=== PATIENT | female | born 1940 | race Caucasian/White ===

== ENCOUNTER → 2021-09-13 16:28 | Outpatient (CLI) | payer MEDICARE, OTHER, SELFPAY ==
[2021-09-13 18:12] LABS: COVID19 -Nasal RAPID Negative (Negative)
== END ==
PROVIDERS: Visit Provider Nurse Practitioner Family
DX: Z20.822 Contact with and (suspected) exposure to COVID-19 (principal)
CPT/HCPCS: 87635

== ENCOUNTER → 2021-09-13 16:35 | Outpatient (CLI) | payer MEDICARE, OTHER, SELFPAY ==
--- NOTE | 2021-09-13 16:38 | DI.RAD.S_ITS ---
PROCEDURE: XR CHEST 2V INDICATIONS: cough, fatigue TECHNIQUE: 2 views of the chest were acquired. COMPARISON: None. FINDINGS: Surgical changes and devices: Pacemaker. Lungs and pleura: Lungs are clear. No pleural effusions or pneumothorax. Mediastinum: Mediastinal contours are normal. Heart size is enlarged. Bones and chest wall: No suspicious bony abnormalities. Soft tissues appear unremarkable. IMPRESSION: No acute pulmonary process. Dictated by: Aaliyah Maloney M.D. on 09/13/2021 at 16:53 Approved by: Aaliyah Maloney M.D. on 09/13/2021 at 16:53
== END ==
PROVIDERS: Referring Provider Nurse Practitioner Family; Visit Provider Nurse Practitioner Family
DX: R05.9 Cough, unspecified (principal); R53.83 Other fatigue; I51.7 Cardiomegaly; Z20.822 Contact with and (suspected) exposure to COVID-19
CPT/HCPCS: 71046; 87635

== ENCOUNTER → 2022-01-06 12:34 | Outpatient (CLI) | payer MEDICARE, OTHER, SELFPAY ==
--- NOTE | 2022-01-06 | DI.RAD.S_ITS ---
PROCEDURE: XR CHEST 2V INDICATIONS: Unspecified atrial fibrillation TECHNIQUE: 2 views of the chest were acquired. COMPARISON: [facility], CR, XR CHEST 2V, 09/13/2021, 16:35. FINDINGS: Surgical changes and devices: None. Lungs and pleura: Lungs are clear. No pleural effusions or pneumothorax. Mediastinum: Mediastinal contours are normal. Heart size is normal. Bones and chest wall: No suspicious bony abnormalities. Soft tissues appear unremarkable. IMPRESSION: No acute cardiopulmonary process demonstrated radiographically. Dictated by: Archie Mireles M.D. on 01/06/2022 at 14:11 Approved by: Archie Mireles M.D. on 01/06/2022 at 14:11
== END ==
PROVIDERS: PCP Physician Assistant Medical; Referring Provider Internal Medicine Cardiovascular Disease; Visit Provider Internal Medicine Cardiovascular Disease
DX: I13.0 Hypertensive heart and chronic kidney disease with heart failure and stage 1 through stage 4 chronic kidney disease, or unspecified chronic kidney disease (principal); N18.32 Chronic kidney disease, stage 3b; I50.22 Chronic systolic (congestive) heart failure; I48.0 Paroxysmal atrial fibrillation; E78.00 Pure hypercholesterolemia, unspecified; Z51.81 Encounter for therapeutic drug level monitoring; Z79.899 Other long term (current) drug therapy
CPT/HCPCS: 71046

== ENCOUNTER → 2022-02-11 13:19 | Outpatient (CLI) | payer MEDICARE, OTHER, SELFPAY ==
[2022-02-11 14:30] LABS: COVID19 -Nasal RAPID Negative (Negative)
== END ==
PROVIDERS: PCP Physician Assistant Medical; Referring Provider Internal Medicine; Visit Provider Internal Medicine
DX: Z20.822 Contact with and (suspected) exposure to COVID-19 (principal)
CPT/HCPCS: 87635; C9803

== ENCOUNTER → 2022-02-11 13:22 | Outpatient (CLI) | payer MEDICARE, OTHER, SELFPAY ==
--- NOTE | 2022-02-16 11:07 | PM.PFT.1 ---
Pulmonary Function Test Referral & Results Date Patient Seen: 02/11/22 Requesting provider: Des Main Results: The spirometry demonstrates an FVC of 1.75 L which is 59% of predicted. The FEV1 was measured at 1.26 L which is 57% of predicted. The FEV1/FVC ratio was 72 which is 98% of predicted. The diffusing capacity was measured at 12.4 rate which is 42% of predicted. No hemoglobin value was provided, so no correction for potential anemia could be made, if appropriate. Interpretation: This study demonstrates possible obstructive lung disease based on reduction FEV1 although FEV1/FVC ratio is preserved There is also moderately severe reduction diffusing capacity suggesting disease at the capillary alveolar level Clinical correlation suggested
== END ==
PROVIDERS: PCP Physician Assistant Medical; Referring Provider Internal Medicine Cardiovascular Disease; Visit Provider Internal Medicine Cardiovascular Disease
DX: Z20.822 Contact with and (suspected) exposure to COVID-19 (principal); Z79.899 Other long term (current) drug therapy; J98.8 Other specified respiratory disorders
CPT/HCPCS: 87635; 94010; 94729; C9803

== ENCOUNTER 2022-05-04 20:32 | Emergency (ER) | payer MEDICARE, OTHER, SELFPAY ==
[2022-05-04] VITALS (9 sets, daily range): BP systolic 134–153; BP diastolic 71–88; PULSE 79–102; RESP 20–34; TEMP 36.7; O2SAT 86–99; BMI 23.1
--- NOTE | 2022-05-04 20:35 | DI.RAD.S_ITS ---
PROCEDURE: XR CHEST 1V INDICATIONS: SOB TECHNIQUE: One view of the chest was acquired. COMPARISON: [facility], CR, XR CHEST 2V, 01/06/2022, 12:51. FINDINGS: Surgical changes and devices: Left chest wall 3 lead cardiac pacing device. Lungs and pleura: Diffusely increased interstitial markings with cephalization of pulmonary vessels. Possible small left pleural effusion. Mediastinum: Mediastinal contours appear normal. Heart size is enlarged. Bones and chest wall: No suspicious bony lesions. Overlying soft tissues appear unremarkable. IMPRESSION: Cardiomegaly with moderate interstitial and alveolar edema and possible small left pleural effusion. Dictated by: Archie Mireles M.D. on 05/04/2022 at 20:59 Approved by: Archie Mireles M.D. on 05/04/2022 at 20:59
--- NOTE | 2022-05-04 20:40 | ED_ITS ---
HPI - SOB/Dyspnea General Chief Complaint: Shortness of Breath/Dyspnea Stated Complaint: SOB x3days Time Seen by Provider: 05/04/22 20:34 History of Present Illness HPI Narrative: 81-year-old female nonsmoker with history of hypertension, hyperlipidemia and congestive heart failure presents with family in the chief complaint of gradually worsening shortness of breath over the past few days. She is had no fever or chills and denies runny nose, sore throat or cough. She denies any na usea, vomiting or diarrhea. She denies any change in her diet or medications though she does mention that it does not seem like her normal dose of Lasix has been making her urinate as much as previously. She states that her shortness of breath is worse with exertion and with lying flat. She has had some cough but denies the production of any sputum. She does not frequently weigh herself but states that her lower extremities seem a bit swollen. Related Data Home Medications Medication Instructions Recorded Confirmed amiodarone 200 mg tablet 200 mg PO DAILY 09/13/21 09/13/21 atorvastatin 20 mg tablet 20 mg PO QPM 09/13/21 09/13/21 bethanechol chloride 25 mg tablet 25 mg PO TID 09/13/21 09/13/21 carvedilol 25 mg tablet 25 mg PO BID 09/13/21 09/13/21 dabigatran etexilate 75 mg capsule 75 mg PO BID 09/13/21 09/13/21 (Pradaxa) dicyclomine 20 mg tablet 20 mg PO BID 09/13/21 09/13/21 furosemide 40 mg tablet 40 mg PO BID 09/13/21 09/13/21 gabapentin 600 mg tablet 600 mg PO TID 09/13/21 09/13/21 levothyroxine 112 mcg capsule 112 mcg PO DAILY 09/13/21 09/13/21 omeprazole 40 mg capsule,delayed 40 mg PO DAILY 09/13/21 09/13/21 release pantoprazole 20 mg tablet,delayed 20 mg PO DAILY 09/13/21 09/13/21 release ropinirole 0.5 mg tablet 0.5 mg PO BEDTIME 09/13/21 09/13/21 Previous Rx's Medication Instructions Recorded benzonatate 100 mg capsule 100 mg PO BID PRN cough #20 caps 09/13/21 Allergies Allergy/AdvReac Type Severity Reaction Status Date / Time No Known Drug Allergies Allergy Unverified 09/13/21 16:21 Review of Systems Review of Systems Narrative: GENERAL: Denies chills, fatigue, malaise, fever, sweats. HEENT: Denies sinus pain, ear pain, sore throat, difficulty swallowing, dizziness. RESPIRATORY: See HPI CARDIOVASCULAR: See HPI GASTROINTESTINAL: Denies nausea, vomiting, abdominal pain, diarrhea, const ipation, melena. : Denies dysuria, frequency, incontinence, hematuria, urinary retention. MUSCULOSKELETAL: denies weakness, joint pain, or bony pain SKIN: Denies rash, skin lesions, or other NEUROLOGIC: Denies weakness, headache, numbness, change in speech, confusion, seizures, incoordination. PSYCHIATRIC: No concerning psychosocial issues. 12 point review of systems is negative except for those stated above Patient History Social History Smoking Status: Never smoker Smoking Status: Never smoker Exam Narrative Exam Narrative: GENERAL: [81] year old patient appears stated age. Well-developed patient, in mild distress. HEAD: Atraumatic. Normocephalic. EYES: Pupils equal round and reactive. Extraocular motions intact. No scleral icterus. No injection or drainage. ENT: Nose without bleeding, purulent drainage. Throat without erythema, tonsillar hypertrophy or exudate. Airway patent. NECK: Trachea midline. Non tender CARDIOVASCULAR: Regular rate and rhythm without murmurs, gallops, or rubs. RESPIRATORY: Faint crackles noted in bilateral bases, no significant increased work of breathing, use of accessory muscles or hypoxemia GASTROINTESTINAL: Abdomen soft, non-tender, nondistended. EXTREMITIES: 1+ pitting edema bilateral lower extremities. BACK: Nontender without deformity or crepitance. No flank tenderness. NEURO: AOx3. SKIN: No rash or erythema of visible areas Initial Vital Signs Initial Vital Signs: Vital Signs Pulse Rate 85 05/04/22 20:36 Pulse Oximetry 97 05/04/22 20:36 Course Orders Ordered: Discontinued Medications Furosemide (Furosemide 40 Mg/4 Ml Vial) 40 mg IV NOW ONE Stop: 05/04/22 22:40 Last Admin: 05/04/22 23:03 Dose: 40 mg Documented By: EB Sodium Chloride (Normal Saline 0.9%) 1,000 mls @ 150 mls/hr IV CONT MATEUS Last Infusion: 05/05/22 00:49 Dose: 150 mls/hr Documented By: Admin: 05/04/22 20:50 Dose: 150 mls/hr Documented By: EDUARDO Vital Signs Vital signs: Vital Signs - 8 hr 05/04/22 21:00 05/04/22 21:00 05/04/22 21:30 Pulse Rate 81 Respiratory Rate 24 Blood Pressure 146/80 H 153/75 H Pulse Oximetry 97 05/04/22 21:30 05/04/22 22:00 05/04/22 22:00 Pulse Rate 84 81 Respiratory Rate 22 Blood Pressure 140/72 Pulse Oximetry 96 97 05/04/22 22:30 05/04/22 22:30 05/04/22 23:00 Pulse Rate 79 80 Respiratory Rate 20 34 H Blood Pressure 147/82 H Pulse Oximetry 97 86 L 05/04/22 23:01 05/04/22 23:01 05/04/22 23:30 Pulse Rate 84 80 Respiratory Rate 32 H 27 H Blood Pressure 135/71 Pulse Oximetry 97 99 05/05/22 00:00 Pulse Rate 82 Respiratory Rate 35 H Blood Pressure Pulse Oximetry 94 MDM - SOB/Dyspnea Lab Data Result diagrams: 05/04/22 20:40 05/04/22 20:40 Labs: Lab Results 05/04/22 05/04/22 05/04/22 Range/Units 20:40 20:40 20:40 WBC 5.9 (4.5-11.0) X10^3/uL RBC 3.42 L (4.0-5.2) X10^6/uL Hgb 10.7 L (12.0-16.0) g/dL Hct 32.2 L (36-46) % MCV 94.1 (80-100) fL MCH 31.3 (26-34) PG MCHC 33.2 (30-36) % RDW 15.3 H (11.6-14.8) % Plt Count 229 (150-400) X10^3/uL Neut % (Auto) 69.8 (50-75) % Lymph % (Auto) 17.4 L (25-40) % [place] % (Auto) 8.5 (3-14) % Eos % (Auto) 2.9 (2-4) % Baso % (Auto) 1.4 (0-2) % Neut # (Auto) 4100 (9683-9043) /uL Lymph # (Auto) 1000 L (9389-6470) /uL [place] # (Auto) 500 (0-900) /uL Eos # (Auto) 200 (0-450) /uL Baso # (Auto) 100 (0-100) /uL D-Dimer < 200 (<230) ng/mL Sodium (137-145) mmol/L Potassium (3.4-5.1) mmol/L Chloride (98-107) mmol/L Carbon Dioxide (22-32) mmol/L BUN (7-17) mg/dL Creatinine (0.52-1.04) mg/dL Estimated GFR (>60) mL/min BUN/Creatinine Ratio (6-22) Glucose (80-110) mg/dL Calcium (8.4-10.2) mg/dL Total Bilirubin (0.2-1.3) mg/dL AST (14-36) IU/L ALT (<35) IU/L Alkaline Phosphatase (38-126) U/L Total Creatine Kinase (30-135) U/L CK-MB (CK-2) (<2.37) ng/mL CK-MB (CK-2) Rel Index (1.5-5.0) % Troponin I (0.01-0.034) ng/mL NT-Pro-B Natriuret Pep (<450) pg/mL Total Protein (6.3-8.2) g/dL Albumin (3.5-5.0) g/dL Globulin (1.7-4.1) g/dL Albumin/Globulin Ratio (1.0-2.8) Lipase (23-300) U/L Procalcitonin 0.07 (<0.5) ng/mL SARS-CoV-2 (PCR) (Negative) 05/04/22 05/04/22 Range/Units 20:40 20:45 WBC (4.5-11.0) X10^3/uL RBC (4.0-5.2) X10^6/uL Hgb (12.0-16.0) g/dL Hct (36-46) % MCV (80-100) fL MCH (26-34) PG MCHC (30-36) % RDW (11.6-14.8) % Plt Count (150-400) X10^3/uL Neut % (Auto) (50-75) % Lymph % (Auto) (25-40) % [place] % (Auto) (3-14) % Eos % (Auto) (2-4) % Baso % (Auto) (0-2) % Neut # (Auto) (8325-2994) /uL Lymph # (Auto) (7047-9164) /uL [place] # (Auto) (0-900) /uL Eos # (Auto) (0-450) /uL Baso # (Auto) (0-100) /uL D-Dimer (<230) ng/mL Sodium 138 (137-145) mmol/L Potassium 3.5 (3.4-5.1) mmol/L Chloride 102 (98-107) mmol/L Carbon Dioxide 27 (22-32) mmol/L BUN 24 H (7-17) mg/dL Creatinine 1.36 H (0.52-1.04) mg/dL Estimated GFR 39 L (>60) mL/min BUN/Creatinine Ratio 17.6 (6-22) Glucose 113 H (80-110) mg/dL Calcium 9.7 (8.4-10.2) mg/dL Total Bilirubin 0.5 (0.2-1.3) mg/dL AST 38 H (14-36) IU/L ALT 22 (<35) IU/L Alkaline Phosphatase 73 (38-126) U/L Total Creatine Kinase 130 (30-135) U/L CK-MB (CK-2) 6.77 H (<2.37) ng/mL CK-MB (CK-2) Rel Index 5.2 H (1.5-5.0) % Troponin I 0.019 (0.01-0.034) ng/mL NT-Pro-B Natriuret Pep 36789 H (<450) pg/mL Total Protein 7.3 (6.3-8.2) g/dL Albumin 4.2 (3.5-5.0) g/dL Globulin 3.1 (1.7-4.1) g/dL Albumin/Globulin Ratio 1.4 (1.0-2.8) Lipase 92 (23-300) U/L Procalcitonin (<0.5) ng/mL SARS-CoV-2 (PCR) Negative (Negative) Imaging Data Chest x-ray: Radiologist's Impression: [address] [address] XRay Report Signed Patient: Shannon Feliz MR#: [id number] : 1940 Acct:[id number] Age/Sex: 81 / F Date of Service: 05/04/22 Loc: ED Accession Number: [id number] ?? Procedure: XR chest 1V Ordering Provider: Dheeraj Manriquez D.O. PROCEDURE:? XR CHEST 1V ? INDICATIONS:? SOB ? TECHNIQUE:? One view of the chest was acquired.? ? COMPARISON:? [facility], CR, XR CHEST 2V, 01/06/2022, 12:51. ? FINDINGS:? ? Surgical changes and devices:? Left chest wall 3 lead cardiac pacing device. ? Lungs and pleura:? Diffusely increased interstitial markings with cephalization of pulmonary vessels.? Possible small left pleural effusion. ? Mediastinum:? Mediastinal contours appear normal.? Heart size is enlarged. ? Bones and chest wall:? No suspicious bony lesions.? Overlying soft tissues appear unremarkable.? ? IMPRESSION:? Cardiomegaly with moderate interstitial and alveolar edema and possible small left pleural effusion. ? ? Dictated by: Archie Mireles M.D. on 05/04/2022 at 20:59 ? ? Approved by: Archie Mireles M.D. on 05/04/2022 at 20:59 ? MDM Narrative Medical decision making narrative: 81-year-old female with history of CHF presents with complaint of increasing sh ortness of breath over the past few days. Her history and physical are most convincing for CHF as she complains of exertional dyspnea, orthopnea, lower extremity edema, noticing that her Lasix does not seem to be producing urine, elevated BNP and chest x-ray convincing for CHF. She is given 40 mg of Lasix and produces dilute urine. After which she feels much better and is able to ambulate through the department. She does become minimally short of breath and has desaturation to 89% while walking which resolves in less than 1 minute when at rest. Other diagnoses such as cardiac ischemia considered but thought unlikely given troponin abnormalities or EKG changes. Pneumonia considered but patient has no fever, procalcitonin or classic findings on chest x-ray. Pulmonary embolism considered but thought unlikely given negative D-dimer. There is no indication for hospitalization at this time, extensive discussions regarding return precautions with patient and family. We sure the opinion that is appropriate and reasonable to discharge patient, encouraged increased dosing of Lasix for the next few days, follow closely and return for any worsening, or persistent symptoms, or other concerns. Discharge Plan Departure Patient Disposition: Home Clinical Impression: Congestive heart failure Qualifiers: Heart failure type: unspecified Heart failure chronicity: acute on chronic Qualified Code(s): I50.9 - Heart failure, unspecified Instructions: DI for Heart Failure Activity Restrictions/Additional Instructions: *You have been diagnosed with [acute on chronic CHF] *What to do: *Please increase your Lasix to 80 mg both in the morning at night for each of the next 3 days. *Please follow up with your primary care provider in 2-3 days, call for an appointment. Let them know you were seen in the Emergency Department and that we ask that you be seen in follow up. We will electronically transmit a record of today's note if your PCP is in our system *If you do not have a primary care provider please contact the [facility] Resource line at [phone]. They will ask some questions about your medical history and help get you set up with a doctor in the community. *Return to Emergency Department if you should have any new, worsening or concerning symptoms, such as [fever greater than 101 F, shaking chills, worsening pain, persistent vomiting or other bothersome symptoms] Prescriptions: No Action pantoprazole 20 mg tablet,delayed release (DR/EC) 20 mg PO DAILY amiodarone 200 mg tablet 200 mg PO DAILY bethanechol chloride 25 mg tablet 25 mg PO TID carvedilol 25 mg tablet 25 mg PO BID Rx Instructions: must administer with a meal/food omeprazole 40 mg capsule,delayed release(DR/EC) 40 mg PO DAILY furosemide 40 mg tablet 40 mg PO BID gabapentin 600 mg tablet 600 mg PO TID levothyroxine 112 mcg capsule 112 mcg PO DAILY dicyclomine 20 mg tablet 20 mg PO BID Pradaxa 75 mg capsule 75 mg PO BID atorvastatin 20 mg tablet 20 mg PO QPM ropinirole 0.5 mg tablet 0.5 mg PO BEDTIME Rx Instructions: administer 1-3 hours before bedtime benzonatate 100 mg capsule 100 mg PO BID PRN (Reason: cough) Qty: 20 0RF Referrals: Lesli Lomeli PA-C [Primary Care Provider] - Visit Report Forms: Patient Portal/API
[2022-05-04] MEDS: SODIUM CHLORIDE 0.9% 1,000 ML 150 ML IV (20:50)
[2022-05-04 21:07] LABS: Add Manual Diff / Slide Review NO; Alanine Aminotransferase 22 IU/L (<35); Albumin 4.2 g/dL (3.5-5.0); Albumin Globulin Ratio 1.4 (1.0-2.8); Alkaline Phosphatase 73 U/L (38-126); Aspartate Aminotransferase 38 IU/L (14-36); BUN Creatinine Ratio 17.6 (6-22); Basophils Absolute Auto 100 /uL (0-100); Basophils Percent Auto 1.4 % (0-2); Bilirubin Total 0.5 mg/dL (0.2-1.3); Blood Urea Nitrogen 24 mg/dL (7-17); Calcium 9.7 mg/dL (8.4-10.2); Carbon Dioxide 27 mmol/L (22-32); Chloride 102 mmol/L (98-107); Creatine Kinase 130 U/L (30-135); D Dimer < 200 ng/mL (<230); Eosinophils Absolute Auto 200 /uL (0-450); Eosinophils Percent Auto 2.9 % (2-4); Estimated Glomerular Filt Rate 39 mL/min (>60); Globulin 3.1 g/dL (1.7-4.1); Glucose 113 mg/dL (80-110); HEMOLYSIS < 15 (0-50); Hematocrit 32.2 % (36-46); Hemoglobin 10.7 g/dL (12.0-16.0); Lipase 92 U/L (23-300); Lymphocytes Absolute Auto 1000 /uL (1100-4500); Lymphocytes Percent Auto 17.4 % (25-40); Mean Corpuscular HGB Conc 33.2 % (30-36); Mean Corpuscular Hemoglobin 31.3 PG (26-34); Mean Corpuscular Volume 94.1 fL (80-100); Monocytes Absolute Auto 500 /uL (0-900); Monocytes Percent Auto 8.5 % (3-14); Neutrophils Absolute Auto 4100 /uL (1500-7000); Neutrophils Percent Auto 69.8 % (50-75); Platelet Count 229 X10^3/uL (150-400); Potassium 3.5 mmol/L (3.4-5.1); Red Blood Cell Count 3.42 X10^6/uL (4.0-5.2); Red Cell Distribution Width 15.3 % (11.6-14.8); Sodium 138 mmol/L (137-145); Total Protein 7.3 g/dL (6.3-8.2); White Blood Cell Count 5.9 X10^3/uL (4.5-11.0)
[2022-05-04 21:12] LABS: COVID19 -Nasal RAPID Negative (Negative)
[2022-05-04 21:19] LABS: NT-proBNP (BNP-Adult 18+) 10200 pg/mL (<450); Troponin I 0.019 ng/mL (0.01-0.034)
[2022-05-04 21:22] LABS: CKMB % Relative Index 5.2 % (1.5-5.0); Creatine Kinase MB 6.77 ng/mL (<2.37)
[2022-05-04 21:23] LABS: Procalcitonin 0.07 ng/mL (<0.5)
[2022-05-04] MEDS: FUROSEMIDE 40 MG/4 ML VIAL IV (23:03)
[2022-05-05] VITALS: PULSE 82; RESP 35; O2SAT 94
== END 2022-05-05 00:49 | disposition home or self-care (01) ==
PROVIDERS: Emergency Provider Emergency Medicine; PCP Physician Assistant Medical
DX: I50.9 Heart failure, unspecified (principal); R06.02 Shortness of breath; Z20.822 Contact with and (suspected) exposure to COVID-19; I11.0 Hypertensive heart disease with heart failure; Z95.0 Presence of cardiac pacemaker
CPT/HCPCS: 71045; 80053; 82550; 82553; 83690; 83880; 84145; 84484; 85025; 85379; 87635; 93005; 96361; 96374; 99284; C9803; J1940

== ENCOUNTER → 2022-07-06 13:25 | Outpatient (CLI) | payer MEDICARE, OTHER, SELFPAY ==
--- NOTE | 2022-07-06 | DI.RAD.S_ITS ---
PROCEDURE: FL BARIUM SWALLOW INDICATIONS: Dysphagia, unspecified COMPARISON: None. FINDINGS: Function: There is normal esophageal peristalsis. No spontaneous gastroesophageal reflux. There is normal transit of a calibrated barium tablet through the esophagus into the stomach. Morphology: Air-contrast images demonstrate normal mucosal morphology. Single contrast views show no esophageal strictures, extrinsic mass effects, or diverticula. Limited images of the stomach demonstrate normal appearance. IMPRESSION: Normal barium swallow. Dictated by: Jonathan Reyes M.D. on 07/06/2022 at 16:21 Approved by: Jonathan Reyes M.D. on 07/06/2022 at 16:22
== END ==
PROVIDERS: PCP Physician Assistant Medical; Referring Provider Internal Medicine Gastroenterology; Visit Provider Internal Medicine Gastroenterology
DX: R13.10 Dysphagia, unspecified (principal)
CPT/HCPCS: 74220

== ENCOUNTER 2022-07-27 14:16 | Emergency (ER) | payer MEDICARE, OTHER, SELFPAY ==
[2022-07-27] VITALS (7 sets, daily range): BP systolic 114–167; BP diastolic 61–81; PULSE 59–65; RESP 17–20; TEMP 36.3; O2SAT 91–96; BMI 22.0
--- NOTE | 2022-07-27 14:27 | DI.RAD.S_ITS ---
PROCEDURE: XR WRIST LT MIN 3V INDICATIONS: fall TECHNIQUE: 4 views of the wrist were acquired. COMPARISON: None. FINDINGS: Bones: On the lateral exam, there is fragmentation of a dorsal carpal bone with associated soft tissue swelling. Generalized decrease in osseous mineralization noted. Scaphoid view: Unremarkable Soft tissues: No suspicious soft tissue calcifications. Soft tissue swelling without radiopaque foreign body IMPRESSION: 1. Probable carpal bone fracture only noted on the lateral. Consider follow-up CT 2. Osteopenia Approved by: Bertin Mercado M.D. on 07/27/2022 at 14:31
--- NOTE | 2022-07-27 14:29 | DI.RAD.S_ITS ---
PROCEDURE: XR HAND LT MIN 3V INDICATIONS: fall TECHNIQUE: 3 views of the hand(s) acquired. COMPARISON: None. FINDINGS: Bones: No fractures or dislocations. Carpal bones are normally aligned. No suspicious bony lesions. Generalized decrease in osseous mineralization noted. Second MCP and 1st cm P arthritic changes Soft tissues: No suspicious soft tissue calcifications. IMPRESSION: Osteopenia without fracture intrinsic to the hand. Osteoarthritis Approved by: Bertin Mercado M.D. on 07/27/2022 at 14:42
--- NOTE | 2022-07-27 14:29 | DI.RAD.S_ITS ---
PROCEDURE: XR HIP W PEL IF DONE LT 2V INDICATIONS: fall TECHNIQUE: AP pelvis with lateral view(s) of the left hip(s). COMPARISON: None. FINDINGS: Bones: No fractures or dislocations. Pelvic ring appears intact. No suspicious bony lesions. Left femoral fixation is present. Hardware is intact. Arthritic changes are present within the hips bilaterally. Soft tissues: The visualized bowel gas pattern is normal. No suspicious soft tissue calcifications. IMPRESSION: No visualized acute fracture or dislocation. However, if clinical concern and/or pain persist, short interval imaging followup in 7-10 days is recommended, as occult injury cannot be definitively excluded. Dictated by: Aaliyah Maloney M.D. on 07/27/2022 at 15:42 Approved by: Aaliyah Maloney M.D. on 07/27/2022 at 15:43
--- NOTE | 2022-07-27 15:17 | ED_ITS ---
HPI - Fall <Judy Elena, DO - Last Filed: 07/29/22 17:04> General Chief Complaint: Trauma Stated Complaint: Fall, L wrist pain Time Seen by Provider: 07/27/22 14:56 Source: patient and family Mode of arrival: Family Vehicle History of Present Illness HPI Narrative: Patient is an 82-year-old female history of atrial fibrillation on Pradaxa, congestive heart failure presenting today after mechanical ground level fall. She says she when outside to let her dog out when she tripped and fell landing on her left side. Complains of left wrist pain and left hip pain. She did not hit her head she did not lose consciousness she has no neck pain no shoulder pain. Related Data Home Medications Medication Instructions Recorded Confirmed amiodarone 200 mg tablet 200 mg PO DAILY 09/13/21 07/28/22 atorvastatin 20 mg tablet 20 mg PO QPM 09/13/21 07/28/22 bethanechol chloride 25 mg tablet 25 mg PO TID 09/13/21 07/28/22 carvedilol 25 mg tablet 25 mg PO BID 09/13/21 07/28/22 dabigatran etexilate 75 mg capsule 75 mg PO BID 09/13/21 07/28/22 (Pradaxa) dicyclomine 20 mg tablet 20 mg PO BID 09/13/21 07/28/22 furosemide 40 mg tablet 40 mg PO BID 09/13/21 07/28/22 gabapentin 600 mg tablet 600 mg PO TID 09/13/21 07/28/22 levothyroxine 112 mcg capsule 112 mcg PO DAILY 09/13/21 07/28/22 omeprazole 40 mg capsule,delayed 40 mg PO DAILY 09/13/21 09/13/21 release pantoprazole 20 mg tablet,delayed 40 mg PO BID 09/13/21 07/28/22 release ropinirole 0.5 mg tablet 0.5 mg PO BEDTIME 09/13/21 07/28/22 losartan 25 mg tablet 12.5 mg 07/28/22 potassium chloride 10 mEq 10 meq PO 3XD 07/28/22 07/28/22 capsule,extended release Previous Rx's Medication Instructions Recorded benzonatate 100 mg capsule 100 mg PO BID PRN cough #20 caps 09/13/21 hydrocodone 5 mg-acetaminophen 325 1 tab PO Q6H PRN pain #20 tabs 07/27/22 mg tablet docusate sodium 100 mg capsule 100 mg PO BID PRN constipation #60 07/29/22 caps hydrocodone 5 mg-acetaminophen 325 1 tab PO Q6H PRN pain #20 tabs 07/29/22 mg tablet Allergies Allergy/AdvReac Type Severity Reaction Status Date / Time No Known Drug Allergies Allergy Verified 07/27/22 14:21 Review of Systems <Judy Elena DO - Last Filed: 07/29/22 17:04> Review of Systems Narrative: GENERAL: Denies chills,fever HEENT: Denies throat pain RESPIRATORY: Denies dyspnea, cough, wheezing CARDIOVASCULAR: Denies chest pain, palpitations GASTROINTESTINAL: Denies nausea, vomiting MUSCULOSKELETAL: See HPI SKIN: No rash, no laceration, no pruritus NEUROLOGIC: Denies weakness, dizziness, headache, numbness 8 point review of systems is negative except for those stated above and HPI Patient History <Judy Elena DO - Last Filed: 07/29/22 17:04> Social History household members: children Smoking Status: Never smoker Smoking Status: Never smoker alcohol intake frequency: 0-2 drinks per day Substance Use Type: does not use Exam <Judy Elena DO - Last Filed: 07/29/22 17:04> Initial Vital Signs Initial Vital Signs: Vital Signs Temperature 97.3 F L 07/27/22 14:21 Pulse Rate 59 L 07/27/22 14:21 Respiratory Rate 20 07/27/22 14:21 Blood Pressure 157/81 H 07/27/22 14:21 Pulse Oximetry 96 07/27/22 14:21 Oxygen Delivery Method 07/27/22 14:21 GENERAL: Alert very pleasant 82-year-old female HEENT: Head atraumatic,EOMI, pupils reactive, face symmetric, [moist] mucous membranes NECK: Nontender CARDIOVASCULAR: Regular rate and rhythm without murmurs, rubs or gallops. RESPIRATORY: Breath sounds equal bilaterally, no wheezes rales or rhonchi. ABDOMEN: Soft, nontender. Normoactive bowel sounds all 4 quadrants. No guarding or rebound. EXTREMITIES: Normal range of motion, no clubbing or edema. Neurovascularly intact Left hip is tender to touch. Attempted weight-bearing but 2 tender Left upper extremity no gross bony deformity distal radial pulse intact able to move fingers no pain at elbow NEUROLOGICAL: Alert and oriented x4. SKIN: Warm, dry, no laceration, no petechiae, no rashes or lesions. <Jesus Cazares MD - Last Filed: 08/02/22 20:41> Initial Vital Signs Initial Vital Signs: Vital Signs Temperature 97.3 F L 07/27/22 14:21 Pulse Rate 59 L 07/27/22 14:21 Respiratory Rate 20 07/27/22 14:21 Blood Pressure 157/81 H 07/27/22 14:21 Pulse Oximetry 96 07/27/22 14:21 Oxygen Delivery Method 07/27/22 14:21 <Michele Wagoner DO - Last Filed: 07/29/22 19:30> Initial Vital Signs Initial Vital Signs: Vital Signs Temperature 97.3 F L 07/27/22 14:21 Pulse Rate 59 L 07/27/22 14:21 Respiratory Rate 20 07/27/22 14:21 Blood Pressure 157/81 H 07/27/22 14:21 Pulse Oximetry 96 07/27/22 14:21 Oxygen Delivery Method 07/27/22 14:21 <Aimee Florence, DO - Last Filed: 07/31/22 16:16> Initial Vital Signs Initial Vital Signs: Vital Signs Temperature 97.3 F L 07/27/22 14:21 Pulse Rate 59 L 07/27/22 14:21 Respiratory Rate 20 07/27/22 14:21 Blood Pressure 157/81 H 07/27/22 14:21 Pulse Oximetry 96 07/27/22 14:21 Oxygen Delivery Method 07/27/22 14:21 Procedures <Judy Elena DO - Last Filed: 07/29/22 17:04> Orthopedic Splinting/Casting Injury #1: Upper Extremity Injury Location: wrist Upper Extremity Immobilizer: sling/shoulder immobilizer and posterior splint Post splinting neuro exam: intact Post splinting vascular exam: intact Placed by: Nursing Additional Comments: The patient had posterior splint placed by nursing. Upon my evaluation fingers look slightly cyanotic is Gurinder wrap was rewrapped looser. This seemed to improve she has good distal radial pulse. Course <Judy Elena DO - Last Filed: 07/29/22 17:04> Orders Ordered: Discontinued Medications Hydrocodone Bitart/Acetaminophen (Hydrocodone/Acet 5/325 Tablet) 1 tab PO NOW ONE Stop: 07/27/22 17:08 Last Admin: 07/27/22 17:20 Dose: 1 tab Documented By: MAYA Hydrocodone Bitart/Acetaminophen (Hydrocodone/Acet 5/325 Tablet) 1 tab PO Q4HR [facility] Last Admin: 07/29/22 13:53 Dose: 1 tab Documented By: Admin: 07/29/22 10:57 Dose: 1 tab Documented By: Admin: 07/29/22 06:55 Dose: 1 tab Documented By: Admin: 07/29/22 03:39 Dose: 1 tab Documented By: Admin: 07/28/22 21:31 Dose: 1 tab Documented By: Admin: 07/28/22 18:17 Dose: 1 tab Documented By: Admin: 07/28/22 13:45 Dose: 1 tab Documented By: Admin: 07/28/22 10:49 Dose: 1 tab Documented By: Admin: 07/28/22 07:26 Dose: 1 tab Documented By: Admin: 07/28/22 01:48 Dose: 1 tab Documented By: Admin: 07/27/22 21:26 Dose: 1 tab Documented By: MIKA Amiodarone HCl (Amiodarone 200 Mg Tablet) 200 mg PO DAILY [facility] Last Admin: 07/29/22 08:48 Dose: 200 mg Documented By: Admin: 07/28/22 10:47 Dose: 200 mg Documented By: VLADIMIR Amlodipine Besylate (Amlodipine 5 Mg Tablet) 5 mg PO DAILY [facility] Last Admin: 07/29/22 08:47 Dose: 5 mg Documented By: Admin: 07/28/22 10:52 Dose: 5 mg Documented By: VLADIMIR Carvedilol (Carvedilol 12.5 Mg Tablet) 25 mg PO BID [facility] Last Admin: 07/29/22 08:47 Dose: 25 mg Documented By: Admin: 07/28/22 21:31 Dose: 25 mg Documented By: Admin: 07/28/22 10:47 Dose: 25 mg Documented By: Admin: 07/27/22 21:26 Dose: 25 mg Documented By: MIKA Dabigatran (Dabigatran 75 Mg Capsule) 75 mg PO BID [facility] Last Admin: 07/29/22 08:47 Dose: 75 mg Documented By: Admin: 07/28/22 21:30 Dose: 75 mg Documented By: Admin: 07/28/22 10:47 Dose: 75 mg Documented By: Admin: 07/27/22 21:25 Dose: 75 mg Documented By: MIKA Gabapentin (Gabapentin 600 Mg Tablet) 600 mg PO TID [facility] Last Admin: 07/29/22 08:47 Dose: 600 mg Documented By: Admin: 07/28/22 21:31 Dose: 600 mg Documented By: Admin: 07/28/22 14:51 Dose: 600 mg Documented By: Admin: 07/28/22 10:47 Dose: 600 mg Documented By: Admin: 07/27/22 21:25 Dose: 600 mg Documented By: MIKA Ceftriaxone Sodium 1,000 mg/ (Sodium Chloride) 100 mls @ 200 mls/hr IV NOW ONE Stop: 07/29/22 11:04 Last Infusion: 07/29/22 12:10 Dose: 0 mls/hr Documented By: Admin: 07/29/22 11:25 Dose: 200 mls/hr Documented By: PAULA Ropinirole HCl (Ropinirole 0.25 Mg Tablet) 0.5 mg PO NOW ONE Stop: 07/27/22 19:42 Last Admin: 07/27/22 21:26 Dose: 0.5 mg Documented By: MIKA Vital Signs Vital signs: Vital Signs - 8 hr 07/29/22 11:34 07/29/22 11:34 07/29/22 12:00 Pulse Rate 63 Blood Pressure 154/67 H 146/67 H Pulse Oximetry 90 L Oxygen Delivery Method Room Air Oxygen Flow Rate 07/29/22 12:00 Pulse Rate 60 Blood Pressure Pulse Oximetry 98 Oxygen Delivery Method Nasal Cannula Oxygen Flow Rate 2 <Jesus Cazares MD - Last Filed: 08/02/22 20:41> Course Course Narrative: July 27, 2022 at 6:[address] Elena, patient here with family. Is going to be evaluated for snf/rehab, social work involved. Physical therapy will need evaluation treatment. No new issues. Family and patient aware for plans for tomorrow. 6:50 p.m.. Introduced myself to patient and family. They do understand observation overnight/pain control and will resume looking for rehab/snf tomorrow. July 28, 2022 at 7:00 a.m., sign out back to Dr. Elena no new issues over the course of evening. Still will be awaiting for social work intervention evaluation and disposition Orders Ordered: Discontinued Medications Hydrocodone Bitart/Acetaminophen (Hydrocodone/Acet 5/325 Tablet) 1 tab PO NOW ONE Stop: 07/27/22 17:08 Last Admin: 07/27/22 17:20 Dose: 1 tab Documented By: MAYA Hydrocodone Bitart/Acetaminophen (Hydrocodone/Acet 5/325 Tablet) 1 tab PO Q4HR [facility] Last Admin: 07/29/22 13:53 Dose: 1 tab Documented By: Admin: 07/29/22 10:57 Dose: 1 tab Documented By: Admin: 07/29/22 06:55 Dose: 1 tab Documented By: Admin: 07/29/22 03:39 Dose: 1 tab Documented By: Admin: 07/28/22 21:31 Dose: 1 tab Documented By: Admin: 07/28/22 18:17 Dose: 1 tab Documented By: Admin: 07/28/22 13:45 Dose: 1 tab Documented By: Admin: 07/28/22 10:49 Dose: 1 tab Documented By: Admin: 07/28/22 07:26 Dose: 1 tab Documented By: Admin: 07/28/22 01:48 Dose: 1 tab Documented By: Admin: 07/27/22 21:26 Dose: 1 tab Documented By: MIKA Amiodarone HCl (Amiodarone 200 Mg Tablet) 200 mg PO DAILY [facility] Last Admin: 07/29/22 08:48 Dose: 200 mg Documented By: Admin: 07/28/22 10:47 Dose: 200 mg Documented By: VLADIMIR Amlodipine Besylate (Amlodipine 5 Mg Tablet) 5 mg PO DAILY [facility] Last Admin: 07/29/22 08:47 Dose: 5 mg Documented By: Admin: 07/28/22 10:52 Dose: 5 mg Documented By: VLADIMIR Carvedilol (Carvedilol 12.5 Mg Tablet) 25 mg PO BID [facility] Last Admin: 07/29/22 08:47 Dose: 25 mg Documented By: Admin: 07/28/22 21:31 Dose: 25 mg Documented By: Admin: 07/28/22 10:47 Dose: 25 mg Documented By: Admin: 07/27/22 21:26 Dose: 25 mg Documented By: MIKA Dabigatran (Dabigatran 75 Mg Capsule) 75 mg PO BID [facility] Last Admin: 07/29/22 08:47 Dose: 75 mg Documented By: Admin: 07/28/22 21:30 Dose: 75 mg Documented By: Admin: 07/28/22 10:47 Dose: 75 mg Documented By: Admin: 07/27/22 21:25 Dose: 75 mg Documented By: MIKA Gabapentin (Gabapentin 600 Mg Tablet) 600 mg PO TID [facility] Last Admin: 07/29/22 08:47 Dose: 600 mg Documented By: Admin: 07/28/22 21:31 Dose: 600 mg Documented By: Admin: 07/28/22 14:51 Dose: 600 mg Documented By: Admin: 07/28/22 10:47 Dose: 600 mg Documented By: Admin: 07/27/22 21:25 Dose: 600 mg Documented By: MIKA Ceftriaxone Sodium 1,000 mg/ (Sodium Chloride) 100 mls @ 200 mls/hr IV NOW ONE Stop: 07/29/22 11:04 Last Infusion: 07/29/22 12:10 Dose: 0 mls/hr Documented By: Admin: 07/29/22 11:25 Dose: 200 mls/hr Documented By: PAULA Ropinirole HCl (Ropinirole 0.25 Mg Tablet) 0.5 mg PO NOW ONE Stop: 07/27/22 19:42 Last Admin: 07/27/22 21:26 Dose: 0.5 mg Documented By: MIKA Vital Signs Vital signs: Vital Signs - 8 hr 07/29/22 11:34 07/29/22 11:34 07/29/22 12:00 Pulse Rate 63 Blood Pressure 154/67 H 146/67 H Pulse Oximetry 90 L Oxygen Delivery Method Room Air Oxygen Flow Rate 07/29/22 12:00 Pulse Rate 60 Blood Pressure Pulse Oximetry 98 Oxygen Delivery Method Nasal Cannula Oxygen Flow Rate 2 <Michele Wagoner DO - Last Filed: 07/29/22 19:30> Orders Ordered: Discontinued Medications Hydrocodone Bitart/Acetaminophen (Hydrocodone/Acet 5/325 Tablet) 1 tab PO NOW ONE Stop: 07/27/22 17:08 Last Admin: 07/27/22 17:20 Dose: 1 tab Documented By: MAYA Hydrocodone Bitart/Acetaminophen (Hydrocodone/Acet 5/325 Tablet) 1 tab PO Q4HR [facility] Last Admin: 07/29/22 13:53 Dose: 1 tab Documented By: Admin: 07/29/22 10:57 Dose: 1 tab Documented By: Admin: 07/29/22 06:55 Dose: 1 tab Documented By: Admin: 07/29/22 03:39 Dose: 1 tab Documented By: Admin: 07/28/22 21:31 Dose: 1 tab Documented By: Admin: 07/28/22 18:17 Dose: 1 tab Documented By: Admin: 07/28/22 13:45 Dose: 1 tab Documented By: Admin: 07/28/22 10:49 Dose: 1 tab Documented By: Admin: 07/28/22 07:26 Dose: 1 tab Documented By: Admin: 07/28/22 01:48 Dose: 1 tab Documented By: Admin: 07/27/22 21:26 Dose: 1 tab Documented By: MIKA Amiodarone HCl (Amiodarone 200 Mg Tablet) 200 mg PO DAILY [facility] Last Admin: 07/29/22 08:48 Dose: 200 mg Documented By: Admin: 07/28/22 10:47 Dose: 200 mg Documented By: VLADIMIR Amlodipine Besylate (Amlodipine 5 Mg Tablet) 5 mg PO DAILY [facility] Last Admin: 07/29/22 08:47 Dose: 5 mg Documented By: Admin: 07/28/22 10:52 Dose: 5 mg Documented By: VLADIMIR Carvedilol (Carvedilol 12.5 Mg Tablet) 25 mg PO BID [facility] Last Admin: 07/29/22 08:47 Dose: 25 mg Documented By: Admin: 07/28/22 21:31 Dose: 25 mg Documented By: Admin: 07/28/22 10:47 Dose: 25 mg Documented By: Admin: 07/27/22 21:26 Dose: 25 mg Documented By: MIKA Dabigatran (Dabigatran 75 Mg Capsule) 75 mg PO BID [facility] Last Admin: 07/29/22 08:47 Dose: 75 mg Documented By: Admin: 07/28/22 21:30 Dose: 75 mg Documented By: Admin: 07/28/22 10:47 Dose: 75 mg Documented By: Admin: 07/27/22 21:25 Dose: 75 mg Documented By: MIKA Gabapentin (Gabapentin 600 Mg Tablet) 600 mg PO TID [facility] Last Admin: 07/29/22 08:47 Dose: 600 mg Documented By: Admin: 07/28/22 21:31 Dose: 600 mg Documented By: Admin: 07/28/22 14:51 Dose: 600 mg Documented By: Admin: 07/28/22 10:47 Dose: 600 mg Documented By: Admin: 07/27/22 21:25 Dose: 600 mg Documented By: MIKA Ceftriaxone Sodium 1,000 mg/ (Sodium Chloride) 100 mls @ 200 mls/hr IV NOW ONE Stop: 07/29/22 11:04 Last Infusion: 07/29/22 12:10 Dose: 0 mls/hr Documented By: Admin: 07/29/22 11:25 Dose: 200 mls/hr Documented By: PAULA Ropinirole HCl (Ropinirole 0.25 Mg Tablet) 0.5 mg PO NOW ONE Stop: 07/27/22 19:42 Last Admin: 07/27/22 21:26 Dose: 0.5 mg Documented By: MIKA Vital Signs Vital signs: Vital Signs - 8 hr 07/29/22 11:34 07/29/22 11:34 07/29/22 12:00 Pulse Rate 63 Blood Pressure 154/67 H 146/67 H Pulse Oximetry 90 L Oxygen Delivery Method Room Air Oxygen Flow Rate 07/29/22 12:00 Pulse Rate 60 Blood Pressure Pulse Oximetry 98 Oxygen Delivery Method Nasal Cannula Oxygen Flow Rate 2 <Aimee Florence DO - Last Filed: 07/31/22 16:16> Orders Ordered: Discontinued Medications Hydrocodone Bitart/Acetaminophen (Hydrocodone/Acet 5/325 Tablet) 1 tab PO NOW ONE Stop: 07/27/22 17:08 Last Admin: 07/27/22 17:20 Dose: 1 tab Documented By: MAYA Hydrocodone Bitart/Acetaminophen (Hydrocodone/Acet 5/325 Tablet) 1 tab PO Q4HR [facility] Last Admin: 07/29/22 13:53 Dose: 1 tab Documented By: Admin: 07/29/22 10:57 Dose: 1 tab Documented By: Admin: 07/29/22 06:55 Dose: 1 tab Documented By: Admin: 07/29/22 03:39 Dose: 1 tab Documented By: Admin: 07/28/22 21:31 Dose: 1 tab Documented By: Admin: 07/28/22 18:17 Dose: 1 tab Documented By: Admin: 07/28/22 13:45 Dose: 1 tab Documented By: Admin: 07/28/22 10:49 Dose: 1 tab Documented By: Admin: 07/28/22 07:26 Dose: 1 tab Documented By: Admin: 07/28/22 01:48 Dose: 1 tab Documented By: Admin: 07/27/22 21:26 Dose: 1 tab Documented By: MIKA Amiodarone HCl (Amiodarone 200 Mg Tablet) 200 mg PO DAILY [facility] Last Admin: 07/29/22 08:48 Dose: 200 mg Documented By: Admin: 07/28/22 10:47 Dose: 200 mg Documented By: VLADIMIR Amlodipine Besylate (Amlodipine 5 Mg Tablet) 5 mg PO DAILY [facility] Last Admin: 07/29/22 08:47 Dose: 5 mg Documented By: Admin: 07/28/22 10:52 Dose: 5 mg Documented By: VLADIMIR Carvedilol (Carvedilol 12.5 Mg Tablet) 25 mg PO BID [facility] Last Admin: 07/29/22 08:47 Dose: 25 mg Documented By: Admin: 07/28/22 21:31 Dose: 25 mg Documented By: Admin: 07/28/22 10:47 Dose: 25 mg Documented By: Admin: 07/27/22 21:26 Dose: 25 mg Documented By: MIKA Dabigatran (Dabigatran 75 Mg Capsule) 75 mg PO BID [facility] Last Admin: 07/29/22 08:47 Dose: 75 mg Documented By: Admin: 07/28/22 21:30 Dose: 75 mg Documented By: Admin: 07/28/22 10:47 Dose: 75 mg Documented By: Admin: 07/27/22 21:25 Dose: 75 mg Documented By: MIKA Gabapentin (Gabapentin 600 Mg Tablet) 600 mg PO TID [facility] Last Admin: 07/29/22 08:47 Dose: 600 mg Documented By: Admin: 07/28/22 21:31 Dose: 600 mg Documented By: Admin: 07/28/22 14:51 Dose: 600 mg Documented By: Admin: 07/28/22 10:47 Dose: 600 mg Documented By: Admin: 07/27/22 21:25 Dose: 600 mg Documented By: MIKA Ceftriaxone Sodium 1,000 mg/ (Sodium Chloride) 100 mls @ 200 mls/hr IV NOW ONE Stop: 07/29/22 11:04 Last Infusion: 07/29/22 12:10 Dose: 0 mls/hr Documented By: Admin: 07/29/22 11:25 Dose: 200 mls/hr Documented By: PAULA Ropinirole HCl (Ropinirole 0.25 Mg Tablet) 0.5 mg PO NOW ONE Stop: 07/27/22 19:42 Last Admin: 07/27/22 21:26 Dose: 0.5 mg Documented By: MIKA Vital Signs Vital signs: Vital Signs - 8 hr 07/29/22 11:34 07/29/22 11:34 07/29/22 12:00 Pulse Rate 63 Blood Pressure 154/67 H 146/67 H Pulse Oximetry 90 L Oxygen Delivery Method Room Air Oxygen Flow Rate 07/29/22 12:00 Pulse Rate 60 Blood Pressure Pulse Oximetry 98 Oxygen Delivery Method Nasal Cannula Oxygen Flow Rate 2 MDM - Fall <Judy Elena, DO - Last Filed: 07/29/22 17:04> Lab Data Result diagrams: 07/29/22 08:55 07/29/22 08:55 Labs: Lab Results 07/28/22 07/29/22 07/29/22 Range/Units 16:56 08:55 08:55 WBC 5.9 (4.5-11.0) X10^3/uL RBC 3.67 L (4.0-5.2) X10^6/uL Hgb 11.3 L (12.0-16.0) g/dL Hct 33.8 L (36-46) % MCV 92.2 (80-100) fL MCH 30.9 (26-34) PG MCHC 33.5 (30-36) % RDW 15.4 H (11.6-14.8) % Plt Count 184 (150-400) X10^3/uL Neut % (Auto) 71.9 (50-75) % Lymph % (Auto) 15.1 L (25-40) % Rich % (Auto) 10.1 (3-14) % Eos % (Auto) 2.0 (2-4) % Baso % (Auto) 0.9 (0-2) % Neut # (Auto) 4200 (3268-1701) /uL Lymph # (Auto) 900 L (7374-9568) /uL Rich # (Auto) 600 (0-900) /uL Eos # (Auto) 100 (0-450) /uL Baso # (Auto) 100 (0-100) /uL Sodium 131 L (137-145) mmol/L Potassium 4.4 (3.4-5.1) mmol/L Chloride 95 L (98-107) mmol/L Carbon Dioxide 29 (22-32) mmol/L BUN 31 H (7-17) mg/dL Creatinine 1.48 H (0.52-1.04) mg/dL Estimated GFR 35 L (>60) mL/min BUN/Creatinine Ratio 20.9 (6-22) Glucose 105 (80-110) mg/dL Calcium 10.1 (8.4-10.2) mg/dL Total Bilirubin 0.7 (0.2-1.3) mg/dL AST 28 (14-36) IU/L ALT 18 (<35) IU/L Alkaline Phosphatase 72 (38-126) U/L Total Creatine Kinase 90 (30-135) U/L CK-MB (CK-2) TNP CK-MB (CK-2) Rel Index TNP Troponin I 0.017 (0.01-0.034) ng/mL NT-Pro-B Natriuret Pep 4020 H (<450) pg/mL Total Protein 7.6 (6.3-8.2) g/dL Albumin 3.9 (3.5-5.0) g/dL Globulin 3.7 (1.7-4.1) g/dL Albumin/Globulin Ratio 1.1 (1.0-2.8) Urine RBC (0-5/HPF) Urine WBC (0-5/HPF) Urine Bacteria (None) Ur Culture Indicated? SARS-CoV-2 (PCR) Negative (Negative) 07/29/22 Range/Units 10:40 WBC (4.5-11.0) X10^3/uL RBC (4.0-5.2) X10^6/uL Hgb (12.0-16.0) g/dL Hct (36-46) % MCV (80-100) fL MCH (26-34) PG MCHC (30-36) % RDW (11.6-14.8) % Plt Count (150-400) X10^3/uL Neut % (Auto) (50-75) % Lymph % (Auto) (25-40) % Rich % (Auto) (3-14) % Eos % (Auto) (2-4) % Baso % (Auto) (0-2) % Neut # (Auto) (9591-5729) /uL Lymph # (Auto) (2056-3750) /uL Rich # (Auto) (0-900) /uL Eos # (Auto) (0-450) /uL Baso # (Auto) (0-100) /uL Sodium (137-145) mmol/L Potassium (3.4-5.1) mmol/L Chloride (98-107) mmol/L Carbon Dioxide (22-32) mmol/L BUN (7-17) mg/dL Creatinine (0.52-1.04) mg/dL Estimated GFR (>60) mL/min BUN/Creatinine Ratio (6-22) Glucose (80-110) mg/dL Calcium (8.4-10.2) mg/dL Total Bilirubin (0.2-1.3) mg/dL AST (14-36) IU/L ALT (<35) IU/L Alkaline Phosphatase (38-126) U/L Total Creatine Kinase (30-135) U/L CK-MB (CK-2) CK-MB (CK-2) Rel Index Troponin I (0.01-0.034) ng/mL NT-Pro-B Natriuret Pep (<450) pg/mL Total Protein (6.3-8.2) g/dL Albumin (3.5-5.0) g/dL Globulin (1.7-4.1) g/dL Albumin/Globulin Ratio (1.0-2.8) Urine RBC None seen (0-5/HPF) Urine WBC 5-10/hpf H (0-5/HPF) Urine Bacteria Many (>30) H (None) Ur Culture Indicated? Specimen cultured SARS-CoV-2 (PCR) (Negative) Urine Dip Bedside Urine Glucose Negative Bedside Urine Bilirubin - Negative Bedside Urine Ketone - Negative Urine Specific [place] 1.015 Bedside Urine Occult Blood - Negative Bedside Urine pH 6.0 Bedside Urine Protein +/- 15 Bedside Urine Urobilinogen - Negative Bedside Urine Nitrite - Negative Bedside Urine Leukocytes ++ 125 Esterase Imaging Data Extremity x-ray #1: Radiologist's Impression: PROCEDURE:? XR WRIST LT MIN 3V ? INDICATIONS: fall ? TECHNIQUE:? 4 views of the wrist were acquired.? ? COMPARISON:? None. ? FINDINGS:? ? Bones:? On the lateral exam, there is fragmentation of a dorsal carpal bone with associated soft tissue swelling. Generalized decrease in osseous mineralization noted. ? Scaphoid view:? Unremarkable ? Soft tissues:? No suspicious soft tissue calcifications.? Soft tissue swelling without radiopaque foreign body ? IMPRESSION:? ? 1. Probable carpal bone fracture only noted on the lateral.? Consider follow-up CT ? ? 2. Osteopenia ? ? Approved by: Bertin Mercado M.D. on 07/27/2022 at 14:31? Extremity x-ray #2: Radiologist's Impression: Signed Patient: Shannon Feliz MR#: [id number] : 1940 Acct:[id number] Age/Sex: 82 / F Date of Service: 07/27/22 Loc: Accession Number: [id number] ?? Procedure: XR hand LT min 3V Ordering Provider: Judy Elena D.O. PROCEDURE:? XR HAND LT MIN 3V ? INDICATIONS:? fall ? TECHNIQUE:? 3 views of the hand(s) acquired.? ? COMPARISON:? None. ? FINDINGS:? ? Bones:? No fractures or dislocations.? Carpal bones are normally aligned.? No suspicious bony lesions.? Generalized decrease in osseous mineralization noted.? Second MCP and 1st cm P arthritic changes ? Soft tissues:? No suspicious soft tissue calcifications.? ? ? IMPRESSION:? ? Osteopenia without fracture intrinsic to the hand. ? Osteoarthritis ? ? ? Approved by: Bertin Mercado M.D. on 07/27/2022 at 14:42? Extremity x-ray #3: Radiologist's Impression: Signed Patient: Shannon Feliz MR#: [id number] : 1940 Acct:[id number] Age/Sex: 82 / F Date of Service: 07/27/22 Loc: ED Accession Number: [id number] ?? Procedure: XR hip w pel if done LT 2V Ordering Provider: Judy Elena D.O. PROCEDURE:? XR HIP W PEL IF DONE LT 2V ? INDICATIONS:? fall ? TECHNIQUE:? AP pelvis with lateral view(s) of the left hip(s).? ? COMPARISON:? None. ? FINDINGS:? ? Bones:? No fractures or dislocations.? Pelvic ring appears intact.? No suspicious bony lesions.? Left femoral fixation is present.? Hardware is intact.? Arthritic changes are present within the hips bilaterally. ? Soft tissues:? The visualized bowel gas pattern is normal.? No suspicious soft tissue calcifications.? ? ? IMPRESSION:? No visualized acute fracture or dislocation. However, if clinical concern and/or pain persist, short interval imaging followup in 7-10 days is recommended, as occult injury cannot be definitively excluded. ? Dictated by: Aaliyah Maloney M.D. on 07/27/2022 at 15:42 ? ? CT scan - head: Radiologist's Impression: Signed Patient: Shannon Feliz MR#: [id number] : 1940 Acct:[id number] Age/Sex: 82 / F Date of Service: 07/27/22 Loc: ED Accession Number: [id number] ?? Procedure: CT head/brain wo con Ordering Provider: Judy Elena D.O. PROCEDURE:? CT HEAD/BRAIN WO CON ? INDICATIONS:? fall on pradaxa ? TECHNIQUE:? Noncontrast 4.5 mm thick angled axial sections acquired from the foramen magnum to the vertex, with coronal and sagittal reformats.? For radiation dose reduction, the following was used:? automated exposure control, adjustment of mA and/or kV according to patient size.? ? COMPARISON:? None. ? FINDINGS:? Image quality:? Excellent.? ? CSF spaces:? Basal cisterns are patent.? No extra-axial fluid collections.? The ventricles are symmetric in size and shape.? ? Brain:? No intracranial bleeds or masses.? There is cerebral volume loss for age, with resultant ventricular and sulcal prominence.? There are periventricular and deep white matter chronic small vessel ischemic changes.? There is intracranial internal carotid artery atherosclerosis.? ? Skull and face:? Calvarium and visualized facial bones appear intact, without suspicious lesions.? ? Sinuses:? Visualized sinuses and mastoids are clear.? IMPRESSION:? No acute intracranial hemorrhage is seen.? ? No acute intracranial process is seen.? ? ? Dictated by: Stewart Ledezma M.D. on 07/27/2022 at 15:40 ? ? Approved by: Stewart Ledezma M.D. on 07/27/2022 at 15:40 ? CT Pelvis: Radiologist's Impression: Patient: Shannon Feliz MR#: [id number] : 1940 Acct:[id number] Age/Sex: 82 / F Date of Service: 07/27/22 Loc: ED Accession Number: [id number] ?? Procedure: CT pelvis wo con Ordering Provider: Judy Elena D.O. PROCEDURE:? CT PEL WO CON ? INDICATIONS:? left hip pain fall ? TECHNIQUE:? Noncontrast 3 mm axial sections acquired through the bony pelvis, with coronal and sagittal reformatting.? ? COMPARISON:? [facility], CR, XR HIP W PEL IF DONE LT 2V, 07/27/2022, 14:44. ? FINDINGS:? Image quality:? Excellent.? ? Bones:? Postsurgical changes are seen from prior proximal left femoral fracture fixation with 3 cannulated lag screws.? Metallic hardware is intact.? There is associated streak artifact.? Left proximal femoral fracture appears to be healed with mild residual deformity. ? Subtle nondisplaced fractures are seen at the left inferior pubic ramus at the midportion as well as at the medial portion of the left superior pubic ramus.? These fractures are not seen on the radiographs from earlier the same day even in retrospect.? Additional subtle small nondisplaced fracture at the lateral aspect of the left elisa sacrum extending into the sacroiliac joint, which is best visualized on coronal images. ? There is generalized osteopenia.? Degenerative changes are seen in the lumbar spine.? Mild degenerative changes in the pubic symphysis and bilateral hips. ? Soft tissues:? Mild soft tissue edema is seen adjacent to the osseous fractures.? The musculature surrounding the hips is normal in bulk.? No large soft tissue hematoma identified.? Aortic atherosclerotic calcifications are present. ? ? IMPRESSION:? 1. Nondisplaced fractures of the left superior and inferior pubic rami. 2. Small nondisplaced fracture of the lateral left sacrum extending into the sacroiliac joint. 3. Postsurgical changes from remote prior left proximal femoral fracture fixation.? ? Approved by: Polo Garcia M.D. on 07/27/2022 at 16:52? Chest x-ray: Radiologist's Impression: Signed Patient: Katina Ernandez R#: [id number]: 8Acct:[id number]/Sex: 82 / FDate of Service: 07/29/22Loc: EDAccession Number: [id number] Procedure: XR chest 1V Ordering Provider: Judy Elena D.O. PROCEDURE: XR CHEST 1V INDICATIONS: hypoxic TECHNIQUE: One view of the chest was acquired. COMPARISON: [facility], CR, XR CHEST 1 VIEW, 01/25/2021, 17:56. [facility], CR, XR CHEST 1V, 10/29/2021, 14:21. FINDINGS: Exam is markedly rotated which limits evaluation. Suspected lobar or multi segmental atelectasis in the right lung. There is otherwise no obvious abnormal airspace consolidation, pleural effusion, or pneumothorax. Grossly the heart appears to be normal in size although the degree of rotation does exaggerate the cardiomediastinal silhouette. IMPRESSION: Suggestion of lobar or multi segmental atelectasis in the right lung with right to left tracheal and mediastinal shift as well as airspace opacity in the right perihilar region with abrupt cut off of the right mainstem bronchus. Consider repeat examination in with upright two-view technique or obtaining a CT of the chest. Dictated by: Archie Mireles M.D. on 07/29/2022 at 13:21 MDM Narrative Medical decision making narrative: Patient does probably have a carpal bone fracture and left wrist without gross bony deformity. Initial x-ray of pelvis was negative however extreme pain upon standing and weight-bearing. CT does confirm a nondisplaced superior and inferior pubic rami and sacral fracture. Patient previously had a pelvic fracture they have multiple walkers at home including 1 for her arm. They would like to attempt to go home pain medication. Orthopedics has been called fluids did receive weight-bearing as tolerated and outpatient follow-up. Upon discharge family and patient decided this was too overwhelming and requested rehab placement. Social work in to evaluate however too late in the day for placement. Will need physical therapy evaluation. She will board here in the emergency department tonight until further placement in the be made. 07/28/22 Kassy Patient seen and evaluated this morning. Overall appears well. Waiting for physical therapy evaluation and rehab placement today. She is getting hydrocodone for pain which seems to help and she is tolerating it. 07/28-07/[address] wagoner: Received turned over. Patient has been stable overnight. Ambulated to the banner hroom. No lab tests pending. Care turned to day provider change of shift to continue with disposition. 07/29/22 Kassy Patient signed out to me by Dr. Wagoner.? I have seen evaluated patient myself this morning.? She actually has been using a walker very well getting up to the restroom she has gone twice already she still is requiring assistance.? She is noted to be hypoxic when she gets back from the restroom is 87% on room air it does come up to 91 or 92% is.? Yesterday she did have an episode of aspiration.? She says sometimes she is feeling short of breath.? She is on Pradaxa and has been getting it.? She denies any chest pain but says while at rest sometime she also feels short of breath.? At this time will check x-ray and blood work. GENERAL:? Alert pleasant 82-year-old female and in no acute distress. HEENT: Head atraumatic,EOMI, pupils reactive, face symmetric, moist mucous m embranes? CARDIOVASCULAR: Regular rate and rhythm without murmurs, rubs or gallops. RESPIRATORY:? Coarse breath sounds bilaterally without tachypnea speaks in full sentences no respiratory distress ABDOMEN: Soft, nontender.? Normoactive bowel sounds all 4 quadrants.? No guarding or rebound. EXTREMITIES: Normal range of motion, no clubbing or edema.? Neurovascularly intact Left arm in splint good cap refill NEUROLOGICAL: Alert and oriented x4. SKIN: Warm, dry, no laceration, no petechiae, no rashes or lesions. A/P 1. Mechanical fall with multiple fractures -left carpal fracture -left inferior superior pubic rami fracture -sacral fracture Have been awaiting placement at a rehab facility. Unable to get around independently at home 2. Atrial fib -on pradaxa and amlodipine, amiodarone 3. New hypoxia -check chest x-ray, blood work -possible aspiration from yesterday. Unlikely PE as she has been getting Pradaxa. He has also been using incentive spirometer is at bedside. Patient is new hypoxia is worked up. X-ray is negative. Blood work is overall reassuring. EKG does not show any abnormalities. She has been using incentive spirometer as well. She does appear to have UTI she has been up to the restroom frequently. She is given a dose of Rocephin and a prescription for Keflex. <Jesus Cazares MD - Last Filed: 08/02/22 20:41> Lab Data Labs: Lab Results 07/28/22 07/29/22 07/29/22 Range/Units 16:56 08:55 08:55 WBC 5.9 (4.5-11.0) X10^3/uL RBC 3.67 L (4.0-5.2) X10^6/uL Hgb 11.3 L (12.0-16.0) g/dL Hct 33.8 L (36-46) % MCV 92.2 (80-100) fL MCH 30.9 (26-34) PG MCHC 33.5 (30-36) % RDW 15.4 H (11.6-14.8) % Plt Count 184 (150-400) X10^3/uL Neut % (Auto) 71.9 (50-75) % Lymph % (Auto) 15.1 L (25-40) % Rich % (Auto) 10.1 (3-14) % Eos % (Auto) 2.0 (2-4) % Baso % (Auto) 0.9 (0-2) % Neut # (Auto) 4200 (4138-5154) /uL Lymph # (Auto) 900 L (9672-3106) /uL Rich # (Auto) 600 (0-900) /uL Eos # (Auto) 100 (0-450) /uL Baso # (Auto) 100 (0-100) /uL Sodium 131 L (137-145) mmol/L Potassium 4.4 (3.4-5.1) mmol/L Chloride 95 L (98-107) mmol/L Carbon Dioxide 29 (22-32) mmol/L BUN 31 H (7-17) mg/dL Creatinine 1.48 H (0.52-1.04) mg/dL Estimated GFR 35 L (>60) mL/min BUN/Creatinine Ratio 20.9 (6-22) Glucose 105 (80-110) mg/dL Calcium 10.1 (8.4-10.2) mg/dL Total Bilirubin 0.7 (0.2-1.3) mg/dL AST 28 (14-36) IU/L ALT 18 (<35) IU/L Alkaline Phosphatase 72 (38-126) U/L Total Creatine Kinase 90 (30-135) U/L CK-MB (CK-2) TNP CK-MB (CK-2) Rel Index TNP Troponin I 0.017 (0.01-0.034) ng/mL NT-Pro-B Natriuret Pep 4020 H (<450) pg/mL Total Protein 7.6 (6.3-8.2) g/dL Albumin 3.9 (3.5-5.0) g/dL Globulin 3.7 (1.7-4.1) g/dL Albumin/Globulin Ratio 1.1 (1.0-2.8) Urine RBC (0-5/HPF) Urine WBC (0-5/HPF) Urine Bacteria (None) Ur Culture Indicated? SARS-CoV-2 (PCR) Negative (Negative) 07/29/22 Range/Units 10:40 WBC (4.5-11.0) X10^3/uL RBC (4.0-5.2) X10^6/uL Hgb (12.0-16.0) g/dL Hct (36-46) % MCV (80-100) fL MCH (26-34) PG MCHC (30-36) % RDW (11.6-14.8) % Plt Count (150-400) X10^3/uL Neut % (Auto) (50-75) % Lymph % (Auto) (25-40) % Rich % (Auto) (3-14) % Eos % (Auto) (2-4) % Baso % (Auto) (0-2) % Neut # (Auto) (8588-8947) /uL Lymph # (Auto) (4779-0129) /uL Rich # (Auto) (0-900) /uL Eos # (Auto) (0-450) /uL Baso # (Auto) (0-100) /uL Sodium (137-145) mmol/L Potassium (3.4-5.1) mmol/L Chloride (98-107) mmol/L Carbon Dioxide (22-32) mmol/L BUN (7-17) mg/dL Creatinine (0.52-1.04) mg/dL Estimated GFR (>60) mL/min BUN/Creatinine Ratio (6-22) Glucose (80-110) mg/dL Calcium (8.4-10.2) mg/dL Total Bilirubin (0.2-1.3) mg/dL AST (14-36) IU/L ALT (<35) IU/L Alkaline Phosphatase (38-126) U/L Total Creatine Kinase (30-135) U/L CK-MB (CK-2) CK-MB (CK-2) Rel Index Troponin I (0.01-0.034) ng/mL NT-Pro-B Natriuret Pep (<450) pg/mL Total Protein (6.3-8.2) g/dL Albumin (3.5-5.0) g/dL Globulin (1.7-4.1) g/dL Albumin/Globulin Ratio (1.0-2.8) Urine RBC None seen (0-5/HPF) Urine WBC 5-10/hpf H (0-5/HPF) Urine Bacteria Many (>30) H (None) Ur Culture Indicated? Specimen cultured SARS-CoV-2 (PCR) (Negative) Urine Dip Bedside Urine Glucose Negative Bedside Urine Bilirubin - Negative Bedside Urine Ketone - Negative Urine Specific [place] 1.015 Bedside Urine Occult Blood - Negative Bedside Urine pH 6.0 Bedside Urine Protein +/- 15 Bedside Urine Urobilinogen - Negative Bedside Urine Nitrite - Negative Bedside Urine Leukocytes ++ 125 Esterase <Michele Wagoner DO - Last Filed: 07/29/22 19:30> Lab Data Labs: Lab Results 07/28/22 07/29/22 07/29/22 Range/Units 16:56 08:55 08:55 WBC 5.9 (4.5-11.0) X10^3/uL RBC 3.67 L (4.0-5.2) X10^6/uL Hgb 11.3 L (12.0-16.0) g/dL Hct 33.8 L (36-46) % MCV 92.2 (80-100) fL MCH 30.9 (26-34) PG MCHC 33.5 (30-36) % RDW 15.4 H (11.6-14.8) % Plt Count 184 (150-400) X10^3/uL Neut % (Auto) 71.9 (50-75) % Lymph % (Auto) 15.1 L (25-40) % Rich % (Auto) 10.1 (3-14) % Eos % (Auto) 2.0 (2-4) % Baso % (Auto) 0.9 (0-2) % Neut # (Auto) 4200 (1860-1438) /uL Lymph # (Auto) 900 L (6328-5900) /uL Rich # (Auto) 600 (0-900) /uL Eos # (Auto) 100 (0-450) /uL Baso # (Auto) 100 (0-100) /uL Sodium 131 L (137-145) mmol/L Potassium 4.4 (3.4-5.1) mmol/L Chloride 95 L (98-107) mmol/L Carbon Dioxide 29 (22-32) mmol/L BUN 31 H (7-17) mg/dL Creatinine 1.48 H (0.52-1.04) mg/dL Estimated GFR 35 L (>60) mL/min BUN/Creatinine Ratio 20.9 (6-22) Glucose 105 (80-110) mg/dL Calcium 10.1 (8.4-10.2) mg/dL Total Bilirubin 0.7 (0.2-1.3) mg/dL AST 28 (14-36) IU/L ALT 18 (<35) IU/L Alkaline Phosphatase 72 (38-126) U/L Total Creatine Kinase 90 (30-135) U/L CK-MB (CK-2) TNP CK-MB (CK-2) Rel Index TNP Troponin I 0.017 (0.01-0.034) ng/mL NT-Pro-B Natriuret Pep 4020 H (<450) pg/mL Total Protein 7.6 (6.3-8.2) g/dL Albumin 3.9 (3.5-5.0) g/dL Globulin 3.7 (1.7-4.1) g/dL Albumin/Globulin Ratio 1.1 (1.0-2.8) Urine RBC (0-5/HPF) Urine WBC (0-5/HPF) Urine Bacteria (None) Ur Culture Indicated? SARS-CoV-2 (PCR) Negative (Negative) 07/29/22 Range/Units 10:40 WBC (4.5-11.0) X10^3/uL RBC (4.0-5.2) X10^6/uL Hgb (12.0-16.0) g/dL Hct (36-46) % MCV (80-100) fL MCH (26-34) PG MCHC (30-36) % RDW (11.6-14.8) % Plt Count (150-400) X10^3/uL Neut % (Auto) (50-75) % Lymph % (Auto) (25-40) % Rich % (Auto) (3-14) % Eos % (Auto) (2-4) % Baso % (Auto) (0-2) % Neut # (Auto) (7364-2453) /uL Lymph # (Auto) (7024-2088) /uL Rich # (Auto) (0-900) /uL Eos # (Auto) (0-450) /uL Baso # (Auto) (0-100) /uL Sodium (137-145) mmol/L Potassium (3.4-5.1) mmol/L Chloride (98-107) mmol/L Carbon Dioxide (22-32) mmol/L BUN (7-17) mg/dL Creatinine (0.52-1.04) mg/dL Estimated GFR (>60) mL/min BUN/Creatinine Ratio (6-22) Glucose (80-110) mg/dL Calcium (8.4-10.2) mg/dL Total Bilirubin (0.2-1.3) mg/dL AST (14-36) IU/L ALT (<35) IU/L Alkaline Phosphatase (38-126) U/L Total Creatine Kinase (30-135) U/L CK-MB (CK-2) CK-MB (CK-2) Rel Index Troponin I (0.01-0.034) ng/mL NT-Pro-B Natriuret Pep (<450) pg/mL Total Protein (6.3-8.2) g/dL Albumin (3.5-5.0) g/dL Globulin (1.7-4.1) g/dL Albumin/Globulin Ratio (1.0-2.8) Urine RBC None seen (0-5/HPF) Urine WBC 5-10/hpf H (0-5/HPF) Urine Bacteria Many (>30) H (None) Ur Culture Indicated? Specimen cultured SARS-CoV-2 (PCR) (Negative) Urine Dip Bedside Urine Glucose Negative Bedside Urine Bilirubin - Negative Bedside Urine Ketone - Negative Urine Specific [place] 1.015 Bedside Urine Occult Blood - Negative Bedside Urine pH 6.0 Bedside Urine Protein +/- 15 Bedside Urine Urobilinogen - Negative Bedside Urine Nitrite - Negative Bedside Urine Leukocytes ++ 125 Esterase MDM Narrative Medical decision making narrative: Patient does probably have a carpal bone fracture and left wrist without gross bony deformity. Initial x-ray of pelvis was negative however extreme pain upon standing and weight-bearing. CT does confirm a nondisplaced superior and inferior pubic rami and sacral fracture. Patient previously had a pelvic fracture they have multiple walkers at home including 1 for her arm. They would like to attempt to go home pain medication. Orthopedics has been called fluids did receive weight-bearing as tolerated and outpatient follow-up. Upon discharge family and patient decided this was too overwhelming and requested rehab placement. Social work in to evaluate however too late in the day for placement. Will need physical therapy evaluation. She will board here in the emergency department tonight until further placement in the be made. 07/28/22 Kassy Patient seen and evaluated this morning. Overall appears well. Waiting for physical therapy evaluation and rehab placement today. She is getting hydrocodone for pain which seems to help and she is tolerating it. 07/28-07/[address] wagoner: Received turned over. Patient has been stable overnight. Ambulated to the bathroom. No lab tests pending. Care turned to day provider change of shift to continue with disposition. <Aimee Florence, DO - Last Filed: 07/31/22 16:16> Lab Data Labs: Lab Results 07/28/22 07/29/22 07/29/22 Range/Units 16:56 08:55 08:55 WBC 5.9 (4.5-11.0) X10^3/uL RBC 3.67 L (4.0-5.2) X10^6/uL Hgb 11.3 L (12.0-16.0) g/dL Hct 33.8 L (36-46) % MCV 92.2 (80-100) fL MCH 30.9 (26-34) PG MCHC 33.5 (30-36) % RDW 15.4 H (11.6-14.8) % Plt Count 184 (150-400) X10^3/uL Neut % (Auto) 71.9 (50-75) % Lymph % (Auto) 15.1 L (25-40) % Rich % (Auto) 10.1 (3-14) % Eos % (Auto) 2.0 (2-4) % Baso % (Auto) 0.9 (0-2) % Neut # (Auto) 4200 (6126-1674) /uL Lymph # (Auto) 900 L (2819-2667) /uL Rich # (Auto) 600 (0-900) /uL Eos # (Auto) 100 (0-450) /uL Baso # (Auto) 100 (0-100) /uL Sodium 131 L (137-145) mmol/L Potassium 4.4 (3.4-5.1) mmol/L Chloride 95 L (98-107) mmol/L Carbon Dioxide 29 (22-32) mmol/L BUN 31 H (7-17) mg/dL Creatinine 1.48 H (0.52-1.04) mg/dL Estimated GFR 35 L (>60) mL/min BUN/Creatinine Ratio 20.9 (6-22) Glucose 105 (80-110) mg/dL Calcium 10.1 (8.4-10.2) mg/dL Total Bilirubin 0.7 (0.2-1.3) mg/dL AST 28 (14-36) IU/L ALT 18 (<35) IU/L Alkaline Phosphatase 72 (38-126) U/L Total Creatine Kinase 90 (30-135) U/L CK-MB (CK-2) TNP CK-MB (CK-2) Rel Index TNP Troponin I 0.017 (0.01-0.034) ng/mL NT-Pro-B Natriuret Pep 4020 H (<450) pg/mL Total Protein 7.6 (6.3-8.2) g/dL Albumin 3.9 (3.5-5.0) g/dL Globulin 3.7 (1.7-4.1) g/dL Albumin/Globulin Ratio 1.1 (1.0-2.8) Urine RBC (0-5/HPF) Urine WBC (0-5/HPF) Urine Bacteria (None) Ur Culture Indicated? SARS-CoV-2 (PCR) Negative (Negative) 07/29/22 Range/Units 10:40 WBC (4.5-11.0) X10^3/uL RBC (4.0-5.2) X10^6/uL Hgb (12.0-16.0) g/dL Hct (36-46) % MCV (80-100) fL MCH (26-34) PG MCHC (30-36) % RDW (11.6-14.8) % Plt Count (150-400) X10^3/uL Neut % (Auto) (50-75) % Lymph % (Auto) (25-40) % Rich % (Auto) (3-14) % Eos % (Auto) (2-4) % Baso % (Auto) (0-2) % Neut # (Auto) (5792-2288) /uL Lymph # (Auto) (9176-6721) /uL Rich # (Auto) (0-900) /uL Eos # (Auto) (0-450) /uL Baso # (Auto) (0-100) /uL Sodium (137-145) mmol/L Potassium (3.4-5.1) mmol/L Chloride (98-107) mmol/L Carbon Dioxide (22-32) mmol/L BUN (7-17) mg/dL Creatinine (0.52-1.04) mg/dL Estimated GFR (>60) mL/min BUN/Creatinine Ratio (6-22) Glucose (80-110) mg/dL Calcium (8.4-10.2) mg/dL Total Bilirubin (0.2-1.3) mg/dL AST (14-36) IU/L ALT (<35) IU/L Alkaline Phosphatase (38-126) U/L Total Creatine Kinase (30-135) U/L CK-MB (CK-2) CK-MB (CK-2) Rel Index Troponin I (0.01-0.034) ng/mL NT-Pro-B Natriuret Pep (<450) pg/mL Total Protein (6.3-8.2) g/dL Albumin (3.5-5.0) g/dL Globulin (1.7-4.1) g/dL Albumin/Globulin Ratio (1.0-2.8) Urine RBC None seen (0-5/HPF) Urine WBC 5-10/hpf H (0-5/HPF) Urine Bacteria Many (>30) H (None) Ur Culture Indicated? Specimen cultured SARS-CoV-2 (PCR) (Negative) Urine Dip Bedside Urine Glucose Negative Bedside Urine Bilirubin - Negative Bedside Urine Ketone - Negative Urine Specific [place] 1.015 Bedside Urine Occult Blood - Negative Bedside Urine pH 6.0 Bedside Urine Protein +/- 15 Bedside Urine Urobilinogen - Negative Bedside Urine Nitrite - Negative Bedside Urine Leukocytes ++ 125 Esterase MDM Narrative Medical decision making narrative: Patient does probably have a carpal bone fracture and left wrist without gross bony deformity. Initial x-ray of pelvis was negative however extreme pain upon standing and weight-bearing. CT does confirm a nondisplaced superior and inferior pubic rami and sacral fracture. Patient previously had a pelvic fracture they have multiple walkers at home including 1 for her arm. They would like to attempt to go home pain medication. Orthopedics has been called fluids did receive weight-bearing as tolerated and outpatient follow-up. Upon discharge family and patient decided this was too overwhelming and requested rehab placement. Social work in to evaluate however too late in the day for placement. Will need physical therapy evaluation. She will board here in the emergency department tonight until further placement in the be made. 07/28/22 Kassy Patient seen and evaluated this morning. Overall appears well. Waiting for physical therapy evaluation and rehab placement today. She is getting hydrocodone for pain which seems to help and she is tolerating it. 07/28-07/[address] wagoner: Received turned over. Patient has been stable overnight. Ambulated to the bathroom. No lab tests pending. Care turned to day provider change of shift to continue with disposition. 07/29/22 Kassy Patient signed out to me by Dr. Wagoner.? I have seen evaluated patient myself th is morning.? She actually has been using a walker very well getting up to the restroom she has gone twice already she still is requiring assistance.? She is noted to be hypoxic when she gets back from the restroom is 87% on room air it does come up to 91 or 92% is.? Yesterday she did have an episode of aspiration.? She says sometimes she is feeling short of breath.? She is on Pradaxa and has been getting it.? She denies any chest pain but says while at rest sometime she also feels short of breath.? At this time will check x-ray and blood work. GENERAL:? Alert pleasant 82-year-old female and in no acute distress. HEENT: Head atraumatic,EOMI, pupils reactive, face symmetric, moist mucous memb ranes? CARDIOVASCULAR: Regular rate and rhythm without murmurs, rubs or gallops. RESPIRATORY:? Coarse breath sounds bilaterally without tachypnea speaks in full sentences no respiratory distress ABDOMEN: Soft, nontender.? Normoactive bowel sounds all 4 quadrants.? No guarding or rebound. EXTREMITIES: Normal range of motion, no clubbing or edema.? Neurovascularly intact Left arm in splint good cap refill NEUROLOGICAL: Alert and oriented x4. SKIN: Warm, dry, no laceration, no petechiae, no rashes or lesions. A/P 1. Mechanical fall with multiple fractures -left carpal fracture -left inferior superior pubic rami fracture -sacral fracture Have been awaiting placement at a rehab facility. Unable to get around independently at home 2. Atrial fib -on pradaxa and amlodipine, amiodarone 3. New hypoxia -check chest x-ray, blood work -possible aspiration from yesterday. Unlikely PE as she has been getting Pradaxa. He has also been using incentive spirometer is at bedside. Patient is new hypoxia is worked up. X-ray is negative. Blood work is overall reassuring. EKG does not show any abnormalities. She has been using incentive spirometer as well. She does appear to have UTI she has been up to the restroom frequently. She is given a dose of Rocephin and a prescription for Keflex. patient has keflex prescription for enterobacteria >100,000 Discharge Plan Departure Patient Disposition: SNF Clinical Impression: Fracture of left wrist, Closed fracture of pubic ramus, Closed sacral fracture, Acute UTI Activity Restrictions/Additional Instructions: Ready to discharge to SNF Transfer to [facility] Under care of provider: Physician at the facility Due to Medicare COVID waiver this patient is being transferred to rehab facility due to concern for limited ED beds and to provide more space in the ED for COVID patients Discharge Medications: New medications [place] 1 tablet every 4 hours if needed for pain Keflex 500 mg twice a day for 4 days Docusate sodium 100 mg twice a day as needed for constipation Oxygen 1-2 L as needed goal O2 >91% Continue all other medications Tylenol 650 mg every 6 hours if needed for [id number] pain Diet: diet as tolerated Activity: May weightbear on all extremities. Use walker head all times Need to Follow up with [facility] in 1 week, you will need to make an appointment
--- NOTE | 2022-07-27 16:08 | DI.CT.S_ITS ---
PROCEDURE: CT HEAD/BRAIN WO CON INDICATIONS: fall on pradaxa TECHNIQUE: Noncontrast 4.5 mm thick angled axial sections acquired from the foramen magnum to the vertex, with coronal and sagittal reformats. For radiation dose reduction, the following was used: automated exposure control, adjustment of mA and/or kV according to patient size. COMPARISON: None. FINDINGS: Image quality: Excellent. CSF spaces: Basal cisterns are patent. No extra-axial fluid collections. The ventricles are symmetric in size and shape. Brain: No intracranial bleeds or masses. There is cerebral volume loss for age, with resultant ventricular and sulcal prominence. There are periventricular and deep white matter chronic small vessel ischemic changes. There is intracranial internal carotid artery atherosclerosis. Skull and face: Calvarium and visualized facial bones appear intact, without suspicious lesions. Sinuses: Visualized sinuses and mastoids are clear. IMPRESSION: No acute intracranial hemorrhage is seen. No acute intracranial process is seen. Dictated by: Stewart Ledezma M.D. on 07/27/2022 at 15:40 Approved by: Stewart Ledezma M.D. on 07/27/2022 at 15:40
--- NOTE | 2022-07-27 16:08 | DI.CT.S_ITS ---
PROCEDURE: CT PEL WO CON INDICATIONS: left hip pain fall TECHNIQUE: Noncontrast 3 mm axial sections acquired through the bony pelvis, with coronal and sagittal reformatting. COMPARISON: [facility], CR, XR HIP W PEL IF DONE LT 2V, 07/27/2022, 14:44. FINDINGS: Image quality: Excellent. Bones: Postsurgical changes are seen from prior proximal left femoral fracture fixation with 3 cannulated lag screws. Metallic hardware is intact. There is associated streak artifact. Left proximal femoral fracture appears to be healed with mild residual deformity. Subtle nondisplaced fractures are seen at the left inferior pubic ramus at the midportion as well as at the medial portion of the left superior pubic ramus. These fractures are not seen on the radiographs from earlier the same day even in retrospect. Additional subtle small nondisplaced fracture at the lateral aspect of the left elisa sacrum extending into the sacroiliac joint, which is best visualized on coronal images. There is generalized osteopenia. Degenerative changes are seen in the lumbar spine. Mild degenerative changes in the pubic symphysis and bilateral hips. Soft tissues: Mild soft tissue edema is seen adjacent to the osseous fractures. The musculature surrounding the hips is normal in bulk. No large soft tissue hematoma identified. Aortic atherosclerotic calcifications are present. IMPRESSION: 1. Nondisplaced fractures of the left superior and inferior pubic rami. 2. Small nondisplaced fracture of the lateral left sacrum extending into the sacroiliac joint. 3. Postsurgical changes from remote prior left proximal femoral fracture fixation. Approved by: Polo Garcia M.D. on 07/27/2022 at 16:52
[2022-07-27] MEDS: HYDROCODONE/ACET 5/325 TABLET 1 TAB PO ×2 (17:20→21:26)
--- NOTE | 2022-07-27 18:03 | PC.NURSE ---
[employer] consult. Family discussing the possibility of SNF rehab vs home health.
--- NOTE | 2022-07-27 18:46 | PC.NURSE ---
Family has decided to SNF rehab. YARN TEXTURING MACHINE OPERATOR aware, physician aware.
--- NOTE | 2022-07-27 19:15 | PC.NURSE ---
Report received - assumed care of pt at this time
--- NOTE | 2022-07-27 19:58 | CM.IDA ---
DCP Assessment Patient is 82 y/o female who presents to ED due to concern for recent mechanical fall and hip & wrist pain. Patient has hx of Hypertension, Hyperlipidemia and CHF. Patient's PCP is Lesli Lomeli and patient has Medicare and for Life insurance. Patient resides at home with daughter and son in law in [place], patient recently moved from [place] to live with family. Patient presents as A/Ox3, patient was independent with ADLs at baseline but due to patient's new left wrist fracture, closed fracture of pubic ramus and close sacral fracture patient will need assistance with all ADLs. DORR OPERATOR discusses options of HH and SNF rehab. Patient and family endorse preference for SNF rehab. DORR OPERATOR provides Medicare choice list. Family is reviewing options. Patient has FWW and bedside commode at home. Patient has family members near by. PT orders were put in for PT eval tomorrow. DORR OPERATOR conducts SNF rehab covid waiver search from the ED. DORR OPERATOR calls [facility], [facility], [facility], and [facility] and leaves [facility] requesting return call and faxes clinicals for review. DORR OPERATOR calls [facility], but mail box is full, DORR OPERATOR faxes clinicals for review. It was reported that [facility] no longer accepts covid waiver. Plan: DORR OPERATOR to continue to seek SNF rehab for patient, patient to engage in PT eval tomorrow. EDUARDA Foster Discharge Planning/Care Management CM Discharge Assessment Start: 07/27/22 19:44 Freq: Status: Active Protocol: Document 07/27/22 19:45 LN (Rec: 07/27/22 19:58 LN [id number]) Discharge Planning Assessment Assigned Datacap Developer EDUARDA Davies Advance Directives? No History Provided By Patient,Family Member Has Patient been admitted in last 30 No days? Prior Living Arrangements House Household Members children Type of transportation used prior to Drives own vehicle admit Independent with ADL's No: Patient was independent at baseline prior to fractures Is patient alert and oriented? Yes Needs Assistance With Bathing,Eating,Grooming,Meal Prep,Toileting,Managing Medications,Home Chores / Shopping DME Already Rented / Owned FWW / Walker,Bedside Commode Patient/Family Preference Fdc Facility Discharge Plan Fdc Facility Referrals Initiated Fdc Medicare Choice List Provided Yes SNF/HH Preference Patient's family reviewing SNF rehab options. DORR OPERATOR contacting all SNFs for availability Has Agency SNF been contacted Yes Please Provide Date Initial DC 07/27/22 Assessment Was Performed
--- NOTE | 2022-07-27 20:00 | PC.NURSE ---
Assisted up to the bathroom via w/c - requires 2 person assist
--- NOTE | 2022-07-27 21:00 | PC.NURSE ---
Adjusted in bed for position of comfort - asking about her home medications for the evening - explained that the RN is awaiting them to come from upstairs - understanding verbalized - given po fluid at this time
[2022-07-27] MEDS: GABAPENTIN 600 MG TABLET PO (21:25)
[2022-07-27] MEDS: DABIGATRAN 75 MG CAPSULE PO (21:25)
[2022-07-27] MEDS: carvediloL 12.5 MG TABLET 25 MG PO (21:26)
[2022-07-27] MEDS: ROPINIROLE 0.25 MG TABLET 0.5 MG PO (21:26)
--- NOTE | 2022-07-27 21:30 | PC.NURSE ---
Medicated as charted - denies further needs at this time - lights dimmed - siderails up x2, bed in lowest position, and wheels locked for safety - call [employer] in reach
--- NOTE | 2022-07-27 22:15 | PC.NURSE ---
Resting quietly in NAD - no needs voiced - PWD with respirations equal and unlabored bilaterally
--- NOTE | 2022-07-27 23:00 | PC.NURSE ---
No changes in pt status at this time
[2022-07-28] VITALS (17 sets, daily range): BP systolic 129–150; BP diastolic 61–96; PULSE 60–67; RESP 16; O2SAT 77–98
--- NOTE | 2022-07-28 | PC.NURSE ---
No changes in pt status - continues to rest quietly in darkened room
--- NOTE | 2022-07-28 00:45 | PC.NURSE ---
No changes in pt status
--- NOTE | 2022-07-28 01:30 | PC.NURSE ---
Assisted to the bathroom via w/c - 2 person assist required for stability and balance and safety
--- NOTE | 2022-07-28 01:45 | PC.NURSE ---
Pt medicated and readjusted in bed for position of comfort - given po fluid - no further needs voiced - PWD with respirations equal and unlabored bilaterally - NAD - splint intact to left arm/hand - CMS intact
[2022-07-28] MEDS: HYDROCODONE/ACET 5/325 TABLET 1 TAB PO ×6 (01:48→21:31)
--- NOTE | 2022-07-28 02:30 | PC.NURSE ---
Resting quietly in darkened room - no needs voiced - PWD - respirations equal and unlabored bilaterally
--- NOTE | 2022-07-28 03:15 | PC.NURSE ---
No changes in pt status at this time
--- NOTE | 2022-07-28 04:00 | PC.NURSE ---
Pt up out of bed again - requesting to go home - c/o pain to the abdomen - thinks that she is constipated - assisted back to bed and given a warm pack for her abdomen
--- NOTE | 2022-07-28 04:00 | PC.NURSE ---
Resting quietly in NAD - no needs voiced = PWD with respirations equal and unlabored bilaterally
--- NOTE | 2022-07-28 04:45 | PC.NURSE ---
No changes in pt status at this time
--- NOTE | 2022-07-28 04:45 | PC.NURSE ---
Resting quietly in NAD - no needs voiced - lying on the bed with the warm back to her abdomen
--- NOTE | 2022-07-28 05:30 | PC.NURSE ---
No changes in pt status - continues to lay on the bed with heat pack - respirations equal and unlabored bilaterally - PWD
--- NOTE | 2022-07-28 05:33 | PC.NURSE ---
Resting quietly in NAD - no needs voiced - PWD with respirations equal and unlabored bilaterally - splint intact with CMS intact
--- NOTE | 2022-07-28 06:15 | PC.NURSE ---
Continues to rest without concern - no needs voiced
--- NOTE | 2022-07-28 07:14 | PC.NURSE ---
Assisted to bathroom via w/c with 2 person assist
--- NOTE | 2022-07-28 07:21 | PC.NURSE ---
Report to day shift RN team
--- NOTE | 2022-07-28 09:51 | PT.IIE ---
Physical Therapy Inpatient Evaluation/Re-Eval M1 PT/OT-IP Prior Functional Status Start: 07/28/22 08:59 Freq: Status: Active Protocol: Document 07/28/22 09:15 [facility] (Rec: 07/28/22 09:51 [facility] [id number]) Medical Review Prior Functional Status Medical History Reviewed Yes Diet/Fluid Consistency Regular Communication WNL Mobility and Gait typically doesn't use walker Activities of Daily Living and IADL's makes small sandwiches etc by her self but dgt brings things down to her Social History Household Members children Living Arrangements House Number of Floors (Floors) Two Floors Number of Stairs To Enter/Railing? only uses 1 level and flat entry Home Environment High Toilet,Walk in Shower Home Equipment 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,Four Wheel Walker,Straight Cane,Grab Bars In Shower Employment Status Retired Additional Social History Comment dgt works so is not home most of the day M2 PT-IP Current Condition Start: 07/28/22 08:59 Freq: Status: Active Protocol: Document 07/28/22 09:15 [facility] (Rec: 07/28/22 09:51 [facility] [id number]) Physical Therapy Current Condition Current Condition Evaluation Date 07/28/22 Treatment Diagnosis L wrist fx, pubic ramus, sacral fx M3 PT-IP Subjective Start: 07/28/22 08:59 Freq: Status: Active Protocol: Document 07/28/22 09:15 [facility] (Rec: 07/28/22 09:51 [facility] [id number]) Subjective Physical Therapy Visit Type Type Initial Evaluation Visit Start Time 09:10 Visit Stop Time 09:38 Total Visit Minutes 27 Number of ASSEMBLY LINE DRIVER Visits 0 Physical Therapy Visit Comments Patient Comments Pt reports she doesn't feel like she could take care of herself Therapy Pain Assessment Pain When Pain Assessed During Mobility Pain Present Pain Present Pain Reported M4 PT-IP Mobility and Gait Start: 07/28/22 08:59 Freq: Status: Active Protocol: Document 07/28/22 09:15 [facility] (Rec: 07/28/22 09:51 [facility] [id number]) PT-Bed Mobility Assessment Sit to Supine Sit to Supine Maximum Assistance PT-Transfer Assessment Sit to and From Stand Sit to and from Stand Maximum Assistance,Use of Upper Extremities Equipment Transfer Assistive Device Gait Belt,Platform Walker Orthotic/Prosthetic Devices or Brace: No Transfers Transfer Destination Bed Transfer Technique Stand Step Pivot Transfer Ability Level of Assist Moderate Assistance Comments Mobility Comments pt seated in WC upon PT arrival. sit to stand max A to platform walker and pt amb 4 steps w/platform walker w/min A w/significant pain and could not do more. pt sat in w/c and transfered to bed w/max A for sit to stand and mod A for transfer. She required max A for sit to supine. Pt adjusted in bed and left w/call light inr each Gait Assessment Gait Gait Assistance Required: Minimum Assistance Distance (Feet) 2 Able to Maintain Weight Bearing Status Yes During Gait Assistive Devices Assistive Device Gait Belt,Platform Walker Gait Deviations General Gait Pattern Antalgic,Decreased Stride Length,Decreased Feet Clearance,Step-to Gait Factors Limiting Gait Function Factors Limiting Gait Function Decreased Strength,Pain,Poor Balance PT-Balance Assessment Sitting Balance and Reactions Static Sitting Balance Ability Good Dynamic Sitting Balance Ability Fair Standing Balance and Reactions Static Standing Balance Ability Poor Dynamic Standing Balance Ability Poor Device Used platfrom walker M5 PT-IP Objective Assessments Start: 07/28/22 08:59 Freq: Status: Active Protocol: Document 07/28/22 09:15 [facility] (Rec: 07/28/22 09:51 [facility] [id number]) Orientation Orientation/Cognition Level of Alertness Alert Safety Awareness Understands Safety Issues Memory Description No Deficits Noted Gross Range of Motion Upper Extremity ROM Assessment Left Impaired Lower Extremity ROM Assessment Bilaterally Impaired Strength Upper Extremity Strength Assessment Left Impaired Lower Extremity Strength Assessment Bilaterally Impaired M6 PT-IP Treatment Start: 07/28/22 08:59 Freq: Status: Active Protocol: Document 07/28/22 09:15 [facility] (Rec: 07/28/22 09:51 [facility] [id number]) Physical Therapy Treatment Education Education Provided Safety M7 PT-IP Assessment and Plan Start: 07/28/22 08:59 Freq: Status: Active Protocol: Document 07/28/22 09:15 [facility] (Rec: 07/28/22 09:51 [facility] [id number]) PT Summary Assessment and Plan Potential Rehabilitation Potential Good Status of Condition at Evaluation Evolving Summary Impairments Pain,ROM,Strength,Balance,Bed Mobility,Transfers,Gait, Activity Tolerance Assessment Summary pt prestns after sacral fx, pubic ramus fx and L wrist fracture w/significant pain and concern re: return home. Pt mostly is on her own and is not safe at this time to be on her own.S he requires assist for all bed mobility, transfers and is unable to amb any functional distance. She will require rehab prior to going home in order to be safe for going home. Goals Bed Mobility Goal Contact Guard Assistance Transfer Goal Contact Guard Assistance Gait Goal Contact Guard Assistance Gait Distance 20ft Days to Meet Goals 6 Frequency of Treatment Frequency Of Treatment Twice a Day Treatment Plan Physical Therapy Treatment Plan Bed Mobility Training,Transfer Training,Gait Training, Therapeutic Exercise,Balance Retraining,Discharge Planning, Neuromuscular Re-ed Weight Bearing Status Allowed Weight Bearing Amount (enter % WBAT LEs or #) (%) Recommendations To Nursing Amount of Assist Needed 1 Person Assist Discharge Recommendations PT Discharge Recommendations SNF Rehab Transportation Needs at Discharge Wheelchair/Cabulance
[2022-07-28] MEDS: DABIGATRAN 75 MG CAPSULE PO ×2 (10:47→21:30)
[2022-07-28] MEDS: carvediloL 12.5 MG TABLET 25 MG PO ×2 (10:47→21:31)
[2022-07-28] MEDS: GABAPENTIN 600 MG TABLET PO ×3 (10:47→21:31)
[2022-07-28] MEDS: AMIODARONE 200 MG TABLET PO (10:47)
[2022-07-28] MEDS: AMLODIPINE 5 MG TABLET PO (10:52)
--- NOTE | 2022-07-28 14:30 | PT.IPTN ---
Physical Therapy Treatment Note M2 PT-IP Current Condition Start: 07/28/22 08:59 Freq: Status: Active Protocol: Document 07/28/22 09:15 [facility] (Rec: 07/28/22 09:51 [facility] [id number]) Physical Therapy Current Condition Current Condition Evaluation Date 07/28/22 Treatment Diagnosis L wrist fx, pubic ramus, sacral fx M3 PT-IP Subjective Start: 07/28/22 08:59 Freq: Status: Active Protocol: Document 07/28/22 14:30 AB (Rec: 07/28/22 15:07 AB [id number]) Subjective Physical Therapy Visit Type Type Treatment Note Visit Start Time 14:30 Visit Stop Time 14:52 Total Visit Minutes [address] Elena and stated that pt is NWB on LUE and WBAT on LLE. Therapy Pain Assessment Pain When Pain Assessed At Rest Pain Present Pain Present Pain Reported Location left hip Scale Used pain scale not stated Pain Management Techniques Distraction,Modification of Treatment,Re-positioning, Timing of Activity with Medications M4 PT-IP Mobility and Gait Start: 07/28/22 08:59 Freq: Status: Active Protocol: Document 07/28/22 14:30 AB (Rec: 07/28/22 15:07 AB [id number]) PT-Bed Mobility Assessment Supine to Sit Supine to Sit Minimal Assistance,Head of Bed Elevated Sit to Supine Sit to Supine Maximum Assistance PT-Transfer Assessment Sit to and From Stand Sit to and from Stand Maximum Assistance,1 Person Assistance,Use of Upper Extremities Equipment Transfer Assistive Device Gait Belt,Platform Walker Orthotic/Prosthetic Devices or Brace: No Comments Mobility Comments pt completed supine to sit min A and cues and with HOB elevated. pt able to sit on EOB SBA. completed sit to stand x 2 attempts max A and max cues. ambulated forward ~ 2 ft and backwards using PFW mod A and max cues and side stepping towards HOB using PFW . completed sit to supine max A for LE elevation. positioned pt in bed. educated on LE exercises and completed: glute sets, ankle pumps and quads sets. call light positioned with pt. Gait Assessment Gait Gait Assistance Required: Moderate Assistance,1 Person Assist Distance (Feet) 5 Able to Maintain Weight Bearing Status Yes During Gait Assistive Devices Assistive Device Gait Belt,Platform Walker Orthotic/Prosthetic Devices or Brace: No Gait Deviations General Gait Pattern Antalgic,Decreased Stride Length,Decreased Feet Clearance,Step-to Gait Factors Limiting Gait Function Factors Limiting Gait Function Decreased Activity Tolerance, Decreased Strength,Limited Range of Motion,Pain,Poor Balance,Poor Safety Awareness M5 PT-IP Objective Assessments Start: 07/28/22 08:59 Freq: Status: Active Protocol: Document 07/28/22 09:15 [facility] (Rec: 07/28/22 09:51 [facility] [id number]) Orientation Orientation/Cognition Level of Alertness Alert Safety Awareness Understands Safety Issues Memory Description No Deficits Noted Gross Range of Motion Upper Extremity ROM Assessment Left Impaired Lower Extremity ROM Assessment Bilaterally Impaired Strength Upper Extremity Strength Assessment Left Impaired Lower Extremity Strength Assessment Bilaterally Impaired M6 PT-IP Treatment Start: 07/28/22 08:59 Freq: Status: Active Protocol: Document 07/28/22 14:30 AB (Rec: 07/28/22 15:07 AB [id number]) Physical Therapy Treatment Exercises Exercises Ankle Pumps,Gluteal Sets,Quad Sets Education Education Provided Safety M7 PT-IP Assessment and Plan Start: 07/28/22 08:59 Freq: Status: Active Protocol: Document 07/28/22 14:30 AB (Rec: 07/28/22 15:07 AB [id number]) PT Summary Assessment and Plan Potential Rehabilitation Potential Good Summary Progress Towards Goals Slow Progress due to Pain,Slow Progress due to Activity Tolerance Assessment Summary pt requiring mod to max A with ambulation using PFW and unable to ambulate much due to c/o pain. pt will need SNF rehab to improve strength and mobility. Goals Bed Mobility Goal Contact Guard Assistance Transfer Goal Contact Guard Assistance Gait Goal Contact Guard Assistance Gait Distance 20ft Other Goals pt to use PFW Days to Meet Goals 10 Frequency of Treatment Frequency Of Treatment Twice a Day Treatment Plan Physical Therapy Treatment Plan Bed Mobility Training,Transfer Training,Gait Training, Therapeutic Exercise,Balance Retraining,Discharge Planning, Neuromuscular Re-ed Weight Bearing Status Allowed Weight Bearing Amount (enter % WBAT LLE; NWB L wrist or #) (%) Recommendations To Nursing Amount of Assist Needed 1 Person Assist Discharge Recommendations PT Discharge Recommendations SNF Rehab Transportation Needs at Discharge Wheelchair/Cabulance
--- NOTE | 2022-07-28 16:39 | PC.NURSE ---
family member at bedside began shouting help she is choking. arrived in room to patient coughing and red. she had sandwich in lap with bed reclined. immediately sat patient up, gave a couple back blows, set up suction. pt was actively coughing up chewed up food. placed patient on pulse oximeter. oxygen levels began reading in the 70s but within a few minutes climbed into the 90s. provider at bedside during this event. patient educated to eat while sitting upright. and to not eat food until we give the okay and she has fully recovered.
--- NOTE | 2022-07-28 16:44 | CM.DPC ---
DCP Assessment Patient is 82 y/o female who presents to ED due to concern for recent mechanical fall and hip & wrist pain. Patient has hx of Hypertension, Hyperlipidemia and CHF. Patient's PCP is Lesli Lomeli and patient has Medicare and for Life insurance. Patient resides at home with daughter and son in law in [place], patient recently moved from [place] to live with family. LEX followed up on SNF referral to [facility], [facility], and [facility]. LEX received an update from Phylicia at [facility] who reports that she can likely accept pt tomorrow. Phylicia requested an updated covid swab from that last 72 hours, height and weight, pt's SSN, and PASRR be faxed to her on day of admission. LEX gathered information and called Phylicia, leaving her a vm with SSN, height, and weight. Plan: LEX updated MD and pt with plan for dc tomorrow to [facility]. SUSANNAH Sanches
--- NOTE | 2022-07-28 16:59 | PC.NURSE ---
Gave pt incentive spirometer and educated on proper use. Pt demonstrated understanding. Pt instructed to use 10x every hour.
[2022-07-28 17:32] LABS: COVID19 -Nasal RAPID Negative (Negative)
[2022-07-29] VITALS (13 sets, daily range): BP systolic 130–154; BP diastolic 59–67; PULSE 59–68; RESP 16; O2SAT 90–99
[2022-07-29] MEDS: HYDROCODONE/ACET 5/325 TABLET 1 TAB PO ×4 (03:39→13:53)
--- NOTE | 2022-07-29 08:43 | DI.RAD.S_ITS ---
PROCEDURE: XR CHEST 1V INDICATIONS: Aspiration yesterday, now low sat TECHNIQUE: One view of the chest was acquired. COMPARISON: [facility], CR, XR CHEST 1V, 05/04/2022, 20:44. FINDINGS: Surgical changes and devices: Left chest wall 3 lead cardiac pacing device again noted. Lungs and pleura: No acute airspace opacity. No pleural effusion or pneumothorax. Mediastinum: Mediastinal contours appear normal. Similar cardiomegaly. Bones and chest wall: No suspicious bony lesions. Overlying soft tissues appear unremarkable. IMPRESSION: No acute finding. Dictated by: Archie Mireles M.D. on 07/29/2022 at 9:29 Approved by: Archie Mireles M.D. on 07/29/2022 at 9:30
[2022-07-29] MEDS: DABIGATRAN 75 MG CAPSULE PO (08:47)
[2022-07-29] MEDS: carvediloL 12.5 MG TABLET 25 MG PO (08:47)
[2022-07-29] MEDS: GABAPENTIN 600 MG TABLET PO (08:47)
[2022-07-29] MEDS: AMLODIPINE 5 MG TABLET PO (08:47)
[2022-07-29] MEDS: AMIODARONE 200 MG TABLET PO (08:48)
[2022-07-29 09:09] LABS: Add Manual Diff / Slide Review NO; Basophils Absolute Auto 100 /uL (0-100); Basophils Percent Auto 0.9 % (0-2); Eosinophils Absolute Auto 100 /uL (0-450); Hematocrit 33.8 % (36-46); Hemoglobin 11.3 g/dL (12.0-16.0); Lymphocytes Absolute Auto 900 /uL (1100-4500); Lymphocytes Percent Auto 15.1 % (25-40); Mean Corpuscular HGB Conc 33.5 % (30-36); Mean Corpuscular Hemoglobin 30.9 PG (26-34); Mean Corpuscular Volume 92.2 fL (80-100); Monocytes Absolute Auto 600 /uL (0-900); Monocytes Percent Auto 10.1 % (3-14); Neutrophils Absolute Auto 4200 /uL (1500-7000); Neutrophils Percent Auto 71.9 % (50-75); Platelet Count 184 X10^3/uL (150-400); Red Blood Cell Count 3.67 X10^6/uL (4.0-5.2); Red Cell Distribution Width 15.4 % (11.6-14.8); White Blood Cell Count 5.9 X10^3/uL (4.5-11.0)
[2022-07-29 09:22] LABS: Alanine Aminotransferase 18 IU/L (<35); Albumin 3.9 g/dL (3.5-5.0); Albumin Globulin Ratio 1.1 (1.0-2.8); Alkaline Phosphatase 72 U/L (38-126); Aspartate Aminotransferase 28 IU/L (14-36); BUN Creatinine Ratio 20.9 (6-22); Bilirubin Total 0.7 mg/dL (0.2-1.3); Blood Urea Nitrogen 31 mg/dL (7-17); Calcium 10.1 mg/dL (8.4-10.2); Carbon Dioxide 29 mmol/L (22-32); Chloride 95 mmol/L (98-107); Creatine Kinase 90 U/L (30-135); Estimated Glomerular Filt Rate 35 mL/min (>60); Globulin 3.7 g/dL (1.7-4.1); Glucose 105 mg/dL (80-110); HEMOLYSIS < 15 (0-50); Potassium 4.4 mmol/L (3.4-5.1); Sodium 131 mmol/L (137-145); Total Protein 7.6 g/dL (6.3-8.2)
[2022-07-29 09:33] LABS: NT-proBNP (BNP-Adult 18+) 4020 pg/mL (<450); Troponin I 0.017 ng/mL (0.01-0.034)
[2022-07-29 11:12] LABS: RBC Urine None Seen (0-5/HPF); WBC Urine 5-10/HPF (0-5/HPF)
[2022-07-29 11:13] LABS: Bacteria Urine Many (>30); Culture Indicated Urine Specimen Cultured
[2022-07-29] MEDS: cefTRIAXone 1,000 MG in SODIUM CHLORIDE 0.9% 100 ML 200 MG IV (11:25)
--- NOTE | 2022-07-29 11:50 | PT-IP ANOTE ---
Pt refused PT, reporting high level of fatigue and requesting to rest prior to d/c to SNF.
--- NOTE | 2022-07-29 14:00 | CM.DPC ---
DCP Note This SENIOR RESEARCH ENGINEER and Keke SENIOR RESEARCH ENGINEER coordinate transfer to [facility] for SNF rehab. PASSR, orders and rx are faxed over to facility. Facility arranges cabulance transportation. Plan: Patient to d/c to [facility] this afternoon upon medical clearance for SNF rehab. SUSANNAH Sanches
--- NOTE | 2022-07-30 09:45 | PT.IPTN ---
Physical Therapy Treatment Note M2 PT-IP Current Condition Start: 07/28/22 08:59 Freq: Status: Discharge Protocol: Document 07/28/22 09:15 [facility] (Rec: 07/28/22 09:51 [facility] [id number]) Physical Therapy Current Condition Current Condition Evaluation Date 07/28/22 Treatment Diagnosis L wrist fx, pubic ramus, sacral fx M3 PT-IP Subjective Start: 07/28/22 08:59 Freq: Status: Discharge Protocol: Document 07/30/22 09:45 [facility] (Rec: 07/30/22 09:45 AB [id number]) Subjective Physical Therapy Visit Type Type Administrative Note Notes Pt has d/c'd to [facility] M6 PT-IP Treatment Start: 07/28/22 08:59 Freq: Status: Discharge Protocol: Document 07/28/22 14:30 [facility] (Rec: 07/28/22 15:07 AB [id number]) Physical Therapy Treatment Exercises Exercises Ankle Pumps,Gluteal Sets,Quad Sets Education Education Provided Safety M7 PT-IP Assessment and Plan Start: 07/28/22 08:59 Freq: Status: Discharge Protocol: Document 07/30/22 09:45 [facility] (Rec: 07/30/22 09:45 AB [id number]) PT Summary Assessment and Plan Frequency of Treatment Frequency Of Treatment Discharge
== END 2022-07-29 14:02 ==
PROVIDERS: Emergency Provider Emergency Medicine; PCP Physician Assistant Medical
DX: S52.502A Unspecified fracture of the lower end of left radius, initial encounter for closed fracture (principal); S32.509A Unspecified fracture of unspecified pubis, initial encounter for closed fracture; S32.10XA Unspecified fracture of sacrum, initial encounter for closed fracture; N39.0 Urinary tract infection, site not specified; W01.0XXA Fall on same level from slipping, tripping and stumbling without subsequent striking against object, initial encounter; Z79.01 Long term (current) use of anticoagulants; Z95.0 Presence of cardiac pacemaker; Z86.79 Personal history of other diseases of the circulatory system; R94.31 Abnormal electrocardiogram [ECG] [EKG]
CPT/HCPCS: 29125; 70450; 71045; 72192; 73110; 73130; 73502; 80053; 81003; 81015; 82550; 83880; 84484; 85025; 87077; 87086; 87186; 87635; 93005; 93010; 96365; 97162; 97530; 99285; C9803; J0696

== ENCOUNTER 2022-09-03 22:35 | Inpatient (IN) | payer MEDICARE, OTHER, SELFPAY ==
[2022-09-03 22:50] VITALS: BP 151/89; PULSE 112; RESP 18; TEMP 37; O2SAT 96
--- NOTE | 2022-09-03 23:00 | PC.NURSE ---
family noticed that pt was leaning to the left when she was walking tonight, family member states pt was having trouble completing sentences earlier and her forgetfulness was worse but states symptoms appear better now
[2022-09-03 23:01] LABS: Bacteria Urine Many (>30); RBC Urine 30-100/HPF (0-5/HPF); Squamous Epithelial Cell Urine 0-1 /HPF (0-5/HPF); WBC Urine 30-100/HPF (0-5/HPF)
[2022-09-03 23:02] LABS: Culture Indicated Urine Specimen Cultured
--- NOTE | 2022-09-03 23:07 | DI.CT.S_ITS ---
PROCEDURE: CT HEAD/BRAIN WO CON INDICATIONS: confusion TECHNIQUE: Noncontrast 4.5 mm thick angled axial sections acquired from the foramen magnum to the vertex, with coronal and sagittal reformats. For radiation dose reduction, the following was used: automated exposure control, adjustment of mA and/or kV according to patient size. COMPARISON: [facility], CT, CT HEAD/BRAIN WO CON, 07/27/2022, 16:16. FINDINGS: Image quality: Excellent. CSF spaces: Basal cisterns are patent. No extra-axial fluid collections. Ventricles are normal in size and shape. Brain: No midline shift. No intracranial masses or hemorrhage. No area of hypodensity in a large vascular distribution to suggest acute infarction. Periventricular hypodensity consistent with chronic microvascular ischemic change. Age-related parenchymal loss. Skull and face: Calvarium and visualized facial bones are intact, without suspicious lesions. Sinuses: Visualized sinuses and mastoids are clear. IMPRESSION: No acute intracranial abnormality. Chronic microvascular ischemic disease. Dictated by: Ryan Partida M.D. on 09/04/2022 at 0:51 Approved by: Ryan Partida M.D. on 09/04/2022 at 0:53
[2022-09-03] MEDS: SODIUM CHLORIDE 0.9% 1,000 ML 200 ML IV (23:09)
[2022-09-03 23:14] VITALS: PULSE 0; RESP 33; O2SAT 94
[2022-09-03 23:30] VITALS: PULSE 114; RESP 26; O2SAT 94
[2022-09-03 23:33] LABS: Add Manual Diff / Slide Review NO; Basophils Absolute Auto 100 /uL (0-100); Basophils Percent Auto 0.5 % (0-2); Eosinophils Absolute Auto 0 /uL (0-450); Eosinophils Percent Auto 0.1 % (2-4); Hematocrit 33.5 % (36-46); Hemoglobin 11.3 g/dL (12.0-16.0); Lymphocytes Absolute Auto 400 /uL (1100-4500); Lymphocytes Percent Auto 3.5 % (25-40); Mean Corpuscular HGB Conc 33.8 % (30-36); Mean Corpuscular Hemoglobin 31.4 PG (26-34); Mean Corpuscular Volume 92.9 fL (80-100); Monocytes Absolute Auto 800 /uL (0-900); Monocytes Percent Auto 6.6 % (3-14); Neutrophils Absolute Auto 11100 /uL (1500-7000); Neutrophils Percent Auto 89.3 % (50-75); Platelet Count 214 X10^3/uL (150-400); Red Cell Distribution Width 17.5 % (11.6-14.8); White Blood Cell Count 12.4 X10^3/uL (4.5-11.0)
[2022-09-03 23:36] VITALS: BP 131/75; PULSE 103; RESP 23; O2SAT 95
[2022-09-03 23:41] LABS: Lactate (Lactic Acid) 1.1 mmol/L (0.7-2.1)
[2022-09-03 23:42] LABS: BUN Creatinine Ratio 16.5 (6-22); Blood Urea Nitrogen 21 mg/dL (7-17); Carbon Dioxide 24 mmol/L (22-32); Chloride 100 mmol/L (98-107); Creatine Kinase 63 U/L (30-135); Estimated Glomerular Filt Rate 42 mL/min (>60); HEMOLYSIS < 15 (0-50); Potassium 3.4 mmol/L (3.4-5.1); Sodium 136 mmol/L (137-145)
[2022-09-03 23:43] LABS: Alanine Aminotransferase 16 IU/L (<35); Albumin 4.3 g/dL (3.5-5.0); Albumin Globulin Ratio 1.2 (1.0-2.8); Alkaline Phosphatase 123 U/L (38-126); Aspartate Aminotransferase 24 IU/L (14-36); Bilirubin Total 0.7 mg/dL (0.2-1.3); Calcium 10.1 mg/dL (8.4-10.2); Globulin 3.7 g/dL (1.7-4.1); Glucose 144 mg/dL (80-110)
[2022-09-03 23:47] LABS: Magnesium 1.6 mg/dL (1.6-2.3)
[2022-09-03 23:49] LABS: Influenza A - CEPHEID Flu A NEGATIVE (NEGATIVE); Influenza B - CEPHEID Flu B NEGATIVE (NEGATIVE); Respiratory Syncytial Virus Negative (Negative)
[2022-09-03 23:52] LABS: COVID-19 CEPHEID 4-PLEX PCR Negative (Negative)
[2022-09-03 23:53] LABS: Troponin I 0.037 ng/mL (0.01-0.034)
[2022-09-03 23:57] LABS: NT-proBNP (BNP-Adult 18+) 7340 pg/mL (<450)
[2022-09-03 23:58] LABS: Procalcitonin 0.33 ng/mL (<0.5)
[2022-09-04] VITALS (14 sets, daily range): BP systolic 125–149; BP diastolic 70–79; PULSE 80–107; RESP 15–29; TEMP 35.9–36.6; O2SAT 87–99; BMI 21.7
--- NOTE | 2022-09-04 00:35 | ED.FEVER ---
HPI - Fever General Chief Complaint: Fever Stated Complaint: Fever Time Seen by Provider: 09/03/22 22:56 Source: patient, family and EMS Mode of arrival: EMS History of Present Illness HPI Narrative: Patient is an 82-year-old female history of atrial fibrillation with pacemaker, hyperlipidemia, recent left pubic rami fracture left carpal bone fracture presenting today with fever. She was initially seen evaluated on 07/27/2022 after she fell and fractures were diagnosed. She was then sent to [facility] rehab she says for she actually did not get her Pradaxa, but did get Eliquis and has been home for about 1 week. Daughter states that she restarted her on Pradaxa and today they noticed that she was very confused having difficulty ambulating possibly had a fever. She is brought here for those things. She states that she was recently treated for a UTI put on Keflex for 3 days and then stopped. Patient is complaining some of abdominal pain and dysuria. She really has no chest pain. She is noted to be mildly hypoxic 89-90% on room air. Related Data Home Medications Medication Instructions Recorded Confirmed amiodarone 200 mg tablet 200 mg PO DAILY 09/13/21 07/28/22 atorvastatin 20 mg tablet 20 mg PO QPM 09/13/21 07/28/22 bethanechol chloride 25 mg tablet 25 mg PO TID 09/13/21 07/28/22 carvedilol 25 mg tablet 25 mg PO BID 09/13/21 07/28/22 dabigatran etexilate 75 mg capsule 75 mg PO BID 09/13/21 07/28/22 (Pradaxa) dicyclomine 20 mg tablet 20 mg PO BID 09/13/21 07/28/22 furosemide 40 mg tablet 40 mg PO BID 09/13/21 07/28/22 gabapentin 600 mg tablet 600 mg PO TID 09/13/21 07/28/22 levothyroxine 112 mcg capsule 112 mcg PO DAILY 09/13/21 07/28/22 omeprazole 40 mg capsule,delayed 40 mg PO DAILY 09/13/21 09/13/21 release pantoprazole 20 mg tablet,delayed 40 mg PO BID 09/13/21 07/28/22 release ropinirole 0.5 mg tablet 0.5 mg PO BEDTIME 09/13/21 07/28/22 losartan 25 mg tablet 12.5 mg 07/28/22 potassium chloride 10 mEq 10 meq PO 3XD 07/28/22 07/28/22 capsule,extended release Previous Rx's Medication Instructions Recorded benzonatate 100 mg capsule 100 mg PO BID PRN cough #20 caps 09/13/21 hydrocodone 5 mg-acetaminophen 325 1 tab PO Q6H PRN pain #20 tabs 07/27/22 mg tablet docusate sodium 100 mg capsule 100 mg PO BID PRN constipation #60 07/29/22 caps hydrocodone 5 mg-acetaminophen 325 1 tab PO Q6H PRN pain #20 tabs 07/29/22 mg tablet Allergies Allergy/AdvReac Type Severity Reaction Status Date / Time No Known Drug Allergies Allergy Verified 07/27/22 14:21 Review of Systems Review of Systems Narrative: GENERAL: See HPI HEENT: Denies sinus pain, ear pain, sore throat, difficulty swallowing, neck pain RESPIRATORY: Denies dyspnea, cough, wheezing, hemoptysis, sputum. CARDIOVASCULAR: Denies chest pain, palpitations, orthopnea, edema GASTROINTESTINAL: Denies nausea, vomiting, abdominal pain, diarrhea, constipation, melena. : See HPI MUSCULOSKELETAL: See HPI SKIN: No rash, no erythema, no pruritus NEUROLOGIC: Denies weakness, dizziness, headache, numbness, change in speech, confusion PSYCHIATRIC: No concerning psychosocial issues. 12 point review of systems is negative except for those stated above and HPI Patient History Medical History (Updated 09/04/22 @ 05:37 by KOKI Woo) CKD stage G3a/A1, GFR 45-59 and albumin creatinine ratio <30 mg/g Control of atrial fibrillation with pacemaker Essential hypertension Fracture of left carpal bone Fracture of superior pubic ramus GERD (gastroesophageal reflux disease) History of cervical cancer History of renal carcinoma Hyperlipidemia Hypothyroidism associated with surgical procedure Inferior pubic ramus fracture Irritable bowel syndrome Neuropathy Overactive bladder Restless leg syndrome Surgical History (Updated 09/04/22 @ 05:37 by KOKI Woo) History of kidney removal History of thyroid surgery Family History Mother Cancer Sister Cancer Social History household members: children Smoking Status: Never smoker Smoking Status: Never smoker alcohol intake frequency: 0-2 drinks per day Substance Use Type: does not use Exam Initial Vital Signs Initial Vital Signs: Vital Signs Temperature 98.6 F 09/03/22 22:50 Pulse Rate 112 H 09/03/22 22:50 Respiratory Rate 18 09/03/22 22:50 Blood Pressure 151/89 H 09/03/22 22:50 Pulse Oximetry 96 09/03/22 22:50 Oxygen Delivery Method 09/03/22 22:50 Oxygen Flow Rate 2 09/03/22 22:50 GENERAL: Alert well-appearing 82-year-old female HEENT: Head atraumatic,EOMI, pupils reactive, face symmetric, moist mucous membranes CARDIOVASCULAR: Regular rate and rhythm without murmurs, rubs or gallops. RESPIRATORY: Coarse at bases. ABDOMEN: Soft, no localized tenderness no guarding no rebound soft no distension : No CVA tenderness EXTREMITIES: Normal range of motion, no clubbing or edema. Neurovascularly intact NEUROLOGICAL: Alert and oriented x4.Normal gait and speech. 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 Scores NIH Stroke Scale Level of Conciousness: Alert, keenly responsive Ask month/age: Answers both questions correctly. Open/close eyes, close hand: Performs both tasks correctly Best gaze horizontal: Normal Visual islas: No visual loss Facial palsy: Normal symetrical movement Left arm drift: No drift for full 10 sec Right arm drift: No drift for full 10 sec Left leg drift: No drift for full 5 sec Right leg drift: No drift for full 5 sec Limb ataxia: Absent Sensory on face/arms/legs: Normal, no sensory loss Best language: No aphasia, normal Dysarthria: Normal Extinction or inattention: No abnormality Total NIH Stroke scale score: 0 Course Orders Ordered: ED Orders 09/03/22 22:44 Urine Culture Stat Urine Microscopic Stat 09/03/22 22:56 EKG-12 Lead Stat 09/03/22 23:04 Covid-19 + FLU A/B + RSV - PCR Stat 09/03/22 23:07 CT head/brain wo con Stat 09/03/22 23:20 BNP [NT-proBNP (BNP-Adult 18+)] Stat Blood Culture Stat Complete Blood Count AUTO DIFF Stat Comprehensive Metabolic Panel Stat Lactate (Lactic Acid) Stat MAG [Magnesium] Stat Procalcitonin Stat Troponin & CK Cardiac Panel Stat 09/04/22 01:02 D Dimer Stat 09/04/22 01:26 Trop I [Troponin I] Stat 09/04/22 05:00 Basic Metabolic Panel DAILY Complete Blood Count AUTO DIFF DAILY Lipid Panel Routine Magnesium DAILY 09/05/22 05:00 Basic Metabolic Panel DAILY Complete Blood Count AUTO DIFF DAILY Magnesium DAILY NT-proBNP (BNP-Adult 18+) Routine 09/06/22 05:00 Basic Metabolic Panel DAILY Complete Blood Count AUTO DIFF DAILY Acetaminophen (Acetaminophen 325 Mg Tablet) 650 mg PO Q6H PRN PRN Reason: Fever/Mild Pain (1-3) Albuterol/Ipratropium (Albuterol/Ipratropium 3 Ml Ampul) 3 ml INH [id number] [facility] Amlodipine Besylate (Amlodipine 5 Mg Tablet) 5 mg PO BEDTIME MATEUS Atorvastatin Calcium (Atorvastatin 20 Mg Tablet) 20 mg PO QPM [facility] Carvedilol (Carvedilol 12.5 Mg Tablet) 25 mg PO BID [facility] Dabigatran (Dabigatran 75 Mg Capsule) 75 mg PO BID [facility] Dicyclomine HCl (Dicyclomine 10 Mg Capsule) 20 mg PO BID [facility] Furosemide (Furosemide 20 Mg/2 Ml Vial) 20 mg IV BID [facility] Gabapentin (Gabapentin 600 Mg Tablet) 600 mg PO TID [facility] Sodium Chloride (Normal Saline 0.9%) 1,000 mls @ 200 mls/hr IV CONT [facility] Last Infusion: 09/04/22 00:48 Dose: 0 mls/hr Documented By: Admin: 09/03/22 23:09 Dose: 200 mls/hr Documented By: CHINYERE Ceftriaxone Sodium 1,000 mg/ (Sodium Chloride) 100 mls @ 200 mls/hr IV Q24H [facility] Levothyroxine Sodium (Levothyroxine 112 Mcg Tablet) 112 mcg PO 0600 [facility] Losartan Potassium (Losartan 25 Mg Tablet) 12.5 mg PO BID [facility] Naloxone HCl (Naloxone 0.4 Mg/Ml Vial) 0.2 mg IV Q2MIN PRN PRN Reason: Opiate Reversal Ondansetron HCl (Ondansetron 4 Mg/2 Ml Inj) 4 mg IV Q8HR PRN PRN Reason: Nausea And Vomiting Pantoprazole Sodium (Pantoprazole Dr 40 Mg Tablet) 40 mg PO BID [facility] Potassium Chloride (Potassium Chloride 10 Meq Tab) 10 meq PO TID MATEUS Prednisone (Prednisone 20 Mg Tablet) 40 mg PO DAILY [facility] Ropinirole HCl (Ropinirole 0.25 Mg Tablet) 0.5 mg PO BEDTIME MATEUS Discontinued Medications Furosemide (Furosemide 40 Mg/4 Ml Vial) 40 mg IV NOW ONE Stop: 09/04/22 00:15 Last Admin: 09/04/22 00:45 Dose: 40 mg Documented By: SHAHAB Ceftriaxone Sodium 1,000 mg/ (Sodium Chloride) 100 mls @ 200 mls/hr IV NOW ONE Stop: 09/04/22 00:15 Last Infusion: 09/04/22 01:38 Dose: 0 mls/hr Documented By: Admin: 09/04/22 00:44 Dose: 200 mls/hr Documented By: SHAHAB Vital Signs Vital signs: Vital Signs - 8 hr 09/03/22 22:50 09/03/22 23:14 09/03/22 23:30 Temperature 98.6 F Pulse Rate 112 H 0 L 114 H Respiratory Rate 18 33 H 26 H Blood Pressure 151/89 H Pulse Oximetry 96 94 94 Oxygen Delivery Method Nasal Cannula Oxygen Flow Rate 2 09/03/22 23:36 09/03/22 23:36 09/04/22 00:00 Temperature Pulse Rate 103 H Respiratory Rate 23 Blood Pressure 131/75 128/73 Pulse Oximetry 95 Oxygen Delivery Method Oxygen Flow Rate 09/04/22 00:00 09/04/22 00:39 09/04/22 01:00 Temperature Pulse Rate 107 H 100 H 95 H Respiratory Rate 24 26 H Blood Pressure Pulse Oximetry 95 95 94 Oxygen Delivery Method Oxygen Flow Rate 09/04/22 01:30 09/04/22 02:00 09/04/22 02:30 Temperature Pulse Rate 91 H 87 90 Respiratory Rate 24 27 H 29 H Blood Pressure Pulse Oximetry 94 95 87 L Oxygen Delivery Method Oxygen Flow Rate MDM - Fever Lab Data Result diagrams: 09/03/22 23:20 09/03/22 23:20 Labs: Lab Results 09/03/22 09/03/22 09/03/22 Range/Units 22:44 23:04 23:20 WBC 12.4 H (4.5-11.0) X10^3/uL RBC 3.60 L (4.0-5.2) X10^6/uL Hgb 11.3 L (12.0-16.0) g/dL Hct 33.5 L (36-46) % MCV 92.9 (80-100) fL MCH 31.4 (26-34) PG MCHC 33.8 (30-36) % RDW 17.5 H (11.6-14.8) % Plt Count 214 (150-400) X10^3/uL Neut % (Auto) 89.3 H (50-75) % Lymph % (Auto) 3.5 L (25-40) % [place] % (Auto) 6.6 (3-14) % Eos % (Auto) 0.1 L (2-4) % Baso % (Auto) 0.5 (0-2) % Neut # (Auto) 75369 H (2731-7343) /uL Lymph # (Auto) 400 L (6563-2908) /uL [place] # (Auto) 800 (0-900) /uL Eos # (Auto) 0 (0-450) /uL Baso # (Auto) 100 (0-100) /uL D-Dimer (<500) ng/ml Sodium (137-145) mmol/L Potassium (3.4-5.1) mmol/L Chloride (98-107) mmol/L Carbon Dioxide (22-32) mmol/L BUN (7-17) mg/dL Creatinine (0.52-1.04) mg/dL Estimated GFR (>60) mL/min BUN/Creatinine Ratio (6-22) Glucose (80-110) mg/dL Lactate (0.7-2.1) mmol/L Calcium (8.4-10.2) mg/dL Magnesium (1.6-2.3) mg/dL Total Bilirubin (0.2-1.3) mg/dL AST (14-36) IU/L ALT (<35) IU/L Alkaline Phosphatase (38-126) U/L Total Creatine Kinase (30-135) U/L CK-MB (CK-2) CK-MB (CK-2) Rel Index Troponin I (0.01-0.034) ng/mL NT-Pro-B Natriuret Pep (<450) pg/mL Total Protein (6.3-8.2) g/dL Albumin (3.5-5.0) g/dL Globulin (1.7-4.1) g/dL Albumin/Globulin Ratio (1.0-2.8) Procalcitonin (<0.5) ng/mL Urine RBC 30-100/hpf H (0-5/HPF) Urine WBC 30-100/hpf H (0-5/HPF) Ur Squamous Epith Cells 0-1 /hpf (0-5/HPF) Urine Bacteria Many (>30) H (None) Ur Culture Indicated? Specimen cultured SARS-CoV-2 (PCR) Negative (Negative) Influenza A (RT-PCR) Flu a negative (NEGATIVE) Influenza B (RT-PCR) Flu b negative (NEGATIVE) RSV (PCR) Negative (Negative) 09/03/22 09/03/22 09/03/22 Range/Units 23:20 23:20 23:20 WBC (4.5-11.0) X10^3/uL RBC (4.0-5.2) X10^6/uL Hgb (12.0-16.0) g/dL Hct (36-46) % MCV (80-100) fL MCH (26-34) PG MCHC (30-36) % RDW (11.6-14.8) % Plt Count (150-400) X10^3/uL Neut % (Auto) (50-75) % Lymph % (Auto) (25-40) % [place] % (Auto) (3-14) % Eos % (Auto) (2-4) % Baso % (Auto) (0-2) % Neut # (Auto) (9002-2771) /uL Lymph # (Auto) (6304-0973) /uL [place] # (Auto) (0-900) /uL Eos # (Auto) (0-450) /uL Baso # (Auto) (0-100) /uL D-Dimer (<500) ng/ml Sodium 136 L (137-145) mmol/L Potassium 3.4 (3.4-5.1) mmol/L Chloride 100 (98-107) mmol/L Carbon Dioxide 24 (22-32) mmol/L BUN 21 H (7-17) mg/dL Creatinine 1.27 H (0.52-1.04) mg/dL Estimated GFR 42 L (>60) mL/min BUN/Creatinine Ratio 16.5 (6-22) Glucose 144 H (80-110) mg/dL Lactate 1.1 (0.7-2.1) mmol/L Calcium 10.1 (8.4-10.2) mg/dL Magnesium 1.6 (1.6-2.3) mg/dL Total Bilirubin 0.7 (0.2-1.3) mg/dL AST 24 (14-36) IU/L ALT 16 (<35) IU/L Alkaline Phosphatase 123 (38-126) U/L Total Creatine Kinase 63 (30-135) U/L CK-MB (CK-2) TNP CK-MB (CK-2) Rel Index TNP Troponin I 0.037 H (0.01-0.034) ng/mL NT-Pro-B Natriuret Pep 7340 H (<450) pg/mL Total Protein 8.0 (6.3-8.2) g/dL Albumin 4.3 (3.5-5.0) g/dL Globulin 3.7 (1.7-4.1) g/dL Albumin/Globulin Ratio 1.2 (1.0-2.8) Procalcitonin 0.33 (<0.5) ng/mL Urine RBC (0-5/HPF) Urine WBC (0-5/HPF) Ur Squamous Epith Cells (0-5/HPF) Urine Bacteria (None) Ur Culture Indicated? SARS-CoV-2 (PCR) (Negative) Influenza A (RT-PCR) (NEGATIVE) Influenza B (RT-PCR) (NEGATIVE) RSV (PCR) (Negative) 09/03/22 09/04/22 Range/Units 23:20 01:26 WBC (4.5-11.0) X10^3/uL RBC (4.0-5.2) X10^6/uL Hgb (12.0-16.0) g/dL Hct (36-46) % MCV (80-100) fL MCH (26-34) PG MCHC (30-36) % RDW (11.6-14.8) % Plt Count (150-400) X10^3/uL Neut % (Auto) (50-75) % Lymph % (Auto) (25-40) % [place] % (Auto) (3-14) % Eos % (Auto) (2-4) % Baso % (Auto) (0-2) % Neut # (Auto) (7921-2339) /uL Lymph # (Auto) (0740-4514) /uL [place] # (Auto) (0-900) /uL Eos # (Auto) (0-450) /uL Baso # (Auto) (0-100) /uL D-Dimer 652 H (<500) ng/ml Sodium (137-145) mmol/L Potassium (3.4-5.1) mmol/L Chloride (98-107) mmol/L Carbon Dioxide (22-32) mmol/L BUN (7-17) mg/dL Creatinine (0.52-1.04) mg/dL Estimated GFR (>60) mL/min BUN/Creatinine Ratio (6-22) Glucose (80-110) mg/dL Lactate (0.7-2.1) mmol/L Calcium (8.4-10.2) mg/dL Magnesium (1.6-2.3) mg/dL Total Bilirubin (0.2-1.3) mg/dL AST (14-36) IU/L ALT (<35) IU/L Alkaline Phosphatase (38-126) U/L Total Creatine Kinase (30-135) U/L CK-MB (CK-2) CK-MB (CK-2) Rel Index Troponin I 0.041 H (0.01-0.034) ng/mL NT-Pro-B Natriuret Pep (<450) pg/mL Total Protein (6.3-8.2) g/dL Albumin (3.5-5.0) g/dL Globulin (1.7-4.1) g/dL Albumin/Globulin Ratio (1.0-2.8) Procalcitonin (<0.5) ng/mL Urine RBC (0-5/HPF) Urine WBC (0-5/HPF) Ur Squamous Epith Cells (0-5/HPF) Urine Bacteria (None) Ur Culture Indicated? SARS-CoV-2 (PCR) (Negative) Influenza A (RT-PCR) (NEGATIVE) Influenza B (RT-PCR) (NEGATIVE) RSV (PCR) (Negative) Urine Dip Bedside Urine Glucose Negative Bedside Urine Bilirubin - Negative Bedside Urine Ketone - Negative Urine Specific [place] 1.010 Bedside Urine Occult Blood +++ Bedside Urine pH 6.0 Bedside Urine Protein + 30 Bedside Urine Urobilinogen - Negative Bedside Urine Nitrite - Negative Bedside Urine Leukocytes ++ [address] scan - head: Radiologist's Impression: [place] [id number] [place] Scan Report Signed Patient: Shannon Feliz MR#: [id number] : 1940 Acct:[id number] Age/Sex: 82 / F Date of Service: 09/03/22 Loc: ED Accession Number: [id number] ?? Procedure: CT head/brain wo con Ordering Provider: Judy Elena D.O. PROCEDURE:? CT HEAD/BRAIN WO CON ? INDICATIONS:? confusion ? TECHNIQUE:? Noncontrast 4.5 mm thick angled axial sections acquired from the foramen magnum to the vertex, with coronal and sagittal reformats.? For radiation dose reduction, the following was used:? automated exposure control, adjustment of mA and/or kV according to patient size.? ? COMPARISON:? [facility], CT, CT HEAD/BRAIN WO CON, 07/27/2022, 16:16. ? FINDINGS:? Image quality:? Excellent.? ? CSF spaces:? Basal cisterns are patent.? No extra-axial fluid collections.? Ventricles are normal in size and shape.? ? Brain:? No midline shift.? No intracranial masses or hemorrhage.? No area of hypodensity in a large vascular distribution to suggest acute infarction. Periventricular hypodensity consistent with chronic microvascular ischemic change. Age-related parenchymal loss. ? Skull and face:? Calvarium and visualized facial bones are intact, without suspicious lesions.? ? Sinuses:? Visualized sinuses and mastoids are clear.? ? IMPRESSION:? No acute intracranial abnormality. Chronic microvascular ischemic disease. ? ? Dictated by: Ryan Partida M.D. on 09/04/2022 at 0:51 ? ? ECG Data Interpretation: Paced rhythm rate 107 left bundle-branch block noted MDM Narrative Medical decision making narrative: The patient does have a UTI she has mild leukocytosis no obvious sepsis. She also likely has congestive heart failure with an elevated BNP in minimal elevation in troponin. However she was just hospitalized she had a recent fracture, however she has been on anticoagulation. Symptoms are most consistent with congestive heart failure. Discussion with family about CT angio for completeness sake however they were worried about her 1 kidney function her GFR is 42. At this time feel is reasonable we have another explanation for her hypoxia. She does desat into the 87% on room air while at rest. She is given a dose of Lasix. Pacemaker was interrogated there is evidence of chronic ongoing atrial tachycardia and atrial fibrillation which may explain her congestive heart failure. Daughter states that she is on Lasix daily in fact she had some at 6:00 p.m.. Patient is also found have UTI she has nitrates leukocytes normal lactic acid and procalcitonin. She has mild leukocytosis of 12. She was recently just treated for a UTI and has already returned. Viral panel is negative. Blood cultures pending. She overall appears well, however definitely still requiring oxygen secondary to congestive heart failure likely and does have a UTI. Head CT is done because she is confused family noted that she was walking to the left. However I do not appreciate any focal deficits. I think confusion and balance issues may be secondary to fever and infection. Brian WEEMS accepts patient Unfortunately patient went up stairs before really she did not have a chest x-ray is which is unusual off I did communicate this with the hospitalist who is kindly going to order 1. Discharge Plan Departure Patient Disposition: Admitted as Observation Clinical Impression: Acute UTI, CHF (congestive heart failure) Admit Date/Time: 09/04/22 03:05 Admit Provider: Cyndy Torres
[2022-09-04] MEDS: cefTRIAXone 1,000 MG in SODIUM CHLORIDE 0.9% 100 ML 200 MG IV ×2 (00:44→14:46)
[2022-09-04] MEDS: FUROSEMIDE 40 MG/4 ML VIAL IV (00:45)
[2022-09-04 01:12] LABS: D Dimer 652 ng/ml (<500)
[2022-09-04 01:57] LABS: Troponin I 0.041 ng/mL (0.01-0.034)
--- NOTE | 2022-09-04 03:08 | DI.ECHO.S_ITS ---
[facility]---------+ [facility] +---------+ : : [address] : : : : [id number] : : : : Phone: [phone] Echocardiogram Report + + :Name: PAULA GUZMAN Study Date: 09/04/2022 Height: 60 in : :[facility] ReadingLocation: Weight: 144 lb : : Gender: Female BSA: 1.6 m2 : :: 1940 Age: 82 yrs BP: 149/79 mmHg: :Reason For Study: Congestive Heart Failure : :Ordering Physician: AMY, : :ANDER Performed By: Joce Sherwood : :Referring: ANDER REYES : + + Interpretation Summary 1) Moderately to severely enlarged left ventricle with severely reduced systolic function (EF 25-30%). 2) Normal right ventricular size with mildly reduced function. 3) No significant valvular abnormalities. 4) No prior Echo available for comparison. Procedure: A two-dimensional transthoracic echocardiogram with color flow and Doppler was performed. The study quality was technically adequate. There is no prior echocardiogram noted for this patient. The patient has a paced rhythm. Left Ventricle: The left ventricle is moderate-severely dilated. There is normal left ventricular wall thickness. Left ventricular systolic function is severely reduced. The ejection fraction is estimated to be 25-30%. There is severe global hypokinesis of the left ventricle. Diastolic function could not be accurately assessed due to paced rhythm. Right Ventricle: The right ventricle is normal size. Atria: The left atrium is severely dilated. Right atrial size is normal. The interatrial septum grossly appears intact with no obvious evidence for an atrial septal defect. Mitral Valve: The mitral valve is normal in structure and function. There is mild mitral regurgitation. Aortic Valve: There is mild aortic valve sclerosis. There is no aortic valve stenosis. There is mild aortic regurgitation. Tricuspid Valve: The tricuspid valve is normal in structure and function. There is mild tricuspid regurgitation. The right ventricular systolic pressure is estimated to be at least 28 mmHg based on an estimated right atrial pressure of 3 mm Hg. Pulmonic Valve: The pulmonic valve is normal in structure and function. There is trace pulmonic regurgitation. Great Vessels: The aortic root is normal size. The ascending aorta is at the upper limits of normal in size. The IVC is of normal diameter and collapses greater than 50% with a sniff. This suggests a low right atrial pressure of 3 mm Hg. Pericardium/ Pleura There is a trivial pericardial effusion noted. There is no pleural effusion. MMode/2D Measurements & Calculations LVIDd: 6.2 cm LVOT diam: 2.2 cm LVIDs: 5.4 cm Ao root diam: 3.4 cm FS: 13.6 % asc Aorta Diam: 4.0 cm IVSd: 0.94 cm LVPWd: 0.67 cm LV rose. diameter/BSA (cm/m^2): 3.8 LV sys. diameter/BSA (cm/m^2): 3.3 LA dimension: 4.4 cm RA long axis: 6.5 cm LA A2 area: 26.0 cm2 RA area: 15.0 cm2 LA A4 area: 32.7 cm2 RA vol: 29.6 ml LA length (vol): 7.0 cm RA : 18.3 ml/m2 LA vol: 103.4 ml LA vol index: 63.7 ml/m2 TAPSE: 1.6 cm Doppler Measurements & Calculations Ao V2 max: 176.1 cm/sec LVOT Max Boni: 84.9 cm/sec Ao V2 mean: 125.3 cm/sec LV V1 max P.9 mmHg Ao max P.4 mmHg LV V1 VTI: 13.1 cm Ao mean P.8 mmHg ALISHA(I,D): 2.0 cm2 Ao V2 VTI: 25.0 cm ALISHA(V,D): 1.9 cm2 sev ratio: 0.52 ALISHA indexed to BSA (cm^2/m^2): 1.2 TR max boni: 248.6 cm/sec SV(LVOT): 50.4 ml TR max P.7 mmHg Reading Physician:01:27 PM
--- NOTE | 2022-09-04 05:16 | P.HP_ITS ---
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 She was initially seen evaluated on 07/27/2022 after she fell and fractures were diagnosed.? She was then sent to [facility] rehab she says for she actually did not get her Pradaxa, but did get Eliquis and has been home for about 1 week.? Daughter states that she restarted her on Pradaxa and today they noticed that she was very confused having difficulty ambulating possibly had a fever.? Daughter states that she was recently treated for a UTI put on Keflex for 3 days and then stopped.? Patient is complaining some of abdominal pain and dysuria.? She really has no chest pain.? She is noted to be mildly hypoxic 89-90% on room air. In ED patient was tachypneic with respiratory rates 26-33, O2 saturations as low as 87% on room air, tachycardic heart rates 112- 114, BP slightly elevated 151/89. On the floor patient denies headache, changes in vision, weakness, numbness, fever, body aches, chills, nausea, vomiting, diarrhea, hematemesis, hematuria, melena, recent exposure to illness, is vaccinated against COVID but has not received flu vaccine-requests flu vaccine, denies skin wounds or infection. At the time of admit patient is stable alert and orientated x3, relaxed resting in bed initial VS afebrile temp 98.6?, BP 128/73, HR 90, R 29, O2 saturation 87%2 LN/C. Head CT was negative for any acute intracranial process. Patient has a mildly elevated WBC 12.4 with a left shift neutrophils 11,100, lactate 1.1, procalcitonin, COVID, influenza a/B, RSV and procalcitonin are all negative, known CKD BUN 21, creatinine 1.27, GFR 42, D-dimer 652, patient has 1 kidney with CKD based on the fact that she has been on either Eliquis or Pradaxa S consider not prudent at this time to complete a CTA with contrast. Discussed with the patient's daughter and son-in-law if her condition deteriorates or worsens we will consider CTA that time. BNP 7340, initial troponins elevated 0.037, repeat 0.041-Pacemaker was interrogated there is evidence of chronic ongoing atrial tachycardia and atrial fibrillation which may explain her con gestive heart failure. Patient admitted for UTI, CHF exacerbation, myocardial injury. 07/27/2022ED Visit :carpal bone fracture and left wrist without gross bony deformity.?CT does confirm a nondisplaced superior and inferior pubic rami and sacral fracture.? Patient History Medical History (Updated 09/04/22 @ 05:37 by KOKI Woo) CKD stage G3a/A1, GFR 45-59 and albumin creatinine ratio <30 mg/g Control of atrial fibrillation with pacemaker Essential hypertension Fracture of left carpal bone Fracture of superior pubic ramus GERD (gastroesophageal reflux disease) History of cervical cancer History of renal carcinoma Hyperlipidemia Hypothyroidism associated with surgical procedure Inferior pubic ramus fracture Irritable bowel syndrome Neuropathy Overactive bladder Restless leg syndrome Surgical History (Updated 09/04/22 @ 05:37 by KOKI Woo) History of kidney removal History of thyroid surgery Family & Social History Family History Mother Cancer Sister Cancer Social History: household members lives with her daughter Hien Harding and son-in-law Prior Living Arrangements House Safety & Behavioral: Feels Safe in Current Yes Environment Been Physically Hurt or No Threatened By a Person Tobacco & Substance use: Smoking Status Never smoker alcohol intake frequency 0-2 drinks per day Substance Use Type does not use Meds Home Medications and Allergies Home Medications Medication Instructions Recorded Confirmed Type amiodarone 200 mg tablet 200 mg PO DAILY 09/13/21 07/28/22 History atorvastatin 20 mg tablet 20 mg PO QPM 09/13/21 07/28/22 History benzonatate 100 mg capsule 100 mg PO BID PRN cough #20 caps 09/13/21 09/13/21 Rx bethanechol chloride 25 mg tablet 25 mg PO TID 09/13/21 07/28/22 History carvedilol 25 mg tablet 25 mg PO BID 09/13/21 07/28/22 History dabigatran etexilate 75 mg capsule 75 mg PO BID 09/13/21 07/28/22 History (Pradaxa) dicyclomine 20 mg tablet 20 mg PO BID 09/13/21 07/28/22 History furosemide 40 mg tablet 40 mg PO BID 09/13/21 07/28/22 History gabapentin 600 mg tablet 600 mg PO TID 09/13/21 07/28/22 History levothyroxine 112 mcg capsule 112 mcg PO DAILY 09/13/21 07/28/22 History omeprazole 40 mg capsule,delayed 40 mg PO DAILY 09/13/21 09/13/21 History release pantoprazole 20 mg tablet,delayed 40 mg PO BID 09/13/21 07/28/22 History release ropinirole 0.5 mg tablet 0.5 mg PO BEDTIME 09/13/21 07/28/22 History hydrocodone 5 mg-acetaminophen 325 1 tab PO Q6H PRN pain #20 tabs 07/27/22 07/28/22 Rx mg tablet losartan 25 mg tablet 12.5 mg 07/28/22 History potassium chloride 10 mEq 10 meq PO 3XD 07/28/22 07/28/22 History capsule,extended release docusate sodium 100 mg capsule 100 mg PO BID PRN constipation #60 07/29/22 Rx caps hydrocodone 5 mg-acetaminophen 325 1 tab PO Q6H PRN pain #20 tabs 07/29/22 Rx mg tablet Allergies Allergy/AdvReac Type Severity Reaction Status Date / Time No Known Drug Allergies Allergy Verified 07/27/22 14:21 Review of Systems Review of Systems Narrative: All 12 point systems reviewed with the patient and are negative except otherwise documented. Exam Vital Signs (past 8 hours): - 09/03/22 22:50 09/03/22 23:14 09/03/22 23:30 Temperature 98.6 F Pulse Rate 112 H 0 L 114 H Respiratory Rate 18 33 H 26 H Blood Pressure 151/89 H Pulse Oximetry 96 94 94 Oxygen Delivery Method Nasal Cannula Oxygen Flow Rate 2 09/03/22 23:36 09/03/22 23:36 09/04/22 00:00 Temperature Pulse Rate 103 H Respiratory Rate 23 Blood Pressure 131/75 128/73 Pulse Oximetry 95 Oxygen Delivery Method Oxygen Flow Rate 09/04/22 00:00 09/04/22 00:39 09/04/22 01:00 Temperature Pulse Rate 107 H 100 H 95 H Respiratory Rate 24 26 H Blood Pressure Pulse Oximetry 95 95 94 Oxygen Delivery Method Oxygen Flow Rate 09/04/22 01:30 09/04/22 02:00 09/04/22 02:30 Temperature Pulse Rate 91 H 87 90 Respiratory Rate 24 27 H 29 H Blood Pressure Pulse Oximetry 94 95 87 L Oxygen Delivery Method Oxygen Flow Rate 09/04/22 03:45 Temperature 97.0 F L Pulse Rate 82 Respiratory Rate 18 Blood Pressure 130/73 Pulse Oximetry 98 Oxygen Delivery Method Oxygen Flow Rate 2 Oxygen Delivery Method Nasal Cannula Oxygen Flow Rate 2 Narrative Exam Narrative: General: Patient is a well-developed, well-nourished peter elderly female, on 2 liters NC, SOB after 2-3 words, in no distress at this time. HEENT: Normocephalic, atraumatic, extraocular muscles intact, oral pharynx is clear and mucous membranes are moist. Neck is supple and symmetric, trachea is midline, no adenopathy, no thyroid enlargement, nontender, no masses palpated. Negative for JVD Chest: pacemaker left chest wall, no nasal flaring, retractions, or tachypneic labored breathing. Lungs: Auscultation of all lung islas are poor air exchange, diminished but equal, shallow breathing, coarse in bilateral bases. Cardio: regular atrial paced rate and rhythm without murmur, rubs, or gallops, no carotid bruit, no cardiac pulsations present. Abdomen: Soft c/o mild left upper quad tenderness, but did not elicit any pain with palpation while distracted, negative for organomegaly, or masses. Bowel sounds are present in all 4 quadrants without guarding or rebound, mild left CVA tenderness.-PureWick in place. Musculoskeletal: Muscle strength and tone appear equal, no deformity, crepitus, effusions, cyanosis, clubbing or edema present. Full range of motion intact radial and pedal pulses are normal. Skin: Warm dry and intact without rashes, ulcerations or petechiae. Neuro: Alert and orientated x3, moves all extremities, sensation to touch intact, no gross deficits noted of cranial nerves. Psych: Patient has a well-kept appearance, appropriate affect, mental status attitude thought context and judgment are appropriate for age. Objective Labs Result Diagrams: 09/03/22 23:20 09/03/22 23:20 Labs: Laboratory Results - last 24 hr 09/03/22 09/03/22 09/03/22 22:44 23:04 23:20 WBC 12.4 H RBC 3.60 L Hgb 11.3 L Hct 33.5 L MCV 92.9 MCH 31.4 MCHC 33.8 RDW 17.5 H Plt Count 214 Neut % (Auto) 89.3 H Lymph % (Auto) 3.5 L Park % (Auto) 6.6 Eos % (Auto) 0.1 L Baso % (Auto) 0.5 Neut # (Auto) 33732 H Lymph # (Auto) 400 L Park # (Auto) 800 Eos # (Auto) 0 Baso # (Auto) 100 D-Dimer Sodium Potassium Chloride Carbon Dioxide BUN Creatinine Estimated GFR BUN/Creatinine Ratio Glucose Lactate Calcium Magnesium Total Bilirubin AST ALT Alkaline Phosphatase Total Creatine Kinase CK-MB (CK-2) CK-MB (CK-2) Rel Index Troponin I NT-Pro-B Natriuret Pep Total Protein Albumin Globulin Albumin/Globulin Ratio Procalcitonin Urine RBC 30-100/hpf H Urine WBC 30-100/hpf H Ur Squamous Epith Cells 0-1 /hpf Urine Bacteria Many (>30) H Ur Culture Indicated? Specimen cultured SARS-CoV-2 (PCR) Negative Influenza A (RT-PCR) Flu a negative Influenza B (RT-PCR) Flu b negative RSV (PCR) Negative 09/03/22 09/03/22 09/03/22 23:20 23:20 23:20 WBC RBC Hgb Hct MCV MCH MCHC RDW Plt Count Neut % (Auto) Lymph % (Auto) Park % (Auto) Eos % (Auto) Baso % (Auto) Neut # (Auto) Lymph # (Auto) Park # (Auto) Eos # (Auto) Baso # (Auto) D-Dimer Sodium 136 L Potassium 3.4 Chloride 100 Carbon Dioxide 24 BUN 21 H Creatinine 1.27 H Estimated GFR 42 L BUN/Creatinine Ratio 16.5 Glucose 144 H Lactate 1.1 Calcium 10.1 Magnesium 1.6 Total Bilirubin 0.7 AST 24 ALT 16 Alkaline Phosphatase 123 Total Creatine Kinase 63 CK-MB (CK-2) TNP CK-MB (CK-2) Rel Index TNP Troponin I 0.037 H NT-Pro-B Natriuret Pep 7340 H Total Protein 8.0 Albumin 4.3 Globulin 3.7 Albumin/Globulin Ratio 1.2 Procalcitonin 0.33 Urine RBC Urine WBC Ur Squamous Epith Cells Urine Bacteria Ur Culture Indicated? SARS-CoV-2 (PCR) Influenza A (RT-PCR) Influenza B (RT-PCR) RSV (PCR) 09/03/22 09/04/22 23:20 01:26 WBC RBC Hgb Hct MCV MCH MCHC RDW Plt Count Neut % (Auto) Lymph % (Auto) Park % (Auto) Eos % (Auto) Baso % (Auto) Neut # (Auto) Lymph # (Auto) Park # (Auto) Eos # (Auto) Baso # (Auto) D-Dimer 652 H Sodium Potassium Chloride Carbon Dioxide BUN Creatinine Estimated GFR BUN/Creatinine Ratio Glucose Lactate Calcium Magnesium Total Bilirubin AST ALT Alkaline Phosphatase Total Creatine Kinase CK-MB (CK-2) CK-MB (CK-2) Rel Index Troponin I 0.041 H NT-Pro-B Natriuret Pep Total Protein Albumin Globulin Albumin/Globulin Ratio Procalcitonin Urine RBC Urine WBC Ur Squamous Epith Cells Urine Bacteria Ur Culture Indicated? 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 She was initially seen evaluated on 07/27/2022 after she fell and fractures were diagnosed.? She was then sent to [facility] rehab, has been home for about 1 week, recent 3 day tx for UTI w/Keflex.? Patient admitted for UTI, CHF exacerbation, myocardial injury. 1. Acute respiratory failure with hypoxia, likely secondary to CHF exacerbation, brought on by atrial tachycardia in the setting of atrial fibrillation, acute, with encephalopathy, acute, present on admission -Pacemaker was interrogated there is evidence of chronic ongoing atrial tachycardia and atrial fibrillation which may explain her congestive heart failure. -In ED patient was tachypneic with respiratory rates 26-33 O2 saturations as low as 87% on room air, tachycardic heart rates 112-114, BP slightly elevated 151/89 -Head CT was negative for any acute intracranial process. -D-dimer 652:patient has 1 kidney with CKD-has been on either Eliquis or Pradaxa CTA with contrast not ordered in ED at this time. Discussed and education with the patient's daughter and son-in-law if her condition deteriorates or worsens we will consider CTA that time, they agreed to plan of care -COVID, influenza a/B, RSV and procalcitonin are all negative -Admit: Encephalopathy resolved: 98.6?, BP 128/73, HR 90, R 29, O2 saturation 87%2 LN/C -Ordered: Chest x-ray, respiratory consult, DuoNeb, prednisone 40 mg, incentive spirometry, -BNP 7340 -Lasix 20 mg IV b.i.d. (Given lasix in ED)-Hold patient Oral Lasix -Echo ordered, no EKG from ED in Chart. Specific heart failure unknown. 2. Myocardial injury, acute, present on admission -initial troponins elevated 0.037, repeat 0.041-will continue to trend -Pacemaker was interrogated there is evidence of chronic ongoing atrial tachycardia and atrial fibrillation -patient placed on telemedicine 3. UTI, acute, recurrent, with encephalopathy, present on admission -urinalysis was positive in ED culture pending-1 g of Rocephin was given in ED -WBC 12.4 with a left shift neutrophils 11,100, lactate 1.1 -will initiate 2nd 1gm (total 2gm loading dose) Rocephin, followed by 1 g Q 24 hours -pure wick in place -blood cultures pending 4. Atrial fibrillation with pacemaker in place, acute on chronic, present on admission -Pacemaker was interrogated there is evidence of chronic ongoing atrial ta chycardia and atrial fibrillation. -continue carvedilol, Pradaxa 5. Anemia, mild, chronic, likely secondary to CKD stage G3a, acute on chronic, likely secondary to renal cancer and removal of right kidney, chronic, present on admission -BUN 21, creatinine 1.27, GFR 42-suspect that this is likely patient's baseline -HGB 11.3/HCT 33.5 6. Overactive bladder, chronic, present on admission -holding bethanechol chloride 7. Hypothyroidism secondary to surgical procedure, chronic, present on admission -continue levothyroxine -TSH ordered 8. Irritable bowel syndrome, with chronic abdominal pain, chronic, present on admission -continue Bentyl 9. Neuropathy, chronic, present on admission -continue gabapentin 10. Hyperlipidemia likely secondary to CKD, chronic, present on admission -continue Lipitor 11. Restless leg syndrome, chronic, present on admission -continue Requip 12. Hypertension, essential, acute on chronic, present on admission -continue amlodipine 13. GERD, chronic, present on admission -continue omeprazole Code status:DNR Surrogate decision maker: Jessica Harding daughter COVID PCR:Negative COVID vaccination: Fully vaccinated DVT/VTE prophylaxis: Continue patient's Pradaxa, and SCD Disposition: Patient admitted for observation for IV antibiotic treatment of UTI, diuresis for CHF, and resolution of acute respiratory failure expected length of stay less than 2 midnights I have utilized all available immediate resources to obtain, update, or review the patient's current medications. I confirmed that the patient's advanced care plan is present, Code status is documented and/or surrogate decision maker is listed in the patient's medical record. I have personally reviewed patient's chart notes from PCP, specialists, diagnostic imaging, and laboratory, Time Spent With Patient Critical Care time: I spent a total of [] minutes of critical care time on this patient's care today; this time is exclusive of procedural time.
--- NOTE | 2022-09-04 05:52 | DI.RAD.S_ITS ---
PROCEDURE: XR CHEST 1V INDICATIONS: ARF, CHF TECHNIQUE: One view of the chest was acquired. COMPARISON: [facility], CT, CT HEAD/BRAIN WO CON, 09/03/2022, 23:10. [facility], CR, XR CHEST 1V, 05/04/2022, 20:44. [facility], CR, XR CHEST 1V, 07/29/2022, 9:07. FINDINGS: Surgical changes and devices: An AICD is seen. The leads are seen in stable positions. Lungs and pleura: Lungs are clear. No pleural effusions or pneumothorax. Mediastinum: The cardiac contours are mildly enlarged. The aorta demonstrates calcification and tortuosity. Bones and chest wall: No suspicious bony lesions. Age-appropriate bony degenerative changes are seen. Overlying soft tissues appear unremarkable. IMPRESSION: Mild cardiomegaly. Clear lungs. Postoperative and degenerative changes are seen. Note: No significant discrepancy from the preliminary report. Dictated by: Stewart Ledezma M.D. on 09/04/2022 at 7:04 Approved by: Stewart Ledezma M.D. on 09/04/2022 at 7:05
[2022-09-04] MEDS: LEVOTHYROXINE 112 MCG TABLET PO (05:57)
[2022-09-04 06:31] LABS: Add Manual Diff / Slide Review NO; Basophils Absolute Auto 100 /uL (0-100); Basophils Percent Auto 0.7 % (0-2); Eosinophils Absolute Auto 0 /uL (0-450); Hematocrit 33.1 % (36-46); Hemoglobin 11.1 g/dL (12.0-16.0); Lymphocytes Absolute Auto 900 /uL (1100-4500); Lymphocytes Percent Auto 6.8 % (25-40); Mean Corpuscular HGB Conc 33.5 % (30-36); Mean Corpuscular Hemoglobin 31.1 PG (26-34); Mean Corpuscular Volume 92.9 fL (80-100); Monocytes Absolute Auto 700 /uL (0-900); Monocytes Percent Auto 5.4 % (3-14); Neutrophils Absolute Auto 11800 /uL (1500-7000); Neutrophils Percent Auto 87.1 % (50-75); Platelet Count 211 X10^3/uL (150-400); Red Blood Cell Count 3.57 X10^6/uL (4.0-5.2); Red Cell Distribution Width 17.5 % (11.6-14.8); White Blood Cell Count 13.5 X10^3/uL (4.5-11.0)
[2022-09-04 06:43] LABS: BUN Creatinine Ratio 17.6 (6-22); Blood Urea Nitrogen 22 mg/dL (7-17); Calcium 9.9 mg/dL (8.4-10.2); Carbon Dioxide 27 mmol/L (22-32); Chloride 100 mmol/L (98-107); Cholesterol 193 mg/dL (140-199); Estimated Glomerular Filt Rate 43 mL/min (>60); Glucose 128 mg/dL (80-110); HDL Cholesterol 59 mg/dL (40-60); HEMOLYSIS < 15 (0-50); LDL Cholesterol Calculated 121 mg/dL (<100); Magnesium 1.8 mg/dL (1.6-2.3); Potassium 3.4 mmol/L (3.4-5.1); Sodium 136 mmol/L (137-145); Triglycerides 66 mg/dL (35-150)
[2022-09-04 06:52] LABS: Troponin I 0.076 ng/mL (0.01-0.034)
[2022-09-04 07:21] LABS: Thyroid Stimulating Hormone 1.24 uIU/mL (0.47-4.68)
[2022-09-04 08:23] LABS: Procalcitonin 1.12 ng/mL (<0.5)
[2022-09-04] MEDS: DICYCLOMINE 10 MG CAPSULE 20 MG PO ×2 (09:25→20:47)
[2022-09-04] MEDS: DOXYCYCLINE HYCLATE 100 MG TABLET PO ×2 (09:26→20:51)
[2022-09-04] MEDS: LOSARTAN 25 MG TABLET 12.5 MG PO ×2 (09:26→20:53)
[2022-09-04] MEDS: carvediloL 12.5 MG TABLET 25 MG PO ×2 (09:30→20:48)
[2022-09-04] MEDS: PANTOPRAZOLE DR 40 MG TABLET PO ×2 (09:30→20:52)
[2022-09-04] MEDS: DABIGATRAN 75 MG CAPSULE PO ×2 (09:30→20:51)
[2022-09-04] MEDS: GABAPENTIN 600 MG TABLET PO ×3 (09:30→20:52)
[2022-09-04] MEDS: POTASSIUM CHLORIDE 10 MEQ TAB PO ×3 (09:30→20:52)
[2022-09-04] MEDS: predniSONE 20 MG TABLET 40 MG PO (09:30)
[2022-09-04] MEDS: FUROSEMIDE 20 MG/2 ML VIAL 40 MG IV ×2 (09:31→20:47)
[2022-09-04] MEDS: INFLUENZA HD VACCINE 0.7 ML SYRINGE IM (09:43)
--- NOTE | 2022-09-04 10:54 | CM.DANOTE ---
DC Assessment: Patient is a 82 yr old female who was admitted for CHF exacerbation. CM met with patient at the bedside and explained role patient stated understanding. patient was A&O x4 during CM meeting however was short of breath and on oxygen per NC during meeting. Patient states she does not use O2 at her baseline. Patient currently lives with her daughter and son in law in [place]. Patients daughters house is two stories however the ground floor is set up as a studio apartment for the patient so she has no need to climb the stairs. patient states she is Independent with all ADLs at her baseline and does use a Fww to ambulate on a regular basis at home. Patient states she does not drive and her daughter takes her to her appointments when she needs them. CM asked patient if she would be open to SNF vs HH at discharge depending on what PT/ OT recommend and she said no she wants to go home when medically ready. Patient is open to HH but doesn't believe she will need it but absolutely does not want to go to SNF. Patient stated her daughter Jessica is her DPOA and her PCP is Dr jessica Lomeli. I: Medicare and Plan: Plan A: discharge home with family when medically stable- patients daughter or son in law to provide transportation. Plan B. home with HH services if it is determined to be needed.... but doesn't really want HH but open. Juany Brown RNdelicatessen manager Discharge Planning/Care Management CM Discharge Assessment Start: 09/04/22 10:51 Freq: Status: Active Protocol: Document 09/04/22 10:51 HS (Rec: 09/04/22 10:53 HS [id number]) Discharge Planning Assessment Assigned Glass Driller Juany Brown RNdevice engineer DPOA/Assigned Designee Name Jessica Harding Contact Information [phone] Advance Directives? No: DNR Advance Directives on File Yes History Provided By Patient,Family Member Has Patient been admitted in last 30 No days? Prior Living Arrangements House Comment Lives with her daughter, sone in law and there kids Household Members children Type of transporation used prior to Relies on Others admit Comment Melva Lopez drives patient arround Independent with ADL's Yes Is patient alert and oriented? Yes Caregiver for Another No DME Already Rented / Owned FWW / Walker,Cane Comment Patient uses a walker and cane at her baseline Barriers to Discharge No Discharge Plan Home Referrals Initiated None needed Whiteboard Updated in Patient Room with Yes name and ext. # of Glass Driller Review Status In Process Next Review Type Continued Stay Review
--- NOTE | 2022-09-04 11:34 | PT.IIE ---
Surgical History (Last Updated 09/04/22 @ 05:[address] [facility]) History of kidney removal History of thyroid surgery Medical History (Last Updated 09/04/22 @ 05:[address] [facility]) CKD stage G3a/A1, GFR 45-59 and albumin creatinine ratio <30 mg/g Control of atrial fibrillation with pacemaker Essential hypertension Fracture of left carpal bone Fracture of superior pubic ramus GERD (gastroesophageal reflux disease) History of cervical cancer History of renal carcinoma Hyperlipidemia Hypothyroidism associated with surgical procedure Inferior pubic ramus fracture Irritable bowel syndrome Neuropathy Overactive bladder Restless leg syndrome Physical Therapy Inpatient Evaluation/Re-Eval M1 PT/OT-IP Prior Functional Status Start: 09/04/22 11:20 Freq: Status: Active Protocol: Document 09/04/22 11:21 BC (Rec: 09/04/22 11:34 [id number]) Medical Review Prior Functional Status Medical History Reviewed Yes Communication WNL Mobility and Gait FWW for ambulation; lives with dtr and DARINEL; Jul 2022 L pubic rami fx and sacral fx ( WBAT) and LUE carpal bone fx ( in wrist splint). Activities of Daily Living and IADL's Independent with self care ADLs Family assists with home care ADLs and driving Prior Functional Level (Other details) Pt states she was home for ~1 week from rehab. She is home alone during day with dtr working and DARINEL available to assist as needed in the day. Social History Household Members children Living Arrangements House Number of Floors (Floors) Two Floors Number of Stairs To Enter/Railing? Only stays on main floor Home Environment High Toilet,Walk in Shower Home Equipment 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,Four Wheel Walker,Straight Cane,Grab Bars In Shower Employment Status Retired M2 PT-IP Current Condition Start: 09/04/22 11:20 Freq: Status: Active Protocol: Document 09/04/22 11:21 BC (Rec: 09/04/22 11:34 [id number]) Physical Therapy Current Condition Current Condition Evaluation Date 09/04/22 Treatment Diagnosis UTI; recent pubic ramus fx Onset Date 08/03/22 M3 PT-IP Subjective Start: 09/04/22 11:20 Freq: Status: Active Protocol: Document 09/04/22 11:21 BC (Rec: 09/04/22 11:34 [id number]) Subjective Physical Therapy Visit Type Type Initial Evaluation Visit Start Time 10:00 Visit Stop Time 10:25 Total Visit Minutes 25 Physical Therapy Visit Comments Patient Comments I feel really weak Patient Goals None stated Therapy Pain Assessment Pain When Pain Assessed At Rest Pain Present Pain Present Pain Reported Location Head Scale Used verbally unrated when asked 2x Pain Behaviors Facial Grimacing,Holding Area Pain Management Techniques Modification of Treatment M4 PT-IP Mobility and Gait Start: 09/04/22 11:20 Freq: Status: Active Protocol: Document 09/04/22 11:21 (Rec: 09/04/22 11:34 [id number]) PT-Bed Mobility Assessment Rolling Type of Rolling Roll to Left Level of Assist Contact Guard Assistance Supine to Sit Supine to Sit Moderate Assistance Scooting Scooting to Edge of Bed Minimal Assistance PT-Transfer Assessment Sit to and From Stand Sit to and from Stand Minimal Assistance Equipment Transfer Assistive Device Gait Belt,Front Wheeled Walker Transfers Transfer Destination Bed,Chair Transfer Technique Stand Step Pivot Transfer Ability Level of Assist Minimal Assistance Comments Mobility Comments slow transfer, minimal to no foot clearance bilaterally, more shuffling steps to laterally pivot. Gait Assessment Comments Gait Comments unable - attempted ambulation and Pt reports she is too weak at this time and would want to sit down. Transfer to recliner chair. Stair Climbing Assessment Comments Stair Climbing Comments NA PT-Balance Assessment Sitting Balance and Reactions Static Sitting Balance Ability Good Dynamic Sitting Balance Ability Good Standing Balance and Reactions Static Standing Balance Ability Fair Dynamic Standing Balance Ability Fair Device Used FWW M5 PT-IP Objective Assessments Start: 09/04/22 11:20 Freq: Status: Active Protocol: Document 09/04/22 11:21 (Rec: 09/04/22 11:34 [id number]) Orientation Orientation/Cognition Level of Alertness Alert Orientation Name,Year,Situation Safety Awareness Understands Safety Issues Gross Range of Motion Upper Extremity ROM Assessment Left Impaired Impairments wrist not assessed due to recent fx and in splint; otherwise BUE's grossly WFL Lower Extremity ROM Assessment Within Functional Limits Strength Upper Extremity Strength Assessment Within Functional Limits Wrist not formally assessed on LUE Lower Extremity Strength Assessment Bilaterally Impaired Hip ~3+/5 to 4/5 Knee 5/5 Ankle 5/5 Coordination Assessment Gross Coordination Gross Coordination WNL Sensation Assessment Sensation Gross Sensation WNL M6 PT-IP Treatment Start: 09/04/22 11:20 Freq: Status: Active Protocol: Document 09/04/22 11:21 BC (Rec: 09/04/22 11:34 [id number]) Physical Therapy Treatment Education Education Provided Safety Other Treatments Other Treatment Performed Pt educated on mobilization benefits. Educated on walker placement during stand pivot transfer. M7 PT-IP Assessment and Plan Start: 09/04/22 11:20 Freq: Status: Active Protocol: Document 09/04/22 11:21 BC (Rec: 09/04/22 11:34 [id number]) PT Summary Assessment and Plan Potential Rehabilitation Potential Good Status of Condition at Evaluation Evolving Summary Impairments Strength,Balance,Bed Mobility, Transfers,Gait,Activity Tolerance Progress Towards Goals Progressing Toward Goals Assessment Summary Pt admitted with UTI following ~1 week at home after SNF rehab stay from pelvic fx and carpal fx of Left side in Jul 2022. Pt states she had improved to ambulating well with FWW in her home. She relied on her dtr and DARINEL for homecare needs/support. At this time Pt is requiring mod A for basic bed mobility and was only able to tolerate a stand pivot transfer to chair due to feeling of weakness and fatigue as reported by Pt. Based on this current mobility d/c to SNF would be recommended. Hopeful based on diagnosis that as she improves medically she may have improved mobility with inpatient therapy and discharge recommendation might progress. Goals Bed Mobility Goal Independent Transfer Goal Standby Assistance,Front Wheeled Walker Gait Goal Standby Assistance,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 Gait Distance 100 Days to Meet Goals 3 Frequency of Treatment Frequency Of Treatment Once a Day Treatment Plan Physical Therapy Treatment Plan Bed Mobility Training,Transfer Training,Gait Training, Therapeutic Exercise,Balance Retraining,Discharge Planning, Neuromuscular Re-ed Precautions Other Precautions WBAT LLE; LUE wrist in splint. Per Pt she was cleared to use her walker with LUE. Weight Bearing Status Weight Bearing Status Weight Bear as Tolerated Recommendations To Nursing Amount of Assist Needed 1 Person Assist Discharge Recommendations PT Discharge Recommendations SNF Rehab Other Discharge Recommendations SNF with potential of improvement during acute care LOS. Transportation Needs at Discharge Wheelchair/Cabulance
[2022-09-04] MEDS: ACETAMINOPHEN 325 MG TABLET 650 MG PO (12:03)
[2022-09-04 13:23] LABS: Acinetobacter baumannii Not Detected (Not Detect); Candida albicans Not Detected (Not Detect); Candida glabrata Not Detected (Not Detect); Candida krusei Not Detected (Not Detect); Candida parapsilosis Not Detected (Not Detect); Candida tropicalis Not Detected (Not Detect); E. coli Detected (Not Detect); Enterobacter cloacae complex Not Detected (Not Detect); Enterobacteriaceae species Detected (Not Detect); Enterococcus species Not Detected (Not Detect); Haemophilus influenzae Not Detected (Not Detect); KPC (carbapenem-resist gene) Not Detected (Not Detect); Listeria monocytogenes Not Detected (Not Detect); Neisseria meningitidis Not Detected (Not Detect); Proteus species Not Detected (Not Detect); Pseudomonas aeruginosa Not Detected (Not Detect); Serratia marcescens Not Detected (Not Detect); Staphylococcus species Not Detected (Not Detect); Streptococcus agalactiae (Gr B Not Detected (Not Detect); Streptococcus pneumonia Not Detected (Not Detect); Streptococcus pyogenes (Gr A) Not Detected (Not Detect); Streptococcus species Not Detected (Not Detect)
--- NOTE | 2022-09-04 13:50 | PC.NURSE ---
Day shift: Dr Pittman made aware of Pt's blod culture results at approx 1330.
[2022-09-04] MEDS: ATORVASTATIN 20 MG TABLET PO (16:01)
[2022-09-04] MEDS: cefTRIAXone 2,000 MG in SODIUM CHLORIDE 0.9% 100 ML 200 MG IV (20:46)
[2022-09-04] MEDS: ROPINIROLE 0.25 MG TABLET 0.5 MG PO (20:47)
[2022-09-04] MEDS: AMLODIPINE 5 MG TABLET PO (20:53)
[2022-09-04] MEDS: SODIUM CHLORIDE 0.9% FLUSH 10 ML IV (20:54)
[2022-09-05] VITALS (12 sets, daily range): BP systolic 131–150; BP diastolic 62–94; PULSE 73–102; RESP 15–18; TEMP 35.6–36.6; O2SAT 93–99
[2022-09-05] MEDS: LEVOTHYROXINE 112 MCG TABLET PO (05:35)
[2022-09-05 06:31] LABS: Add Manual Diff / Slide Review NO; Basophils Absolute Auto 0 /uL (0-100); Basophils Percent Auto 0.3 % (0-2); Eosinophils Absolute Auto 0 /uL (0-450); Hematocrit 33.9 % (36-46); Hemoglobin 11.3 g/dL (12.0-16.0); Lymphocytes Absolute Auto 800 /uL (1100-4500); Lymphocytes Percent Auto 5.8 % (25-40); Mean Corpuscular HGB Conc 33.2 % (30-36); Mean Corpuscular Hemoglobin 31.1 PG (26-34); Mean Corpuscular Volume 93.7 fL (80-100); Monocytes Absolute Auto 900 /uL (0-900); Monocytes Percent Auto 6.6 % (3-14); Neutrophils Absolute Auto 12500 /uL (1500-7000); Neutrophils Percent Auto 87.3 % (50-75); Platelet Count 225 X10^3/uL (150-400); Red Blood Cell Count 3.61 X10^6/uL (4.0-5.2); Red Cell Distribution Width 17.9 % (11.6-14.8); White Blood Cell Count 14.3 X10^3/uL (4.5-11.0)
[2022-09-05 06:43] LABS: BUN Creatinine Ratio 24.7 (6-22); Blood Urea Nitrogen 36 mg/dL (7-17); Calcium 10.5 mg/dL (8.4-10.2); Carbon Dioxide 29 mmol/L (22-32); Chloride 100 mmol/L (98-107); Estimated Glomerular Filt Rate 35 mL/min (>60); Glucose 128 mg/dL (80-110); HEMOLYSIS < 15 (0-50); Magnesium 1.9 mg/dL (1.6-2.3); Potassium 3.7 mmol/L (3.4-5.1); Sodium 137 mmol/L (137-145)
[2022-09-05 06:50] LABS: NT-proBNP (BNP-Adult 18+) 14700 pg/mL (<450)
[2022-09-05] MEDS: GABAPENTIN 600 MG TABLET PO ×3 (08:10→22:24)
[2022-09-05] MEDS: POTASSIUM CHLORIDE 10 MEQ TAB PO ×3 (08:10→22:22)
[2022-09-05] MEDS: DABIGATRAN 75 MG CAPSULE PO ×2 (08:10→22:22)
[2022-09-05] MEDS: DOXYCYCLINE HYCLATE 100 MG TABLET PO ×2 (08:10→22:26)
[2022-09-05] MEDS: predniSONE 20 MG TABLET 40 MG PO (08:10)
[2022-09-05] MEDS: FUROSEMIDE 20 MG/2 ML VIAL 40 MG IV (08:11)
[2022-09-05] MEDS: carvediloL 12.5 MG TABLET 25 MG PO ×2 (08:11→22:21)
[2022-09-05] MEDS: DICYCLOMINE 10 MG CAPSULE 20 MG PO ×2 (08:11→22:22)
[2022-09-05] MEDS: PANTOPRAZOLE DR 40 MG TABLET PO ×2 (08:11→22:24)
[2022-09-05] MEDS: LOSARTAN 25 MG TABLET 12.5 MG PO ×2 (08:12→22:24)
[2022-09-05] MEDS: SODIUM CHLORIDE 0.9% FLUSH 10 ML IV ×2 (08:26→22:26)
--- NOTE | 2022-09-05 10:11 | OT.IP.EVAL ---
Current Diagnoses Heart failure, unspecified (09/04/22) Past Medical History (Last Updated 09/04/22 @ 05:37 by KOKI Woo) CKD stage G3a/A1, GFR 45-59 and albumin creatinine ratio <30 mg/g Control of atrial fibrillation with pacemaker Essential hypertension Fracture of left carpal bone Fracture of superior pubic ramus GERD (gastroesophageal reflux disease) History of cervical cancer History of renal carcinoma Hyperlipidemia Hypothyroidism associated with surgical procedure Inferior pubic ramus fracture Irritable bowel syndrome Neuropathy Overactive bladder Restless leg syndrome Surgical History (Last Updated 09/04/22 @ 05:37 by KOKI Woo) History of kidney removal History of thyroid surgery Occupational Therapy Inpatient Evaluation/Re-Eval M1 PT/OT-IP Prior Functional Status Start: 09/04/22 11:20 Freq: Status: Active Protocol: Document 09/05/22 11:00 CGR (Rec: 09/05/22 11:14 CGR [id number]) Medical Review Prior Functional Status Medical History Reviewed Yes Communication WNL Mobility and Gait FWW for ambulation; lives with dtr and DARINEL; Jul 2022 L pubic rami fx and sacral fx ( WBAT) and LUE carpal bone fx ( in wrist splint). Activities of Daily Living and IADL's Independent with self care ADLs Family assists with home care ADLs and driving Prior Functional Level (Other details) Pt states she was home for ~1 week from rehab. She is home alone during day with dtr working and DARINEL available to assist as needed in the day. Social History Household Members children Living Arrangements House Number of Floors (Floors) Two Floors Number of Stairs To Enter/Railing? Only stays on main floor Home Environment High Toilet,Walk in Shower Home Equipment 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,Four Wheel Walker,Straight Cane,Lift Recliner,Grab Bars In Shower Employment Status Retired Additional Social History Comment Pt has an adjustable bed and states that she has her own studio on the first floor of the home. M2 OT-IP Current Condition Start: 09/05/22 10:59 Freq: Status: Active Protocol: Document 09/05/22 11:00 CGR (Rec: 09/05/22 11:14 CGR [id number]) Occupational Therapy Current Condition Current Condition Evaluation Date 09/05/22 Treatment Diagnosis fever, confusion, UTI, increasing troponins. Diagnosis Onset Date 09/04/22 M3 OT- IP Subjective and Pain Start: 09/05/22 10:59 Freq: Status: Active Protocol: Document 09/05/22 11:00 CGR (Rec: 09/05/22 11:14 CGR [id number]) OT- Subjective Occupational Therapy Visit Type Type Initial Evaluation Visit Start Time 09:38 Visit Stop Time 10:11 Total Visit Minutes 33 Notes Pt requesting to get up to chair. OT Pain Assessment Pain When Pain Assessed At Rest Pain Present Pain Present Denied Pain M4 OT- IP ADL's Start: 09/05/22 10:59 Freq: Status: Active Protocol: Document 09/05/22 11:00 CGR (Rec: 09/05/22 11:14 CGR [id number]) OT [id number] General Evaluation Self-Feeding Ability Independent Comments OT Self-Feeding Comments for drinking coffee OT ADL-Grooming General Evaluation Grooming Ability Standby Assistance Areas Needing Assistance Combing/Brushing Hair,Face Washing Comments OT Grooming Comments standing at sink OT ADL-Oral Care General Eval Oral Care Ability Standby Assistance Areas of Assistance Managing Dentures Comments Oral Care Comments Pt removed dentures and washed out mouth. Dentures left to soak. OT ADL-Dressing Comments OT Dressing Comments not performed OT ADL-Toileting General Evaluation Toileting Ability Minimal Assistance Areas Needing Assistance Manage Clothing Comments OT Toileting Comments Pt performed pericare for front and back without assist but needed assist with getting brief down. OT ADL-Bathing Comments OT Bathing Comments not performed M5 OT- IP IADL's Start: 09/05/22 10:59 Freq: Status: Active Protocol: Document 09/05/22 11:00 CGR (Rec: 09/05/22 11:14 CGR [id number]) OT-Instrumental Activities of Daily Living Deficits IADL Deficits Identified Deficits Home Safety Awareness Awareness of Need for Assistance at Home Decreased Awareness Medication Management Medication Management Caregiver Administers Money Management Money Management Caregiver Provides Assistance Meal Preparation Meal Preparation Caregiver Provides Assist Intervention Nurse Intervention Nurse Caregiver Provides Assist Driving Driving Comments Pt does not drive M6 OT- IP Functional Cognition Start: 09/05/22 10:59 Freq: Status: Active Protocol: Document 09/05/22 11:00 CGR (Rec: 09/05/22 11:14 CGR [id number]) Cognitive Factors Limiting Selfcare Function Cognitive Ability Level of Alertness Alert Patient Orientation Name,Age,Birthday,Month,Year, Day of Week,Place,Situation Attention Span Ability Capable of Focused Attention, Capable of Sustained Attention Ability to Follow Commands Able to Follow One Step Commands with Increased Time, Able to Follow One Step Commands with Repetition OT- Vision and Hearing OT- Hearing Assessment OT- Hearing Assessment Hearing Impaired OT- Vision Assessment Vision History Macular Degeneration Visual Acuity Glasses For Reading Visual Attentiveness WFL Occular Pursuits WFL Visual Convergence WFL Vision Assessment Comments Pt states new dx of macular degeneration. Pt has hearing aids but doesn't use them. M7 OT- IP Mobility and Balance Start: 09/05/22 10:59 Freq: Status: Active Protocol: Document 09/05/22 11:00 CGR (Rec: 09/05/22 11:14 R [id number]) OT- Bed Mobility Assessment Supine to Sit Supine to Sit Assist Standby Assistance,Head of Bed Elevated Scooting Scooting to Edge of Bed Standby Assistance,Head of Bed Elevated OT-Transfer Assessment Sit to and From Stand Sit to and from Stand Minimal Assistance,Moderate Assistance,1 Person Assistance Transfers Transfer Ability Moderate Assistance,Maximum Assistance,1 Person Assistance Technique Transfer Destination Bed,Chair,Toilet Transfer Technique Stand Step Pivot Devices Transfer Assistive Devices Gait Belt,Front Wheeled Walker Comments Mobility Comments Pt stood from bed and ambulated to bathroom. Initially pt with [address] to the bathroom[address] Pt did not have a LOB after toileting and was CGA to return to the chair. OT- Gait Assessment Comments Gait Ability Comments see above OT- Balance Assessment Sitting Balance and Reactions Static Sitting Balance Ability Normal Dynamic Sitting Balance Ability Good M8 OT- IP Objective Assessments Start: 09/05/22 10:59 Freq: Status: Active Protocol: Document 09/05/22 11:00 CGR (Rec: 09/05/22 11:14 CGR [id number]) OT Gross Range of Motion Upper Extremity Range of Motion Assessment Within Functional Limits OT Strength Upper Extremity Strength Assessment Bilaterally Impaired Comments Strength Comments grossly 3+/5, L arm not tested d/t recent wrist fx. OT- Coordination Assessment Upper Extremity Finger to Nose Test Within Functional Limits Finger Tapping Test Within Functional Limits OT-Muscle Tone Assessment Muscle Tone WNL Yes OT Sensation Assessment Edema Edema Absent M9 OT- IP Assessment and Plan Start: 09/05/22 10:59 Freq: Status: Active Protocol: Document 09/05/22 11:00 CGR (Rec: 09/05/22 11:14 CGR [id number]) OT Summary Assessment and Plan Potential Rehabilitation Potential Good Analytic Complexity at Evaluation Moderate Summary OT Impairments Strength,Balance,Functional Cognition,Functional Mobility, Grooming,Dressing,Toileting, Bathing,Toilet Transfers, Shower Transfers,Activity Tolerance Progress Towards Goals Slow Progress due to Medical Issues Assessment Summary Pt presents as a moderate complexity evaluation s/p admit for fevers and confusion , found to have a UTI and increasing troponins. Pt just returned home from SNF ~1 week ago. Pt initially with 2 LOB wth mobility but after toileting pt was CGA. Pt is home alone during the day with her son in law available to check in on her throughout the day as he has a [employer] company where he is mobile for work. Pt is likely to progress in her abilities but at this time recommendation is to discharge to SNF. Goals Grooming Goal Independent Dressing Goal Independent Toileting Goal Independent Bathing Goal Independent Toilet Transfer Goal Independent Shower Transfer Goal Independent Days to Meet Goals 10 Frequency of Treatment Frequency Of Treatment Once a Day Treatment Plan OT Treatment Plan ADL Training,Functional Mobility,Patient/Family Education,Discharge Planning Other Treatment Recommendations and Next shower Treatment Focus Discharge Recommendations OT Discharge Recommendations Home vs SNF Other Discharge Recommendations Pt is likely to progress to being safe for discharge home. Transportation Needs at Discharge Private Vehicle
--- NOTE | 2022-09-05 11:20 | PT.IPTN ---
Addendum entered and electronically signed by Adelina Miner PT 09/05/22 12:33: Treatment was provided by MEGHA Mac and supervised by Adelina Miner PT. I personally reviewed this note and agree with its contents. Original Note: Current Diagnoses Heart failure, unspecified (09/04/22) Physical Therapy Treatment Note M2 PT-IP Current Condition Start: 09/04/22 11:20 Freq: Status: Active Protocol: Document 09/05/22 11:25 TS (Rec: 09/05/22 12:31 TS [id number]) Physical Therapy Current Condition Current Condition Evaluation Date 09/04/22 Treatment Diagnosis UTI; recent pubic ramus fx Onset Date 08/03/22 M3 PT-IP Subjective Start: 09/04/22 11:20 Freq: Status: Active Protocol: Document 09/05/22 11:25 TS (Rec: 09/05/22 12:31 TS [id number]) Subjective Physical Therapy Visit Type Type Treatment Note Visit Start Time 10:55 Visit Stop Time 11:20 Total Visit Minutes 25 Notes MEGHA Johnson lead treatment under the supervision of PT Adelina. Number of [employer]N PRESS OPERATOR Visits 1 Physical Therapy Visit Comments Patient Comments Pt reports just being seen by OT, states she is still feeling a little weak in LEs but overall feeling much better. Pt is agreeable to PT session. M4 PT-IP Mobility and Gait Start: 09/04/22 11:20 Freq: Status: Active Protocol: Document 09/05/22 11:25 TS (Rec: 09/05/22 12:31 TS [id number]) PT-Transfer Assessment Sit to and From Stand Sit to and from Stand Standby Assistance,Contact Guard Assistance,1 Person Assistance,Use of Upper Extremities Equipment Transfer Assistive Device Gait Belt,Front Wheeled Walker Transfers Transfer Destination Chair Transfer Ability Level of Assist Standby Assistance,Contact Guard Assistance,1 Person Assistance Comments Mobility Comments Pt found resting in bedside chair on 2L o2, removed for ambulation. Pt performed sit to stand x1CGA with FWW, x1SBA with no AD, slight posterior lean coming into standing and BUE support on arms of chair. She ambulated around room 2x15 ' with normal stride length, narrow stance, CGA progressing to SBA with FWW. Pt did not demonstrate any buckling of knees and denied any dizziness but reported feeling slight SOB. Pt ambulated back to chair demonstrating good eccentric control into sitting . Resting Spo2 94% and 96% on RA. Pt was educated on exercise in bed of LAQ and glute sets while up in chair. Pt was left in bedside chair with call light nearby, nursing staff notified of removal of o2 line and external catheter needing replacing. Gait Assessment Gait Gait Assistance Required: Standby Assistance,Contact Guard Assist,1 Person Assist Distance (Feet) 30 Assistive Devices Assistive Device Front Wheeled Walker Gait Deviations General Gait Pattern Narrow Based Gait Factors Limiting Gait Function Factors Limiting Gait Function Decreased Strength Comments Gait Comments See mobility comments. PT-Balance Assessment Sitting Balance and Reactions Static Sitting Balance Ability Normal Dynamic Sitting Balance Ability Good Standing Balance and Reactions Static Standing Balance Ability Normal Dynamic Standing Balance Ability Fair Device Used FWW M5 PT-IP Objective Assessments Start: 09/04/22 11:20 Freq: Status: Active Protocol: Document 09/05/22 11:25 TS (Rec: 09/05/22 12:31 TS [id number]) Orientation Orientation/Cognition Safety Awareness Understands Safety Issues M6 PT-IP Treatment Start: 09/04/22 11:20 Freq: Status: Active Protocol: Document 09/05/22 11:25 TS (Rec: 09/05/22 12:31 TS [id number]) Physical Therapy Treatment Exercises Exercises Gluteal Sets,Seated Knee Flexion/Extension Education Education Provided Safety Other Treatments Other Treatment Performed Pt educated on glute sets and LAQ while seated in chair. M7 PT-IP Assessment and Plan Start: 09/04/22 11:20 Freq: Status: Active Protocol: Document 09/05/22 11:25 TS (Rec: 09/05/22 12:31 TS [id number]) PT Summary Assessment and Plan Potential Rehabilitation Potential Good Status of Condition at Evaluation Evolving Summary Impairments Strength,Balance,Bed Mobility, Transfers,Gait,Activity Tolerance Progress Towards Goals Progressing Toward Goals Assessment Summary Pt was x1CGA w/ FWW>x1SBA with no AD for sit to stands. Progressed ambulation from CGA >SBA 2x15' around room, reported some SOB when ambulating back to chair for second time, did not demonstrate any buckling of LEs. Spo2 during rest after ambulation 94% and 96% on RA. Pt reports she feels like she is close to her baseline but feels like she needs a couple more days to improve her strength. Pt does have daughter for support at home but not during the day and her son-in-law checks in on her peridocally throughout the day . PT is recommending 24/7 home assistance and home health at this time but pt could possibly improve over the next day to return home with previous level of assistance. Goals Bed Mobility Goal Independent Transfer Goal Standby Assistance,Front Wheeled Walker Gait Goal Standby Assistance,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 Gait Distance 100 Days to Meet Goals 3 Frequency of Treatment Frequency Of Treatment Once a Day Treatment Plan Physical Therapy Treatment Plan Bed Mobility Training,Transfer Training,Gait Training, Therapeutic Exercise,Balance Retraining,Discharge Planning, Neuromuscular Re-ed Precautions Other Precautions WBAT LLE; LUE wrist in splint. Per Pt she was cleared to use her walker with LUE. Weight Bearing Status Weight Bearing Status Weight Bear as Tolerated Recommendations To Nursing Amount of Assist Needed 1 Person Assist Discharge Recommendations PT Discharge Recommendations Home with Assistance,Home with 24/7 Assist Available,Home Health Transportation Needs at Discharge Private Vehicle
--- NOTE | 2022-09-05 14:58 | CM.DPC ---
Addendum entered by SUSANNAH Mcgovern 09/05/22 15:45: ADD: SW met with pt's Dtr and DARINEL and they confirm that they plan to provide 24/7 assist at d/c and do not feel pt needs SNF at d/c and state pt is actually currently open with [facility] and they would like to [facility]ume [facility] at d/c. SW called [facility] and confirmed pt is open to services and just needs Resume Orders. SW faxed clinicals to review. SW called [facility] and cancelled new referral as pt open with [facility] already. F2F completed in case [facility] needs at d/c. BF Original Note: DCP HH planning Per MD, still awaiting cultures and unclear if pt will be medically stable to d/c yet today. Per PT/OT, pt making progress and somewhat unsteady and recommending SNF but anticipate pt will progress for home with HH. LEX met bedside with pt and explained role and she confirms that she declines going to SNF and has had that experience before and feels Dtr, DARINEL, and HH will be able to help safely manage her at home. Pt has a hx of HH but could not recall which HH agency and sounds like [facility] but both are no longer providing HH. Pt has no preference and [facility] referral made based on [facility] Calendar and F2F completed and signed but not faxed yet. Dtr will be bedside later today and pt states her Dtr helps to coordinate her services and appointments and will provide transport home at d/c. Plan: SW to follow for plan of home with Dtr and DARINEL assist and new [facility] referral made. SW to fax F2F, d/c summ, and orders to [facility] at discharge. SUSANNAH Mcgovern
[2022-09-05] MEDS: FUROSEMIDE 40 MG TABLET PO (16:33)
[2022-09-05] MEDS: ATORVASTATIN 20 MG TABLET PO (16:33)
[2022-09-05] MEDS: ACETAMINOPHEN 325 MG TABLET 650 MG PO (18:13)
--- NOTE | 2022-09-05 18:19 | P.PN_ITS ---
Subjective Subjective Date Patient Seen: 09/05/22 Time Patient Seen: 08:00 Interval history: Today she says she is feeling much better. She denies shortness of breath. No fevers, no dysuria. Her blood culture results are positive for bacteremia but final results are still pending. Exam Vital Signs (past 8 hours): - 09/05/22 13:00 09/05/22 17:00 Temperature 96.7 F L 96.4 F L Pulse Rate 88 87 Respiratory Rate 18 18 Blood Pressure 131/74 143/94 H Pulse Oximetry 94 93 Oxygen Flow Rate 0 0 Oxygen Delivery Method Nasal Cannula Oxygen Flow Rate 0 Narrative Exam Narrative: GEN: no acute distress CV: regular rate and rhythm, no murmurs PULM: clear bilaterally ABD: soft, nontender, nondistended, no organomegaly Objective Labs Result Diagrams: 09/05/22 06:04 09/05/22 06:04 Labs: Laboratory Results - last 24 hr 09/05/22 09/05/22 06:04 06:04 WBC 14.3 H RBC 3.61 L Hgb 11.3 L Hct 33.9 L MCV 93.7 MCH 31.1 MCHC 33.2 RDW 17.9 H Plt Count 225 Neut % (Auto) 87.3 H Lymph % (Auto) 5.8 L [place] % (Auto) 6.6 Eos % (Auto) 0.0 L Baso % (Auto) 0.3 Neut # (Auto) 20258 H Lymph # (Auto) 800 L [place] # (Auto) 900 Eos # (Auto) 0 Baso # (Auto) 0 Sodium 137 Potassium 3.7 Chloride 100 Carbon Dioxide 29 BUN 36 H Creatinine 1.46 H Estimated GFR 35 L BUN/Creatinine Ratio 24.7 H Glucose 128 H Calcium 10.5 H Magnesium 1.9 NT-Pro-B Natriuret Pep 50104 H [facility] Medical History (Updated 09/04/22 @ 05:37 by KOKI Woo) CKD stage G3a/A1, GFR 45-59 and albumin creatinine ratio <30 mg/g Control of atrial fibrillation with pacemaker Essential hypertension Fracture of left carpal bone Fracture of superior pubic ramus GERD (gastroesophageal reflux disease) History of cervical cancer History of renal carcinoma Hyperlipidemia Hypothyroidism associated with surgical procedure Inferior pubic ramus fracture Irritable bowel syndrome Neuropathy Overactive bladder Restless leg syndrome Surgical History (Updated 09/04/22 @ 05:37 by Cyndy Torres [facility] History of kidney removal History of thyroid surgery Family History Mother Cancer Sister Cancer Social History household members: children Smoking Status: Never smoker Assessment & Plan Assessment & Plan narrative: 1. UTI with bacteremia, E. coli, acute -urine positive for GNR, both bottles positive for E. coli with sensitivities pending -continue ceftriaxone 2gm daily -follow up cultures, plan to dc on oral antibiotics if sensis allow 2. Acute respiratory failure secondary to CHF exacerbation -pacemarker interrogated and shows atrial tachycardia and afib -COVID, influenza a/B, RSV and procalcitonin are all negative -initial sats in ED with O2 at 87% on room air -stop prednisone 3. Myocardial injury, acute, secondary to demand ischemia from chf and tachycardia -initial troponins elevated 0.037, repeat 0.041-will continue to trend -Pacemaker was interrogated there is evidence of chronic ongoing atrial tachycardia and atrial fibrillation -patient placed on telemedicine 4. Atrial fibrillation with pacemaker in place, acute on chronic, present on admission -Pacemaker was interrogated there is evidence of chronic ongoing atrial tachycardia and atrial fibrillation. -continue carvedilol, Pradaxa 5. Anemia, mild, chronic -no need for transfusion -continue to trend 6. Overactive bladder, -holding bethanecho 7. Hypothyroidism secondary to surgical procedure -continue levothyroxine -TSH ordered 8. Irritable bowel syndrome -continue Bentyl 9. Neuropathy, chronic -continue gabapentin 10. Hyperlipidemia -continue Lipitor 11. Restless leg syndrome -continue Requip 12. Hypertension, essential -continue amlodipine 13. GERD, chronic, present on admission -continue omeprazole Time Spent With Patient Critical Care time: I spent a total of [] minutes of critical care time on this patient's care today; this time is exclusive of procedural time.
[2022-09-05] MEDS: cefTRIAXone 2,000 MG in SODIUM CHLORIDE 0.9% 100 ML 200 MG IV (22:20)
[2022-09-05] MEDS: ROPINIROLE 0.25 MG TABLET 0.5 MG PO (22:23)
[2022-09-05] MEDS: AMLODIPINE 5 MG TABLET PO (22:24)
[2022-09-06] VITALS (9 sets, daily range): BP systolic 132–151; BP diastolic 76–93; PULSE 73–89; RESP 15–18; TEMP 35.5–37.2; O2SAT 93–98
[2022-09-06 05:38] LABS: Hematocrit 30.7 % (36-46); Hemoglobin 10.2 g/dL (12.0-16.0); Mean Corpuscular HGB Conc 33.2 % (30-36); Mean Corpuscular Volume 93.5 fL (80-100); Platelet Count 247 X10^3/uL (150-400); Red Blood Cell Count 3.29 X10^6/uL (4.0-5.2); Red Cell Distribution Width 18.3 % (11.6-14.8); White Blood Cell Count 11.5 X10^3/uL (4.5-11.0)
[2022-09-06 05:47] LABS: BUN Creatinine Ratio 28.3 (6-22); Blood Urea Nitrogen 39 mg/dL (7-17); Carbon Dioxide 27 mmol/L (22-32); Chloride 101 mmol/L (98-107); Estimated Glomerular Filt Rate 38 mL/min (>60); Glucose 124 mg/dL (80-110); HEMOLYSIS < 15 (0-50); Potassium 4.2 mmol/L (3.4-5.1); Sodium 136 mmol/L (137-145)
[2022-09-06 05:56] LABS: Troponin I 0.034 ng/mL (0.01-0.034)
[2022-09-06] MEDS: LEVOTHYROXINE 112 MCG TABLET PO (06:04)
[2022-09-06] MEDS: DICYCLOMINE 10 MG CAPSULE 20 MG PO ×2 (08:21→21:58)
[2022-09-06] MEDS: DABIGATRAN 75 MG CAPSULE PO ×2 (08:21→21:58)
[2022-09-06] MEDS: GABAPENTIN 600 MG TABLET PO ×3 (08:21→21:59)
[2022-09-06] MEDS: POTASSIUM CHLORIDE 10 MEQ TAB PO ×3 (08:21→21:58)
[2022-09-06] MEDS: FUROSEMIDE 40 MG TABLET PO ×2 (08:22→16:03)
[2022-09-06] MEDS: PANTOPRAZOLE DR 40 MG TABLET PO ×2 (08:22→21:58)
[2022-09-06] MEDS: LOSARTAN 25 MG TABLET 12.5 MG PO ×2 (08:23→21:59)
[2022-09-06] MEDS: SODIUM CHLORIDE 0.9% FLUSH 10 ML IV ×2 (08:23→22:03)
[2022-09-06] MEDS: carvediloL 12.5 MG TABLET 25 MG PO ×2 (08:24→21:58)
[2022-09-06] MEDS: ERTAPENEM 1 GM in SODIUM CHLORIDE 0.9% 100 ML IV (08:28)
--- NOTE | 2022-09-06 09:35 | DI.RAD.S_ITS ---
PROCEDURE: XR CHEST FOR PICC 1V INDICATIONS: line placement TECHNIQUE: One view of the chest was acquired. COMPARISON: [facility], , XR CHEST 1V, 09/04/2022, 6:26. FINDINGS: Surgical changes and devices: There is a PICC on the right side with the tip projecting to the area of SVC. A cardiac pacemaker is seen with leads in expected position. Lungs and pleura: Lungs are clear. No pleural effusions or pneumothorax. Mediastinum: Mediastinal contours appear normal. Heart size is normal. Bones and chest wall: There are old right 7th and 8th rib fractures. No suspicious bony lesions. Overlying soft tissues appear unremarkable. IMPRESSION: Right PICC tip is in the area of SVC. Dictated by: Dre Dumont M.D. on 09/06/2022 at 10:41 Approved by: Dre Dumont M.D. on 09/06/2022 at 10:42
--- NOTE | 2022-09-06 10:00 | PT.IPTN ---
Current Diagnoses Heart failure, unspecified (09/04/22) Physical Therapy Treatment Note M2 PT-IP Current Condition Start: 09/04/22 11:20 Freq: Status: Active Protocol: Document 09/05/22 11:25 TS (Rec: 09/05/22 12:31 TS [id number]) Physical Therapy Current Condition Current Condition Evaluation Date 09/04/22 Treatment Diagnosis UTI; recent pubic ramus fx Onset Date 08/03/22 M3 PT-IP Subjective Start: 09/04/22 11:20 Freq: Status: Active Protocol: Document 09/06/22 10:00 AB (Rec: 09/06/22 13:04 AB [id number]) Subjective Physical Therapy Visit Type Type Treatment Note Visit Start Time 10:00 Visit Stop Time 10:15 Total Visit Minutes 15 Number of EMPLOYMENT PROGRAMS ANALYST Visits 0 Physical Therapy Visit Comments Patient Comments agreeable to do PT M4 PT-IP Mobility and Gait Start: 09/04/22 11:20 Freq: Status: Active Protocol: Document 09/06/22 10:00 AB (Rec: 09/06/22 13:04 AB [id number]) PT-Bed Mobility Assessment Supine to Sit Supine to Sit Standby Assistance PT-Transfer Assessment Sit to and From Stand Sit to and from Stand Contact Guard Assistance,1 Person Assistance Equipment Transfer Assistive Device Gait Belt,Front Wheeled Walker Orthotic/Prosthetic Devices or Brace: No Transfers Transfer Destination Chair Transfer Technique ambulated Transfer Ability Level of Assist Contact Guard Assistance,1 Person Assistance,Use of Upper Extremities Gait Assessment Gait Gait Assistance Required: Contact Guard Assist Distance (Feet) 50 Able to Maintain Weight Bearing Status Yes During Gait Assistive Devices Assistive Device Gait Belt,Front Wheeled Walker Orthotic/Prosthetic Devices or Brace: No Gait Deviations General Gait Pattern Decreased Stride Length, Decreased Feet Clearance Factors Limiting Gait Function Factors Limiting Gait Function Decreased Activity Tolerance, Decreased Strength,Limited Range of Motion,Poor Balance M5 PT-IP Objective Assessments Start: 09/04/22 11:20 Freq: Status: Active Protocol: Document 09/05/22 11:25 TS (Rec: 09/05/22 12:31 TS [id number]) Orientation Orientation/Cognition Safety Awareness Understands Safety Issues M6 PT-IP Treatment Start: 09/04/22 11:20 Freq: Status: Active Protocol: Document 09/06/22 10:00 AB (Rec: 09/06/22 13:04 AB [id number]) Physical Therapy Treatment Education Education Provided Safety M7 PT-IP Assessment and Plan Start: 09/04/22 11:20 Freq: Status: Active Protocol: Document 09/06/22 10:00 AB (Rec: 09/06/22 13:04 [id number]) PT Summary Assessment and Plan Potential Rehabilitation Potential Good Summary Impairments Pain,ROM,Strength,Balance, Coordination,Sensation,Tone, Cognition,Bed Mobility, Transfers,Gait,Activity Tolerance Assessment Summary pt requiring CGA with mobility using FWW. pt lives with her daughter and DARINEL and will have assistance at home. Per EMR, pt will be receiving IV antibiotics for ~ 14 days and just had PICC line placement. Pt may go home when medically stable. Goals Bed Mobility Goal Independent Transfer Goal Standby Assistance,Front Wheeled Walker Gait Goal Standby Assistance,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 Gait Distance 100 Days to Meet Goals 5 Frequency of Treatment Frequency Of Treatment Once a Day Treatment Plan Physical Therapy Treatment Plan Bed Mobility Training,Transfer Training,Gait Training, Therapeutic Exercise,Balance Retraining,Discharge Planning, Neuromuscular Re-ed Precautions Other Precautions WBAT LLE; LUE wrist in splint. Per Pt she was cleared to use her walker with LUE. Weight Bearing Status Weight Bearing Status Weight Bear as Tolerated Recommendations To Nursing Amount of Assist Needed 1 Person Assist Discharge Recommendations PT Discharge Recommendations Home with Assistance,Home Health
--- NOTE | 2022-09-06 11:45 | OT.IP.TRT ---
Current Diagnoses Heart failure, unspecified (09/04/22) Occupational Therapy Treatment Note M2 OT-IP Current Condition Start: 09/05/22 10:59 Freq: Status: Active Protocol: Document 09/05/22 11:00 CGR (Rec: 09/05/22 11:14 CGR [id number]) Occupational Therapy Current Condition Current Condition Evaluation Date 09/05/22 Treatment Diagnosis fever, confusion, UTI, increasing troponins. Diagnosis Onset Date 09/04/22 M3 OT- IP Subjective and Pain Start: 09/05/22 10:59 Freq: Status: Active Protocol: Document 09/06/22 11:00 CCC (Rec: 09/06/22 12:31 [facility] [id number]) OT- Subjective Occupational Therapy Visit Type Type Treatment Note Visit Start Time 11:00 Visit Stop Time 11:45 Total Visit Minutes 45 Occupational Therapy Visit Comments Patient Comments Pt wanting to shower. Patient/Caregiver Goals To go home when medically approrpiate. OT Pain Assessment Pain When Pain Assessed At Rest Pain Present Pain Present Denied Pain M4 OT- IP ADL's Start: 09/05/22 10:59 Freq: Status: Active Protocol: Document 09/06/22 11:00 [facility] (Rec: 09/06/22 12:31 [facility] [id number]) OT ADL-Grooming General Evaluation Grooming Ability Standby Assistance Areas Needing Assistance Retrieving/Set-up of Grooming Items Comments OT Grooming Comments while seated OT ADL-Oral Care Comments Oral Care Comments Not performed. OT ADL-Dressing General Eval Lower Body Dressing Ability Moderate Assistance Comments OT Dressing Comments Asssist to don her socks. OT ADL-Toileting General Evaluation Toileting Ability Standby Assistance Comments OT Toileting Comments Pt able to do her own brief management needs today on her own. OT ADL-Bathing General Evaluation Bathing Ability Moderate Assistance Areas Needing Assistance Wash/Dry Back Comments OT Bathing Comments Pt needing assist to help wash her hair and back. Pt use of shower chair for safety. CGA while standing to do pericare needs. MODA to help come to stand especially form a lower surface as pt not able to push much with her left hand due to carpal bone fracture 07/27. M5 OT- IP IADL's Start: 09/05/22 10:59 Freq: Status: Active Protocol: Document 09/05/22 11:00 CGR (Rec: 09/05/22 11:14 [facility] [id number]) OT-Instrumental Activities of Daily Living Deficits IADL Deficits Identified Deficits Home Safety Awareness Awareness of Need for Assistance at Home Decreased Awareness Medication Management Medication Management Caregiver Administers Money Management Money Management Caregiver Provides Assistance Meal Preparation Meal Preparation Caregiver Provides Assist Staffing Operations Manager Staffing Operations Manager Caregiver Provides Assist Driving Driving Comments Pt does not drive M6 OT- IP Functional Cognition Start: 09/05/22 10:59 Freq: Status: Active Protocol: Document 09/06/22 11:00 [facility] (Rec: 09/06/22 12:31 [facility] [id number]) Cognitive Factors Limiting Selfcare Function Cognitive Ability Attention Span Ability Capable of Focused Attention, Capable of Sustained Attention Ability to Follow Commands Able to Follow Multi-Step Commands Cognitive Comments Cognitive Assessment Comments Pt able to follow multiple commands well for ADl and mobility needs. M7 OT- IP Mobility and Balance Start: 09/05/22 10:59 Freq: Status: Active Protocol: Document 09/06/22 11:00 [facility] (Rec: 09/06/22 12:31 [facility] [id number]) OT-Transfer Assessment Sit to and From Stand Sit to and from Stand Standby Assistance,Moderate Assistance,1 Person Assistance Transfers Transfer Ability Standby Assistance,Contact Guard Assistance Technique Transfer Destination Bed,Chair,Shower Stall,Toilet Transfer Technique Stand Step Pivot Devices Transfer Assistive Devices Gait Belt,Front Wheeled Walker Comments Mobility Comments MODA to stand from lower surfaces and able to move with the FWW with CGA to SBA. Pt needing ANSELMO to help step over the threshold of the shower for safety. OT- Balance Assessment Sitting Balance and Reactions Static Sitting Balance Ability Normal Dynamic Sitting Balance Ability Good Standing Balance and Reactions Static Standing Balance Ability Good Dynamic Standing Balance Ability Fair M8 OT- IP Objective Assessments Start: 09/05/22 10:59 Freq: Status: Active Protocol: Document 09/05/22 11:00 CGR (Rec: 09/05/22 11:14 [facility] [id number]) OT Gross Range of Motion Upper Extremity Range of Motion Assessment Within Functional Limits OT Strength Upper Extremity Strength Assessment Bilaterally Impaired Comments Strength Comments grossly 3+/5, L arm not tested d/t recent wrist fx. OT- Coordination Assessment Upper Extremity Finger to Nose Test Within Functional Limits Finger Tapping Test Within Functional Limits OT-Muscle Tone Assessment Muscle Tone WNL Yes OT Sensation Assessment Edema Edema Absent M9 OT- IP Assessment and Plan Start: 09/05/22 10:59 Freq: Status: Active Protocol: Document 09/06/22 11:00 [facility] (Rec: 09/06/22 12:31 [facility] [id number]) OT Summary Assessment and Plan Potential Rehabilitation Potential Good Analytic Complexity at Evaluation Moderate Summary OT Impairments Strength,Balance,Functional Mobility,Dressing,Toileting, Bathing,Toilet Transfers, Shower Transfers,Activity Tolerance Progress Towards Goals Progressing Toward Goals Assessment Summary Pt able to tolerate a shower today and follow commands well . Per pt states may have to be on IV antibiotics pending cultures and looking to go home if able to SNF. Pt would benefit from short skilled stay to work on her endurance or to have increased assist/ available assist at home. Able to re-pad her left forearm to ensure better fit of left wrist cock up brace. Nursing present and able to assist. Goals Grooming Goal Independent Dressing Goal Independent Toileting Goal Independent Bathing Goal Independent Toilet Transfer Goal Independent Shower Transfer Goal Independent Days to Meet Goals 9 Frequency of Treatment Frequency Of Treatment Once a Day Treatment Plan OT Treatment Plan ADL Training,Functional Mobility,Patient/Family Education,Discharge Planning Discharge Recommendations OT Discharge Recommendations Home vs SNF Other Discharge Recommendations pending medical needs of IV Transportation Needs at Discharge Private Vehicle
--- NOTE | 2022-09-06 14:17 | CM.DPNOTE ---
DCP Note Patient will need 14 days of IV ertapenem 1g Q24 [address] Ornelas. PICC placed this morning. Spoke w/patient with her dtr Jessica on speaker phone- presented three options to receive her IV abx: -SNF -Infusion services at home (likely higher out of pocket cost d/t poor MCR benefit for home infusion) -Infusion suite at [facility] Patient/dtr decide upon SNF and request [facility] H+R with Anne [facility]ave and [facility] as b/u options Discussed referral with Sanaz at [facility], completed PASRR, and patient was inevitably accepted for admission tomorrow. Patient updated and pleased. Awaiting a copy of her COVID vaccination card to transmit to Sanaz JW
--- NOTE | 2022-09-06 14:55 | PM.PN.1 ---
Subjective Subjective Date Patient Seen: 09/06/22 Time Patient Seen: 08:00 Interval history: She feels well today. She has no complaints. She had ESBL bacteremia noted on blood culture. Antibiotics changed to ertapenem. She had PICC placed this morning Exam Vital Signs (past 8 hours): - 09/06/22 08:24 09/06/22 08:30 09/06/22 12:00 Temperature 97 F L 96 F L Pulse Rate 83 77 73 Respiratory Rate 18 18 Blood Pressure 143/88 H 143/88 H 145/93 H Pulse Oximetry 95 98 Oxygen Delivery Method Nasal Cannula Oxygen Flow Rate 0 Narrative Exam Narrative: GEN: no acute distress CV: regular rate and rhythm, no murmurs PULM: clear bilaterally ABD: soft, nontender, nondistended, no organomegaly Objective Labs Result Diagrams: 09/06/22 05:18 09/06/22 05:18 Labs: Laboratory Results - last 24 hr 09/06/22 09/06/22 05:18 05:18 WBC 11.5 H RBC 3.29 L Hgb 10.2 L Hct 30.7 L MCV 93.5 MCH 31.0 MCHC 33.2 RDW 18.3 H Plt Count 247 Sodium 136 L Potassium 4.2 Chloride 101 Carbon Dioxide 27 BUN 39 H Creatinine 1.38 H Estimated GFR 38 L BUN/Creatinine Ratio 28.3 H Glucose 124 H Calcium 10.0 Magnesium 2.0 Troponin I 0.034 PFSH Medical History (Updated 09/04/22 @ 05:37 by KOKI Woo) CKD stage G3a/A1, GFR 45-59 and albumin creatinine ratio <30 mg/g Control of atrial fibrillation with pacemaker Essential hypertension Fracture of left carpal bone Fracture of superior pubic ramus GERD (gastroesophageal reflux disease) History of cervical cancer History of renal carcinoma Hyperlipidemia Hypothyroidism associated with surgical procedure Inferior pubic ramus fracture Irritable bowel syndrome Neuropathy Overactive bladder Restless leg syndrome Surgical History (Updated 09/04/22 @ 05:37 by KOKI Woo) History of kidney removal History of thyroid surgery Family History Mother Cancer Sister Cancer Social History household members: children Smoking Status: Never smoker Assessment & Plan Assessment & Plan narrative: 1. UTI with bacteremia, E. coli, acute -urine positive for GNR, both bottles positive for E. coli with sensitivities showing multidrug resistance ESBL -change antibiotics to ertapenem plan for 14 days course, day 1 09/06 2. Acute respiratory failure secondary to CHF exacerbation, resolved -pacemarker interrogated and shows atrial tachycardia and afib -COVID, influenza a/B, RSV and procalcitonin are all negative -initial sats in ED with O2 at 87% on room air -stop prednisone 3. Myocardial injury, acute, secondary to demand ischemia from chf and tachycardia -initial troponins elevated 0.037, repeat 0.041-will continue to trend -Pacemaker was interrogated there is evidence of chronic ongoing atrial tachycardia and atrial fibrillation -patient placed on telemedicine 4. Atrial fibrillation with pacemaker in place, acute on chronic, present on admission -Pacemaker was interrogated there is evidence of chronic ongoing atrial tachycardia and atrial fibrillation. -continue carvedilol, Pradaxa 5. Anemia, mild, chronic -no need for transfusion -continue to trend 6. Overactive bladder, -holding bethanecho 7. Hypothyroidism secondary to surgical procedure -continue levothyroxine -TSH ordered 8. Irritable bowel syndrome -continue Bentyl 9. Neuropathy, chronic -continue gabapentin 10. Hyperlipidemia -continue Lipitor 11. Restless leg syndrome -continue Requip 12. Hypertension, essential -continue amlodipine 13. GERD, chronic, present on admission -continue omeprazole Dispo: She is medically stable for discharge and awaits placement in SNF vs IV antibiotics at home. Time Spent With Patient Critical Care time: I spent a total of [] minutes of critical care time on this patient's care today; this time is exclusive of procedural time.
[2022-09-06] MEDS: AMIODARONE 200 MG TABLET PO (15:24)
[2022-09-06 15:56] LABS: COVID19 -Nasal RAPID Negative (Negative)
[2022-09-06] MEDS: ATORVASTATIN 20 MG TABLET PO (16:03)
[2022-09-06] MEDS: ACETAMINOPHEN 325 MG TABLET 650 MG PO (16:03)
--- NOTE | 2022-09-06 19:42 | PC.NURSE ---
Pt's daughter Hien called to bring patient's COVID vaccination card in. She asked if it was possible to email a copy, per DIRECTOR UTILIZATION MANAGEMENT recommendations patient's daughter can attach through patient portal online and send to medical records. Informed daughter that she could try to send COVID vaccine card via portal, and she stated she would do this in the a.m. / bring in cards.
[2022-09-06] MEDS: AMLODIPINE 5 MG TABLET PO (21:58)
[2022-09-06] MEDS: ROPINIROLE 0.25 MG TABLET 0.5 MG PO (21:58)
[2022-09-07 04:00] VITALS: BP 138/87; PULSE 87; RESP 16; TEMP 36; O2SAT 93
[2022-09-07] MEDS: LEVOTHYROXINE 112 MCG TABLET PO (06:13)
[2022-09-07] MEDS: LOSARTAN 25 MG TABLET 12.5 MG PO (08:25)
[2022-09-07] MEDS: carvediloL 12.5 MG TABLET 25 MG PO (08:26)
[2022-09-07] MEDS: POTASSIUM CHLORIDE 10 MEQ TAB PO (08:26)
[2022-09-07] MEDS: GABAPENTIN 600 MG TABLET PO (08:26)
[2022-09-07] MEDS: DABIGATRAN 75 MG CAPSULE PO (08:26)
[2022-09-07] MEDS: PANTOPRAZOLE DR 40 MG TABLET PO (08:26)
[2022-09-07] MEDS: ACETAMINOPHEN 325 MG TABLET 650 MG PO (08:26)
[2022-09-07] MEDS: AMIODARONE 200 MG TABLET PO (08:26)
[2022-09-07] MEDS: SODIUM CHLORIDE 0.9% FLUSH 10 ML IV (08:27)
[2022-09-07] MEDS: ERTAPENEM 1 GM in SODIUM CHLORIDE 0.9% 100 ML IV (08:31)
[2022-09-07] MEDS: FUROSEMIDE 40 MG TABLET PO (08:31)
[2022-09-07] MEDS: DICYCLOMINE 10 MG CAPSULE 20 MG PO (08:31)
[2022-09-07 08:45] VITALS: BP 128/73; PULSE 78; RESP 18; TEMP 36; O2SAT 94
--- NOTE | 2022-09-07 10:14 | OT.IPNOTE ---
Attempted to see pt for OT and pt states too tired at this time as just completed PT earlier. Pt states just wanting to rest as going to be discharged to SNF today. Able to help reposition the pt in bed, no charge.
--- NOTE | 2022-09-07 10:21 | CM.DPC ---
DCP Discharge SNF Per MD, pt remains medically stable to d/c to SNF today to complete course of IV-Abx and strengthening. [facility] admissions confirms they can still accept pt today around 1300 and LEX updated MD who will work on discharge. COVID swab obtained yesterday afternoon and negative. LEX updated RN and pt and also called pt's Dtr Jessica and updated and Dtr remains agreeable with d/c to SNF today and will be bedside around 1200 with pt belongings and COVID vax card for [facility] to review. Dtr plans to update [facility] that they would like to resume [facility] services after SNF as they had just started with them prior to admission. Plan: SW to follow for faxing d/c packet to [facility] when available. SUSANNAH Mcgovern
--- NOTE | 2022-09-07 11:33 | PC.NURSE ---
Day shift: Report given to Tito at [facility] at this time. All questions answered.
--- NOTE | 2022-09-07 11:39 | P.DS_ITS ---
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 She was initially seen evaluated on 07/27/2022 after she fell and fractures were diagnosed.? She was then sent to [facility] rehab she says for she actually did not get her Pradaxa, but did get Eliquis and has been home for about 1 week.? Daughter states that she restarted her on Pradaxa and today they noticed that she was very confused having difficulty ambulating possibly had a fever.? Daughter states that she was recently treated for a UTI put on Keflex for 3 days and then stopped.? Patient is complaining some of abdominal pain and dysuria.? She really has no chest pain.? She is noted to be mildly hypoxic 89-90% on room air. In ED patient was tachypneic with respiratory rates 26-33, O2 saturations as low as 87% on room air, tachycardic heart rates 112- 114, BP slightly elevated 151/89. On the floor patient denies headache, changes in vision, weakness, numbness, fever, body aches, chills, nausea, vomiting, diarrhea, hematemesis, hematuria, melena, recent exposure to illness, is vaccinated against COVID but has not received flu vaccine-requests flu vaccine, denies skin wounds or infection. At the time of admit patient is stable alert and orientated x3, relaxed resting in bed initial VS afebrile temp 98.6?, BP 128/73, HR 90, R 29, O2 saturation 87%2 LN/C. Head CT was negative for any acute intracranial process. Patient has a mildly elevated WBC 12.4 with a left shift neutrophils 11,100, lactate 1.1, procalcitonin, COVID, influenza a/B, RSV and procalcitonin are all negative, known CKD BUN 21, creatinine 1.27, GFR 42, D-dimer 652, patient has 1 kidney with CKD based on the fact that she has been on either Eliquis or Pradaxa S consider not prudent at this time to complete a CTA with contrast. Discussed with the patient's daughter and son-in-law if her condition deteriorates or worsens we will consider CTA that time. BNP 7340, initial troponins elevated 0.037, repeat 0.041-Pacemaker was interrogated there is evidence of chronic ongoing atrial tachycardia and atrial fibrillation which may explain her congestive heart failure. Patient admitted for UTI, CHF exacerbation, myocard ial injury. 07/27/2022ED Visit :carpal bone fracture and left wrist without gross bony deformity.?CT does confirm a nondisplaced superior and inferior pubic rami and sacral fracture.? Discharge Providers Provider Date of admission: 09/04/22 21:40 Discharge Date: 09/07/22 Primary care physician: Lesli Lomeli PA-C Consults: 09/04/22 03:13 Consult to Occupational Therapy Evaluate & Treat Comment: weakness in CHF Physician Instructions: Evaluate and treat Consult to Physical Therapy Evaluate & Treat Comment: weakness in CHF Physician Instructions: Evaluate and Treat Discharge provider: Jono Ornelas MD Summary Hospital Course Discharge Diagnosis: 1. UTI with ESBL bacteremia 2. Acute respiratory failure secondary to CHF exacerbation 3. Cardiac demand ischemia 4. Atrial fibrillation with pacemaker 5. Anemia 6. Overactive bladder 7. Hypothyroidism 8. Irritable bowel syndrome 9. Neuropathy 10. Hyperlipidemia 11. Restless leg syndrome 12. Hypertension 13. GERD Hospital Course: Ms. Delcid was admitted with shortness of breath. She improved with lasix and came off oxygen. She was found to have UTI with ESBL bacteremia. She should be on ertapenem for 14 day course. Exam Vital Signs (past 8 hours): - 09/07/22 04:00 09/07/22 08:45 Temperature 96.8 F L 96.8 F L Pulse Rate 87 78 Respiratory Rate 16 18 Blood Pressure 138/87 128/73 Pulse Oximetry 93 94 Oxygen Flow Rate 0 0 Oxygen Delivery Method Nasal Cannula Oxygen Flow Rate 0 Narrative Exam Narrative: GEN: no acute distress CV: regular rate and rhythm, no murmurs PULM: clear bilaterally ABD: soft, nontender, nondistended, no organomegaly Objective Labs Result Diagrams: 09/06/22 05:18 09/06/22 05:18 Labs: Laboratory Results - last 24 hr 09/06/22 15:18 SARS-CoV-2 (PCR) Negative [facility] Medical History (Updated 09/04/22 @ 05:37 by KOKI Woo) CKD stage G3a/A1, GFR 45-59 and albumin creatinine ratio <30 mg/g Control of atrial fibrillation with pacemaker Essential hypertension Fracture of left carpal bone Fracture of superior pubic ramus GERD (gastroesophageal reflux disease) History of cervical cancer History of renal carcinoma Hyperlipidemia Hypothyroidism associated with surgical procedure Inferior pubic ramus fracture Irritable bowel syndrome Neuropathy Overactive bladder Restless leg syndrome Surgical History (Updated 09/04/22 @ 05:37 by KOKI Woo) History of kidney removal History of thyroid surgery Family History Mother Cancer Sister Cancer Social History household members: children Smoking Status: Never smoker Discharge Plan Discharge Plan Patient Disposition: SNF Transfer to: [facility] Provider Discharge Comment: transfer for IV ertapenem 1gm q24hr through 09/19 Discharge orders & Medications Prescriptions: New ertapenem [Invanz] 1 gram Recon Soln 1 gm IV Q24H Qty: 12 0RF Continued pantoprazole 20 mg tablet,delayed release (DR/EC) 40 mg PO BID amiodarone 200 mg tablet 200 mg PO DAILY bethanechol chloride 25 mg tablet 25 mg PO TID carvedilol 25 mg tablet 25 mg PO BID Rx Instructions: must administer with a meal/food furosemide 40 mg tablet 40 mg PO BID gabapentin 600 mg tablet 600 mg PO TID levothyroxine 112 mcg capsule 112 mcg PO DAILY dicyclomine 20 mg tablet 20 mg PO BID dabigatran etexilate [Pradaxa] 75 mg capsule 75 mg PO BID atorvastatin 20 mg tablet 20 mg PO QPM ropinirole 0.5 mg tablet 0.5 mg PO BEDTIME Rx Instructions: administer 1-3 hours before bedtime losartan 25 mg tablet 12.5 mg PO DAILY Rx Instructions: take half a tablet daily potassium chloride 10 mEq capsule, extended release 10 meq PO 3XD Label Comments: take 1 capsule by mouth once daily in the morning docusate sodium 100 mg capsule 100 mg PO BID PRN (Reason: constipation) Qty: 60 0RF Follow up/Referrals: Lesli Lomeli PA-C [Primary Care Provider] - 2 Weeks (facility will need to schedule ) Discharge Health Status Multidrug resistant organism: Other Precautions: Contact Diet/Activity/Treatments Diet: Regular Liquid consistency: Normal/Thin Food texture: Regular Visit Report/Discharge Packet Instructions: DI for Urinary Tract Infection (UTI), How to Prevent Falls, DI for Extended Spectrum Beta-Lactamase Infection Discharge Data Primary Care Provider: Lesli Lomeli
--- NOTE | 2022-09-07 12:19 | PT.IPTN ---
Current Diagnoses Heart failure, unspecified (09/04/22) Physical Therapy Treatment Note M2 PT-IP Current Condition Start: 09/04/22 11:20 Freq: Status: Active Protocol: Document 09/05/22 11:25 TS (Rec: 09/05/22 12:31 TS [id number]) Physical Therapy Current Condition Current Condition Evaluation Date 09/04/22 Treatment Diagnosis UTI; recent pubic ramus fx Onset Date 08/03/22 M3 PT-IP Subjective Start: 09/04/22 11:20 Freq: Status: Active Protocol: Document 09/07/22 09:21 AMB (Rec: 09/07/22 09:47 AMB [id number]) Subjective Physical Therapy Visit Type Type Treatment Note Visit Start Time 08:15 Visit Stop Time 08:45 Total Visit Minutes 30 Number of MOLDER MACHINE Visits 0 Physical Therapy Visit Comments Patient Comments Pt is not feeling as good today. [place] a little wobbly this morning when getting up to use the bathroom. M4 PT-IP Mobility and Gait Start: 09/04/22 11:20 Freq: Status: Active Protocol: Document 09/07/22 08:15 AMB (Rec: 09/07/22 12:18 AMB [id number]) PT-Bed Mobility Assessment Rolling Type of Rolling Log Rolling,Roll to Right,Roll to Left Supine to Sit Supine to Sit Contact Guard Assistance PT-Transfer Assessment Sit to and From Stand Sit to and from Stand Minimal Assistance,1 Person Assistance Equipment Transfer Assistive Device Gait Belt,Front Wheeled Walker Transfers Transfer Destination Chair Transfer Technique ambulated Transfer Ability Level of Assist Contact Guard Assistance,1 Person Assistance,Use of Upper Extremities Comments Mobility Comments Pt on room air. Was feeling lightheaded when moving from sit to stand. In sitting BP 116/68, when standing 104/56. Pt felt better after a seated rest and attempted again. Gait Assessment Gait Gait Assistance Required: Contact Guard Assist Distance (Feet) 20 Able to Maintain Weight Bearing Status Yes During Gait Assistive Devices Assistive Device Gait Belt,Front Wheeled Walker Factors Limiting Gait Function Factors Limiting Gait Function Decreased Activity Tolerance, Decreased Strength,Limited Range of Motion,Poor Balance Comments Gait Comments Pt ambulated for 10' to the window then turned around and walked back to bed. Less energy today than yesterday, but was able to ambulate with CGA. M5 PT-IP Objective Assessments Start: 09/04/22 11:20 Freq: Status: Active Protocol: Document 09/05/22 11:25 TS (Rec: 09/05/22 12:31 TS [id number]) Orientation Orientation/Cognition Safety Awareness Understands Safety Issues M6 PT-IP Treatment Start: 09/04/22 11:20 Freq: Status: Active Protocol: Document 09/07/22 08:15 AMB (Rec: 09/07/22 12:12 AMB [id number]) Physical Therapy Treatment Exercises Exercises Ankle Pumps,Gluteal Sets Other Treatments Other Treatment Performed mini bridges M7 PT-IP Assessment and Plan Start: 09/04/22 11:20 Freq: Status: Active Protocol: Document 09/07/22 09:21 AMB (Rec: 09/07/22 09:47 AMB [id number]) PT Summary Assessment and Plan Potential Rehabilitation Potential Good Summary Impairments Pain,ROM,Strength,Balance, Coordination,Sensation,Tone, Cognition,Bed Mobility, Transfers,Gait,Activity Tolerance Assessment Summary pt requiring CGA with mobility using FWW. Pt is planning go to SNF due to IV antibiotics. She was not feeling as well today, and was lightheaded when standing up. Did feel better after standing a second time and was able to ambulate a short distance in her room. Goals Bed Mobility Goal Independent Transfer Goal Standby Assistance,Front Wheeled Walker Gait Goal Standby Assistance,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 Gait Distance 100 Days to Meet Goals 5 Frequency of Treatment Frequency Of Treatment Once a Day Treatment Plan Physical Therapy Treatment Plan Bed Mobility Training,Transfer Training,Gait Training, Therapeutic Exercise,Balance Retraining,Discharge Planning, Neuromuscular Re-ed Precautions Other Precautions WBAT LLE; LUE wrist in splint. Per Pt she was cleared to use her walker with LUE. Recommendations To Nursing Amount of Assist Needed 1 Person Assist Discharge Recommendations PT Discharge Recommendations SNF Rehab
--- NOTE | 2022-09-07 13:09 | PC.NURSE ---
Day shift: Left unit at approx 1300 via WC with SNF transport person. Pt has all personal belongings. Pt's family is aware that she is going to [facility] today. D/c packet was given to transport person.
[2022-09-16 09:54] LABS: Misc. to WA State Lab SEE SEPARATE REPORTS
== END 2022-09-07 13:11 | DRG 291 ==
LOC: ED 09-04 03:00 → AC 09-04 03:05
PROVIDERS: Internal Medicine; Student in an Organized Health Care Education/Training Program; Admitting Provider Nurse Practitioner Family; Emergency Provider Emergency Medicine; PCP Physician Assistant Medical; Referring Provider Emergency Medicine; Visit Provider Nurse Practitioner Family
DX: I13.0 Hypertensive heart and chronic kidney disease with heart failure and stage 1 through stage 4 chronic kidney disease, or unspecified chronic kidney disease (principal); J96.01 Acute respiratory failure with hypoxia; N39.0 Urinary tract infection, site not specified; I24.8 Other forms of acute ischemic heart disease; I50.9 Heart failure, unspecified; I48.91 Unspecified atrial fibrillation; N18.31 Chronic kidney disease, stage 3a; D63.1 Anemia in chronic kidney disease; E89.0 Postprocedural hypothyroidism; K58.9 Irritable bowel syndrome, unspecified; G62.9 Polyneuropathy, unspecified; E78.5 Hyperlipidemia, unspecified; G25.81 Restless legs syndrome; K21.9 Gastro-esophageal reflux disease without esophagitis; B96.20 Unspecified Escherichia coli [E. coli] as the cause of diseases classified elsewhere; Z66 Do not resuscitate; Z90.5 Acquired absence of kidney; Z20.822 Contact with and (suspected) exposure to COVID-19; Z95.0 Presence of cardiac pacemaker; Z23 Encounter for immunization
CPT/HCPCS: 0241U; 36415; 36569; 70450; 71045; 80048; 80053; 80061; 81003; 81015; 82550; 83605; 83735; 83880; 84145; 84443; 84484; 85025; 85027; 85379; 87040; 87070; 87077; 87086; 87150; 87186; 87205; 87635; 90471; 90662; 93005; 93306; 96365; 96375; 97110; 97116; 97161; 97166; 97530; 97535; 99284; C9803; G0378; J0696; J1335; J1940

== ENCOUNTER → 2022-09-16 22:50 | Outpatient (ROUT) | payer MEDICARE, OTHER, SELFPAY ==
[2022-09-04 04:36] VITALS: BMI 21.7
== END ==
PROVIDERS: PCP Physician Assistant Medical; Visit Provider Internal Medicine
DX: Z13.9 Encounter for screening, unspecified (principal)
CPT/HCPCS: 87077; 87086; 87186

== ENCOUNTER 2022-09-17 12:52 | Emergency (ER) | payer MEDICARE, OTHER, SELFPAY ==
[2022-09-04 04:36] VITALS: BMI 21.7
[2022-09-17 12:54] VITALS: BP 130/72; PULSE 63; RESP 16; TEMP 36.7; O2SAT 99
--- NOTE | 2022-09-17 13:00 | DI.RAD.S_ITS ---
PROCEDURE: XR CHEST 1V INDICATIONS: chest pain TECHNIQUE: One view of the chest was acquired. COMPARISON: [facility], CR, XR CHEST FOR PICC 1V, 09/06/2022, 9:35. FINDINGS: Surgical changes and devices: Left-sided pacer. Right arm PICC. Lungs and pleura: Lungs are clear. No pleural effusions or pneumothorax. Mediastinum: Mediastinal contours appear normal. Heart size is normal. Bones and chest wall: No suspicious bony lesions. Overlying soft tissues appear unremarkable. IMPRESSION: No acute process. Dictated by: Davion Rodrigues M.D. on 09/17/2022 at 12:35 Approved by: Davion Rodrigues M.D. on 09/17/2022 at 12:36
--- NOTE | 2022-09-17 13:01 | DI.CT.S_ITS ---
PROCEDURE: CT CERVICAL SPINE WO CON INDICATIONS: unwit fall w/ head injury TECHNIQUE: Noncontrast 3 mm thick sections acquired from the skull base to the T4 level. Sagittal and coronal reformats were then constructed. For radiation dose reduction, the following was used: automated exposure control, adjustment of mA and/or kV according to patient size. COMPARISON: None. FINDINGS: Image quality: Excellent. Bones: No fractures or dislocations. Visualized superior ribs are intact. Soft tissues: Prevertebral soft tissues are normal in thickness. No paravertebral hematomas. No apical pneumothoraces. IMPRESSION: No fracture. Dictated by: Davion Rodrigues M.D. on 09/17/2022 at 12:39 Approved by: Davion Rodrigues M.D. on 09/17/2022 at 12:40
--- NOTE | 2022-09-17 13:01 | DI.CT.S_ITS ---
PROCEDURE: CT HEAD/BRAIN WO CON INDICATIONS: unwit fall w/ head strike TECHNIQUE: Noncontrast 4.5 mm thick angled axial sections acquired from the foramen magnum to the vertex, with coronal and sagittal reformats. For radiation dose reduction, the following was used: automated exposure control, adjustment of mA and/or kV according to patient size. COMPARISON: [facility], CT, CT HEAD/BRAIN WO CON, 09/03/2022, 23:10. FINDINGS: Image quality: Excellent. CSF spaces: Basal cisterns are patent. No extra-axial fluid collections. The ventricles are symmetric in size and shape. Brain: No intracranial bleeds or masses. There is cerebral volume loss for age, with resultant ventricular and sulcal prominence. There are periventricular and deep white matter chronic small vessel ischemic changes. There is intracranial internal carotid artery atherosclerosis. Skull and face: Calvarium and visualized facial bones appear intact, without suspicious lesions. Sinuses: Visualized sinuses and mastoids are clear. IMPRESSION: No acute intracranial abnormality. Dictated by: Davion Rodrigues M.D. on 09/17/2022 at 12:39 Approved by: Davion Rodrigues M.D. on 09/17/2022 at 12:39
--- NOTE | 2022-09-17 13:58 | PC.NURSE ---
labs obtained by pts pic line to rt upper arm.
[2022-09-17 14:03] LABS: Add Manual Diff / Slide Review NO; Basophils Absolute Auto 100 /uL (0-100); Basophils Percent Auto 1.7 % (0-2); Eosinophils Absolute Auto 100 /uL (0-450); Eosinophils Percent Auto 1.7 % (2-4); Hemoglobin 10.4 g/dL (12.0-16.0); Lymphocytes Absolute Auto 1000 /uL (1100-4500); Lymphocytes Percent Auto 19.5 % (25-40); Mean Corpuscular HGB Conc 33.5 % (30-36); Mean Corpuscular Hemoglobin 31.1 PG (26-34); Mean Corpuscular Volume 92.8 fL (80-100); Monocytes Absolute Auto 500 /uL (0-900); Monocytes Percent Auto 8.7 % (3-14); Neutrophils Absolute Auto 3600 /uL (1500-7000); Neutrophils Percent Auto 68.4 % (50-75); Platelet Count 367 X10^3/uL (150-400); Red Blood Cell Count 3.35 X10^6/uL (4.0-5.2); Red Cell Distribution Width 16.5 % (11.6-14.8); White Blood Cell Count 5.3 X10^3/uL (4.5-11.0)
--- NOTE | 2022-09-17 14:08 | ED_ITS ---
HPI - General Adult General Chief complaint: Altered Mental Status Stated complaint: Confusion/recent UTI Time Seen by Provider: 09/17/22 13:53 Source: patient, family and EMS Mode of arrival: EMS History of Present Illness HPI narrative: Patient is an 82-year-old female. She is on anticoagulation. [facility] being sent [facility] after admission to the hospital. She does have urinary tract infection that is requiring antibiotics through a PICC line. She is getting that at the facility. She is here for Related Data Home Medications Medication Instructions Recorded Confirmed amiodarone 200 mg tablet 200 mg PO DAILY 09/13/21 09/04/22 atorvastatin 20 mg tablet 20 mg PO QPM 09/13/21 09/04/22 bethanechol chloride 25 mg tablet 25 mg PO TID 09/13/21 09/04/22 carvedilol 25 mg tablet 25 mg PO BID 09/13/21 09/04/22 dabigatran etexilate 75 mg capsule 75 mg PO BID 09/13/21 09/04/22 (Pradaxa) dicyclomine 20 mg tablet 20 mg PO BID 09/13/21 09/04/22 furosemide 40 mg tablet 40 mg PO BID 09/13/21 09/04/22 gabapentin 600 mg tablet 600 mg PO TID 09/13/21 09/04/22 levothyroxine 112 mcg capsule 112 mcg PO DAILY 09/13/21 09/04/22 pantoprazole 20 mg tablet,delayed 40 mg PO BID 09/13/21 09/04/22 release ropinirole 0.5 mg tablet 0.5 mg PO BEDTIME 09/13/21 09/04/22 losartan 25 mg tablet 12.5 mg PO DAILY 07/28/22 09/04/22 potassium chloride 10 mEq 10 meq PO 3XD 07/28/22 09/04/22 capsule,extended release Previous Rx's Medication Instructions Recorded docusate sodium 100 mg capsule 100 mg PO BID PRN constipation #60 07/29/22 caps ertapenem 1 gram solution for 1 gm IV Q24H #12 ea 09/07/22 injection (Invanz) Allergies Allergy/AdvReac Type Severity Reaction Status Date / Time No Known Drug Allergies Allergy Verified 07/27/22 14:21 Patient History Medical History (Updated 09/17/22 @ 16:37 by Michele Wagoner DO) CKD stage G3a/A1, GFR 45-59 and albumin creatinine ratio <30 mg/g Control of atrial fibrillation with pacemaker Essential hypertension Fracture of left carpal bone Fracture of superior pubic ramus GERD (gastroesophageal reflux disease) History of cervical cancer History of renal carcinoma Hyperlipidemia Hypothyroidism associated with surgical procedure Inferior pubic ramus fracture Irritable bowel syndrome Neuropathy Overactive bladder Restless leg syndrome Surgical History (Updated 09/04/22 @ 05:37 by KOKI Woo) History of kidney removal History of thyroid surgery Family History Mother Cancer Sister Cancer Social History household members: children Smoking Status: Never smoker Smoking Status: Never smoker alcohol intake frequency: 0-2 drinks per day Substance Use Type: does not use Exam Initial Vital Signs Initial Vital Signs: Vital Signs Temperature 98.1 F 09/17/22 12:54 Pulse Rate 63 09/17/22 12:54 Respiratory Rate 16 09/17/22 12:54 Blood Pressure 130/72 09/17/22 12:54 Pulse Oximetry 99 09/17/22 12:54 Oxygen Delivery Method 09/17/22 12:54 Course Orders Ordered: ED Orders 09/17/22 13:00 XR chest 1V Stat 09/17/22 13:01 CT cervical spine wo con Stat CT head/brain wo con Stat 09/17/22 13:33 EKG-12 Lead Stat 09/17/22 13:50 BNP [NT-proBNP (BNP-Adult 18+)] Stat Complete Blood Count AUTO DIFF Stat Comprehensive Metabolic Panel Stat Lipase Stat Magnesium Stat Partial Thromboplastin Time Stat Prothrombin Time INR Stat Troponin & CK Cardiac Panel Stat 09/17/22 15:17 XR knee RT 3V Stat 09/17/22 15:22 Urinalysis and Microscopic Stat Urine Culture Stat Vital Signs Vital signs: Vital Signs - 8 hr 09/17/22 12:54 09/17/22 15:33 Temperature 98.1 F Pulse Rate 63 82 Respiratory Rate 16 16 Blood Pressure 130/72 145/73 H Pulse Oximetry 99 96 Oxygen Delivery Method Room Air Room Air Medical Decision Making Lab Data Lab results reviewed: Yes I reviewed the patient's lab results. Result diagrams: 09/17/22 13:50 09/17/22 13:50 Labs: Lab Results 09/17/22 09/17/22 09/17/22 Range/Units 13:50 13:50 13:50 WBC 5.3 (4.5-11.0) X10^3/uL RBC 3.35 L (4.0-5.2) X10^6/uL Hgb 10.4 L (12.0-16.0) g/dL Hct 31.0 L (36-46) % MCV 92.8 (80-100) fL MCH 31.1 (26-34) PG MCHC 33.5 (30-36) % RDW 16.5 H (11.6-14.8) % Plt Count 367 (150-400) X10^3/uL Neut % (Auto) 68.4 (50-75) % Lymph % (Auto) 19.5 L (25-40) % [place] % (Auto) 8.7 (3-14) % Eos % (Auto) 1.7 L (2-4) % Baso % (Auto) 1.7 (0-2) % Neut # (Auto) 3600 (9055-4110) /uL Lymph # (Auto) 1000 L (5542-8108) /uL [place] # (Auto) 500 (0-900) /uL Eos # (Auto) 100 (0-450) /uL Baso # (Auto) 100 (0-100) /uL PT 16.6 H (10.1-12.7) SECONDS INR 1.4 H (0.9-1.3) APTT 36 (26-36) SECONDS Sodium 138 (137-145) mmol/L Potassium 3.7 (3.4-5.1) mmol/L Chloride 100 (98-107) mmol/L Carbon Dioxide 29 (22-32) mmol/L BUN 20 H (7-17) mg/dL Creatinine 1.72 H (0.52-1.04) mg/dL Estimated GFR 29 L (>60) mL/min BUN/Creatinine Ratio 11.6 (6-22) Glucose 100 (80-110) mg/dL Calcium 10.0 (8.4-10.2) mg/dL Magnesium 2.2 (1.6-2.3) mg/dL Total Bilirubin 0.4 (0.2-1.3) mg/dL AST 24 (14-36) IU/L ALT 16 (<35) IU/L Alkaline Phosphatase 93 (38-126) U/L Total Creatine Kinase 68 (30-135) U/L CK-MB (CK-2) TNP CK-MB (CK-2) Rel Index TNP Troponin I 0.016 (0.01-0.034) ng/mL NT-Pro-B Natriuret Pep (<450) pg/mL Total Protein 7.2 (6.3-8.2) g/dL Albumin 3.7 (3.5-5.0) g/dL Globulin 3.5 (1.7-4.1) g/dL Albumin/Globulin Ratio 1.1 (1.0-2.8) Lipase 173 (23-300) U/L Urine Color Urine Appearance Urine pH (4.5-8.0) Ur Specific [place] (1.000-1.035) Urine Protein (Negative) Urine Glucose (UA) (Negative) g/dL Urine Ketones (NEGATIVE) Urine Occult Blood (Negative) Urine Nitrate (Negative) Urine Bilirubin (NEGATIVE) Urine Urobilinogen (0.2) E.U./dL Ur Leukocyte Esterase (NEGATIVE) Urine RBC (0-5/HPF) Urine WBC (0-5/HPF) Ur Squamous Epith Cells (0-5/HPF) Ur Transition Epith Cell (0-5/HPF) Amorphous Sediment Urine Bacteria (None) Ur Culture Indicated? 09/17/22 09/17/22 Range/Units 13:50 15:22 WBC (4.5-11.0) X10^3/uL RBC (4.0-5.2) X10^6/uL Hgb (12.0-16.0) g/dL Hct (36-46) % MCV (80-100) fL MCH (26-34) PG MCHC (30-36) % RDW (11.6-14.8) % Plt Count (150-400) X10^3/uL Neut % (Auto) (50-75) % Lymph % (Auto) (25-40) % [place] % (Auto) (3-14) % Eos % (Auto) (2-4) % Baso % (Auto) (0-2) % Neut # (Auto) (1350-3694) /uL Lymph # (Auto) (1865-8067) /uL [place] # (Auto) (0-900) /uL Eos # (Auto) (0-450) /uL Baso # (Auto) (0-100) /uL PT (10.1-12.7) SECONDS INR (0.9-1.3) APTT (26-36) SECONDS Sodium (137-145) mmol/L Potassium (3.4-5.1) mmol/L Chloride (98-107) mmol/L Carbon Dioxide (22-32) mmol/L BUN (7-17) mg/dL Creatinine (0.52-1.04) mg/dL Estimated GFR (>60) mL/min BUN/Creatinine Ratio (6-22) Glucose (80-110) mg/dL Calcium (8.4-10.2) mg/dL Magnesium (1.6-2.3) mg/dL Total Bilirubin (0.2-1.3) mg/dL AST (14-36) IU/L ALT (<35) IU/L Alkaline Phosphatase (38-126) U/L Total Creatine Kinase (30-135) U/L CK-MB (CK-2) CK-MB (CK-2) Rel Index Troponin I (0.01-0.034) ng/mL NT-Pro-B Natriuret Pep 5350 H (<450) pg/mL Total Protein (6.3-8.2) g/dL Albumin (3.5-5.0) g/dL Globulin (1.7-4.1) g/dL Albumin/Globulin Ratio (1.0-2.8) Lipase (23-300) U/L Urine Color Yellow Urine Appearance Clear Urine pH 7.0 (4.5-8.0) Ur Specific [place] 1.010 (1.000-1.035) Urine Protein Negative (Negative) Urine Glucose (UA) Negative (Negative) g/dL Urine Ketones Negative (NEGATIVE) Urine Occult Blood Trace-lysed (Negative) Urine Nitrate Negative (Negative) Urine Bilirubin Negative (NEGATIVE) Urine Urobilinogen 0.2 (0.2) E.U./dL Ur Leukocyte Esterase 2+ H (NEGATIVE) Urine RBC None seen (0-5/HPF) Urine WBC 10-30/hpf H (0-5/HPF) Ur Squamous Epith Cells 1-5 /hpf (0-5/HPF) Ur Transition Epith Cell 1-5/hpf (0-5/HPF) Amorphous Sediment 1+ Urine Bacteria Few (2-10) H (None) Ur Culture Indicated? Specimen cultured Urine Dip Bedside Urine Glucose Negative Bedside Urine Bilirubin - Negative Bedside Urine Ketone - Negative Urine Specific [place] 1.01 Bedside Urine Occult Blood - Negative Bedside Urine pH 6.5 Bedside Urine Protein - Negative Bedside Urine Urobilinogen - Negative Bedside Urine Nitrite - Negative Bedside Urine Leukocytes ++ 125 Esterase Point of care testing: Urine Dip Bedside Urine Glucose Negative Bedside Urine Bilirubin - Negative Bedside Urine Ketone - Negative Urine Specific [place] 1.01 Bedside Urine Occult Blood - Negative Bedside Urine pH 6.5 Bedside Urine Protein - Negative Bedside Urine Urobilinogen - Negative Bedside Urine Nitrite - Negative Bedside Urine Leukocytes ++ 125 Esterase Imaging Data Chest x-ray: Radiologist's Impression: [address] [address] XRay Report Signed Patient: Shannon Feliz MR#: [id number] : 1940 Acct:[id number] Age/Sex: 82 / F Date of Service: 09/17/22 Loc: ED Accession Number: [id number] ?? Procedure: XR chest 1V Ordering Provider: Michele Wagoner D.O. PROCEDURE:? XR CHEST 1V ? INDICATIONS:? chest pain ? TECHNIQUE:? One view of the chest was acquired.? ? COMPARISON:? [facility], CR, XR CHEST FOR PICC 1V, 09/06/2022, 9:35. ? FINDINGS:? ? Surgical changes and devices:? Left-sided pacer.? Right arm PICC. ? Lungs and pleura:? Lungs are clear.? No pleural effusions or pneumothorax.? ? Mediastinum:? Mediastinal contours appear normal.? Heart size is normal.? ? Bones and chest wall:? No suspicious bony lesions.? Overlying soft tissues appear unremarkable.? ? IMPRESSION:? No acute process. ? ? Dictated by: Davion Rodrigues M.D. on 09/17/2022 at 12:35 ? ? Approved by: Davion Rodrigues M.D. on 09/17/2022 at 12:36? CT scan - head: Radiologist's Impression: [address] [address] [address] Scan Report Signed Patient: Shannon Feliz MR#: [id number] : 1940 Acct:[id number] Age/Sex: 82 / F Date of Service: 09/17/22 Loc: ED Accession Number: [id number] ?? Procedure: CT head/brain wo con Ordering Provider: Michele Wagoner D.O. PROCEDURE:? CT HEAD/BRAIN WO CON ? INDICATIONS:? unwit fall w/ head strike ? TECHNIQUE:? Noncontrast 4.5 mm thick angled axial sections acquired from the foramen magnum to the vertex, with coronal and sagittal reformats.? For radiation dose reduction, the following was used:? automated exposure control, adjustment of mA and/or kV according to patient size.? ? COMPARISON:? [facility], CT, CT HEAD/BRAIN WO CON, 09/03/2022, 23:10. ? FINDINGS:? Image quality:? Excellent.? ? CSF spaces:? Basal cisterns are patent.? No extra-axial fluid collections.? The ventricles are symmetric in size and shape.? ? Brain:? No intracranial bleeds or masses.? There is cerebral volume loss for age, with resultant ventricular and sulcal prominence.? There are periventricular and deep white matter chronic small vessel ischemic changes.? There is intracranial internal carotid artery atherosclerosis.? ? Skull and face:? Calvarium and visualized facial bones appear intact, without suspicious lesions.? ? Sinuses:? Visualized sinuses and mastoids are clear.? ? IMPRESSION:? No acute intracranial abnormality. ? ? Dictated by: Davion Rodrigues M.D. on 09/17/2022 at 12:39 ? ? Approved by: Davion Rodrigues M.D. on 09/17/2022 at 12:39?? CT - cervical spine: Radiologist's Impression: [address] [address] [address] Scan Report Signed Patient: Shannon Feliz MR#: [id number] : 1940 Acct:[id number] Age/Sex: 82 / F Date of Service: 09/17/22 Loc: ED Accession Number: [id number] ?? Procedure: CT cervical spine wo con Ordering Provider: Michele Wagoner D.O. PROCEDURE:? CT CERVICAL SPINE WO CON ? INDICATIONS:? unwit fall w/ head injury ? TECHNIQUE:? Noncontrast 3 mm thick sections acquired from the skull base to the T4 level.? Sagittal and coronal reformats were then constructed.? For radiation dose reduction, the following was used:? automated exposure control, adjustment of mA and/or kV according to patient size.? ? COMPARISON:? None. ? FINDINGS:? Image quality:? Excellent.? ? Bones:? No fractures or dislocations.? Visualized superior ribs are intact.? ? Soft tissues:? Prevertebral soft tissues are normal in thickness.? No paravertebral hematomas.? No apical pneumothoraces.? ? ? IMPRESSION:? No fracture. ? Dictated by: Davion Rodrigues M.D. on 09/17/2022 at 12:39 ? ? Approved by: Davion Rodrigues M.D. on 09/17/2022 at 12:40? Extremity x-ray #1: Radiologist's Impression: [place] [address] XRay Report Signed Patient: Shannon Feliz MR#: [id number] : 1940 Acct:[id number] Age/Sex: 82 / F Date of Service: 09/17/22 Loc: Accession Number: [id number] ?? Procedure: XR knee RT 3V Ordering Provider: Michele Wagoner D.O. PROCEDURE:? XR KNEE RT 3V ? INDICATIONS:? pain after fall ? TECHNIQUE:? 3 views of the knee were acquired.? ? COMPARISON:? None. ? FINDINGS:? ? Bones:? No fractures or dislocations.? No suspicious bony lesions.? Mild tricompartmental periarticular osteophyte formation. ? Soft tissues:? No joint effusion.? Lateral compartment chondrocalcinosis is present. ? ? IMPRESSION:? 1. Osteoarthritis. 2. No acute fracture. No osseous lesion. If symptoms and/or clinical suspicion for pathology persist, further assessment with repeat, or advanced imaging (e.g., CT, MRI, or bone scan) may be helpful for further assessment. ? ? Dictated by: Davion Rodrigues M.D. on 09/17/2022 at 14:37 ? ? Approved by: Davion Rodrigues M.D. on 09/17/2022 at 14:37? ECG Data Attestation: I personally reviewed and interpreted this ECG as follows: Interpretation: Ventricularly paced Rate of 82 MDM Narrative Medical decision making narrative: The CT scans and x-rays are all unremarkable. The contusion on her head needs no specific intervention here in the ER. She is oriented to person and place. She is currently on antibiotics for her urinary tract infection. A culture was obtained today and we will wait for that to resolve before starting/changing any other antibiotics. Patient is afebrile. No easily reversible cause of the patient's confusion found today. Could be multifactorial. Does not require admission to the hospital as she is currently a resident [facility]. Will discharge patient home with strict return precautions. Discharge Plan Departure Patient Disposition: Home Clinical Impression: Confusion Activity Restrictions/Additional Instructions: Have recommend that Shannon continue to take all of her medications as directed to include the IV antibiotics. I recommend that her primary doctor be contacted for a follow-up. Return to the emergency department for any new or worsening symptoms. Prescriptions: No Action pantoprazole 20 mg tablet,delayed release (DR/EC) 40 mg PO BID amiodarone 200 mg tablet 200 mg PO DAILY bethanechol chloride 25 mg tablet 25 mg PO TID carvedilol 25 mg tablet 25 mg PO BID Rx Instructions: must administer with a meal/food furosemide 40 mg tablet 40 mg PO BID gabapentin 600 mg tablet 600 mg PO TID levothyroxine 112 mcg capsule 112 mcg PO DAILY dicyclomine 20 mg tablet 20 mg PO BID dabigatran etexilate [Pradaxa] 75 mg capsule 75 mg PO BID atorvastatin 20 mg tablet 20 mg PO QPM ropinirole 0.5 mg tablet 0.5 mg PO BEDTIME Rx Instructions: administer 1-3 hours before bedtime losartan 25 mg tablet 12.5 mg PO DAILY Rx Instructions: take half a tablet daily potassium chloride 10 mEq capsule, extended release 10 meq PO 3XD Label Comments: take 1 capsule by mouth once daily in the morning docusate sodium 100 mg capsule 100 mg PO BID PRN (Reason: constipation) Qty: 60 0RF ertapenem [Invanz] 1 gram Recon Soln 1 gm IV Q24H Qty: 12 0RF Referrals: Lesli Lomeli PA-C [Primary Care Provider] -
[2022-09-17 14:14] LABS: INR 1.4 (0.9-1.3); Prothrombin Time 16.6 SECONDS (10.1-12.7)
[2022-09-17 14:17] LABS: PTT Partial Thromboplastin Tim 36 SECONDS (26-36)
[2022-09-17 14:23] LABS: Alanine Aminotransferase 16 IU/L (<35); Albumin 3.7 g/dL (3.5-5.0); Albumin Globulin Ratio 1.1 (1.0-2.8); Alkaline Phosphatase 93 U/L (38-126); Aspartate Aminotransferase 24 IU/L (14-36); BUN Creatinine Ratio 11.6 (6-22); Bilirubin Total 0.4 mg/dL (0.2-1.3); Blood Urea Nitrogen 20 mg/dL (7-17); Carbon Dioxide 29 mmol/L (22-32); Chloride 100 mmol/L (98-107); Creatine Kinase 68 U/L (30-135); Estimated Glomerular Filt Rate 29 mL/min (>60); Globulin 3.5 g/dL (1.7-4.1); Glucose 100 mg/dL (80-110); HEMOLYSIS < 15 (0-50); Magnesium 2.2 mg/dL (1.6-2.3); Potassium 3.7 mmol/L (3.4-5.1); Sodium 138 mmol/L (137-145); Total Protein 7.2 g/dL (6.3-8.2)
[2022-09-17 14:29] LABS: Lipase 173 U/L (23-300)
[2022-09-17 14:31] LABS: NT-proBNP (BNP-Adult 18+) 5350 pg/mL (<450)
[2022-09-17 14:34] LABS: Troponin I 0.016 ng/mL (0.01-0.034)
--- NOTE | 2022-09-17 15:17 | DI.RAD.S_ITS ---
PROCEDURE: XR KNEE RT 3V INDICATIONS: pain after fall TECHNIQUE: 3 views of the knee were acquired. COMPARISON: None. FINDINGS: Bones: No fractures or dislocations. No suspicious bony lesions. Mild tricompartmental periarticular osteophyte formation. Soft tissues: No joint effusion. Lateral compartment chondrocalcinosis is present. IMPRESSION: 1. Osteoarthritis. 2. No acute fracture. No osseous lesion. If symptoms and/or clinical suspicion for pathology persist, further assessment with repeat, or advanced imaging (e.g., CT, MRI, or bone scan) may be helpful for further assessment. Dictated by: Davion Rodrigues M.D. on 09/17/2022 at 14:37 Approved by: Davion Rodrigues M.D. on 09/17/2022 at 14:37
[2022-09-17 15:26] LABS: Appearance Urine UA CLEAR; Bilirubin Urine UA NEGATIVE (NEGATIVE); Color Urine UA YELLOW; Glucose Urine UA NEGATIVE (Negative); Ketones Urine UA NEGATIVE (NEGATIVE); Leukocyte Esterase Urine UA 2+ (NEGATIVE); Nitrite Urine UA NEGATIVE (Negative); Occult Blood Urine UA TRACE-LYSED (Negative); Protein Urine UA NEGATIVE (Negative); Urobilinogen Urine UA 0.2 E.U./dL (0.2)
[2022-09-17 15:33] VITALS: BP 145/73; PULSE 82; RESP 16; O2SAT 96
[2022-09-17 15:37] LABS: RBC Urine None Seen (0-5/HPF)
--- NOTE | 2022-09-17 15:37 | PC.NURSE ---
pt states she has noticed her confusion over the last day.
[2022-09-17 15:38] LABS: Amorphous Sediment Urine 1+; Bacteria Urine Few (2-10); Culture Indicated Urine Specimen Cultured; Squamous Epithelial Cell Urine 1-5 /HPF (0-5/HPF); Transitional Epi Cells Urine 1-5/HPF (0-5/HPF); WBC Urine 10-30/HPF (0-5/HPF)
== END 2022-09-17 18:00 | disposition home or self-care (01) ==
PROVIDERS: Emergency Provider Emergency Medicine; PCP Physician Assistant Medical
DX: R41.0 Disorientation, unspecified (principal); S09.90XA Unspecified injury of head, initial encounter; M25.561 Pain in right knee; R07.9 Chest pain, unspecified; W19.XXXA Unspecified fall, initial encounter; Z79.01 Long term (current) use of anticoagulants; Z79.899 Other long term (current) drug therapy
CPT/HCPCS: 70450; 71045; 72125; 73562; 80053; 81001; 81003; 82550; 83690; 83735; 83880; 84484; 85025; 85610; 85730; 87086; 93005; 99284

== ENCOUNTER → 2022-09-19 14:43 | Outpatient (CLI) | payer MEDICARE, OTHER, SELFPAY ==
[2022-09-04 04:36] VITALS: BMI 21.7
== END ==
PROVIDERS: PCP Physician Assistant Medical; Referring Provider Physician Assistant Medical; Visit Provider Physician Assistant Medical
DX: R41.0 Disorientation, unspecified (principal); M62.81 Muscle weakness (generalized); R44.3 Hallucinations, unspecified
CPT/HCPCS: 36415; 87040

== ENCOUNTER 2022-09-30 15:13 | Inpatient (IN) | payer MEDICARE, OTHER, SELFPAY ==
[2022-09-04 04:36] VITALS: BMI 21.7
[2022-09-30] VITALS (28 sets, daily range): BP systolic 102–147; BP diastolic 51–85; PULSE 82–100; RESP 16–31; TEMP 37.3; O2SAT 89–99; BMI 20.7
--- NOTE | 2022-09-30 15:21 | DI.RAD.S_ITS ---
PROCEDURE: XR CHEST 1V INDICATIONS: chest pain TECHNIQUE: One view of the chest was acquired. COMPARISON: [facility], CR, XR CHEST 1V, 09/17/2022, 13:05. [facility], CR, XR CHEST FOR PICC 1V, 09/06/2022, 9:35. FINDINGS: Surgical changes and devices: Left chest wall pulse generator with dual-chamber biventricular defibrillator leads in place. Lungs and pleura: Mild diffuse lung disease. Lung volumes are low. Mediastinum: Mild cardiomegaly Bones and chest wall: No suspicious bony lesions. Overlying soft tissues appear unremarkable. Old rib deformity on the right. IMPRESSION: Mild diffuse lung disease and cardiomegaly, suggestive of edema. Differential includes atypical infection. Consider future imaging surveillance to assess for resolution. Dictated by: Toby Rahman M.D. on 09/30/2022 at 15:19 Approved by: Toby Rahman M.D. on 09/30/2022 at 15:20
--- NOTE | 2022-09-30 15:22 | DI.CT.S_ITS ---
PROCEDURE: CT CERVICAL SPINE WO CON INDICATIONS: fall TECHNIQUE: Noncontrast 3 mm thick sections acquired from the skull base to the T4 level. Sagittal and coronal reformats were then constructed. For radiation dose reduction, the following was used: automated exposure control, adjustment of mA and/or kV according to patient size. COMPARISON: [facility], CT, CT CERVICAL SPINE WO CON, 09/17/2022, 13:23. FINDINGS: Image quality: Excellent. Bones: No fractures or dislocations. Visualized superior ribs are intact. Cervical spondylosis. Soft tissues: Prevertebral soft tissues are normal in thickness. No paravertebral hematomas. No apical pneumothoraces. IMPRESSION: No evidence acute cervical fracture or dislocation. Dictated by: Wilian Kunz M.D. on 09/30/2022 at 16:18 Approved by: Wilian Kunz M.D. on 09/30/2022 at 16:19
--- NOTE | 2022-09-30 15:22 | DI.CT.S_ITS ---
PROCEDURE: CT HEAD/BRAIN WO CON INDICATIONS: fall TECHNIQUE: Noncontrast 4.5 mm thick angled axial sections acquired from the foramen magnum to the vertex, with coronal and sagittal reformats. For radiation dose reduction, the following was used: automated exposure control, adjustment of mA and/or kV according to patient size. COMPARISON: [facility], CT, CT HEAD/BRAIN WO CON, 09/17/2022, 13:23. FINDINGS: Image quality: Excellent. CSF spaces: Basal cisterns are patent. No extra-axial fluid collections. The ventricles are symmetric in size and shape. Brain: No intracranial bleeds or masses. There is cerebral volume loss for age, with resultant ventricular and sulcal prominence. There are severe periventricular and deep white matter chronic small vessel ischemic changes. There is intracranial internal carotid artery atherosclerosis. Skull and face: Calvarium and visualized facial bones appear intact, without suspicious lesions. Sinuses: Visualized sinuses and mastoids are clear. IMPRESSION: Age-related volume loss and severe small vessel ischemic change. No evidence acute intracranial abnormality. Dictated by: Wilian Kunz M.D. on 09/30/2022 at 16:17 Approved by: Wilian Kunz M.D. on 09/30/2022 at 16:18
--- NOTE | 2022-09-30 15:22 | DI.RAD.S_ITS ---
PROCEDURE: XR SHOULDER LT MIN 2V INDICATIONS: fall TECHNIQUE: 4 views of the shoulder were acquired. COMPARISON: None. FINDINGS: Bones: No fractures or dislocations. No suspicious bony lesions. Visualized ribs appear intact. Soft tissues: No suspicious soft tissue calcifications. Pacemaker. IMPRESSION: No evidence acute bony abnormality of the left shoulder. If clinical suspicion and/or symptoms persist, further assessment with repeat plain films, or advanced imaging (e.g., CT, MRI, or bone scan) may be helpful for further assessment. Dictated by: Wilian Kunz M.D. on 09/30/2022 at 16:26 Approved by: Wilian Kunz M.D. on 09/30/2022 at 16:26
--- NOTE | 2022-09-30 15:49 | DI.RAD.S_ITS ---
PROCEDURE: XR FOOT RT MIN 3V INDICATIONS: pain/bruising TECHNIQUE: 3 views of the foot were acquired. COMPARISON: None. FINDINGS: Bones: No fractures or dislocations. No suspicious bony lesions. Total 1st MTP arthroplasty. No evidence of hardware failure or loosening. Soft tissues: No tibiotalar joint effusion. Achilles tendon appears normal. IMPRESSION: Expected appearance of 1st MTP total arthroplasty. No evidence acute bony abnormality of the right foot. Dictated by: Wilian Kunz M.D. on 09/30/2022 at 16:26 Approved by: Wilian Kunz M.D. on 09/30/2022 at 16:27
[2022-09-30 16:08] LABS: Appearance Urine UA CLEAR; Bilirubin Urine UA NEGATIVE (NEGATIVE); Color Urine UA YELLOW; Glucose Urine UA NEGATIVE (Negative); Ketones Urine UA NEGATIVE (NEGATIVE); Leukocyte Esterase Urine UA 1+ (NEGATIVE); Nitrite Urine UA NEGATIVE (Negative); Occult Blood Urine UA NEGATIVE (Negative); Protein Urine UA NEGATIVE (Negative); Urobilinogen Urine UA 0.2 E.U./dL (0.2); pH Urine UA 6.5 (4.5-8.0)
[2022-09-30 16:16] LABS: RBC Urine 0-1/HPF (0-5/HPF); Squamous Epithelial Cell Urine 0-1 /HPF (0-5/HPF); Transitional Epi Cells Urine 5-10/HPF (0-5/HPF); WBC Urine 5-10/HPF (0-5/HPF)
[2022-09-30 16:17] LABS: Bacteria Urine Few (2-10); Culture Indicated Urine Specimen Cultured; Renal Epithelial Cells Urine 0-1/HPF (0-1/HPF)
[2022-09-30 16:57] LABS: Add Manual Diff / Slide Review NO; Basophils Absolute Auto 0 /uL (0-100); Basophils Percent Auto 0.9 % (0-2); Eosinophils Absolute Auto 0 /uL (0-450); Eosinophils Percent Auto 0.3 % (2-4); Hematocrit 32.5 % (36-46); Hemoglobin 10.6 g/dL (12.0-16.0); Lymphocytes Absolute Auto 800 /uL (1100-4500); Lymphocytes Percent Auto 16.4 % (25-40); Mean Corpuscular HGB Conc 32.6 % (30-36); Mean Corpuscular Hemoglobin 31.1 PG (26-34); Mean Corpuscular Volume 95.3 fL (80-100); Monocytes Absolute Auto 500 /uL (0-900); Monocytes Percent Auto 10.9 % (3-14); Neutrophils Absolute Auto 3600 /uL (1500-7000); Neutrophils Percent Auto 71.5 % (50-75); Platelet Count 223 X10^3/uL (150-400); Red Blood Cell Count 3.41 X10^6/uL (4.0-5.2); Red Cell Distribution Width 16.2 % (11.6-14.8)
[2022-09-30 17:00] LABS: INR 1.3 (0.9-1.3); Prothrombin Time 14.4 SECONDS (10.1-12.7)
[2022-09-30 17:03] LABS: PTT Partial Thromboplastin Tim 30 SECONDS (26-36)
[2022-09-30 17:06] LABS: Alanine Aminotransferase 19 IU/L (<35); Albumin Globulin Ratio 1.2 (1.0-2.8); Alkaline Phosphatase 108 U/L (38-126); Aspartate Aminotransferase 30 IU/L (14-36); BUN Creatinine Ratio 15.1 (6-22); Bilirubin Total 0.4 mg/dL (0.2-1.3); Blood Urea Nitrogen 29 mg/dL (7-17); Carbon Dioxide 27 mmol/L (22-32); Chloride 100 mmol/L (98-107); Creatine Kinase 64 U/L (30-135); Estimated Glomerular Filt Rate 25 mL/min (>60); Globulin 3.4 g/dL (1.7-4.1); Glucose 90 mg/dL (80-110); HEMOLYSIS < 15 (0-50); Lipase 208 U/L (23-300); Magnesium 2.3 mg/dL (1.6-2.3); Sodium 137 mmol/L (137-145); Total Protein 7.4 g/dL (6.3-8.2)
[2022-09-30 17:18] LABS: Troponin I 0.023 ng/mL (0.01-0.034)
--- NOTE | 2022-09-30 18:28 | ED_ITS ---
HPI - General Adult General Chief complaint: Weakness Stated complaint: gen weakness Time Seen by Provider: 09/30/22 17:26 Source: family and EMS Mode of arrival: EMS History of Present Illness HPI narrative: 82-year-old woman with a history of atrial fibrillation, anticoagulated, congestive heart failure, hypertension hyperlipidemia chronic kidney disease hypothyroidism with a history of renal cancer and right nephrectomy admitted to the hospital for pubic rami fracture on July 27 and was sent to [facility] rehab. At end of August was again admitted to the hospital for Fever confusion and urinary tract infection and found to have ESBL bacteremia and discharge back to nursing facility with ertapenem 1 g daily for an additional 12 days. Discharged home 12 days ago and brought in today after falling/sliding out of bed x2, significantly increased weakness to the point that she is having difficulty even sitting up by herself, significant tremor that was worse this morning. No fevers. Details are obtained through review of prior hospital records, the patient, her daughter and her son-in-law. Daughter reports that a week prior to discharge from the care home she had a similar episode with acutely changed weakness that resolved over 7 days and was completely resolved prior to discharge. Related Data Home Medications Medication Instructions Recorded Confirmed amiodarone 200 mg tablet 200 mg PO DAILY 09/13/21 09/04/22 atorvastatin 20 mg tablet 20 mg PO QPM 09/13/21 09/04/22 bethanechol chloride 25 mg tablet 25 mg PO TID 09/13/21 09/04/22 carvedilol 25 mg tablet 25 mg PO BID 09/13/21 09/04/22 dabigatran etexilate 75 mg capsule 75 mg PO BID 09/13/21 09/04/22 (Pradaxa) dicyclomine 20 mg tablet 20 mg PO BID 09/13/21 09/04/22 furosemide 40 mg tablet 40 mg PO BID 09/13/21 09/04/22 gabapentin 600 mg tablet 600 mg PO TID 09/13/21 09/04/22 levothyroxine 112 mcg capsule 112 mcg PO DAILY 09/13/21 09/04/22 pantoprazole 20 mg tablet,delayed 40 mg PO BID 09/13/21 09/04/22 release ropinirole 0.5 mg tablet 0.5 mg PO BEDTIME 09/13/21 09/04/22 losartan 25 mg tablet 12.5 mg PO DAILY 07/28/22 09/04/22 potassium chloride 10 mEq 10 meq PO 3XD 07/28/22 09/04/22 capsule,extended release Previous Rx's Medication Instructions Recorded docusate sodium 100 mg capsule 100 mg PO BID PRN constipation #60 07/29/22 caps ertapenem 1 gram solution for 1 gm IV Q24H #12 ea 09/07/22 injection (Invanz) Allergies Allergy/AdvReac Type Severity Reaction Status Date / Time No Known Drug Allergies Allergy Verified 09/30/22 15:23 Review of Systems Review of Systems Narrative: Remainder of complete review of systems is otherwise unremarkable except for th at included in the HPI. Patient History Medical History CKD stage G3a/A1, GFR 45-59 and albumin creatinine ratio <30 mg/g Control of atrial fibrillation with pacemaker Essential hypertension Fracture of left carpal bone Fracture of superior pubic ramus GERD (gastroesophageal reflux disease) History of cervical cancer History of renal carcinoma Hyperlipidemia Hypothyroidism associated with surgical procedure Inferior pubic ramus fracture Irritable bowel syndrome Neuropathy Overactive bladder Restless leg syndrome Surgical History History of kidney removal History of thyroid surgery Family History Mother Cancer Sister Cancer Social History household members: children Smoking Status: Never smoker Smoking Status: Never smoker alcohol intake frequency: 0-2 drinks per day Substance Use Type: does not use Exam Initial Vital Signs Initial Vital Signs: Vital Signs Temperature 99.2 F 09/30/22 15:15 Pulse Rate 94 H 09/30/22 15:15 Respiratory Rate 16 09/30/22 15:15 Blood Pressure 130/76 09/30/22 15:15 Pulse Oximetry 97 09/30/22 15:15 Oxygen Delivery Method 09/30/22 15:15 Course Orders Ordered: ED Orders 09/30/22 15:21 XR chest 1V Stat EKG-12 Lead Stat 09/30/22 15:22 CT cervical spine wo con Stat CT head/brain wo con Stat XR shoulder LT min 2V Stat 09/30/22 15:49 XR foot RT min 3V Stat Urinalysis and Microscopic Stat Urine Culture Stat 09/30/22 16:35 Complete Blood Count AUTO DIFF Stat Comprehensive Metabolic Panel Stat Lipase Stat Magnesium Stat Partial Thromboplastin Time Stat Prothrombin Time INR Stat Troponin & CK Cardiac Panel Stat 09/30/22 18:30 Blood Culture Stat Covid-19 + FLU A/B + RSV - PCR Stat Lactate (Lactic Acid) Stat Vital Signs Vital signs: Vital Signs - 8 hr 09/30/22 15:15 09/30/22 15:21 09/30/22 15:22 Temperature 99.2 F Pulse Rate 94 H 97 H Respiratory Rate 16 Blood Pressure 130/76 124/68 Pulse Oximetry 97 91 Oxygen Delivery Method Room Air 09/30/22 15:22 09/30/22 15:30 09/30/22 15:30 Temperature Pulse Rate 90 98 H Respiratory Rate Blood Pressure 119/71 Pulse Oximetry 92 Oxygen Delivery Method 09/30/22 16:18 09/30/22 16:18 09/30/22 16:30 Temperature Pulse Rate 97 H Respiratory Rate Blood Pressure 134/64 119/57 L Pulse Oximetry 98 Oxygen Delivery Method 09/30/22 16:30 09/30/22 16:37 09/30/22 16:37 Temperature Pulse Rate 93 H 88 Respiratory Rate Blood Pressure 102/56 L Pulse Oximetry 99 99 Oxygen Delivery Method 09/30/22 17:00 09/30/22 17:00 09/30/22 17:30 Temperature Pulse Rate 91 H Respiratory Rate 19 Blood Pressure 129/61 120/65 Pulse Oximetry 98 Oxygen Delivery Method 09/30/22 17:30 09/30/22 18:00 09/30/22 18:00 Temperature Pulse Rate 93 H 91 H Respiratory Rate 18 19 Blood Pressure 114/54 L Pulse Oximetry 99 99 Oxygen Delivery Method Medical Decision Making Lab Data Result diagrams: 09/30/22 16:35 09/30/22 16:35 Labs: Lab Results 09/30/22 09/30/22 09/30/22 Range/Units 15:49 16:35 16:35 WBC 5.0 (4.5-11.0) X10^3/uL RBC 3.41 L (4.0-5.2) X10^6/uL Hgb 10.6 L (12.0-16.0) g/dL Hct 32.5 L (36-46) % MCV 95.3 (80-100) fL MCH 31.1 (26-34) PG MCHC 32.6 (30-36) % RDW 16.2 H (11.6-14.8) % Plt Count 223 (150-400) X10^3/uL Neut % (Auto) 71.5 (50-75) % Lymph % (Auto) 16.4 L (25-40) % [place] % (Auto) 10.9 (3-14) % Eos % (Auto) 0.3 L (2-4) % Baso % (Auto) 0.9 (0-2) % Neut # (Auto) 3600 (7242-5834) /uL Lymph # (Auto) 800 L (2885-1761) /uL [place] # (Auto) 500 (0-900) /uL Eos # (Auto) 0 (0-450) /uL Baso # (Auto) 0 (0-100) /uL PT 14.4 H (10.1-12.7) SECONDS INR 1.3 (0.9-1.3) APTT 30 (26-36) SECONDS Sodium (137-145) mmol/L Potassium (3.4-5.1) mmol/L Chloride (98-107) mmol/L Carbon Dioxide (22-32) mmol/L BUN (7-17) mg/dL Creatinine (0.52-1.04) mg/dL Estimated GFR (>60) mL/min BUN/Creatinine Ratio (6-22) Glucose (80-110) mg/dL Lactate (0.7-2.1) mmol/L Calcium (8.4-10.2) mg/dL Magnesium (1.6-2.3) mg/dL Total Bilirubin (0.2-1.3) mg/dL AST (14-36) IU/L ALT (<35) IU/L Alkaline Phosphatase (38-126) U/L Total Creatine Kinase (30-135) U/L CK-MB (CK-2) CK-MB (CK-2) Rel Index Troponin I (0.01-0.034) ng/mL Total Protein (6.3-8.2) g/dL Albumin (3.5-5.0) g/dL Globulin (1.7-4.1) g/dL Albumin/Globulin Ratio (1.0-2.8) Lipase (23-300) U/L Urine Color Yellow Urine Appearance Clear Urine pH 6.5 (4.5-8.0) Ur Specific [place] 1.010 (1.000-1.035) Urine Protein Negative (Negative) Urine Glucose (UA) Negative (Negative) g/dL Urine Ketones Negative (NEGATIVE) Urine Occult Blood Negative (Negative) Urine Nitrate Negative (Negative) Urine Bilirubin Negative (NEGATIVE) Urine Urobilinogen 0.2 (0.2) E.U./dL Ur Leukocyte Esterase 1+ H (NEGATIVE) Urine RBC 0-1/hpf (0-5/HPF) Urine WBC 5-10/hpf H (0-5/HPF) Ur Squamous Epith Cells 0-1 /hpf (0-5/HPF) Ur Transition Epith Cell 5-10/hpf H (0-5/HPF) Ur Renal Epithelial Cell 0-1/hpf (0-1/HPF) Urine Bacteria Few (2-10) H (None) Ur Culture Indicated? Specimen cultured SARS-CoV-2 (PCR) (Negative) Influenza A (RT-PCR) (NEGATIVE) Influenza B (RT-PCR) (NEGATIVE) RSV (PCR) (Negative) 09/30/22 09/30/22 09/30/22 Range/Units 16:35 18:30 18:30 WBC (4.5-11.0) X10^3/uL RBC (4.0-5.2) X10^6/uL Hgb (12.0-16.0) g/dL Hct (36-46) % MCV (80-100) fL MCH (26-34) PG MCHC (30-36) % RDW (11.6-14.8) % Plt Count (150-400) X10^3/uL Neut % (Auto) (50-75) % Lymph % (Auto) (25-40) % [place] % (Auto) (3-14) % Eos % (Auto) (2-4) % Baso % (Auto) (0-2) % Neut # (Auto) (1016-4770) /uL Lymph # (Auto) (7967-9714) /uL [place] # (Auto) (0-900) /uL Eos # (Auto) (0-450) /uL Baso # (Auto) (0-100) /uL PT (10.1-12.7) SECONDS INR (0.9-1.3) APTT (26-36) SECONDS Sodium 137 (137-145) mmol/L Potassium 4.0 (3.4-5.1) mmol/L Chloride 100 (98-107) mmol/L Carbon Dioxide 27 (22-32) mmol/L BUN 29 H (7-17) mg/dL Creatinine 1.92 H (0.52-1.04) mg/dL Estimated GFR 25 L (>60) mL/min BUN/Creatinine Ratio 15.1 (6-22) Glucose 90 (80-110) mg/dL Lactate 1.4 (0.7-2.1) mmol/L Calcium 10.0 (8.4-10.2) mg/dL Magnesium 2.3 (1.6-2.3) mg/dL Total Bilirubin 0.4 (0.2-1.3) mg/dL AST 30 (14-36) IU/L ALT 19 (<35) IU/L Alkaline Phosphatase 108 (38-126) U/L Total Creatine Kinase 64 (30-135) U/L CK-MB (CK-2) TNP CK-MB (CK-2) Rel Index TNP Troponin I 0.023 (0.01-0.034) ng/mL Total Protein 7.4 (6.3-8.2) g/dL Albumin 4.0 (3.5-5.0) g/dL Globulin 3.4 (1.7-4.1) g/dL Albumin/Globulin Ratio 1.2 (1.0-2.8) Lipase 208 (23-300) U/L Urine Color Urine Appearance Urine pH (4.5-8.0) Ur Specific [place] (1.000-1.035) Urine Protein (Negative) Urine Glucose (UA) (Negative) g/dL Urine Ketones (NEGATIVE) Urine Occult Blood (Negative) Urine Nitrate (Negative) Urine Bilirubin (NEGATIVE) Urine Urobilinogen (0.2) E.U./dL Ur Leukocyte Esterase (NEGATIVE) Urine RBC (0-5/HPF) Urine WBC (0-5/HPF) Ur Squamous Epith Cells (0-5/HPF) Ur Transition Epith Cell (0-5/HPF) Ur Renal Epithelial Cell (0-1/HPF) Urine Bacteria (None) Ur Culture Indicated? SARS-CoV-2 (PCR) Positive H (Negative) Influenza A (RT-PCR) Flu a negative (NEGATIVE) Influenza B (RT-PCR) Flu b negative (NEGATIVE) RSV (PCR) Negative (Negative) Urine Dip Bedside Urine Glucose Negative Bedside Urine Bilirubin - Negative Bedside Urine Ketone - Negative Urine Specific [place] 1.005 Bedside Urine Occult Blood - Negative Bedside Urine pH 6.0 Bedside Urine Protein - Negative Bedside Urine Urobilinogen - Negative Bedside Urine Nitrite - Negative Bedside Urine Leukocytes + 70 Esterase Point of care testing: Urine Dip Bedside Urine Glucose Negative Bedside Urine Bilirubin - Negative Bedside Urine Ketone - Negative Urine Specific [place] 1.005 Bedside Urine Occult Blood - Negative Bedside Urine pH 6.0 Bedside Urine Protein - Negative Bedside Urine Urobilinogen - Negative Bedside Urine Nitrite - Negative Bedside Urine Leukocytes + 70 Esterase Imaging Data Chest x-ray: Radiologist's Impression: FINDINGS:? ? Surgical changes and devices:? Left chest wall pulse generator with dual-chamber biventricular defibrillator leads in place. ? Lungs and pleura:? Mild diffuse lung disease.? Lung volumes are low. ? Mediastinum:? Mild cardiomegaly ? Bones and chest wall:? No suspicious bony lesions.? Overlying soft tissues appear unremarkable.? Old rib deformity on the right. ? IMPRESSION:? Mild diffuse lung disease and cardiomegaly, suggestive of edema.? Differential includes atypical infection.? Consider future imaging surveillance to assess for resolution. ? ? ? Dictated by: Toby aRhman M.D. on 09/30/2022 at 15:19 ? ? CT - cervical spine: Radiologist's Impression: FINDINGS:? Image quality:? Excellent.? ? Bones:? No fractures or dislocations.? Visualized superior ribs are intact.? Cervical spondylosis. ? Soft tissues:? Prevertebral soft tissues are normal in thickness.? No paravertebral hematomas.? No apical pneumothoraces.? ? ? IMPRESSION:? No evidence acute cervical fracture or dislocation. ? Dictated by: Wilian Kunz M.D. on 09/30/2022 at 16:18 ? ? CT scan - head: Radiologist's Impression: FINDINGS:? Image quality:? Excellent.? ? CSF spaces:? Basal cisterns are patent.? No extra-axial fluid collections.? The ventricles are symmetric in size and shape.? ? Brain:? No intracranial bleeds or masses.? There is cerebral volume loss for age, with resultant ventricular and sulcal prominence.? There are severe periventricular and deep white matter chronic small vessel ischemic changes.? There is intracranial internal carotid artery atherosclerosis.? ? Skull and face:? Calvarium and visualized facial bones appear intact, without suspicious lesions.? ? Sinuses:? Visualized sinuses and mastoids are clear.? ? IMPRESSION:? Age-related volume loss and severe small vessel ischemic change.? No evidence acute intracranial abnormality. ? ? Dictated by: Wilian Kunz M.D. on 09/30/2022 at 16:17 ? ? xray shoulder: Radiologist's Impression: FINDINGS:? ? Bones:? No fractures or dislocations.? No suspicious bony lesions.? Visualized ribs appear intact.? ? Soft tissues:? No suspicious soft tissue calcifications.? Pacemaker. ? IMPRESSION:? No evidence acute bony abnormality of the left shoulder. ? If clinical suspicion and/or symptoms persist, further assessment with repeat plain films, or advanced imaging (e.g., CT, MRI, or bone scan) may be helpful for further assessment. ? Dictated by: Wilian Kunz M.D. on 09/30/2022 at 16:26 ? ? Xray foot: Radiologist's Impression: FINDINGS:? ? Bones:? No fractures or dislocations.? No suspicious bony lesions.? Total 1st MTP arthroplasty.? No evidence of hardware failure or loosening. ? Soft tissues:? No tibiotalar joint effusion.? Achilles tendon appears normal.? ? ? IMPRESSION:? Expected appearance of 1st MTP total arthroplasty.? No evidence acute bony abnormality of the right foot. ? ? Dictated by: Wilian Kunz M.D. on 09/30/2022 at 16:26 ? ? MDM Narrative Medical decision making narrative: 82-year-old woman with multiple recent hospital admissions for bladder infections, falls and now to falls increasing weakness and COVID positive. She is slightly hypoxic at 91% on room air low-grade fever, she is at 98% on 2 L. She does not have chronic pulmonary disease and is not on home oxygen. Question of recurrent ESBL UTI so ertapenem has been restarted. No signs of sepsis. She is so weak she is having difficulty sitting up and her weakness is entirely nonfocal and does not suggest stroke. Blood pressure is adequate and she is not showing signs of bacterial sepsis. No evidence of congestive heart failure, acute coronary syndrome or alternate explanations at this time. Findings reviewed with patient and her daughter. Questions were answered. Patient was reviewed with the hospital service at 7:40pm this evening and is accepted for admission Discharge Plan Departure Patient Disposition: Admitted as Observation Clinical Impression: COVID, Acute UTI (urinary tract infection), Weakness, Hypoxia Admit Date/Time: 09/30/22 19:56 Admit Provider: Mary Cesar
[2022-09-30 19:10] LABS: Lactate (Lactic Acid) 1.4 mmol/L (0.7-2.1)
[2022-09-30 19:17] LABS: Influenza A - CEPHEID Flu A NEGATIVE (NEGATIVE); Influenza B - CEPHEID Flu B NEGATIVE (NEGATIVE); Respiratory Syncytial Virus Negative (Negative)
[2022-09-30 19:20] LABS: COVID-19 CEPHEID 4-PLEX PCR POSITIVE (Negative)
[2022-09-30] MEDS: ERTAPENEM 1 GM in SODIUM CHLORIDE 0.9% 100 ML IV (20:42)
[2022-09-30] MEDS: ROPINIROLE 0.25 MG TABLET 0.5 MG PO (21:25)
[2022-09-30] MEDS: carvediloL 12.5 MG TABLET 25 MG PO (21:25)
[2022-09-30] MEDS: DICYCLOMINE 10 MG CAPSULE 20 MG PO (21:26)
[2022-09-30] MEDS: DABIGATRAN 75 MG CAPSULE PO (21:26)
[2022-09-30] MEDS: GABAPENTIN 600 MG TABLET PO (21:27)
[2022-09-30] MEDS: DEXAMETHASONE 10 MG/ML VIAL 6 MG IV (21:27)
[2022-09-30] MEDS: PANTOPRAZOLE DR 20 MG TABLET 40 MG PO (21:27)
--- NOTE | 2022-09-30 22:54 | PC.NURSE ---
Urecholine not available. Provider aware. OK to hold until tomorrow.
[2022-10-01] VITALS (17 sets, daily range): BP systolic 111–146; BP diastolic 65–78; PULSE 73–89; RESP 14–18; TEMP 35.9–37; O2SAT 94–99; BMI 20.7
[2022-10-01] MEDS: ACETAMINOPHEN 325 MG TABLET 650 MG PO ×2 (03:09→23:51)
--- NOTE | 2022-10-01 03:35 | P.HP_ITS ---
History of Present Illness History of Present Illness Date Patient Seen: 10/01/22 Time Patient Seen: 03:35 Chief complaint: Found to have a UTI and w/COVID-19 Narrative: Shannon Feliz is 82-year-old female with a history of atrial fibrillation anticoagulated on dabigatran, pacemaker status, congestive heart failure, hypertension, hyperlipidemia, hx of right nephrectomy for renal cell carcinoma and associated chronic kidney disease, hypothyroidism was previously admitted to the hospital? for a pubic rami fracture on July 27 and was sent to [facility] rehab.? At end of August was again admitted to the hospital for fever and confusion found to have ESBL bacteremia and a urinary tract infection discharged back to nursing facility on ertapenem 1 g daily for an additional 12 days.? She was discharged home 12 days ago and returned today after falling/sliding out of bed x2, significantly increased weakness to the point that she is having difficulty even sitting up by herself, significant tremor that was worse this morning.?Denies fevers but does endorse a cough, shortness of breath and rib pain.?? Chest x-ray indicated suspicion of pulmonary edema versus atypical infection, C- spine x-ray was negative, head CT indicated age-related volume loss with severe small-vessel ischemic changes but no acute abnormalities, shoulder and foot x- ray reported negative findings. She is afebrile, blood pressure 124/65, heart rate 73 respiratory rate 16 oxygen saturation 97% on 2 L she weighs 61.6 kg with a BMI of 21.7. She is mildly anemic with a hemoglobin of 10.6 and hematocrit of 32.5 which is close to her baseline, platelet count is 223, she is mildly lymphopenic, creatinine is 1.92, elevated from her baseline with an EGFR of 25 and a BUN of 29, urine has presence of leukocyte esterase nits, urine WBC, and urine bacteria meeting criteria for culture, flu viral panel are negative but COVID-19 PCR is positive. Patient History Medical History Anticoagulated CKD stage G3a/A1, GFR 45-59 and albumin creatinine ratio <30 mg/g Control of atrial fibrillation with pacemaker ESBL (extended spectrum beta-lactamase) producing bacteria infection Essential hypertension Fracture of left carpal bone Fracture of superior pubic ramus GERD (gastroesophageal reflux disease) History of cervical cancer History of renal carcinoma Hyperlipidemia Hypothyroidism associated with surgical procedure Inferior pubic ramus fracture Irritable bowel syndrome Neuropathy Overactive bladder Restless leg syndrome Surgical History History of kidney removal History of thyroid surgery Family & Social History Family History Mother Cancer Sister Cancer Social History: household members children Safety & Behavioral: Feels Safe in Current Yes Environment Been Physically Hurt or No Threatened By a Person Tobacco & Substance use: Smoking Status Never smoker alcohol intake frequency 0-2 drinks per day Substance Use Type does not use Meds Home Medications and Allergies Home Medications Medication Instructions Recorded Confirmed Type amiodarone 200 mg tablet 200 mg PO DAILY 09/13/21 09/04/22 History atorvastatin 20 mg tablet 20 mg PO QPM 09/13/21 09/04/22 History bethanechol chloride 25 mg tablet 25 mg PO TID 09/13/21 09/04/22 History carvedilol 25 mg tablet 25 mg PO BID 09/13/21 09/04/22 History dabigatran etexilate 75 mg capsule 75 mg PO BID 09/13/21 09/04/22 History (Pradaxa) dicyclomine 20 mg tablet 20 mg PO BID 09/13/21 09/04/22 History furosemide 40 mg tablet 40 mg PO BID 09/13/21 09/04/22 History gabapentin 600 mg tablet 600 mg PO TID 09/13/21 09/04/22 History levothyroxine 112 mcg capsule 112 mcg PO DAILY 09/13/21 09/04/22 History pantoprazole 20 mg tablet,delayed 40 mg PO BID 09/13/21 09/04/22 History release ropinirole 0.5 mg tablet 0.5 mg PO BEDTIME 09/13/21 09/04/22 History losartan 25 mg tablet 12.5 mg PO DAILY 07/28/22 09/04/22 History potassium chloride 10 mEq 10 meq PO 3XD 07/28/22 09/04/22 History capsule,extended release docusate sodium 100 mg capsule 100 mg PO BID PRN constipation #60 07/29/22 09/04/22 Rx caps ertapenem 1 gram solution for 1 gm IV Q24H #12 ea 09/07/22 Rx injection (Invanz) Allergies Allergy/AdvReac Type Severity Reaction Status Date / Time No Known Drug Allergies Allergy Verified 09/30/22 15:23 Review of Systems Review of Systems ROS: Yes All systems reviewed with the patient and are negative except as otherwise documented Exam Vital Signs (past 8 hours): - 09/30/22 21:25 09/30/22 20:00 09/30/22 20:01 Temperature Pulse Rate 87 91 H 100 H Respiratory Rate 27 H 19 Blood Pressure 133/67 Pulse Oximetry 90 L 96 Oxygen Delivery Method Oxygen Flow Rate 09/30/22 20:01 09/30/22 20:30 09/30/22 20:30 Temperature Pulse Rate 92 H Respiratory Rate 24 Blood Pressure 134/76 137/83 Pulse Oximetry 91 Oxygen Delivery Method Oxygen Flow Rate 09/30/22 20:48 09/30/22 20:48 09/30/22 21:00 Temperature Pulse Rate 89 Respiratory Rate 23 Blood Pressure 124/65 133/70 Pulse Oximetry 95 Oxygen Delivery Method Oxygen Flow Rate 09/30/22 21:00 09/30/22 21:26 09/30/22 21:26 Temperature Pulse Rate 85 89 Respiratory Rate 21 20 Blood Pressure 133/67 Pulse Oximetry 97 93 Oxygen Delivery Method Oxygen Flow Rate 09/30/22 21:30 09/30/22 21:30 09/30/22 22:00 Temperature Pulse Rate 86 Respiratory Rate 19 Blood Pressure 135/68 147/78 H Pulse Oximetry 91 Oxygen Delivery Method Oxygen Flow Rate 09/30/22 22:00 09/30/22 22:30 09/30/22 22:30 Temperature Pulse Rate 92 H 87 Respiratory Rate 23 18 Blood Pressure 131/72 Pulse Oximetry 97 Oxygen Delivery Method Oxygen Flow Rate 09/30/22 23:00 09/30/22 23:00 09/30/22 23:29 Temperature Pulse Rate 84 82 Respiratory Rate 18 17 Blood Pressure 126/66 126/66 Pulse Oximetry 97 Oxygen Delivery Method Nasal Cannula Oxygen Flow Rate 2 09/30/22 23:30 09/30/22 23:30 10/01/22 00:00 Temperature Pulse Rate 84 Respiratory Rate 18 Blood Pressure 129/69 146/74 H Pulse Oximetry 98 Oxygen Delivery Method Oxygen Flow Rate 10/01/22 00:00 10/01/22 00:30 10/01/22 00:30 Temperature Pulse Rate 81 85 Respiratory Rate 18 Blood Pressure 133/65 Pulse Oximetry 96 98 Oxygen Delivery Method Oxygen Flow Rate 10/01/22 01:00 10/01/22 01:00 10/01/22 01:30 Temperature Pulse Rate 82 Respiratory Rate Blood Pressure 138/73 143/67 H Pulse Oximetry 98 Oxygen Delivery Method Oxygen Flow Rate 10/01/22 01:30 10/01/22 02:00 10/01/22 02:00 Temperature Pulse Rate 81 80 Respiratory Rate Blood Pressure 140/68 Pulse Oximetry 98 98 Oxygen Delivery Method Oxygen Flow Rate 10/01/22 02:45 Temperature 98.6 F Pulse Rate 73 Respiratory Rate 16 Blood Pressure 124/65 Pulse Oximetry 97 Oxygen Delivery Method Oxygen Flow Rate 2 Oxygen Delivery Method Nasal Cannula Oxygen Flow Rate 2 Narrative Exam Narrative: Gen: Alert, oriented, well-developed 82 y.o. female, is quite fatigued in the setting of a 3 am visit. HEENT: normocephalic, atraumatic, conjunctiva clear, sclera non-icteric, oral mucosa pink and moist Neck: supple, full ROM, no JVD, trachea is midline Resp: Lungs CTA, non-labored breathing CV: RRR, no murmur or rubs Abd: soft, non-tender, normoactive BTs Skin: no lesions or rashes, dry and intact Neuro: Alert and oriented X 4 w/no focal deficits. Speech clear and coherent. Extremities: moves all 4 extremities, is ambulatory, negative Topher?s sign Psyche: normal mood and affect. Objective Labs Result Diagrams: 09/30/22 16:35 09/30/22 16:35 Labs: Laboratory Results - last 24 hr 09/30/22 09/30/22 09/30/22 15:49 16:35 16:35 WBC 5.0 RBC 3.41 L Hgb 10.6 L Hct 32.5 L MCV 95.3 MCH 31.1 MCHC 32.6 RDW 16.2 H Plt Count 223 Neut % (Auto) 71.5 Lymph % (Auto) 16.4 L [place] % (Auto) 10.9 Eos % (Auto) 0.3 L Baso % (Auto) 0.9 Neut # (Auto) 3600 Lymph # (Auto) 800 L [place] # (Auto) 500 Eos # (Auto) 0 Baso # (Auto) 0 PT 14.4 H INR 1.3 APTT 30 Sodium Potassium Chloride Carbon Dioxide BUN Creatinine Estimated GFR BUN/Creatinine Ratio Glucose Lactate Calcium Magnesium Total Bilirubin AST ALT Alkaline Phosphatase Total Creatine Kinase CK-MB (CK-2) CK-MB (CK-2) Rel Index Troponin I Total Protein Albumin Globulin Albumin/Globulin Ratio Lipase Urine Color Yellow Urine Appearance Clear Urine pH 6.5 Ur Specific [place] 1.010 Urine Protein Negative Urine Glucose (UA) Negative Urine Ketones Negative Urine Occult Blood Negative Urine Nitrate Negative Urine Bilirubin Negative Urine Urobilinogen 0.2 Ur Leukocyte Esterase 1+ H Urine RBC 0-1/hpf Urine WBC 5-10/hpf H Ur Squamous Epith Cells 0-1 /hpf Ur Transition Epith Cell 5-10/hpf H Ur Renal Epithelial Cell 0-1/hpf Urine Bacteria Few (2-10) H Ur Culture Indicated? Specimen cultured SARS-CoV-2 (PCR) Influenza A (RT-PCR) Influenza B (RT-PCR) RSV (PCR) 09/30/22 09/30/22 09/30/22 16:35 18:30 18:30 WBC RBC Hgb Hct MCV MCH MCHC RDW Plt Count Neut % (Auto) Lymph % (Auto) [place] % (Auto) Eos % (Auto) Baso % (Auto) Neut # (Auto) Lymph # (Auto) [place] # (Auto) Eos # (Auto) Baso # (Auto) PT INR APTT Sodium 137 Potassium 4.0 Chloride 100 Carbon Dioxide 27 BUN 29 H Creatinine 1.92 H Estimated GFR 25 L BUN/Creatinine Ratio 15.1 Glucose 90 Lactate 1.4 Calcium 10.0 Magnesium 2.3 Total Bilirubin 0.4 AST 30 ALT 19 Alkaline Phosphatase 108 Total Creatine Kinase 64 CK-MB (CK-2) TNP CK-MB (CK-2) Rel Index TNP Troponin I 0.023 Total Protein 7.4 Albumin 4.0 Globulin 3.4 Albumin/Globulin Ratio 1.2 Lipase 208 Urine Color Urine Appearance Urine pH Ur Specific [place] Urine Protein Urine Glucose (UA) Urine Ketones Urine Occult Blood Urine Nitrate Urine Bilirubin Urine Urobilinogen Ur Leukocyte Esterase Urine RBC Urine WBC Ur Squamous Epith Cells Ur Transition Epith Cell Ur Renal Epithelial Cell Urine Bacteria Ur Culture Indicated? SARS-CoV-2 (PCR) Positive H Influenza A (RT-PCR) Flu a negative Influenza B (RT-PCR) Flu b negative RSV (PCR) Negative Assessment & Plan Assessment & Plan narrative: Shannon Feliz is admitted for multiple falls found to have a urinary tract infection and COVID-19 pneumonia UTI, acute and present on admission * Presumed to be and ESBL E. coli organism * empiric antibiotics to ertapenem and deescalated when cultures result Acute respiratory failure secondary to COVID-19, with cough * Isolation precautions * She is initiated on IV dexamethasone * Unable to administer remdesivir due to impaired renal function Advanced care planning: * Daughter who is patient's DPOA will come in during the day to update the patient's POLST * It stated she was a DNR/DNI on comfort measures only. * copy her daughter has is in someone else's name and is not the same copy of our scanned POLST. * Advanced care plannin minutes Atrial fibrillation with pacemaker in place, acute on chronic, present on admission * continue carvedilol, Pradaxa, amiodarone Anemia, mild, chronic * no need for transfusion * continue to trend Overactive bladder, * continue bethanechol Acquired hypothyroidism secondary to surgical procedure * continue levothyroxine 112 mcg * TSH was normalas of 09/04 during her prior hospitalization Irritable bowel syndrome * continue Bentyl bid Neuropathy, chronic * continue gabapentin 600 mg po tid Hyperlipidemia * continue atorvastatin 20 mg daily Restless leg syndrome * continue ropinirole 0.5 po at bedtime GERD, chronic, present on admission * continue pantprazole 40 mg twice daily VTE Prophylaxis: Wells risk score 0 X Bilateral SCDs Patient is currently ant icoagulated on dabigatran. Patient is admitted to the inpatient service due to the severity of disease, risks of further disease progression and this stay is expected to exceed 2 midnights. FEN: IV fluids: saline lock, diet: heart healthy, labs: CBC, C/BMP, liver enzymes, Mag, PT/INR Consultants None Dispo: enventual return to home vs [facility] Code status: DNR as discussed with the patient who identifies as [] his [] her surrogate and POA. [X] I have utilized all available immediate resources to obtain, update, or review of the patient's current medications VTE Deep Vein Thrombosis/Pulmonary Embolism Present on Admission: No MIPS - Admit I confirm the patient?s Advance Care Plan is present, Code status is documented, Surrogate decision maker is in patient?s record: Yes MIPS - DC The patient has current or prior documentation of left ventricular ejection fraction (LVEF) less than 40%, or moderate or severely depressed left ventricular systolic function.: No COVID-19 COVID-19 status: Positive Result date/Date tested (Pos, Neg/Pending): 09/30/22
[2022-10-01 05:55] LABS: Add Manual Diff / Slide Review NO; Basophils Absolute Auto 0 /uL (0-100); Basophils Percent Auto 0.7 % (0-2); Eosinophils Absolute Auto 0 /uL (0-450); Hematocrit 31.9 % (36-46); Hemoglobin 10.6 g/dL (12.0-16.0); Lymphocytes Absolute Auto 500 /uL (1100-4500); Lymphocytes Percent Auto 14.2 % (25-40); Mean Corpuscular HGB Conc 33.3 % (30-36); Mean Corpuscular Hemoglobin 31.3 PG (26-34); Mean Corpuscular Volume 93.9 fL (80-100); Monocytes Absolute Auto 100 /uL (0-900); Monocytes Percent Auto 1.9 % (3-14); Neutrophils Absolute Auto 2700 /uL (1500-7000); Neutrophils Percent Auto 83.2 % (50-75); Platelet Count 220 X10^3/uL (150-400); Red Blood Cell Count 3.39 X10^6/uL (4.0-5.2); White Blood Cell Count 3.2 X10^3/uL (4.5-11.0)
[2022-10-01 06:07] LABS: Alanine Aminotransferase 49 IU/L (<35); Albumin 3.9 g/dL (3.5-5.0); Albumin Globulin Ratio 1.1 (1.0-2.8); Alkaline Phosphatase 100 U/L (38-126); Aspartate Aminotransferase 90 IU/L (14-36); BUN Creatinine Ratio 18.5 (6-22); Bilirubin Total 0.4 mg/dL (0.2-1.3); Blood Urea Nitrogen 29 mg/dL (7-17); Calcium 9.8 mg/dL (8.4-10.2); Carbon Dioxide 27 mmol/L (22-32); Chloride 99 mmol/L (98-107); Estimated Glomerular Filt Rate 32 mL/min (>60); Globulin 3.5 g/dL (1.7-4.1); Glucose 156 mg/dL (80-110); HEMOLYSIS < 15 (0-50); Magnesium 2.3 mg/dL (1.6-2.3); Potassium 3.9 mmol/L (3.4-5.1); Sodium 136 mmol/L (137-145); Total Protein 7.4 g/dL (6.3-8.2)
[2022-10-01] MEDS: LEVOTHYROXINE 112 MCG TABLET PO (06:17)
[2022-10-01] MEDS: LOSARTAN 25 MG TABLET 12.5 MG PO (10:30)
[2022-10-01] MEDS: GABAPENTIN 600 MG TABLET PO ×3 (10:30→21:40)
[2022-10-01] MEDS: BETHANECHOL CHLORIDE 5 MG TABLET 25 MG PO ×3 (10:30→21:40)
[2022-10-01] MEDS: DABIGATRAN 75 MG CAPSULE PO ×2 (10:32→21:40)
[2022-10-01] MEDS: carvediloL 12.5 MG TABLET 25 MG PO ×2 (10:32→21:40)
[2022-10-01] MEDS: AMIODARONE 200 MG TABLET PO (10:34)
[2022-10-01] MEDS: PANTOPRAZOLE DR 20 MG TABLET 40 MG PO ×2 (10:34→21:40)
[2022-10-01] MEDS: DEXAMETHASONE 10 MG/ML VIAL 6 MG IV (10:35)
[2022-10-01] MEDS: DICYCLOMINE 10 MG CAPSULE 20 MG PO ×2 (10:35→21:40)
--- NOTE | 2022-10-01 12:24 | CM.DANOTE ---
DCP Assessment: Payor confirmed: Medicare and for life PCP confirmed: Lesli Lomeli MD Pt presented to the ER with weakness. Pt is a re-admit. Pt was previously at [facility]. It is found that pt has a UTI and Covid pneumonia. Pt brought up to the floor for further management and evaluation of symptoms and diagnosis. DCP spoke with the daughter, Jessica, to discuss discharge needs. Jessica states that the pt was doing better but then worsened yesterday. Jessica states pt was not able to walk. Jessica states that pt was at [facility] where there was a covid outbreak. Jessica states that if patient needs PT again, to have patient try and get to [facility] as that is closer to their home and she is able to take to and from for pt appointments. DCP will attempt if SNF is recommended. DCP to continue to follow. Jessica is going to bring updated POLST form to [facility] today. P: Unclear needs at this time. Home vs SNF. DCP awaiting further plan. Jeaneth Molina RN/LASHELLP Discharge Planning/Care Management CM Discharge Assessment Start: 10/01/22 12:23 Freq: Status: Active Protocol: Document 10/01/22 12:23 DOLLY (Rec: 10/01/22 12:24 [id number]) Discharge Planning Assessment Assigned Monitor Technician Jeaneth Molina RN/LASHELLP Advance Directives? No: DNR Advance Directives on File Yes History Provided By Patient,Family Member Prior Living Arrangements House Household Members children Type of transporation used prior to Relies on Others admit Comment Patient uses a walker and cane at her baseline Patient/Family Preference [facility] Comment Either back to [facility] or daughter wants [facility]. Discharge Plan [facility] Referrals Initiated Other Additional Comment SNF vs home Whiteboard Updated in Patient Room with No name and ext. # of Monitor Technician Comment Unable to enter due to isolation precautions. Review Status In Process Please Provide Date Initial DC 10/01/22 Assessment Was Performed Next Review Type Continued Stay Review
[2022-10-01] MEDS: ATORVASTATIN 20 MG TABLET PO (16:39)
[2022-10-01] MEDS: ERTAPENEM 0.5 GM in SODIUM CHLORIDE 0.9% 100 ML IV (20:40)
[2022-10-01] MEDS: ROPINIROLE 0.25 MG TABLET 0.5 MG PO (21:40)
[2022-10-02] MEDS: LEVOTHYROXINE 112 MCG TABLET PO (05:27)
[2022-10-02 06:00] VITALS: O2SAT 97
[2022-10-02 06:33] LABS: Add Manual Diff / Slide Review NO; Basophils Absolute Auto 0 /uL (0-100); Basophils Percent Auto 0.1 % (0-2); Eosinophils Absolute Auto 0 /uL (0-450); Hematocrit 30.4 % (36-46); Hemoglobin 10.2 g/dL (12.0-16.0); Lymphocytes Absolute Auto 700 /uL (1100-4500); Lymphocytes Percent Auto 10.1 % (25-40); Mean Corpuscular HGB Conc 33.6 % (30-36); Mean Corpuscular Hemoglobin 31.3 PG (26-34); Mean Corpuscular Volume 93.3 fL (80-100); Monocytes Absolute Auto 300 /uL (0-900); Monocytes Percent Auto 3.9 % (3-14); Neutrophils Absolute Auto 6300 /uL (1500-7000); Neutrophils Percent Auto 85.9 % (50-75); Platelet Count 228 X10^3/uL (150-400); Red Blood Cell Count 3.26 X10^6/uL (4.0-5.2); White Blood Cell Count 7.4 X10^3/uL (4.5-11.0)
[2022-10-02 06:41] LABS: Alanine Aminotransferase 106 IU/L (<35); Albumin 3.6 g/dL (3.5-5.0); Albumin Globulin Ratio 1.1 (1.0-2.8); Alkaline Phosphatase 96 U/L (38-126); Aspartate Aminotransferase 164 IU/L (14-36); BUN Creatinine Ratio 26.6 (6-22); Bilirubin Total 0.4 mg/dL (0.2-1.3); Blood Urea Nitrogen 37 mg/dL (7-17); Calcium 10.1 mg/dL (8.4-10.2); Carbon Dioxide 27 mmol/L (22-32); Chloride 97 mmol/L (98-107); Estimated Glomerular Filt Rate 37 mL/min (>60); Globulin 3.4 g/dL (1.7-4.1); Glucose 125 mg/dL (80-110); HEMOLYSIS < 15 (0-50); Magnesium 2.3 mg/dL (1.6-2.3); Sodium 132 mmol/L (137-145)
[2022-10-02] MEDS: ACETAMINOPHEN 325 MG TABLET 650 MG PO (10:07)
[2022-10-02] MEDS: PANTOPRAZOLE DR 20 MG TABLET 40 MG PO ×2 (10:08→21:33)
[2022-10-02] MEDS: LOSARTAN 25 MG TABLET 12.5 MG PO (10:08)
[2022-10-02] MEDS: DABIGATRAN 75 MG CAPSULE PO ×2 (10:08→21:33)
[2022-10-02] MEDS: carvediloL 12.5 MG TABLET 25 MG PO ×2 (10:09→21:33)
[2022-10-02] MEDS: GABAPENTIN 600 MG TABLET PO ×3 (10:09→21:33)
[2022-10-02] MEDS: DEXAMETHASONE 10 MG/ML VIAL 6 MG IV (10:09)
[2022-10-02] MEDS: DICYCLOMINE 10 MG CAPSULE 20 MG PO ×2 (10:09→21:33)
[2022-10-02] MEDS: AMIODARONE 200 MG TABLET PO (10:11)
[2022-10-02] MEDS: BETHANECHOL CHLORIDE 5 MG TABLET 25 MG PO ×2 (10:12→14:15)
[2022-10-02 11:17] VITALS: BP 120/74; PULSE 74; RESP 16; TEMP 36.2; O2SAT 97
--- NOTE | 2022-10-02 11:32 | PT.IIE ---
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 (09/30/22) Surgical History (Last Reviewed 10/01/22 @ 03:42 by FAUSTINA Santos) History of kidney removal History of thyroid surgery Medical History (Last Reviewed 10/01/22 @ 03:42 by FAUSTINA Santos) Anticoagulated CKD stage G3a/A1, GFR 45-59 and albumin creatinine ratio <30 mg/g Control of atrial fibrillation with pacemaker ESBL (extended spectrum beta-lactamase) producing bacteria infection Essential hypertension Fracture of left carpal bone Fracture of superior pubic ramus GERD (gastroesophageal reflux disease) History of cervical cancer History of renal carcinoma Hyperlipidemia Hypothyroidism associated with surgical procedure Inferior pubic ramus fracture Irritable bowel syndrome Neuropathy Overactive bladder Restless leg syndrome Physical Therapy Inpatient Evaluation/Re-Eval M1 PT/OT-IP Prior Functional Status Start: 10/02/22 11:12 Freq: NEEDED Status: Active Protocol: Document 10/02/22 10:38 DCW (Rec: 10/02/22 11:31 DCW [id number]) Medical Review Prior Functional Status Medical History Reviewed Yes Diet/Fluid Consistency Regular Mobility and Gait Per pt, uses FWW at baseline Social History Household Members children Living Arrangements House Home Equipment 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 Additional Social History Comment Lives on first floor of daughter's two story home M2 PT-IP Current Condition Start: 10/02/22 11:12 Freq: NEEDED Status: Active Protocol: Document 10/02/22 10:38 DCW (Rec: 10/02/22 11:31 DCW [id number]) Physical Therapy Current Condition Current Condition Evaluation Date 10/02/22 Treatment Diagnosis UTI, weakness, COVID + Onset Date 09/30/22 M3 PT-IP Subjective Start: 10/02/22 11:12 Freq: NEEDED Status: Active Protocol: Document 10/02/22 10:38 DCW (Rec: 10/02/22 11:31 DCW [id number]) Subjective Physical Therapy Visit Type Type Initial Evaluation Visit Start Time 10:38 Visit Stop Time 11:12 Total Visit Minutes 34 Notes Pt in bed upon therapist entry to room, pt requesting up to use commode for BM. Number of CHARGE AUDITOR Visits 0 Physical Therapy Visit Comments Patient Comments Pt reports she feels very fatigued and unstable trying to move around, admits she does not feel like she would be safe to return home yet. Therapy Pain Assessment Pain Present Pain Present Denied Pain M4 PT-IP Mobility and Gait Start: 10/02/22 11:12 Freq: NEEDED Status: Active Protocol: Document 10/02/22 10:38 DCW (Rec: 10/02/22 11:31 DCW [id number]) PT-Bed Mobility Assessment Rolling Level of Assist Standby Assistance Supine to Sit Supine to Sit Standby Assistance Sit to Supine Sit to Supine Standby Assistance Scooting Scooting to Edge of Bed Contact Guard Assistance PT-Transfer Assessment Sit to and From Stand Sit to and from Stand Standby Assistance Equipment Transfer Assistive Device Bed Rail,Gait Belt,Front Wheeled Walker Transfers Transfer Destination Bedside Commode Transfer Technique Stand Step Pivot Transfer Ability Level of Assist Minimal Assistance Comments Mobility Comments Pt did well with bed mobility, all SBA, however felt very unstable after standing, fatigued quickly. O2 sat remained >94% on room air with movement, returned quickly to 98% with rest. Quick transfer to BSC for BM, pt able to perform pericare. Unable to attempt much ambulation in room, due to both pt fatigue and Purewick catheter attachment. Pt able to do some short standing TherEx, however fatigued very quickly. Gait Assessment Gait Gait Assistance Required: Minimum Assistance Distance (Feet) 5 Assistive Devices Assistive Device Gait Belt,Front Wheeled Walker Gait Deviations General Gait Pattern Decreased Stride Length, Decreased Feet Clearance Factors Limiting Gait Function Factors Limiting Gait Function Decreased Activity Tolerance, Poor Safety Awareness Comments Gait Comments Pt only able to ambulate short distance, fatigued. Impulsive when trying to get to BSC, required reminders about Purewick catheter line management, some mild instability. PT-Balance Assessment Sitting Balance and Reactions Static Sitting Balance Ability Good Dynamic Sitting Balance Ability Good Standing Balance and Reactions Static Standing Balance Ability Fair Dynamic Standing Balance Ability Fair M5 PT-IP Objective Assessments Start: 10/02/22 11:12 Freq: NEEDED Status: Active Protocol: Document 10/02/22 10:38 DCW (Rec: 10/02/22 11:31 DCW [id number]) Orientation Orientation/Cognition Level of Alertness Alert Orientation Name,Birthday,Place,Situation Language Function Ability No Deficits Noted Safety Awareness Decreased Safety Awareness Comments Pt presents A&O x3, able to describe living situation and PLOF, however was fairly impulsive and unsafe when up getting to BSC, required repeated instructions, demonstrated some decreased safety awareness. M6 PT-IP Treatment Start: 10/02/22 11:12 Freq: NEEDED Status: Active Protocol: Document 10/02/22 10:38 DCW (Rec: 10/02/22 11:31 DCW [id number]) Physical Therapy Treatment Other Treatments Other Treatment Performed LAQ, Marching /c FWW M7 PT-IP Assessment and Plan Start: 10/02/22 11:12 Freq: NEEDED Status: Active Protocol: Document 10/02/22 10:38 DCW (Rec: 10/02/22 11:31 DCW [id number]) PT Summary Assessment and Plan Potential Rehabilitation Potential Good Status of Condition at Evaluation Unstable Summary Impairments Balance,Cognition,Gait, Activity Tolerance Assessment Summary Pt performed fairly well with bed mobility and transfers sit <->stand, largely SBA, although somewhat impulsive when up getting to BSC, fatigued very quickly, decreased safety awareness. Ambulated very short distance bed to BSC, required repeated reminders about catheter placement, line management. Goals Bed Mobility Goal Independent Transfer Goal Independent Gait Goal Independent Gait Distance 50 Frequency of Treatment Frequency Of Treatment Once a Day Treatment Plan Physical Therapy Treatment Plan Gait Training,Therapeutic Exercise,Discharge Planning, Neuromuscular Re-ed Recommendations To Nursing Amount of Assist Needed 1 Person Assist Discharge Recommendations PT Discharge Recommendations SNF Rehab Other Discharge Recommendations Likely SNF placement due to imbalance and decreased safety awareness
[2022-10-02 11:58] VITALS: O2SAT 94
--- NOTE | 2022-10-02 13:05 | CM.DPC ---
DCP Cont: Per PT, pt needing SNF. Referral faxed overto [facility]. Jeaneth Molina RN/DCP
--- NOTE | 2022-10-02 15:11 | PM.PN.1 ---
Subjective Subjective Date Patient Seen: 10/02/22 Time Patient Seen: 08:00 Interval history: She is much improved and alert. Exam Vital Signs (past 8 hours): - 10/02/22 08:20 10/02/22 11:17 10/02/22 11:58 Temperature 97.1 F L Pulse Rate 74 Respiratory Rate 16 Blood Pressure 120/74 Pulse Oximetry 97 94 Oxygen Delivery Method Nasal Cannula Room Air Oxygen Flow Rate 0 Fraction of Inspired Oxygen 96 Oxygen Delivery Method Room Air Oxygen Flow Rate 0 Narrative Exam Narrative: GEN: no acute distress CV: regular rate and rhythm PULM: clear bilaterally ABD: soft, nontender, nondistended, no organomegaly Objective Labs Result Diagrams: 10/02/22 05:06 10/02/22 05:06 Labs: Laboratory Results - last 24 hr 10/02/22 10/02/22 05:06 05:06 WBC 7.4 D RBC 3.26 L Hgb 10.2 L Hct 30.4 L MCV 93.3 MCH 31.3 MCHC 33.6 RDW 16.0 H Plt Count 228 Neut % (Auto) 85.9 H Lymph % (Auto) 10.1 L [place] % (Auto) 3.9 Eos % (Auto) 0.0 L Baso % (Auto) 0.1 Neut # (Auto) 6300 Lymph # (Auto) 700 L [place] # (Auto) 300 Eos # (Auto) 0 Baso # (Auto) 0 Sodium 132 L Potassium 4.0 Chloride 97 L Carbon Dioxide 27 BUN 37 H Creatinine 1.39 H Estimated GFR 37 L BUN/Creatinine Ratio 26.6 H Glucose 125 H Calcium 10.1 Magnesium 2.3 Total Bilirubin 0.4 AST 164 H ALT 106 H Alkaline Phosphatase 96 Total Protein 7.0 Albumin 3.6 Globulin 3.4 Albumin/Globulin Ratio 1.1 [facility] Medical History Anticoagulated CKD stage G3a/A1, GFR 45-59 and albumin creatinine ratio <30 mg/g Control of atrial fibrillation with pacemaker ESBL (extended spectrum beta-lactamase) producing bacteria infection Essential hypertension Fracture of left carpal bone Fracture of superior pubic ramus GERD (gastroesophageal reflux disease) History of cervical cancer History of renal carcinoma Hyperlipidemia Hypothyroidism associated with surgical procedure Inferior pubic ramus fracture Irritable bowel syndrome Neuropathy Overactive bladder Restless leg syndrome Surgical History History of kidney removal History of thyroid surgery Family History Mother Cancer Sister Cancer Social History household members: children Smoking Status: Never smoker Assessment & Plan Assessment & Plan narrative: 1. Weakness and encephalopathy -improving, likely secondary to UTI and COVID -PT evaluation recommended SNF 2. COVID positive -she has slight cough, no hypoxia -no indication for treatment currently 2. UTI -continue IV antibiotics with ertapenem -follow up cultures 3. Atrial fibrillation with pacemaker in place, acute on chronic, present on admission - carvedilol, Pradaxa, amiodarone 4. Anemia, mild, chronic -no need for transfusion COVID-19 COVID-19 status: Positive Result date/Date tested (Pos, Neg/Pending): 09/30/22 Time Spent With Patient Critical Care time: I spent a total of [] minutes of critical care time on this patient's care today; this time is exclusive of procedural time.
[2022-10-02 18:20] VITALS: O2SAT 95
[2022-10-02 21:30] VITALS: BP 119/73; PULSE 80; RESP 18; TEMP 35.5; O2SAT 96
[2022-10-02] MEDS: ERTAPENEM 0.5 GM in SODIUM CHLORIDE 0.9% 100 ML IV (21:32)
[2022-10-02 21:33] VITALS: BP 119/73; PULSE 80
[2022-10-02] MEDS: ROPINIROLE 0.25 MG TABLET 0.5 MG PO (21:33)
[2022-10-02] MEDS: ATORVASTATIN 20 MG TABLET PO (21:33)
[2022-10-03] VITALS (11 sets, daily range): BP systolic 115–141; BP diastolic 72–83; PULSE 56–83; RESP 15–81; TEMP 35.7–36.2; O2SAT 94–97
[2022-10-03 05:48] LABS: Add Manual Diff / Slide Review NO; Basophils Absolute Auto 0 /uL (0-100); Basophils Percent Auto 0.1 % (0-2); Eosinophils Absolute Auto 0 /uL (0-450); Hematocrit 31.7 % (36-46); Hemoglobin 10.6 g/dL (12.0-16.0); Lymphocytes Absolute Auto 700 /uL (1100-4500); Lymphocytes Percent Auto 9.5 % (25-40); Mean Corpuscular HGB Conc 33.3 % (30-36); Mean Corpuscular Hemoglobin 31.1 PG (26-34); Mean Corpuscular Volume 93.4 fL (80-100); Monocytes Absolute Auto 200 /uL (0-900); Monocytes Percent Auto 2.2 % (3-14); Neutrophils Absolute Auto 6400 /uL (1500-7000); Neutrophils Percent Auto 88.2 % (50-75); Platelet Count 228 X10^3/uL (150-400); Red Blood Cell Count 3.39 X10^6/uL (4.0-5.2); Red Cell Distribution Width 15.9 % (11.6-14.8); White Blood Cell Count 7.3 X10^3/uL (4.5-11.0)
[2022-10-03 05:56] LABS: Alanine Aminotransferase 96 IU/L (<35); Albumin 3.4 g/dL (3.5-5.0); Albumin Globulin Ratio 1.1 (1.0-2.8); Alkaline Phosphatase 88 U/L (38-126); Aspartate Aminotransferase 104 IU/L (14-36); Bilirubin Total 0.3 mg/dL (0.2-1.3); Blood Urea Nitrogen 40 mg/dL (7-17); Calcium 9.6 mg/dL (8.4-10.2); Carbon Dioxide 26 mmol/L (22-32); Chloride 95 mmol/L (98-107); Estimated Glomerular Filt Rate 43 mL/min (>60); Globulin 3.2 g/dL (1.7-4.1); Glucose 120 mg/dL (80-110); HEMOLYSIS < 15 (0-50); Magnesium 2.2 mg/dL (1.6-2.3); Potassium 4.5 mmol/L (3.4-5.1); Sodium 129 mmol/L (137-145); Total Protein 6.6 g/dL (6.3-8.2)
[2022-10-03] MEDS: LEVOTHYROXINE 112 MCG TABLET PO (06:09)
[2022-10-03] MEDS: carvediloL 12.5 MG TABLET 25 MG PO ×2 (10:06→22:13)
[2022-10-03] MEDS: AMIODARONE 200 MG TABLET PO (10:06)
[2022-10-03] MEDS: ACETAMINOPHEN 325 MG TABLET 650 MG PO (10:06)
[2022-10-03] MEDS: GABAPENTIN 600 MG TABLET PO ×3 (10:06→22:14)
[2022-10-03] MEDS: DABIGATRAN 75 MG CAPSULE PO ×2 (10:06→22:13)
[2022-10-03] MEDS: PANTOPRAZOLE DR 20 MG TABLET 40 MG PO ×2 (10:07→22:14)
[2022-10-03] MEDS: DEXAMETHASONE 10 MG/ML VIAL 6 MG IV (10:07)
[2022-10-03] MEDS: LOSARTAN 25 MG TABLET 12.5 MG PO (10:07)
[2022-10-03] MEDS: BETHANECHOL CHLORIDE 5 MG TABLET 25 MG PO ×3 (11:22→22:12)
[2022-10-03] MEDS: DICYCLOMINE 10 MG CAPSULE 20 MG PO ×2 (11:22→22:14)
[2022-10-03] MEDS: FUROSEMIDE 40 MG TABLET PO ×2 (12:10→22:14)
[2022-10-03] MEDS: VANCOMYCIN 1,000 MG/200 ML PIGGYBACK 200 MG IV (12:40)
--- NOTE | 2022-10-03 13:06 | CM.DPC ---
DCP continued: CM attempted to contact [facility] x4 today LVM and have not heard back. CM called [facility] as a back up SNF for the patient and they can accept her tomorrow for admission. CM called patients daughter Jessica and let her know the plan. she stated understanding and is in agreement with patient going to [facility]. CM spoke with patients RN and let her know that patient was accepted [facility] and CM attempted to call the patient on the phone and let her know of DC plan however wasn't able to get her on the phone. CM asked patients nurse when she goes in her room to let her know about [facility]. Plan: DC tomorrow to [facility] in the AM Cm team will call and get DC time from March tomorrow morning. CURTIS Brown RN Case Manager
--- NOTE | 2022-10-03 15:42 | PM.PN.1 ---
Subjective Subjective Date Patient Seen: 10/03/22 Time Patient Seen: 08:00 Interval history: She feels her shortness of breath is improved today. She feels weak. She is no longer confused. Exam Vital Signs (past 8 hours): - 10/03/22 08:00 10/03/22 10:06 10/03/22 10:07 Temperature 97.1 F L Pulse Rate 73 73 73 Respiratory Rate 15 Blood Pressure 133/74 133/74 133/74 Pulse Oximetry 97 Oxygen Flow Rate 0 10/03/22 13:16 Temperature 97.1 F L Pulse Rate 83 Respiratory Rate 16 Blood Pressure 141/83 H Pulse Oximetry 96 Oxygen Flow Rate 0 Fraction of Inspired Oxygen 96 Oxygen Delivery Method Room Air Oxygen Flow Rate 0 Narrative Exam Narrative: GEN: no acute distress CV: regular rate and rhythm PULM: clear bilaterally ABD: soft, nontender, nondistended, no organomegaly Objective Labs Result Diagrams: 10/03/22 05:24 10/03/22 05:24 Labs: Laboratory Results - last 24 hr 10/03/22 10/03/22 05:24 05:24 WBC 7.3 RBC 3.39 L Hgb 10.6 L Hct 31.7 L MCV 93.4 MCH 31.1 MCHC 33.3 RDW 15.9 H Plt Count 228 Neut % (Auto) 88.2 H Lymph % (Auto) 9.5 L [place] % (Auto) 2.2 L Eos % (Auto) 0.0 L Baso % (Auto) 0.1 Neut # (Auto) 6400 Lymph # (Auto) 700 L [place] # (Auto) 200 Eos # (Auto) 0 Baso # (Auto) 0 Sodium 129 L Potassium 4.5 Chloride 95 L Carbon Dioxide 26 BUN 40 H Creatinine 1.25 H Estimated GFR 43 L BUN/Creatinine Ratio 32.0 H Glucose 120 H Calcium 9.6 Magnesium 2.2 Total Bilirubin 0.3 AST 104 H ALT 96 H Alkaline Phosphatase 88 Total Protein 6.6 Albumin 3.4 L Globulin 3.2 Albumin/Globulin Ratio 1.1 PFSH Medical History Anticoagulated CKD stage G3a/A1, GFR 45-59 and albumin creatinine ratio <30 mg/g Control of atrial fibrillation with pacemaker ESBL (extended spectrum beta-lactamase) producing bacteria infection Essential hypertension Fracture of left carpal bone Fracture of superior pubic ramus GERD (gastroesophageal reflux disease) History of cervical cancer History of renal carcinoma Hyperlipidemia Hypothyroidism associated with surgical procedure Inferior pubic ramus fracture Irritable bowel syndrome Neuropathy Overactive bladder Restless leg syndrome Surgical History History of kidney removal History of thyroid surgery Family History Mother Cancer Sister Cancer Social History household members: children Smoking Status: Never smoker Assessment & Plan Assessment & Plan narrative: 1. Weakness and encephalopathy -improving, likely secondary to UTI and COVID -PT evaluation recommended SNF 2. COVID positive -she has slight cough, no hypoxia -no indication for treatment currently 2. UTI -culture shows <10k esbl e. coli which is not infectious and is only colonization -she also has 50-60k colony count of enterococcus which is suspicious for infection -plan for vancomycin for antibiotics -dc ertapenem 3. Atrial fibrillation with pacemaker in place, acute on chronic, present on admission - carvedilol, Pradaxa, amiodarone 4. Anemia, mild, chronic -no need for transfusion 5. LIBBY on CKD stage 2-3 -initial creatinine on admission 1.92 -improved to 1.25, likely at baseline 6. Hyponatremia -suspect secondary to holding lasix, and COVID and poor appetite -restart lasix -recheck in AM COVID-19 COVID-19 status: Positive Result date/Date tested (Pos, Neg/Pending): 09/30/22 Time Spent With Patient Critical Care time: I spent a total of [] minutes of critical care time on this patient's care today; this time is exclusive of procedural time.
--- NOTE | 2022-10-03 16:15 | PT.IPTN ---
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 of anticoagulants (09/30/22) Physical Therapy Treatment Note M2 PT-IP Current Condition Start: 10/02/22 11:12 Freq: NEEDED Status: Active Protocol: Document 10/03/22 15:42 SP (Rec: 10/03/22 17:47 SP [id number]) Physical Therapy Current Condition Current Condition Evaluation Date 10/02/22 Treatment Diagnosis UTI, weakness, COVID + Onset Date 09/30/22 M3 PT-IP Subjective Start: 10/02/22 11:12 Freq: NEEDED Status: Active Protocol: Document 10/03/22 15:42 SP (Rec: 10/03/22 17:47 SP [id number]) Subjective Physical Therapy Visit Type Type Treatment Note Visit Start Time 15:42 Visit Stop Time 16:15 Total Visit Minutes 33 Notes Vitals: seated: BP 116/72 HR 74 SaO2 97% on RA post mobility: BP 110/71 HR 79 SaO2 97% on RA 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 Patient Goals Agreeable to going to SNF to get stronger before returning home with daughter. Therapy Pain Assessment Pain When Pain Assessed During Mobility Pain Present Pain Present Denied Pain M4 PT-IP Mobility and Gait Start: 10/02/22 11:12 Freq: NEEDED Status: Active Protocol: Document 10/03/22 15:42 SP (Rec: 10/03/22 17:47 SP [id number]) PT-Bed Mobility Assessment Supine to Sit Supine to Sit Standby Assistance,Head of Bed Elevated,Bedrails Scooting Scooting to Edge of Bed Standby Assistance,Contact Guard Assistance PT-Transfer Assessment Sit to and From Stand Sit to and from Stand Standby Assistance Equipment Transfer Assistive Device Gait Belt,Front Wheeled Walker Orthotic/Prosthetic Devices or Brace: No Transfers Transfer Destination Chair Transfer Technique pt ambulated using FWW Transfer Ability Level of Assist Contact Guard Assistance, Minimal Assistance,1 Person Assistance,Use of Upper Extremities Comments Mobility Comments Pt completed elevated supine> sit sBA, scoot to EOB with use bed rail CG/ SBA. Sit stand CG/ Min A w/ FWW and gait around room other side and back to chair w/ FWW, support for trunk lateral sways at times, cues increased MEI for safety due to almost semi stagger scissor stepping, no LOB approx 30 ft. Pt returned to chair, cues back up fully with FWW, feel chair behind knees then proper hand placement throughout tx for safety. Elevated BLEs, had call light and all needs in reach before left, provided chair alarm for safety. Gait Assessment Gait Gait Assistance Required: Contact Guard Assist,Minimum Assistance,1 Person Assist Distance (Feet) 30 Assistive Devices Assistive Device Gait Belt,Front Wheeled Walker Gait Deviations General Gait Pattern Antalgic,Decreased Stride Length,Decreased Feet Clearance,Lateral Trunk Lean, Narrow Based Gait Factors Limiting Gait Function Factors Limiting Gait Function Decreased Activity Tolerance, Decreased Strength,Difficulty Following Directions,Poor Balance,Poor Safety Awareness Comments Gait Comments see mobility comments. Stair Climbing Assessment Comments Stair Climbing Comments lives on 1st floor home, uncertain any small step enter home though, need ask next tx . PT-Balance Assessment Sitting Balance and Reactions Static Sitting Balance Ability Good Dynamic Sitting Balance Ability Good Standing Balance and Reactions Static Standing Balance Ability Fair Dynamic Standing Balance Ability Poor Device Used FWW M5 PT-IP Objective Assessments Start: 10/02/22 11:12 Freq: NEEDED Status: Active Protocol: Document 10/02/22 10:38 DCW (Rec: 10/02/22 11:31 DCW [id number]) Orientation Orientation/Cognition Level of Alertness Alert Orientation Name,Birthday,Place,Situation Language Function Ability No Deficits Noted Safety Awareness Decreased Safety Awareness Comments Pt presents A&O x3, able to describe living situation and PLOF, however was fairly impulsive and unsafe when up getting to [facility], required repeated instructions, demonstrated some decreased safety awareness. M6 PT-IP Treatment Start: 10/02/22 11:12 Freq: NEEDED Status: Active Protocol: Document 10/03/22 15:42 SP (Rec: 10/03/22 17:47 SP [id number]) Physical Therapy Treatment Exercises Exercises Ankle Pumps,Heel Slides Other Treatments Other Treatment Performed supine: AP, SKTC self HEP, standing: Marching /c FWW M7 PT-IP Assessment and Plan Start: 10/02/22 11:12 Freq: NEEDED Status: Active Protocol: Document 10/03/22 15:42 SP (Rec: 10/03/22 17:47 SP [id number]) PT Summary Assessment and Plan Potential Rehabilitation Potential Good Status of Condition at Evaluation Unstable Summary Impairments Balance,Cognition,Bed Mobility ,Transfers,Gait,Activity Tolerance Progress Towards Goals Progressing Toward Goals,Slow Progress due to Activity Tolerance Assessment Summary Pt performed fairly well with bed mobility and transfers sit <->stand, largely SBA/ CGA withsa safety cues for proper hand placement, although somewhat impulsive when sit<> stand from chair/bed, decreased safety awareness. States her daughter and [employer] work and unable to be home , recommending SNF for progressed strength and functional moibility toward PLOF. Goals Bed Mobility Goal Independent Transfer Goal Independent Gait Goal Independent Gait Distance 50 Frequency of Treatment Frequency Of Treatment Once a Day Treatment Plan Physical Therapy Treatment Plan Bed Mobility Training,Transfer Training,Gait Training, Therapeutic Exercise,Discharge Planning,Neuromuscular Re-ed Other Recommendations and Next Treatment bed mob HOB flat, transfers, Focus gait. Inquire step to enter main level, balance activities . Recommendations To Nursing Amount of Assist Needed 1 Person Assist Discharge Recommendations PT Discharge Recommendations SNF Rehab Other Discharge Recommendations Likely SNF placement due to imbalance and decreased safety awareness Transportation Needs at Discharge Private Vehicle,Wheelchair/ Cabulance
[2022-10-03] MEDS: ROPINIROLE 0.25 MG TABLET 0.5 MG PO (22:12)
[2022-10-03] MEDS: ATORVASTATIN 20 MG TABLET PO (22:13)
[2022-10-04 05:39] VITALS: BP 134/78; PULSE 82; RESP 18; TEMP 36.2; O2SAT 94
[2022-10-04] MEDS: LEVOTHYROXINE 112 MCG TABLET PO (06:18)
[2022-10-04] MEDS: ACETAMINOPHEN 325 MG TABLET 650 MG PO (06:30)
[2022-10-04 06:44] LABS: Magnesium 2.3 mg/dL (1.6-2.3)
[2022-10-04 06:46] LABS: BUN Creatinine Ratio 34.4 (6-22); Blood Urea Nitrogen 44 mg/dL (7-17); Calcium 9.7 mg/dL (8.4-10.2); Carbon Dioxide 26 mmol/L (22-32); Chloride 98 mmol/L (98-107); Estimated Glomerular Filt Rate 41 mL/min (>60); Glucose 111 mg/dL (80-110); HEMOLYSIS < 15 (0-50); Potassium 4.2 mmol/L (3.4-5.1); Sodium 133 mmol/L (137-145)
[2022-10-04 08:19] VITALS: BP 134/78; PULSE 72
[2022-10-04] MEDS: GABAPENTIN 600 MG TABLET PO (08:19)
[2022-10-04] MEDS: AMIODARONE 200 MG TABLET PO (08:19)
[2022-10-04] MEDS: carvediloL 12.5 MG TABLET 25 MG PO (08:19)
[2022-10-04] MEDS: DABIGATRAN 75 MG CAPSULE PO (08:19)
[2022-10-04] MEDS: PANTOPRAZOLE DR 20 MG TABLET 40 MG PO (08:19)
[2022-10-04] MEDS: FUROSEMIDE 40 MG TABLET PO (08:19)
[2022-10-04] MEDS: DEXAMETHASONE 10 MG/ML VIAL 6 MG IV (08:19)
[2022-10-04 08:20] VITALS: BP 134/78; PULSE 72
[2022-10-04] MEDS: LOSARTAN 25 MG TABLET 12.5 MG PO (08:20)
[2022-10-04] MEDS: DICYCLOMINE 10 MG CAPSULE 20 MG PO (08:22)
[2022-10-04] MEDS: BETHANECHOL CHLORIDE 5 MG TABLET 25 MG PO (08:22)
--- NOTE | 2022-10-04 10:54 | CM.DPC ---
Addendum entered by Kaity Gonzales R.N. 10/04/22 14:05: Was notified by Sanaz at [facility] that patient needs midline, since she needs a few more days of IV abo. Updated Dr. Ornelas, and let him know, for he thought that they could take her on a peripheral line. They called diagostics nurse, and mid line was placed. Gave nurse,Nazanin, the report name and phone number. Original Note: DCP Cont: Confirmed that [facility] can pick patient up at 1300. Have updated white board at main nurses station, and have updated hospitalist, Dr. Ornelas, and nurse, Nazanin. 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 Kaity Gonzales RN/Counselor Dormitory
--- NOTE | 2022-10-04 11:00 | PT.IPTN ---
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 (09/30/22) Physical Therapy Treatment Note M2 PT-IP Current Condition Start: 10/02/22 11:12 Freq: NEEDED Status: Active Protocol: Document 10/03/22 15:42 SP (Rec: 10/03/22 17:47 SP [id number]) Physical Therapy Current Condition Current Condition Evaluation Date 10/02/22 Treatment Diagnosis UTI, weakness, COVID + Onset Date 09/30/22 M3 PT-IP Subjective Start: 10/02/22 11:12 Freq: NEEDED Status: Active Protocol: Document 10/04/22 11:00 AB (Rec: 10/04/22 13:33 AB [id number]) Subjective Physical Therapy Visit Type Type Treatment Note Visit Start Time 11:00 Visit Stop Time 11:25 Total Visit Minutes 25 Number of BOBBIN WASHER Visits 0 Physical Therapy Visit Comments Patient Comments agreeable to do PT M4 PT-IP Mobility and Gait Start: 10/02/22 11:12 Freq: NEEDED Status: Active Protocol: Document 10/04/22 11:00 AB (Rec: 10/04/22 13:33 AB [id number]) PT-Bed Mobility Assessment Supine to Sit Supine to Sit Standby Assistance,Head of Bed Elevated PT-Transfer Assessment Sit to and From Stand Sit to and from Stand Contact Guard Assistance,1 Person Assistance,Use of Upper Extremities Equipment Transfer Assistive Device Gait Belt,Front Wheeled Walker Orthotic/Prosthetic Devices or Brace: No Transfers Transfer Destination Chair Transfer Technique ambulated Transfer Ability Level of Assist Contact Guard Assistance,1 Person Assistance,Use of Upper Extremities Comments Mobility Comments pt completed supine to sit SBA and HOB elevated. able to sit on EOB SBA. completed sit to stand CGA and ambulated in room using FWW ~ 35 ft CGA. pt agreed to sit on the chair. refused further ambulation and want to just rest for now. positioned on the chair. call light and table placed within reach. Gait Assessment Gait Gait Assistance Required: Contact Guard Assist Distance (Feet) 35 Able to Maintain Weight Bearing Status Yes During Gait Assistive Devices Assistive Device Gait Belt,Front Wheeled Walker Orthotic/Prosthetic Devices or Brace: No Gait Deviations General Gait Pattern Antalgic,Decreased Stride Length,Decreased Feet Clearance,Step-to Gait Factors Limiting Gait Function Factors Limiting Gait Function Decreased Activity Tolerance, Decreased Strength,Difficulty Following Directions,Limited Range of Motion,Poor Balance, Poor Safety Awareness M5 PT-IP Objective Assessments Start: 10/02/22 11:12 Freq: NEEDED Status: Active Protocol: Document 10/02/22 10:38 DCW (Rec: 10/02/22 11:31 DCW [id number]) Orientation Orientation/Cognition Level of Alertness Alert Orientation Name,Birthday,Place,Situation Language Function Ability No Deficits Noted Safety Awareness Decreased Safety Awareness Comments Pt presents A&O x3, able to describe living situation and PLOF, however was fairly impulsive and unsafe when up getting to [facility], required repeated instructions, demonstrated some decreased safety awareness. M6 PT-IP Treatment Start: 10/02/22 11:12 Freq: NEEDED Status: Active Protocol: Document 10/04/22 11:00 AB (Rec: 10/04/22 13:33 AB [id number]) Physical Therapy Treatment Education Education Provided Safety M7 PT-IP Assessment and Plan Start: 10/02/22 11:12 Freq: NEEDED Status: Active Protocol: Document 10/04/22 11:00 AB (Rec: 10/04/22 13:33 AB [id number]) PT Summary Assessment and Plan Potential Rehabilitation Potential Fair Summary Impairments Pain,ROM,Strength,Balance, Coordination,Sensation,Tone, Cognition,Bed Mobility, Transfers,Gait,Activity Tolerance Progress Towards Goals Slow Progress due to Medical Issues,Slow Progress due to Activity Tolerance Assessment Summary pt requiring CGA with mobility but presents with decrease activity tolerance affecting mobility assistance. pt will benefit from SNF rehab to improve overall strength and functional independence. Goals Bed Mobility Goal Independent Transfer Goal Independent,Front Wheeled Walker Gait Goal Independent,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 Gait Distance 50 Days to Meet Goals 5 Frequency of Treatment Frequency Of Treatment Once a Day Treatment Plan Physical Therapy Treatment Plan Bed Mobility Training,Transfer Training,Gait Training, Therapeutic Exercise,Discharge Planning,Neuromuscular Re-ed Precautions Other Precautions Covid Recommendations To Nursing Amount of Assist Needed 1 Person Assist Discharge Recommendations PT Discharge Recommendations SNF Rehab Transportation Needs at Discharge Private Vehicle,Wheelchair/ Cabulance
[2022-10-04 11:15] VITALS: BP 139/74; PULSE 60; RESP 18; TEMP 35.7; O2SAT 98
--- NOTE | 2022-10-04 11:35 | P.DS_ITS ---
History of Present Illness History of Present Illness Date Patient Seen: 10/01/22 Time Patient Seen: 03:35 Chief complaint: Found to have a UTI and w/COVID-19 Narrative: Per admitting provider: Shannon Feliz is 82-year-old female with a history of atrial fibrillation anticoagulated on dabigatran, pacemaker status, congestive heart failure, hypertension, hyperlipidemia, hx of right nephrectomy for renal cell carcinoma and associated chronic kidney disease, hypothyroidism was previously admitted to the hospital? for a pubic rami fracture on July 27 and was sent to [facility] rehab.? At end of August was again admitted to the hospital for fever and confusion found to have ESBL bacteremia and a urinary tract infection discharged back to nursing facility on ertapenem 1 g daily for an additional 12 days.? She was discharged home 12 days ago and returned today after falling/sliding out of bed x2, significantly increased weakness to the point that she is having difficulty even sitting up by herself, significant tremor that was worse this morning.?Denies fevers but does endorse a cough, shortness of breath and rib pain.?? Chest x-ray indicated suspicion of pulmonary edema versus atypical infection, C- spine x-ray was negative, head CT indicated age-related volume loss with severe small-vessel ischemic changes but no acute abnormalities, shoulder and foot x- ray reported negative findings. She is afebrile, blood pressure 124/65, heart rate 73 respiratory rate 16 oxygen saturation 97% on 2 L she weighs 61.6 kg with a BMI of 21.7. She is mildly anemic with a hemoglobin of 10.6 and hematocrit of 32.5 which is close to her baseline, platelet count is 223, she is mildly lymphopenic, creatinine is 1.92, elevated from her baseline with an EGFR of 25 and a BUN of 29, urine has presence of leukocyte esterase nits, urine WBC, and urine bacteria meeting criteria for culture, flu viral panel are negative but COVID-19 PCR is positive. Discharge Providers Provider Date of admission: 09/30/22 19:56 Discharge Date: 10/04/22 Primary care physician: Lesli Lomeli PA-C Consults: 10/02/22 10:29 Consult to Physical Therapy Evaluate & Treat Comment: Physician Instructions: Evaluate and Treat Discharge provider: Jono Ornelas MD Summary Hospital Course Discharge Diagnosis: 1. Weakness 2. Acute encephalopathy 3. COVID positive 4. UTI 5. Afib, chronic 6. Pacemaker 7. Anemia 8. LIBBY on CKD stage 2-3 Hospital Course: Ms. Feliz was admitted with weakness and confusion. She had a UTI that showed Enterococcus that was sensitive to vancomycin. She should have this antibiotic through 10/07. She will be discharge on vancomycin 1gm q24 hours, and she should have levels followed and adjust as needed. Exam Vital Signs (past 8 hours): - 10/04/22 05:39 10/04/22 08:19 10/04/22 08:20 Temperature 97.2 F L Pulse Rate 82 72 72 Respiratory Rate 18 Blood Pressure 134/78 134/78 134/78 Pulse Oximetry 94 Oxygen Flow Rate 0 10/04/22 11:15 Temperature 96.3 F L Pulse Rate 60 Respiratory Rate 18 Blood Pressure 139/74 Pulse Oximetry 98 Oxygen Flow Rate 0 Fraction of Inspired Oxygen 96 Oxygen Delivery Method Room Air Oxygen Flow Rate 0 Narrative Exam Narrative: GEN: no acute distress CV: regular rate and rhythm PULM: clear bilaterally ABD: soft, nontender, nondistended, no organomegaly Objective Labs Result Diagrams: 10/03/22 05:24 10/04/22 05:49 Labs: Laboratory Results - last 24 hr 10/04/22 10/04/22 05:49 05:49 Sodium 133 L Potassium 4.2 Chloride 98 Carbon Dioxide 26 BUN 44 H Creatinine 1.28 H Estimated GFR 41 L BUN/Creatinine Ratio 34.4 H Glucose 111 H Calcium 9.7 Magnesium 2.3 PFSH Medical History Anticoagulated CKD stage G3a/A1, GFR 45-59 and albumin creatinine ratio <30 mg/g Control of atrial fibrillation with pacemaker ESBL (extended spectrum beta-lactamase) producing bacteria infection Essential hypertension Fracture of left carpal bone Fracture of superior pubic ramus GERD (gastroesophageal reflux disease) History of cervical cancer History of renal carcinoma Hyperlipidemia Hypothyroidism associated with surgical procedure Inferior pubic ramus fracture Irritable bowel syndrome Neuropathy Overactive bladder Restless leg syndrome Surgical History History of kidney removal History of thyroid surgery Family History Mother Cancer Sister Cancer Social History household members: children Smoking Status: Never smoker Discharge Plan Discharge Plan Patient Disposition: SNF Transfer to: [facility] Provider Discharge Comment: Ms. Feliz came in to the hospital weak and confused. She had COVID but only mild cough. She had a UTI and will need vancomycin IV through 10/07/22 Discharge orders & Medications Prescriptions: New vancomycin-water inject (PEG) 1 gram/200 mL Piggyback 1,000 mg IV Q24H Qty: 600 0RF Continued pantoprazole 20 mg tablet,delayed release (DR/EC) 40 mg PO BID amiodarone 200 mg tablet 200 mg PO DAILY bethanechol chloride 25 mg tablet 25 mg PO TID carvedilol 25 mg tablet 25 mg PO BID Rx Instructions: must administer with a meal/food furosemide 40 mg tablet 40 mg PO BID gabapentin 600 mg tablet 600 mg PO TID levothyroxine 112 mcg capsule 112 mcg PO DAILY dicyclomine 20 mg tablet 20 mg PO BID dabigatran etexilate [Pradaxa] 75 mg capsule 75 mg PO BID atorvastatin 20 mg tablet 20 mg PO QPM ropinirole 0.5 mg tablet 0.5 mg PO BEDTIME Rx Instructions: administer 1-3 hours before bedtime losartan 25 mg tablet 12.5 mg PO DAILY Rx Instructions: take half a tablet daily potassium chloride 10 mEq capsule, extended release 10 meq PO 3XD Label Comments: take 1 capsule by mouth once daily in the morning Follow up/Referrals: Lesli Lomeli PA-C [Primary Care Provider] - Diet/Activity/Treatments Diet: Regular Discharge Data Primary Care Provider: Lesli Lomeli
[2022-10-04 12:00] VITALS: O2SAT 98
[2022-10-04] MEDS: VANCOMYCIN 1,000 MG/200 ML PIGGYBACK 200 MG IV (12:46)
--- NOTE | 2022-10-04 15:28 | PC.NURSE ---
Pt is A&OX3, VSS, afebrile on RA. She has a mild cough, but denies SOB. Her lung sounds are clear and diminished bilaterally. She is up with assistance min-mod x1 using FWW. She has a good appetite today.She has urgency with urination and is currently using a purewick with good urine output. She is medically cleared for discharge to [facility] this a.m. She acknowledges understanding and agreement with plan of care for discharge to the facility. She is requiring x3 more days of IV vanco and a midline is ordered to be placed for her to discharge with. She tolerates the procedure well and then IV vanco administered. Report called to [facility] and patient is escorted via w/ch by facility designee with all of her belongings at 1445.
== END 2022-10-04 14:45 | DRG 177 ==
LOC: ED 18:28 → AC 19:56
PROVIDERS: Emergency Medicine; Internal Medicine; Admitting Provider Nurse Practitioner Family; Emergency Provider Emergency Medicine; PCP Physician Assistant Medical; Referring Provider Emergency Medicine; Visit Provider Nurse Practitioner Family
DX: U07.1 COVID-19 (principal); J96.01 Acute respiratory failure with hypoxia; N39.0 Urinary tract infection, site not specified; G93.40 Encephalopathy, unspecified; I48.20 Chronic atrial fibrillation, unspecified; N17.9 Acute kidney failure, unspecified; N32.81 Overactive bladder; E89.0 Postprocedural hypothyroidism; K58.9 Irritable bowel syndrome, unspecified; G62.9 Polyneuropathy, unspecified; E78.5 Hyperlipidemia, unspecified; G25.81 Restless legs syndrome; K21.9 Gastro-esophageal reflux disease without esophagitis; N18.30 Chronic kidney disease, stage 3 unspecified; B95.2 Enterococcus as the cause of diseases classified elsewhere; I12.9 Hypertensive chronic kidney disease with stage 1 through stage 4 chronic kidney disease, or unspecified chronic kidney disease; Z66 Do not resuscitate; Z95.0 Presence of cardiac pacemaker; Z51.5 Encounter for palliative care; Z79.01 Long term (current) use of anticoagulants
CPT/HCPCS: 0241U; 36415; 70450; 71045; 72125; 73030; 73630; 80048; 80053; 81001; 81003; 82550; 83605; 83690; 83735; 84484; 85025; 85610; 85730; 87040; 87077; 87086; 87186; 93005; 94760; 96365; 97110; 97162; 97530; 99285; J1100; J1335

== ENCOUNTER 2022-11-05 15:35 | Inpatient (IN) | payer MEDICARE, OTHER, SELFPAY ==
[2022-10-01 03:52] VITALS: BMI 20.7
[2022-11-05 15:39] VITALS: PULSE 93; RESP 24; TEMP 36.5; O2SAT 92; BMI 21.4
--- NOTE | 2022-11-05 16:00 | DI.RAD.S_ITS ---
PROCEDURE: XR CHEST 1V INDICATIONS: suspected sepsis TECHNIQUE: One view of the chest was acquired. COMPARISON: Located Within [facility], CR, XR CHEST 1V, 09/17/2022, 13:05. Located Within [facility], CR, XR CHEST 1V, 09/30/2022, 15:52. FINDINGS: Surgical changes and devices: An AICD is seen. The leads are seen in stable positions. Lungs and pleura: On this semiupright portable chest examination, no large pneumothorax or large pleural effusions are seen. No focal infiltrates are seen. Low lung volumes are noted. This causes a crowded appearance to the lung markings and limits evaluation. Mediastinum: Mediastinal contours appear normal. Heart size is moderately enlarged. Bones and chest wall: No suspicious bony lesions. Remote right posterior rib fractures are seen. Age-appropriate bony degenerative changes are seen. Overlying soft tissues appear unremarkable. IMPRESSION: Low lung volumes, without focal infiltrates. Moderate cardiomegaly. Additional findings: Remote right posterior rib fractures AICD Dictated by: Stewart Ledezma M.D. on 11/05/2022 at 15:48 Approved by: Stewart Ledezma M.D. on 11/05/2022 at 15:49
--- NOTE | 2022-11-05 16:05 | ED_ITS ---
HPI - SOB/Dyspnea General Chief Complaint: Shortness of Breath/Dyspnea Stated Complaint: COVID, Oxy @80 Time Seen by Provider: 11/05/22 16:04 Source: patient Mode of arrival: Ambulatory Limitations: no limitations History of Present Illness HPI Narrative: Patient is a 82-year-old female history of atrial fibrillation anticoagulated, congestive heart failure, pacemaker hypertension hyperlipidemia chronic kidney disease hypothyroidism presenting today with increasing shortness of breath. She was admitted to the hospital September 30 with generalized weakness COVID positive and UTI she was discharged home to rehab facility she has been now for 1 2 weeks. Family and daughter at bedside report that she has had a chronic cough since the COVID. However over the last 24 hours she is had increasing shortness of breath. They do way her daily for her congestive heart failure they noticed that she gained 2 lb overnight. She also is experiencing some more swelling and bloating in her abdomen but not necessarily her legs. She is chronic ongoing orthopnea she does have significant increasing shortness of br eath with exertion as well. She really denies any chest pain or palpitations. She has had this cough for which she is tried Mucinex and albuterol for seems to help. She is adamant that she denies any fevers. She has no weakness. Related Data Home Medications Medication Instructions Recorded Confirmed amiodarone 200 mg tablet 200 mg PO DAILY 09/13/21 10/01/22 atorvastatin 20 mg tablet 20 mg PO QPM 09/13/21 10/01/22 bethanechol chloride 25 mg tablet 25 mg PO TID 09/13/21 10/01/22 carvedilol 25 mg tablet 25 mg PO BID 09/13/21 10/01/22 dabigatran etexilate 75 mg capsule 75 mg PO BID 09/13/21 10/01/22 (Pradaxa) dicyclomine 20 mg tablet 20 mg PO BID 09/13/21 10/01/22 furosemide 40 mg tablet 40 mg PO BID 09/13/21 10/01/22 gabapentin 600 mg tablet 600 mg PO TID 09/13/21 10/01/22 levothyroxine 112 mcg capsule 112 mcg PO DAILY 09/13/21 10/01/22 pantoprazole 20 mg tablet,delayed 40 mg PO BID 09/13/21 10/01/22 release ropinirole 0.5 mg tablet 0.5 mg PO BEDTIME 09/13/21 10/01/22 losartan 25 mg tablet 12.5 mg PO DAILY 07/28/22 10/01/22 potassium chloride 10 mEq 10 meq PO 3XD 07/28/22 10/01/22 capsule,extended release Previous Rx's Medication Instructions Recorded vancomycin 1 gram/200 mL in water 1,000 mg (200 mL) IV Q24H #600 mL 10/04/22 for injection(PEG,[place]) IV piggyback Allergies Allergy/AdvReac Type Severity Reaction Status Date / Time No Known Drug Allergies Allergy Verified 11/05/22 15:39 Review of Systems Review of Systems ROS Unobtainable: All systems reviewed & are unremarkable except as noted in HPI and below Patient History Medical History Anticoagulated CKD stage G3a/A1, GFR 45-59 and albumin creatinine ratio <30 mg/g Control of atrial fibrillation with pacemaker ESBL (extended spectrum beta-lactamase) producing bacteria infection Essential hypertension Fracture of left carpal bone Fracture of superior pubic ramus GERD (gastroesophageal reflux disease) History of cervical cancer History of renal carcinoma Hyperlipidemia Hypothyroidism associated with surgical procedure Inferior pubic ramus fracture Irritable bowel syndrome Neuropathy Overactive bladder Restless leg syndrome Surgical History History of kidney removal History of thyroid surgery Family History Mother Cancer Sister Cancer Social History household members: children Smoking Status: Never smoker alcohol intake: current Smoking Status: Never smoker alcohol intake frequency: 0-2 drinks per day Substance Use Type: does not use Exam Initial Vital Signs Initial Vital Signs: Vital Signs Temperature 97.7 F 11/05/22 15:39 Pulse Rate 93 H 11/05/22 15:39 Respiratory Rate 24 11/05/22 15:39 Pulse Oximetry 92 11/05/22 15:39 Oxygen Delivery Method 11/05/22 15:39 GENERAL: Alert pleasant 82-year-old female and in no acute distress. HEENT: Head atraumatic,EOMI, pupils reactive, face symmetric, moist mucous membranes CARDIOVASCULAR: Regular rate and rhythm without murmurs, rubs or gallops. RESPIRATORY: Coarse breath sounds bilateral ABDOMEN: Soft, nontender. Normoactive bowel sounds all 4 quadrants. No guarding or rebound. : No CVA tenderness EXTREMITIES: Normal range of motion, no clubbing or edema. Neurovascularly intact NEUROLOGICAL: Alert and oriented x4.Normal gait and speech. SKIN: Warm, dry, no laceration, no petechiae, no rashes or lesions. Course Orders Ordered: ED Orders 11/05/22 16:00 XR chest 1V Stat BNP [NT-proBNP (BNP-Adult 18+)] Stat Complete Blood Count AUTO DIFF Stat Comprehensive Metabolic Panel Stat Lactate (Lactic Acid) Stat Lipase Stat Partial Thromboplastin Time Stat Procalcitonin Stat Prothrombin Time INR Stat Troponin & CK Cardiac Panel Stat EKG-12 Lead Stat 11/05/22 16:15 Respiratory Panel (Film Array) Stat 11/05/22 16:45 Blood Culture Stat 11/05/22 19:00 EC echo doppler complete Routine Education, smoking cessation ONGOING Education, smoking cessation ONGOING 11/06/22 05:00 Basic Metabolic Panel Routine Complete Blood Count AUTO DIFF Routine Magnesium Routine Acetaminophen (Acetaminophen 325 Mg Tablet) 650 mg PO Q6H PRN PRN Reason: Fever/Mild Pain (1-3) Furosemide (Furosemide 20 Mg/2 Ml Vial) 40 mg IV BID MATEUS Naloxone HCl (Naloxone 0.4 Mg/Ml Vial) 0.2 mg IV Q2MIN PRN PRN Reason: Opiate Reversal Discontinued Medications Sodium Chloride (Normal Saline 0.9%) 1,000 mls @ 1,000 mls/hr IV BOLUS ONE Stop: 11/05/22 16:59 Last Admin: 11/05/22 16:35 Dose: Not Given Documented By: JOHN Furosemide 60 mg/ Sodium (Chloride) 56 mls @ 112 mls/hr IV NOW ONE Stop: 11/05/22 16:27 Last Infusion: 11/05/22 17:59 Dose: 0 mls/hr Documented By: Admin: 11/05/22 16:48 Dose: 112 mls/hr Documented By: NR Ondansetron HCl (Ondansetron 4 Mg/2 Ml Inj) 4 mg IV NOW PRN PRN Reason: Nausea And Vomiting Vital Signs Vital signs: Vital Signs - 8 hr 11/05/22 15:39 Temperature 97.7 F Pulse Rate 93 H Respiratory Rate 24 Pulse Oximetry 92 Oxygen Delivery Method Room Air [facility] - SOB/Dyspnea Lab Data 11/05/22 16:00 11/05/22 16:00 Labs: Lab Results 11/05/22 11/05/22 11/05/22 Range/Units 16:00 16:00 16:00 WBC 12.3 H (4.5-11.0) X10^3/uL RBC 3.27 L (4.0-5.2) X10^6/uL Hgb 10.0 L (12.0-16.0) g/dL Hct 31.0 L (36-46) % MCV 94.7 (80-100) fL MCH 30.6 (26-34) PG MCHC 32.3 (30-36) % RDW 15.1 H (11.6-14.8) % Plt Count 344 (150-400) X10^3/uL Neut % (Auto) 89.4 H (50-75) % Lymph % (Auto) 5.7 L (25-40) % [place] % (Auto) 4.4 (3-14) % Eos % (Auto) 0.0 L (2-4) % Baso % (Auto) 0.5 (0-2) % Neut # (Auto) 96157 H (4595-0336) /uL Lymph # (Auto) 700 L (9064-4559) /uL [place] # (Auto) 500 (0-900) /uL Eos # (Auto) 0 (0-450) /uL Baso # (Auto) 100 (0-100) /uL PT 16.6 H (10.1-12.7) SECONDS INR 1.4 H (0.9-1.3) APTT 33 (26-36) SECONDS Sodium 135 L (137-145) mmol/L Potassium 5.3 H (3.4-5.1) mmol/L Chloride 98 (98-107) mmol/L Carbon Dioxide 24 (22-32) mmol/L BUN 38 H (7-17) mg/dL Creatinine 1.40 H (0.52-1.04) mg/dL Estimated GFR 37 L (>60) mL/min BUN/Creatinine Ratio 27.1 H (6-22) Glucose 168 H (80-110) mg/dL Lactate (0.7-2.1) mmol/L Calcium 10.2 (8.4-10.2) mg/dL Total Bilirubin 0.5 (0.2-1.3) mg/dL AST 38 H (14-36) IU/L ALT 27 (<35) IU/L Alkaline Phosphatase 106 (38-126) U/L Total Creatine Kinase (30-135) U/L CK-MB (CK-2) CK-MB (CK-2) Rel Index Troponin I (0.01-0.034) ng/mL NT-Pro-B Natriuret Pep (<450) pg/mL Total Protein 7.4 (6.3-8.2) g/dL Albumin 4.0 (3.5-5.0) g/dL Globulin 3.4 (1.7-4.1) g/dL Albumin/Globulin Ratio 1.2 (1.0-2.8) Lipase 104 (23-300) U/L Procalcitonin 0.08 (<0.5) ng/mL Chlamy pneumoniae PCR (Not Detect) Adenovirus (PCR) (Not Detect) B. pertussis DNA (PCR) (Not Detecte) B.parapertussis DNA PCR (Not Detecte) Coronavirus OC43 (PCR) (Not Detect) Coronavirus HKU1 (PCR) (Not Detect) Coronavirus 229E (PCR) (Not Detect) SARS-CoV-2 (PCR) (Not Detecte) Coronavirus NL63 (PCR) (Not Detect) Human Metapneumovir PCR (Not Detect) Influenza Type A (PCR) (Not Detect) Influenza Type B (PCR) (Not Detect) M. pneumoniae (PCR) (Not Detect) Parainfluenza 1 (PCR) (Not Detect) Parainfluenza 2 (PCR) (Not Detect) Parainfluenza 3 (PCR) (Not Detect) Parainfluenza 4 (PCR) (Not Detect) RSV (PCR) (Not Detect) Entero/Rhino (PCR) (Not Detect) 11/05/22 11/05/22 11/05/22 Range/Units 16:00 16:00 16:00 WBC (4.5-11.0) X10^3/uL RBC (4.0-5.2) X10^6/uL Hgb (12.0-16.0) g/dL Hct (36-46) % MCV (80-100) fL MCH (26-34) PG MCHC (30-36) % RDW (11.6-14.8) % Plt Count (150-400) X10^3/uL Neut % (Auto) (50-75) % Lymph % (Auto) (25-40) % [place] % (Auto) (3-14) % Eos % (Auto) (2-4) % Baso % (Auto) (0-2) % Neut # (Auto) (4355-1068) /uL Lymph # (Auto) (2284-4330) /uL [place] # (Auto) (0-900) /uL Eos # (Auto) (0-450) /uL Baso # (Auto) (0-100) /uL PT (10.1-12.7) SECONDS INR (0.9-1.3) APTT (26-36) SECONDS Sodium (137-145) mmol/L Potassium (3.4-5.1) mmol/L Chloride (98-107) mmol/L Carbon Dioxide (22-32) mmol/L BUN (7-17) mg/dL Creatinine (0.52-1.04) mg/dL Estimated GFR (>60) mL/min BUN/Creatinine Ratio (6-22) Glucose (80-110) mg/dL Lactate 2.2 H (0.7-2.1) mmol/L Calcium (8.4-10.2) mg/dL Total Bilirubin (0.2-1.3) mg/dL AST (14-36) IU/L ALT (<35) IU/L Alkaline Phosphatase (38-126) U/L Total Creatine Kinase 48 (30-135) U/L CK-MB (CK-2) TNP CK-MB (CK-2) Rel Index TNP Troponin I 0.014 (0.01-0.034) ng/mL NT-Pro-B Natriuret Pep 19082 H (<450) pg/mL Total Protein (6.3-8.2) g/dL Albumin (3.5-5.0) g/dL Globulin (1.7-4.1) g/dL Albumin/Globulin Ratio (1.0-2.8) Lipase (23-300) U/L Procalcitonin (<0.5) ng/mL Chlamy pneumoniae PCR (Not Detect) Adenovirus (PCR) (Not Detect) B. pertussis DNA (PCR) (Not Detecte) B.parapertussis DNA PCR (Not Detecte) Coronavirus OC43 (PCR) (Not Detect) Coronavirus HKU1 (PCR) (Not Detect) Coronavirus 229E (PCR) (Not Detect) SARS-CoV-2 (PCR) (Not Detecte) Coronavirus NL63 (PCR) (Not Detect) Human Metapneumovir PCR (Not Detect) Influenza Type A (PCR) (Not Detect) Influenza Type B (PCR) (Not Detect) M. pneumoniae (PCR) (Not Detect) Parainfluenza 1 (PCR) (Not Detect) Parainfluenza 2 (PCR) (Not Detect) Parainfluenza 3 (PCR) (Not Detect) Parainfluenza 4 (PCR) (Not Detect) RSV (PCR) (Not Detect) Entero/Rhino (PCR) (Not Detect) 11/05/22 Range/Units 16:15 WBC (4.5-11.0) X10^3/uL RBC (4.0-5.2) X10^6/uL Hgb (12.0-16.0) g/dL Hct (36-46) % MCV (80-100) fL MCH (26-34) PG MCHC (30-36) % RDW (11.6-14.8) % Plt Count (150-400) X10^3/uL Neut % (Auto) (50-75) % Lymph % (Auto) (25-40) % [place] % (Auto) (3-14) % Eos % (Auto) (2-4) % Baso % (Auto) (0-2) % Neut # (Auto) (0603-4150) /uL Lymph # (Auto) (3635-8683) /uL [place] # (Auto) (0-900) /uL Eos # (Auto) (0-450) /uL Baso # (Auto) (0-100) /uL PT (10.1-12.7) SECONDS INR (0.9-1.3) APTT (26-36) SECONDS Sodium (137-145) mmol/L Potassium (3.4-5.1) mmol/L Chloride (98-107) mmol/L Carbon Dioxide (22-32) mmol/L BUN (7-17) mg/dL Creatinine (0.52-1.04) mg/dL Estimated GFR (>60) mL/min BUN/Creatinine Ratio (6-22) Glucose (80-110) mg/dL Lactate (0.7-2.1) mmol/L Calcium (8.4-10.2) mg/dL Total Bilirubin (0.2-1.3) mg/dL AST (14-36) IU/L ALT (<35) IU/L Alkaline Phosphatase (38-126) U/L Total Creatine Kinase (30-135) U/L CK-MB (CK-2) CK-MB (CK-2) Rel Index Troponin I (0.01-0.034) ng/mL NT-Pro-B Natriuret Pep (<450) pg/mL Total Protein (6.3-8.2) g/dL Albumin (3.5-5.0) g/dL Globulin (1.7-4.1) g/dL Albumin/Globulin Ratio (1.0-2.8) Lipase (23-300) U/L Procalcitonin (<0.5) ng/mL Chlamy pneumoniae PCR Not detected (Not Detect) Adenovirus (PCR) Not detected (Not Detect) B. pertussis DNA (PCR) Not detected (Not Detecte) B.parapertussis DNA PCR Not detected (Not Detecte) Coronavirus OC43 (PCR) Not detected (Not Detect) Coronavirus HKU1 (PCR) Not detected (Not Detect) Coronavirus 229E (PCR) Not detected (Not Detect) SARS-CoV-2 (PCR) Not detected (Not Detecte) Coronavirus NL63 (PCR) Not detected (Not Detect) Human Metapneumovir PCR Not detected (Not Detect) Influenza Type A (PCR) Not detected (Not Detect) Influenza Type B (PCR) Not detected (Not Detect) M. pneumoniae (PCR) Not detected (Not Detect) Parainfluenza 1 (PCR) Not detected (Not Detect) Parainfluenza 2 (PCR) Not detected (Not Detect) Parainfluenza 3 (PCR) Not detected (Not Detect) Parainfluenza 4 (PCR) Not detected (Not Detect) RSV (PCR) Not detected (Not Detect) Entero/Rhino (PCR) Detected H (Not Detect) Imaging Data Chest x-ray: Radiologist's Impression: Signed Patient: Shannon Feliz MR#: [id number] : 1940 Acct:[id number] Age/Sex: 82 / F Date of Service: 11/05/22 Loc: ED Accession Number: [id number] ?? Procedure: XR chest 1V Ordering Provider: Judy Elena D.O. PROCEDURE:? XR CHEST 1V ? INDICATIONS:? suspected sepsis ? TECHNIQUE:? One view of the chest was acquired.? ? COMPARISON:? [facility], CR, XR CHEST 1V, 09/17/2022, 13:05.? [facility], CR, XR CHEST 1V, 09/30/2022, 15:52. ? FINDINGS:? ? Surgical changes and devices:? An AICD is seen.? The leads are seen in stable positions.? ? ? Lungs and pleura:? On this semiupright portable chest examination, no large pneumothorax or large pleural effusions are seen.? No focal infiltrates are seen.? Low lung volumes are noted. This causes a crowded appearance to the lung markings and limits evaluation.? ? Mediastinum:? Mediastinal contours appear normal.? Heart size is moderately enlarged.? ? Bones and chest wall:? No suspicious bony lesions.? Remote right posterior rib fractures are seen.? Age-appropriate bony degenerative changes are seen.? Overlying soft tissues appear unremarkable.? IMPRESSION:? Low lung volumes, without focal infiltrates. ? Moderate cardiomegaly. ? ? Additional findings:? Remote right posterior rib fractures AICD ? ? Dictated by: Stewart Ledezma M.D. on 11/05/2022 at 15:48 ? ? Approved by: Stewart Ledezma M.D. on 11/05/2022 at 15:49 ? ECG Data Interpretation: Paced rhythm rate [address] changes similar to previous EKGs MDM Narrative Medical decision making narrative: Patient 82-year-old female multiple comorbidities including congestive heart failure pacemaker atrial fibrillation presenting today with worsening shortness of breath. She is already on 40 mg of Lasix twice daily she is obviously dyspneic but [place] [address] with a normal troponin. No EKG changes. She is given 60 mg of Lasix. Chest x-ray does confirm cardiomegaly. Her respiratory panel is also positive for entero/rhinovirus. She does not septic no leukocytosis but probably explains her chronic cough since her COVID infection. To patient's exacerbation of congestive heart failure current respiratory infection already taking 40 mg of Lasix twice a day with a rapid weight gain likely benefit from inpatient diuresis MDM CC: Shortness of breath Complicating co-morbidities: As above Corroborating data: From family Data collected from: [ ] Medical records reviewed: Multiple admissions Differential considered: Congestive heart failure acute coronary syndrome, pulmonary embolism less likely secondary to anticoagulation, pneumonia, respiratory virus Exam documented above, pertinent findings include: Tachypnea, coarse breath sounds bilaterally Lab Test results independently reviewed as above. Pertinent findings: As above Independently reviewed EKG as above Imaging studies independently reviewed: Consultations: Hospitalist admit Treatments: 60 mg of Lasix Re-evaluations: Discussion: As above Diagnosis: Congestive heart failure exacerbation Disposition: see below, along with detailed discharge instructions that have been reviewed with patient as well as indications for ED re-evaluation and additional outpatient follow up Discharge Plan Departure Patient Disposition: Admitted As Inpatient Clinical Impression: Congestive heart failure Admit Date/Time: 11/05/22 18:49 Admit Provider: Veronika Wen
[2022-11-05 16:20] LABS: Add Manual Diff / Slide Review NO; Basophils Absolute Auto 100 /uL (0-100); Basophils Percent Auto 0.5 % (0-2); Eosinophils Absolute Auto 0 /uL (0-450); Lymphocytes Absolute Auto 700 /uL (1100-4500); Lymphocytes Percent Auto 5.7 % (25-40); Mean Corpuscular HGB Conc 32.3 % (30-36); Mean Corpuscular Hemoglobin 30.6 PG (26-34); Mean Corpuscular Volume 94.7 fL (80-100); Monocytes Absolute Auto 500 /uL (0-900); Monocytes Percent Auto 4.4 % (3-14); Neutrophils Absolute Auto 11000 /uL (1500-7000); Neutrophils Percent Auto 89.4 % (50-75); Platelet Count 344 X10^3/uL (150-400); Red Blood Cell Count 3.27 X10^6/uL (4.0-5.2); Red Cell Distribution Width 15.1 % (11.6-14.8); White Blood Cell Count 12.3 X10^3/uL (4.5-11.0)
[2022-11-05 16:28] LABS: INR 1.4 (0.9-1.3); Prothrombin Time 16.6 SECONDS (10.1-12.7)
[2022-11-05 16:31] LABS: PTT Partial Thromboplastin Tim 33 SECONDS (26-36)
[2022-11-05 16:45] LABS: Lactate (Lactic Acid) 2.2 mmol/L (0.7-2.1)
[2022-11-05 16:46] LABS: Alanine Aminotransferase 27 IU/L (<35); Albumin Globulin Ratio 1.2 (1.0-2.8); Alkaline Phosphatase 106 U/L (38-126); Aspartate Aminotransferase 38 IU/L (14-36); BUN Creatinine Ratio 27.1 (6-22); Bilirubin Total 0.5 mg/dL (0.2-1.3); Blood Urea Nitrogen 38 mg/dL (7-17); Calcium 10.2 mg/dL (8.4-10.2); Carbon Dioxide 24 mmol/L (22-32); Chloride 98 mmol/L (98-107); Creatine Kinase 48 U/L (30-135); Estimated Glomerular Filt Rate 37 mL/min (>60); Globulin 3.4 g/dL (1.7-4.1); Glucose 168 mg/dL (80-110); HEMOLYSIS < 15 (0-50); Lipase 104 U/L (23-300); Potassium 5.3 mmol/L (3.4-5.1); Sodium 135 mmol/L (137-145); Total Protein 7.4 g/dL (6.3-8.2)
[2022-11-05] MEDS: FUROSEMIDE 60 MG in SODIUM CHLORIDE 0.9% 50 ML 112 MG IV (16:48)
--- NOTE | 2022-11-05 16:49 | PC.NURSE ---
pt in room. place pure wick on at patient request. pt verbalized understanding of need for urine sample at later point, but currently she is feeling very weak and unable to get up
[2022-11-05 16:56] LABS: NT-proBNP (BNP-Adult 18+) 27700 pg/mL (<450)
[2022-11-05 16:58] LABS: Troponin I 0.014 ng/mL (0.01-0.034)
[2022-11-05 17:03] LABS: Procalcitonin 0.08 ng/mL (<0.5)
[2022-11-05 17:26] LABS: Adenovirus Not Detected (Not Detect); Coronavirus 229E Not Detected (Not Detect); Coronavirus HKU1 Not Detected (Not Detect); Coronavirus NL 63 Not Detected (Not Detect); Coronavirus OC43 Not Detected (Not Detect); Human Metapneumovirus Not Detected (Not Detect); Human Rhinovirus/Enterovirus Detected (Not Detect); Influenza A Not Detected (Not Detect); Influenza B Not Detected (Not Detect); Parainfluenza Virus 1 Not Detected (Not Detect); Parainfluenza Virus 2 Not Detected (Not Detect); Parainfluenza Virus 3 Not Detected (Not Detect); Parainfluenza Virus 4 Not Detected (Not Detect); Respiratory Syncytial Virus Not Detected (Not Detect); SARS- CoV-2 Not Detected (Not Detecte)
[2022-11-05 17:27] LABS: B. parapertussis Not Detected (Not Detecte); Bordetella pertussis Not Detected (Not Detecte); Chlamydophila pneumoniae Not Detected (Not Detect); Mycoplasma pneumoniae Not Detected (Not Detect)
[2022-11-05 18:14] LABS: Reflexed Lactate in 2 Hours Y
[2022-11-05 18:57] VITALS: BMI 21.4
[2022-11-05 19:00] VITALS: BP 147/80; PULSE 102; RESP 18; TEMP 36.3; O2SAT 95; O2SAT 96
[2022-11-05 19:06] LABS: Lactate 2HR (Lactic Acid Rflx) 1.3 mmol/L (0.7-2.1)
--- NOTE | 2022-11-05 19:34 | P.HP_ITS ---
History of Present Illness History of Present Illness Chief complaint: COVID, Oxy @80 Narrative: 82-year-old female with fibrillation, chronically anticoagulated on Pradaxa, status post AICD/pacemaker placement, congestive heart failure, hypertension, hyperlipidemia, previous right nephrectomy for renal cell carcinoma and associated chronic kidney disease, as well as hypothyroidism who presented to the emergency department today with worsening shortness of breath. Patient was admitted to our hospital from October 01 her October 04 with acute COVID infection, acute metabolic encephalopathy, UTI, weakness. She discharged to [facility] for rehab. She returned home 2 weeks ago. Her daughter monitors her medications and weighs her daily. She notes that patient's dry weight is considered to be 137/138 lb. If she gets up to 140 or 141 lb she is supposed to give an extra dose of Lasix. She states that 2 days prior to admission they noted the patient began having ?rattly breathing?. They called acted the patient's PCP and the PCP called in a prescription for a Medrol Dosepak as well as fluticasone inhaler. She started the Medrol Dosepak yesterday morning. She would difficulty using the fluticasone as it was a powdered inhaler and she does not have much however with her effort to suck in the medication. Last night her daughter's report she developed orthopnea. They feel her breathing got much worse with the addition of the Medrol. Today, she continued to worsen. They gave her 40 mg of Lasix this morning. She weighed at 141 lb today. Ultimately, they presented to the emergency department for further evaluation. Patient did not have any significant lower extremity edema but she has had some bloating in her abdomen. She denies any chest pain, tightness, palpitations. In the emergency department, 97.7, heart rate 83, respiratory rate 24, O2 sats 92% on 2 liters/minute. Labs revealed a white blood cell count of 12.3, hemoglobin 10.0, platelets 344. Protime 16.6, INR 1.4. Chemistry revealed a sodium of 135, potassium 5.3, chloride 98, bicarb 24, BUN 38, creatinine 1.40 (it was 1.28 on October 04), glucose 168. LFTs were essentially normal with mild elevation of the AST at 38. Cardiac enzymes were negative. BNP was [address]. Respiratory viral panel was positive for rhino virus but otherwise negative. Chest x-ray revealed low lung volumes without focal infiltrates, moderate cardiomegaly, remote right posterior rib fractures and AICD/pacemaker. Patient received furosemide 60 mg IV. Pure wick was placed as well. EKG revealed a paced rhythm without acute changes. Patient History Medical History Anticoagulated CKD stage G3a/A1, GFR 45-59 and albumin creatinine ratio <30 mg/g Control of atrial fibrillation with pacemaker ESBL (extended spectrum beta-lactamase) producing bacteria infection Essential hypertension Fracture of left carpal bone Fracture of superior pubic ramus GERD (gastroesophageal reflux disease) History of cervical cancer History of renal carcinoma Hyperlipidemia Hypothyroidism associated with surgical procedure Inferior pubic ramus fracture Irritable bowel syndrome Neuropathy Overactive bladder Restless leg syndrome Surgical History History of kidney removal History of thyroid surgery Family & Social History Family History Mother Cancer Sister Cancer Social History: household members children Prior Living Arrangements House Safety & Behavioral: Feels Safe in Current Yes Environment Tobacco & Substance use: Smoking Status Never smoker alcohol intake current alcohol intake frequency 0-2 drinks per day Substance Use Type does not use Meds Home Medications and Allergies Home Medications Medication Instructions Recorded Confirmed Type amiodarone 200 mg tablet 200 mg PO DAILY 09/13/21 10/01/22 History atorvastatin 20 mg tablet 20 mg PO QPM 09/13/21 10/01/22 History bethanechol chloride 25 mg tablet 25 mg PO TID 09/13/21 10/01/22 History carvedilol 25 mg tablet 25 mg PO BID 09/13/21 10/01/22 History dicyclomine 20 mg tablet 20 mg PO BID 09/13/21 10/01/22 History furosemide 40 mg tablet 40 mg PO BID 09/13/21 10/01/22 History gabapentin 600 mg tablet 600 mg PO TID 09/13/21 10/01/22 History levothyroxine 112 mcg capsule 112 mcg PO DAILY 09/13/21 10/01/22 History pantoprazole 20 mg tablet,delayed 40 mg PO BID 09/13/21 10/01/22 History release ropinirole 0.5 mg tablet 0.5 mg PO BEDTIME 09/13/21 10/01/22 History losartan 25 mg tablet 12.5 mg PO DAILY 07/28/22 10/01/22 History potassium chloride 10 mEq 10 meq PO 3XD 07/28/22 10/01/22 History capsule,extended release apixaban 2.5 mg tablet (Eliquis) mg PO BID 11/05/22 History Allergies Allergy/AdvReac Type Severity Reaction Status Date / Time No Known Drug Allergies Allergy Verified 11/05/22 15:39 Review of Systems Review of Systems Narrative: All other systems were reviewed negative Exam Vital Signs (past 8 hours): - 11/05/22 15:39 11/05/22 19:00 Temperature 97.7 F 97.4 F L Pulse Rate 93 H 102 H Respiratory Rate 24 18 Blood Pressure 147/80 H Pulse Oximetry 92 95 Oxygen Delivery Method Room Air Oxygen Flow Rate 2 Oxygen Delivery Method Room Air Oxygen Flow Rate 2 Narrative Exam Narrative: GEN: Very pleasant elderly female, Alert and oriented x3, no acute distress HEENT: Normocephalic, face symmetric, pupils equal round reactive to light, extraocular movements intact, sclerae anicteric, conjunctiva clear, nares patent, oropharynx reveals an intact soft and hard palate with moist mucous membranes, dentition is fair, upper denture in place NECK: Supple, no lymphadenopathy, thyroid without enlargement or nodularity, carotids no bruits, significant JVD to the jawline CHEST: Respiratory excursions symmetric, coarse and rhonchorous bilaterally CV: Regular rate and rhythm, no murmurs, rubs, gallops, PMI nondisplaced ABD: Soft, nontender, mildly distended, bowel sounds present in all 4 quadrants, no organomegaly or masses appreciated EXTR: Warm, well perfused, no clubbing/cyanosis/edema SKIN: Warm and dry, without rash NEURO: Alert and oriented x3, nonfocal PSYCH: Mood and affect is within normal limits, judgment and insight are appropriate Objective Labs 11/05/22 16:00 11/05/22 16:00 Labs: Laboratory Results - last 24 hr 11/05/22 11/05/22 11/05/22 16:00 16:00 16:00 WBC 12.3 H RBC 3.27 L Hgb 10.0 L Hct 31.0 L MCV 94.7 MCH 30.6 MCHC 32.3 RDW 15.1 H Plt Count 344 Neut % (Auto) 89.4 H Lymph % (Auto) 5.7 L Turner % (Auto) 4.4 Eos % (Auto) 0.0 L Baso % (Auto) 0.5 Neut # (Auto) 15300 H Lymph # (Auto) 700 L Turner # (Auto) 500 Eos # (Auto) 0 Baso # (Auto) 100 PT 16.6 H INR 1.4 H APTT 33 Sodium 135 L Potassium 5.3 H Chloride 98 Carbon Dioxide 24 BUN 38 H Creatinine 1.40 H Estimated GFR 37 L BUN/Creatinine Ratio 27.1 H Glucose 168 H Lactate Calcium 10.2 Total Bilirubin 0.5 AST 38 H ALT 27 Alkaline Phosphatase 106 Total Creatine Kinase CK-MB (CK-2) CK-MB (CK-2) Rel Index Troponin I NT-Pro-B Natriuret Pep Total Protein 7.4 Albumin 4.0 Globulin 3.4 Albumin/Globulin Ratio 1.2 Lipase 104 Procalcitonin 0.08 Chlamy pneumoniae PCR Adenovirus (PCR) B. pertussis DNA (PCR) B.parapertussis DNA PCR Coronavirus OC43 (PCR) Coronavirus HKU1 (PCR) Coronavirus 229E (PCR) SARS-CoV-2 (PCR) Coronavirus NL63 (PCR) Human Metapneumovir PCR Influenza Type A (PCR) Influenza Type B (PCR) M. pneumoniae (PCR) Parainfluenza 1 (PCR) Parainfluenza 2 (PCR) Parainfluenza 3 (PCR) Parainfluenza 4 (PCR) RSV (PCR) Entero/Rhino (PCR) 11/05/22 11/05/22 11/05/22 16:00 16:00 16:00 WBC RBC Hgb Hct MCV MCH MCHC RDW Plt Count Neut % (Auto) Lymph % (Auto) Turner % (Auto) Eos % (Auto) Baso % (Auto) Neut # (Auto) Lymph # (Auto) Turner # (Auto) Eos # (Auto) Baso # (Auto) PT INR APTT Sodium Potassium Chloride Carbon Dioxide BUN Creatinine Estimated GFR BUN/Creatinine Ratio Glucose Lactate 2.2 H Calcium Total Bilirubin AST ALT Alkaline Phosphatase Total Creatine Kinase 48 CK-MB (CK-2) TNP CK-MB (CK-2) Rel Index TNP Troponin I 0.014 NT-Pro-B Natriuret Pep 63840 H Total Protein Albumin Globulin Albumin/Globulin Ratio Lipase Procalcitonin Chlamy pneumoniae PCR Adenovirus (PCR) B. pertussis DNA (PCR) B.parapertussis DNA PCR Coronavirus OC43 (PCR) Coronavirus HKU1 (PCR) Coronavirus 229E (PCR) SARS-CoV-2 (PCR) Coronavirus NL63 (PCR) Human Metapneumovir PCR Influenza Type A (PCR) Influenza Type B (PCR) M. pneumoniae (PCR) Parainfluenza 1 (PCR) Parainfluenza 2 (PCR) Parainfluenza 3 (PCR) Parainfluenza 4 (PCR) RSV (PCR) Entero/Rhino (PCR) 11/05/22 11/05/22 16:15 18:40 WBC RBC Hgb Hct MCV MCH MCHC RDW Plt Count Neut % (Auto) Lymph % (Auto) Turner % (Auto) Eos % (Auto) Baso % (Auto) Neut # (Auto) Lymph # (Auto) Turner # (Auto) Eos # (Auto) Baso # (Auto) PT INR APTT Sodium Potassium Chloride Carbon Dioxide BUN Creatinine Estimated GFR BUN/Creatinine Ratio Glucose Lactate 1.3 Calcium Total Bilirubin AST ALT Alkaline Phosphatase Total Creatine Kinase CK-MB (CK-2) CK-MB (CK-2) Rel Index Troponin I NT-Pro-B Natriuret Pep Total Protein Albumin Globulin Albumin/Globulin Ratio Lipase Procalcitonin Chlamy pneumoniae PCR Not detected Adenovirus (PCR) Not detected B. pertussis DNA (PCR) Not detected B.parapertussis DNA PCR Not detected Coronavirus OC43 (PCR) Not detected Coronavirus HKU1 (PCR) Not detected Coronavirus 229E (PCR) Not detected SARS-CoV-2 (PCR) Not detected Coronavirus NL63 (PCR) Not detected Human Metapneumovir PCR Not detected Influenza Type A (PCR) Not detected Influenza Type B (PCR) Not detected M. pneumoniae (PCR) Not detected Parainfluenza 1 (PCR) Not detected Parainfluenza 2 (PCR) Not detected Parainfluenza 3 (PCR) Not detected Parainfluenza 4 (PCR) Not detected RSV (PCR) Not detected Entero/Rhino (PCR) Detected H Assessment & Plan Assessment & Plan narrative: 1. CHF exacerbation, acute on chronic, unknown if systolic/diastolic Will continue IV diuresis. Suspect etiology is a combination of steroid taper prescribed yesterday, likely has a lower dry weight than previously though (goal dry weight may be around 135#). Will obtain an echo (none in system). Low sodium diet, heart healthy diet. BNP 49146. Troponin normal. Pt has an kalyn ointment w/Cardiology on 11/07 at 9:30 am. 2. Hyperkalemia Pt has been on supplemental potassium. This will be held for now. May need to add it back w/diuresis. 3. Leukocytosis Likely d/t steroid taper and rhinovirus. Will monitor. 4. Anemia Normocytic anemia. Hgb 10.0 which is fairly consistent w/baseline. 5. Coagulopathy INR 1.4. She is chronically on apixiban. 6. CKD stage 3 Creatinine is 1.4, baseline 1.28. GFR 37, consistent w/known CKD3. Will monitor w/diuresis. 7. Hyperglycemia No known hx of diabetes. 8. Rhinovirus Was placed on medrol dose pack and steroid inhaler yesterday. This will be d/c'd. Suspect most of her sxs are related to CHF at this point. Code status DNR/DNI Prophy On apixaban Dispo Admit to acute care Time Spent With Patient Critical Care time: I spent a total of [] minutes of critical care time on this patient's care today; this time is exclusive of procedural time. Quality VTE Deep Vein Thrombosis/Pulmonary Embolism Present on Admission: No
[2022-11-05 21:09] LABS: Thyroid Stimulating Hormone 2.75 uIU/mL (0.47-4.68)
--- NOTE | 2022-11-05 22:16 | DI.RAD.S_ITS ---
PROCEDURE: XR CHEST 1V INDICATIONS: SHORTNESS OF BREATH TECHNIQUE: One view of the chest was acquired. COMPARISON: [facility], CR, XR CHEST 1V, 11/05/2022, 16:01. [facility], CR, XR CHEST 1V, 09/30/2022, 15:52. FINDINGS: Surgical changes and devices: Pacemaking/defibrillation device and leads remain stable over time. Lungs and pleura: Lungs are abnormal with a chronic interstitial prominence perhaps reflecting chronic CHF or prior smoking history but no acute pneumonia is seen. No pleural effusions or pneumothorax. Mediastinum: Mediastinal contours appear normal. Heart size is mildly enlarged chronically. Bones and chest wall: No suspicious bony lesions. Overlying soft tissues appear unremarkable. IMPRESSION: Probable chronic CHF pattern without evidence of pneumonia. Possible superimposed prior smoking history. Dictated by: Mehdi Garzon M.D. on 11/05/2022 at 22:50 Approved by: Mehdi Garzon M.D. on 11/05/2022 at 22:51
[2022-11-05] MEDS: ROPINIROLE 0.25 MG TABLET 0.5 MG PO (22:17)
[2022-11-05] MEDS: PANTOPRAZOLE DR 20 MG TABLET 40 MG PO (22:17)
[2022-11-05 22:18] VITALS: BP 147/80; PULSE 112
[2022-11-05] MEDS: carvediloL 12.5 MG TABLET 25 MG PO (22:18)
[2022-11-05] MEDS: GABAPENTIN 600 MG TABLET PO (22:18)
[2022-11-05] MEDS: APIXABAN 5 MG TABLET 2.5 MG PO (22:19)
[2022-11-05] MEDS: DICYCLOMINE 10 MG CAPSULE 20 MG PO (22:19)
[2022-11-05] MEDS: FUROSEMIDE 20 MG/2 ML VIAL 40 MG IV (22:20)
[2022-11-05] MEDS: SCOPOLAMINE 1 PATCH TOP (22:23)
[2022-11-05] MEDS: ASPIRIN 81 MG CHEW TAB 162 MG PO (22:23)
[2022-11-05] MEDS: methylPREDNISolone 125 MG/2 ML VIAL IV (22:24)
[2022-11-05 22:38] VITALS: PULSE 105; RESP 24; O2SAT 98
[2022-11-05] MEDS: ALBUTEROL/IPRATROPIUM 3 ML AMPUL INH (22:38)
[2022-11-05 23:00] VITALS: O2SAT 98
[2022-11-05 23:19] LABS: Lactate (Lactic Acid) 1.1 mmol/L (0.7-2.1)
[2022-11-05 23:21] LABS: Alanine Aminotransferase 26 IU/L (<35); Albumin Globulin Ratio 1.3 (1.0-2.8); Alkaline Phosphatase 105 U/L (38-126); Aspartate Aminotransferase 32 IU/L (14-36); BUN Creatinine Ratio 26.9 (6-22); Bilirubin Total 0.5 mg/dL (0.2-1.3); Blood Urea Nitrogen 39 mg/dL (7-17); Carbon Dioxide 23 mmol/L (22-32); Chloride 100 mmol/L (98-107); Estimated Glomerular Filt Rate 36 mL/min (>60); Globulin 3.2 g/dL (1.7-4.1); Glucose 134 mg/dL (80-110); HEMOLYSIS < 15 (0-50); Magnesium 2.3 mg/dL (1.6-2.3); Sodium 135 mmol/L (137-145); Total Protein 7.2 g/dL (6.3-8.2)
[2022-11-05 23:25] LABS: Add Manual Diff / Slide Review NO; Basophils Absolute Auto 100 /uL (0-100); Basophils Percent Auto 0.5 % (0-2); Eosinophils Absolute Auto 0 /uL (0-450); Hematocrit 31.2 % (36-46); Hemoglobin 10.1 g/dL (12.0-16.0); Lymphocytes Absolute Auto 900 /uL (1100-4500); Lymphocytes Percent Auto 7.6 % (25-40); Mean Corpuscular HGB Conc 32.4 % (30-36); Mean Corpuscular Hemoglobin 30.6 PG (26-34); Mean Corpuscular Volume 94.2 fL (80-100); Monocytes Absolute Auto 800 /uL (0-900); Monocytes Percent Auto 6.3 % (3-14); Neutrophils Absolute Auto 10700 /uL (1500-7000); Neutrophils Percent Auto 85.6 % (50-75); Platelet Count 344 X10^3/uL (150-400); Red Blood Cell Count 3.31 X10^6/uL (4.0-5.2); Red Cell Distribution Width 14.9 % (11.6-14.8); White Blood Cell Count 12.5 X10^3/uL (4.5-11.0)
[2022-11-05 23:31] LABS: Troponin I 0.017 ng/mL (0.01-0.034)
[2022-11-05 23:37] LABS: Procalcitonin 0.09 ng/mL (<0.5)
[2022-11-05] MEDS: ACETAMINOPHEN 325 MG TABLET 650 MG PO (23:38)
[2022-11-06] VITALS (11 sets, daily range): BP systolic 129–147; BP diastolic 80–90; PULSE 83–94; RESP 16–22; TEMP 36.1–36.8; O2SAT 94–100
[2022-11-06 05:14] LABS: Add Manual Diff / Slide Review NO; Basophils Absolute Auto 0 /uL (0-100); Basophils Percent Auto 0.1 % (0-2); Eosinophils Absolute Auto 0 /uL (0-450); Hematocrit 30.4 % (36-46); Hemoglobin 10.1 g/dL (12.0-16.0); Lymphocytes Absolute Auto 500 /uL (1100-4500); Lymphocytes Percent Auto 5.1 % (25-40); Mean Corpuscular HGB Conc 33.1 % (30-36); Mean Corpuscular Hemoglobin 30.9 PG (26-34); Mean Corpuscular Volume 93.1 fL (80-100); Monocytes Absolute Auto 100 /uL (0-900); Monocytes Percent Auto 1.1 % (3-14); Neutrophils Absolute Auto 8200 /uL (1500-7000); Neutrophils Percent Auto 93.7 % (50-75); Platelet Count 256 X10^3/uL (150-400); Red Blood Cell Count 3.27 X10^6/uL (4.0-5.2); Red Cell Distribution Width 15.2 % (11.6-14.8); White Blood Cell Count 8.8 X10^3/uL (4.5-11.0)
[2022-11-06 05:19] LABS: BUN Creatinine Ratio 27.5 (6-22); Blood Urea Nitrogen 39 mg/dL (7-17); Calcium 9.8 mg/dL (8.4-10.2); Carbon Dioxide 27 mmol/L (22-32); Chloride 100 mmol/L (98-107); Estimated Glomerular Filt Rate 36 mL/min (>60); Glucose 158 mg/dL (80-110); HEMOLYSIS < 15 (0-50); Magnesium 2.3 mg/dL (1.6-2.3); Potassium 4.4 mmol/L (3.4-5.1); Sodium 135 mmol/L (137-145)
[2022-11-06] MEDS: LEVOTHYROXINE 112 MCG TABLET PO (06:44)
--- NOTE | 2022-11-06 09:02 | CM.DANOTE ---
DCP: Case received, EMR reviewed and met with patient. Introduced self and role. Was able to speak to patient outside of her room, since she is COVID positive. Was able to complete DCP assessment with information currently available. Patient is an 82 year old female who admitted yesterday afternoon to the care of the hospitalist team. PCP: Dr. Lesli Lomeli. Payer: confirmed: Medicare/ for Life. Patient came to the hospital via private vehicle secondary to having increase shortness of breath. Patient had been here last September with weakness secondary to being COVID positive, as well as UTI. She ended up going to [facility]. She was discharged to home recently. Confirmed with Kezia at [facility] that patient is currently under their services for RN and P.T. Patient holds current diagnosis of CHF exacerbation, acute on chronic. Patient is continuing with IV diuresis. Met with patient in her doorway. She is pleasant, alert and oriented. Confirmed that she resides with daughter, Marianna Harding in [place]. She confirmed that she is under home health services, this [employer] called and found out that it is [facility], RN and P.T, per Kezia at [facility]. She has already had some visits. At baseline, she does not drive, uses a FWW at home. P: DCP to continue to follow for needs. Patient should be able to return home with [facility] services when stable. They will just need a resumption order if she does make inpatient, and DC Summary, and phone call update. Kaity Gonzales RN/Bundle Cutter Discharge Planning/Care Management CM Discharge Assessment Start: 11/06/22 08:59 Freq: Status: Active Protocol: Document 11/06/22 08:59 (Rec: 11/06/22 09:01 [id number]) Discharge Planning Assessment Assigned Powertrain Control Systems Engineer Kaity Gonzales RN/Bundle Cutter Advance Directives? No: DNR Advance Directives on File Yes History Provided By Patient,Family Member,Medical Record Prior Living Arrangements House Household Members children Type of transporation used prior to Relies on Others admit Needs Assistance With Bathing,Meal Prep,Managing Medications,Home Chores / Shopping Caregiver for Another No DME Already Rented / Owned FWW / Walker,Cane Comment Patient uses a walker and cane at her baseline Patient/Family Preference Home with Home Health Comment Patient is currently under [facility] services. Barriers to Discharge No Discharge Plan Home with Home Health Transportation Arrangement Family Referrals Initiated Other Additional Comment Patient is currently under [facility] services. Whiteboard Updated in Patient Room with No name and ext. # of Powertrain Control Systems Engineer Comment Spoke to patient outside of her door, due to being COVID positive, did not enter room. Review Status In Process Next Review Type Continued Stay Review
--- NOTE | 2022-11-06 09:46 | DI.ECHO.S_ITS ---
Echocardiogram Report + + :Name: PAULA GUZMAN :Reason For Study: CHF exacerbation : :Ordering Physician: LORELEI, : :MARVIN Performed By: Julia Larson : :Referring: MARVIN MOSELEY : + + Interpretation Summary The LVEF is estimated to be 15 to 20%. There is a significant dyssynchronous contraction pattern due to the paced rhythm. Diastolic function could not be accurately assessed due to paced rhythm. The left atrium is severely dilated. The right ventricle is normal in size and function. The right atrium is mildly dilated. There is moderate to severe mitral regurgitation. There is mild aortic regurgitation. There is mild to moderate tricuspid regurgitation. The right ventricular systolic pressure is estimated to be at least 64 mmHg based on an estimated right atrial pressure of 15 mm Hg. There is a trivial to small pericardial effusion noted. The ascending aorta is mildly enlarged. Compared to the prior study dated 09/04/2022, the EF appears to have decreased, the valvular regurgitation and PA pressure have increased. Procedure: A two-dimensional transthoracic echocardiogram with color flow and Doppler was performed. The study quality was technically adequate. The patient was in atrial fibrillation with heart rates between 87-110 bpm during the exam. Left Ventricle: The left ventricle is normal in size and wall thickness. The ejection fraction is estimated to be 15-20%. There is a significant dyssynchronous contraction pattern due to the paced rhythm. Diastolic function could not be accurately assessed due to paced rhythm. Right Ventricle: The right ventricle is normal in size and function. There is a pacemaker lead in the right ventricle. Atria: The left atrium is severely dilated. The right atrium is mildly dilated. There is a catheter/pacemaker lead seen in the right atrium. There is no Doppler evidence for an interatrial shunt. Mitral Valve: The mitral valve is normal in structure and function. There is moderate to severe mitral regurgitation. This is Increased compared to the previous study. Aortic Valve: The aortic valve is trileaflet. The aortic valve is mildly calcified. There is no aortic valve stenosis. There is mild aortic regurgitation. Tricuspid Valve: The tricuspid valve is normal in structure and function. There is mild to moderate tricuspid regurgitation. The right ventricular systolic pressure is estimated to be at least 64 mmHg based on an estimated right atrial pressure of 15 mm Hg. Pulmonic Valve: The pulmonic valve leaflets are thin and pliable; valve motion is normal. There is a trace or physiologic amount of pulmonic regurgitation. Great Vessels: The ascending aorta is mildly enlarged. Pericardium/ Pleura There is a trivial to small pericardial effusion noted. There is no pleural effusion. MMode/2D Measurements & Calculations LVIDd: 4.8 cm LVOT diam: 2.0 cm LVIDs: 4.2 cm Ao root diam: 3.7 cm FS: 12.8 % asc Aorta Diam: 3.9 cm EPSS: 1.5 cm IVSd: 1.4 cm LVPWd: 1.2 cm LV rose. diameter/BSA (cm/m^2): 2.7 LV sys. diameter/BSA (cm/m^2): 2.4 LA dimension: 4.6 cm RA long axis: 5.9 cm LA A2 area: 26.9 cm2 IVC diam: 2.4 cm LA A4 area: 25.2 cm2 LA length (vol): 6.6 cm LA vol: 86.8 ml LA vol index: 49.3 ml/m2 RVD1 (basal): 3.7 cm LVLs ap4: 7.3 cm LVLd ap2: 8.5 cm LVLs ap2: 7.8 cm Doppler Measurements & Calculations Ao V2 max: 125.0 cm/sec LVOT Max Boni: 69.8 cm/sec Ao V2 mean: 88.7 cm/sec LV V1 max P.9 mmHg Ao max P.0 mmHg LV V1 VTI: 11.3 cm Ao mean P.0 mmHg ALISHA(I,D): 1.7 cm2 Ao V2 VTI: 20.5 cm ALISHA(V,D): 1.8 cm2 sev ratio: 0.55 ALISHA indexed to BSA (cm^2/m^2): 0.98 AI P1/2t: 254.0 msec AI dec slope: 448.0 cm/sec2 MV E max boni: 87.0 cm/sec TR max boni: 319.5 cm/sec Med Peak E' Boni: 5.9 cm/sec TR max P.2 mmHg E/E' med: 14.7 PA V2 max: 64.6 cm/sec Lat Peak E' Boni: 7.5 cm/sec PA V2 mean: 44.9 cm/sec E/E' lat: 11.7 PA mean P.0 mmHg E/e' average: 13.2 MV dec time: 0.23 sec MVA(VTI): 2.0 cm2 MV V2 mean: 61.2 cm/sec MR VTI: 161.0 cm MV mean P.0 mmHg MV V2 VTI: 17.8 cm SV(LVOT): 35.5 ml AV P1/2t-pr_phl: 284.5 msec AV VR_phl: 0.56 ALISHA(VTI)/BSA_phl: 0.98 MV P1/2t-pr_phl: 66.0 msec Reading Physician:04:01 PM
[2022-11-06] MEDS: PANTOPRAZOLE DR 20 MG TABLET 40 MG PO ×2 (09:59→21:57)
[2022-11-06] MEDS: DICYCLOMINE 10 MG CAPSULE 20 MG PO ×2 (09:59→21:59)
[2022-11-06] MEDS: APIXABAN 5 MG TABLET 2.5 MG PO ×2 (09:59→22:00)
[2022-11-06] MEDS: carvediloL 12.5 MG TABLET 25 MG PO ×2 (10:00→21:58)
[2022-11-06] MEDS: GABAPENTIN 600 MG TABLET PO ×3 (10:00→21:59)
[2022-11-06] MEDS: predniSONE 20 MG TABLET 40 MG PO (10:00)
[2022-11-06] MEDS: LOSARTAN 25 MG TABLET 12.5 MG PO (10:00)
[2022-11-06] MEDS: AMIODARONE 200 MG TABLET PO (10:00)
[2022-11-06] MEDS: FUROSEMIDE 20 MG/2 ML VIAL 40 MG IV ×2 (10:03→22:00)
[2022-11-06 11:20] LABS: Troponin I 0.016 ng/mL (0.01-0.034)
--- NOTE | 2022-11-06 12:24 | PC.NURSE ---
Assess- Patient is alert and oriented x3, she denies pain. Breath sounds are clear to auscultation. Patient does have weak cough, started on cough syrup and this seems to be helping her. 40mg of iv lasix given, and other po medications. She has tolerated these well. Using purewick and putting out good urine flow. Patient is eating her lunch now.
[2022-11-06] MEDS: FUROSEMIDE 40 MG/4 ML VIAL IV (14:09)
--- NOTE | 2022-11-06 14:22 | P.PN_ITS ---
Subjective Subjective Interval history: 82-year-old female with fibrillation, chronically anticoagulated on Pradaxa, status post AICD/pacemaker placement, congestive heart failure, hypertension, hyperlipidemia, previous right nephrectomy for renal cell carcinoma and associated chronic kidney disease, as well as hypothyroidism who was admitted yesterday w/CHF exacerbation and Rhinovirus infection. Pt reports she had a rough night w/her breathing. She is feeling better today. She would like to try some cough drops. Overnight, it appears the [employer] [facility] was contacted. Pt had labs done, was given solumedrol 125 mg IV and prednisone 40 mg po was ordered. Pt did not diurese much. She is presently on 3lpm O2. Exam Vital Signs (past 8 hours): - 11/06/22 08:00 11/06/22 12:00 11/06/22 07:00 Temperature 96.9 F L 98.2 F Pulse Rate 86 83 Respiratory Rate 16 18 Blood Pressure 133/89 147/87 H Pulse Oximetry 96 98 Oxygen Delivery Method Room Air Oxygen Flow Rate 3 3 11/06/22 11:00 Temperature Pulse Rate Respiratory Rate Blood Pressure Pulse Oximetry Oxygen Delivery Method Nasal Cannula Oxygen Flow Rate 3 Fraction of Inspired Oxygen 32 SaO2/FiO2 Ratio 306 Oxygen Delivery Method Nasal Cannula Oxygen Flow Rate 3 Narrative Exam Narrative: GEN:? Very pleasant elderly female, Alert and oriented x3, mildly tachypneic HEENT:? Normocephalic, face symmetric, NECK:? Supple, no lymphadenopathy, thyroid without enlargement or nodularity, carotids no bruits, JVD down to 4 finger breadths above the clavicle CHEST:? Respiratory excursions symmetric, coarse andwith decreased rhonchi bilaterally CV:? Regular rate and rhythm, no murmurs, rubs, gallops, PMI nondisplaced ABD:? Soft, nontender, mildly distended, bowel sounds present in all 4 quadrants, no organomegaly or masses appreciated EXTR:? Warm, well perfused, no clubbing/cyanosis/edema SKIN:? Warm and dry, without rash NEURO:? Alert and oriented x3, nonfocal PSYCH:? Mood and affect is within normal limits, judgment and insight are appropriate Objective Labs 11/06/22 04:30 11/06/22 04:30 Labs: Laboratory Results - last 24 hr 11/05/22 11/05/22 11/05/22 16:00 16:00 16:00 WBC 12.3 H RBC 3.27 L Hgb 10.0 L Hct 31.0 L MCV 94.7 MCH 30.6 MCHC 32.3 RDW 15.1 H Plt Count 344 Neut % (Auto) 89.4 H Lymph % (Auto) 5.7 L [place] % (Auto) 4.4 Eos % (Auto) 0.0 L Baso % (Auto) 0.5 Neut # (Auto) 67074 H Lymph # (Auto) 700 L [place] # (Auto) 500 Eos # (Auto) 0 Baso # (Auto) 100 PT 16.6 H INR 1.4 H APTT 33 Sodium 135 L Potassium 5.3 H Chloride 98 Carbon Dioxide 24 BUN 38 H Creatinine 1.40 H Estimated GFR 37 L BUN/Creatinine Ratio 27.1 H Glucose 168 H Lactate Calcium 10.2 Magnesium Total Bilirubin 0.5 AST 38 H ALT 27 Alkaline Phosphatase 106 Total Creatine Kinase CK-MB (CK-2) CK-MB (CK-2) Rel Index Troponin I NT-Pro-B Natriuret Pep Total Protein 7.4 Albumin 4.0 Globulin 3.4 Albumin/Globulin Ratio 1.2 Lipase 104 Procalcitonin 0.08 TSH Chlamy pneumoniae PCR Adenovirus (PCR) B. pertussis DNA (PCR) B.parapertussis DNA PCR Coronavirus OC43 (PCR) Coronavirus HKU1 (PCR) Coronavirus 229E (PCR) SARS-CoV-2 (PCR) Coronavirus NL63 (PCR) Human Metapneumovir PCR Influenza Type A (PCR) Influenza Type B (PCR) M. pneumoniae (PCR) Parainfluenza 1 (PCR) Parainfluenza 2 (PCR) Parainfluenza 3 (PCR) Parainfluenza 4 (PCR) RSV (PCR) Entero/Rhino (PCR) 11/05/22 11/05/22 11/05/22 16:00 16:00 16:00 WBC RBC Hgb Hct MCV MCH MCHC RDW Plt Count Neut % (Auto) Lymph % (Auto) [place] % (Auto) Eos % (Auto) Baso % (Auto) Neut # (Auto) Lymph # (Auto) [place] # (Auto) Eos # (Auto) Baso # (Auto) PT INR APTT Sodium Potassium Chloride Carbon Dioxide BUN Creatinine Estimated GFR BUN/Creatinine Ratio Glucose Lactate 2.2 H Calcium Magnesium Total Bilirubin AST ALT Alkaline Phosphatase Total Creatine Kinase 48 CK-MB (CK-2) TNP CK-MB (CK-2) Rel Index TNP Troponin I 0.014 NT-Pro-B Natriuret Pep 25025 H Total Protein Albumin Globulin Albumin/Globulin Ratio Lipase Procalcitonin TSH Chlamy pneumoniae PCR Adenovirus (PCR) B. pertussis DNA (PCR) B.parapertussis DNA PCR Coronavirus OC43 (PCR) Coronavirus HKU1 (PCR) Coronavirus 229E (PCR) SARS-CoV-2 (PCR) Coronavirus NL63 (PCR) Human Metapneumovir PCR Influenza Type A (PCR) Influenza Type B (PCR) M. pneumoniae (PCR) Parainfluenza 1 (PCR) Parainfluenza 2 (PCR) Parainfluenza 3 (PCR) Parainfluenza 4 (PCR) RSV (PCR) Entero/Rhino (PCR) 11/05/22 11/05/22 11/05/22 16:00 16:15 18:40 WBC RBC Hgb Hct MCV MCH MCHC RDW Plt Count Neut % (Auto) Lymph % (Auto) [place] % (Auto) Eos % (Auto) Baso % (Auto) Neut # (Auto) Lymph # (Auto) [place] # (Auto) Eos # (Auto) Baso # (Auto) PT INR APTT Sodium Potassium Chloride Carbon Dioxide BUN Creatinine Estimated GFR BUN/Creatinine Ratio Glucose Lactate 1.3 Calcium Magnesium Total Bilirubin AST ALT Alkaline Phosphatase Total Creatine Kinase CK-MB (CK-2) CK-MB (CK-2) Rel Index Troponin I NT-Pro-B Natriuret Pep Total Protein Albumin Globulin Albumin/Globulin Ratio Lipase Procalcitonin TSH 2.75 Chlamy pneumoniae PCR Not detected Adenovirus (PCR) Not detected B. pertussis DNA (PCR) Not detected B.parapertussis DNA PCR Not detected Coronavirus OC43 (PCR) Not detected Coronavirus HKU1 (PCR) Not detected Coronavirus 229E (PCR) Not detected SARS-CoV-2 (PCR) Not detected Coronavirus NL63 (PCR) Not detected Human Metapneumovir PCR Not detected Influenza Type A (PCR) Not detected Influenza Type B (PCR) Not detected M. pneumoniae (PCR) Not detected Parainfluenza 1 (PCR) Not detected Parainfluenza 2 (PCR) Not detected Parainfluenza 3 (PCR) Not detected Parainfluenza 4 (PCR) Not detected RSV (PCR) Not detected Entero/Rhino (PCR) Detected H 11/05/22 11/05/22 11/05/22 22:30 22:30 22:30 WBC 12.5 H RBC 3.31 L Hgb 10.1 L Hct 31.2 L MCV 94.2 MCH 30.6 MCHC 32.4 RDW 14.9 H Plt Count 344 Neut % (Auto) 85.6 H Lymph % (Auto) 7.6 L [place] % (Auto) 6.3 Eos % (Auto) 0.0 L Baso % (Auto) 0.5 Neut # (Auto) 78582 H Lymph # (Auto) 900 L [place] # (Auto) 800 Eos # (Auto) 0 Baso # (Auto) 100 PT INR APTT Sodium 135 L Potassium 5.0 Chloride 100 Carbon Dioxide 23 BUN 39 H Creatinine 1.45 H Estimated GFR 36 L BUN/Creatinine Ratio 26.9 H Glucose 134 H Lactate Calcium 10.0 Magnesium 2.3 Total Bilirubin 0.5 AST 32 ALT 26 Alkaline Phosphatase 105 Total Creatine Kinase CK-MB (CK-2) CK-MB (CK-2) Rel Index Troponin I 0.017 NT-Pro-B Natriuret Pep Total Protein 7.2 Albumin 4.0 Globulin 3.2 Albumin/Globulin Ratio 1.3 Lipase Procalcitonin TSH Chlamy pneumoniae PCR Adenovirus (PCR) B. pertussis DNA (PCR) B.parapertussis DNA PCR Coronavirus OC43 (PCR) Coronavirus HKU1 (PCR) Coronavirus 229E (PCR) SARS-CoV-2 (PCR) Coronavirus NL63 (PCR) Human Metapneumovir PCR Influenza Type A (PCR) Influenza Type B (PCR) M. pneumoniae (PCR) Parainfluenza 1 (PCR) Parainfluenza 2 (PCR) Parainfluenza 3 (PCR) Parainfluenza 4 (PCR) RSV (PCR) Entero/Rhino (PCR) 11/05/22 11/05/22 11/06/22 22:30 22:30 04:30 WBC 8.8 RBC 3.27 L Hgb 10.1 L Hct 30.4 L MCV 93.1 MCH 30.9 MCHC 33.1 RDW 15.2 H Plt Count 256 Neut % (Auto) 93.7 H Lymph % (Auto) 5.1 L [place] % (Auto) 1.1 L Eos % (Auto) 0.0 L Baso % (Auto) 0.1 Neut # (Auto) 8200 H Lymph # (Auto) 500 L [place] # (Auto) 100 Eos # (Auto) 0 Baso # (Auto) 0 PT INR APTT Sodium Potassium Chloride Carbon Dioxide BUN Creatinine Estimated GFR BUN/Creatinine Ratio Glucose Lactate 1.1 Calcium Magnesium Total Bilirubin AST ALT Alkaline Phosphatase Total Creatine Kinase CK-MB (CK-2) CK-MB (CK-2) Rel Index Troponin I NT-Pro-B Natriuret Pep Total Protein Albumin Globulin Albumin/Globulin Ratio Lipase Procalcitonin 0.09 TSH Chlamy pneumoniae PCR Adenovirus (PCR) B. pertussis DNA (PCR) B.parapertussis DNA PCR Coronavirus OC43 (PCR) Coronavirus HKU1 (PCR) Coronavirus 229E (PCR) SARS-CoV-2 (PCR) Coronavirus NL63 (PCR) Human Metapneumovir PCR Influenza Type A (PCR) Influenza Type B (PCR) M. pneumoniae (PCR) Parainfluenza 1 (PCR) Parainfluenza 2 (PCR) Parainfluenza 3 (PCR) Parainfluenza 4 (PCR) RSV (PCR) Entero/Rhino (PCR) 11/06/22 11/06/22 11/06/22 04:30 04:30 10:34 WBC RBC Hgb Hct MCV MCH MCHC RDW Plt Count Neut % (Auto) Lymph % (Auto) [place] % (Auto) Eos % (Auto) Baso % (Auto) Neut # (Auto) Lymph # (Auto) [place] # (Auto) Eos # (Auto) Baso # (Auto) PT INR APTT Sodium 135 L Potassium 4.4 Chloride 100 Carbon Dioxide 27 BUN 39 H Creatinine 1.42 H Estimated GFR 36 L BUN/Creatinine Ratio 27.5 H Glucose 158 H Lactate Calcium 9.8 Magnesium 2.3 Total Bilirubin AST ALT Alkaline Phosphatase Total Creatine Kinase CK-MB (CK-2) CK-MB (CK-2) Rel Index Troponin I 0.020 0.016 NT-Pro-B Natriuret Pep Total Protein Albumin Globulin Albumin/Globulin Ratio Lipase Procalcitonin TSH Chlamy pneumoniae PCR Adenovirus (PCR) B. pertussis DNA (PCR) B.parapertussis DNA PCR Coronavirus OC43 (PCR) Coronavirus HKU1 (PCR) Coronavirus 229E (PCR) SARS-CoV-2 (PCR) Coronavirus NL63 (PCR) Human Metapneumovir PCR Influenza Type A (PCR) Influenza Type B (PCR) M. pneumoniae (PCR) Parainfluenza 1 (PCR) Parainfluenza 2 (PCR) Parainfluenza 3 (PCR) Parainfluenza 4 (PCR) RSV (PCR) Entero/Rhino (PCR) PFSH Medical History Anticoagulated CKD stage G3a/A1, GFR 45-59 and albumin creatinine ratio <30 mg/g Control of atrial fibrillation with pacemaker ESBL (extended spectrum beta-lactamase) producing bacteria infection Essential hypertension Fracture of left carpal bone Fracture of superior pubic ramus GERD (gastroesophageal reflux disease) History of cervical cancer History of renal carcinoma Hyperlipidemia Hypothyroidism associated with surgical procedure Inferior pubic ramus fracture Irritable bowel syndrome Neuropathy Overactive bladder Restless leg syndrome Surgical History History of kidney removal History of thyroid surgery Family History Mother Cancer Sister Cancer Social History household members: children Smoking Status: Never smoker alcohol intake: current Assessment & Plan Assessment & Plan narrative: 1.? CHF exacerbation, acute on chronic, unknown if systolic/diastolic Will continue IV diuresis.? She did not have much net diuresis overnight. She put out a total of 450cc yesterday and 400 thus far today. Will add an additional dose of IV lasix this afternoon. Continue BID Lasix. If no significant output, consider adding metolozone. Suspect etiology is a combinat ion of steroid taper prescribed on 11/04, likely has a lower dry weight than previously thought (goal dry weight may be around 135#).?Await echo (none in system).? Low sodium diet, heart healthy diet.? BNP 78031.? Troponin normal.? Pt has an appointment w/Cardiology here in [place] on 11/07 at 9:30 am. 2.? Hyperkalemia Pt has been on supplemental potassium.? Potassium now normalized. 3.? Leukocytosis Likely d/t steroid taper and rhinovirus.?Resolved. 4.? Anemia Normocytic anemia.? Hgb stable at 10.1. 5.? Coagulopathy INR 1.4.? She is chronically on apixiban. 6.? CKD stage 3 Creatinine is 1.42, baseline 1.28.? GFR 36, consistent w/known CKD3.? Will monitor w/diuresis. 7.? Hyperglycemia No known hx of diabetes. 8.? Rhinovirus Was placed on medrol dose pack and steroid inhaler 11/04.? This was d/c'd on admission. Overnight, she was given solumedrol and prednisone per [facility]. Prednisone has been discontinued. Scheduled duonebs d/c'd d/t risk for incr eased tachycardia and absence of wheezing. Would encourage conservative treatment and withholding steroids. Code status DNR/DNI Prophy On apixaban Dispo Weaned O2 down to 2 lpm today. Hopefully she will diurese and wean to room air so she can go to her cardiology appt in the morning at 9:30. Time Spent With Patient Critical Care time: I spent a total of [] minutes of critical care time on this patient's care today; this time is exclusive of procedural time. Quality VTE Deep Vein Thrombosis/Pulmonary Embolism Present on Admission: No
[2022-11-06] MEDS: ACETAMINOPHEN 325 MG TABLET 650 MG PO (15:09)
[2022-11-06] MEDS: ATORVASTATIN 20 MG TABLET PO (18:18)
[2022-11-06] MEDS: ROPINIROLE 0.25 MG TABLET 0.5 MG PO (21:58)
[2022-11-07] VITALS (10 sets, daily range): BP systolic 119–140; BP diastolic 70–89; PULSE 76–95; RESP 12–21; TEMP 36.1–37.2; O2SAT 91–98
[2022-11-07] MEDS: guaiFENesin Solution 100 MG/5 ML UDC PO ×2 (04:14→18:49)
[2022-11-07 06:01] LABS: Add Manual Diff / Slide Review NO; Basophils Absolute Auto 0 /uL (0-100); Basophils Percent Auto 0.1 % (0-2); Eosinophils Absolute Auto 0 /uL (0-450); Hematocrit 30.6 % (36-46); Hemoglobin 10.2 g/dL (12.0-16.0); Lymphocytes Absolute Auto 500 /uL (1100-4500); Lymphocytes Percent Auto 5.2 % (25-40); Mean Corpuscular HGB Conc 33.2 % (30-36); Mean Corpuscular Hemoglobin 30.8 PG (26-34); Mean Corpuscular Volume 92.9 fL (80-100); Monocytes Absolute Auto 500 /uL (0-900); Monocytes Percent Auto 5.4 % (3-14); Neutrophils Absolute Auto 8400 /uL (1500-7000); Neutrophils Percent Auto 89.3 % (50-75); Platelet Count 280 X10^3/uL (150-400); Red Blood Cell Count 3.29 X10^6/uL (4.0-5.2); White Blood Cell Count 9.4 X10^3/uL (4.5-11.0)
[2022-11-07] MEDS: LEVOTHYROXINE 112 MCG TABLET PO (06:04)
[2022-11-07 06:08] LABS: BUN Creatinine Ratio 31.6 (6-22); Blood Urea Nitrogen 42 mg/dL (7-17); Calcium 9.8 mg/dL (8.4-10.2); Carbon Dioxide 29 mmol/L (22-32); Chloride 98 mmol/L (98-107); Estimated Glomerular Filt Rate 39 mL/min (>60); Glucose 133 mg/dL (80-110); HEMOLYSIS < 15 (0-50); Potassium 3.9 mmol/L (3.4-5.1); Sodium 134 mmol/L (137-145)
[2022-11-07] MEDS: ACETAMINOPHEN 325 MG TABLET 650 MG PO ×2 (06:19→15:02)
--- NOTE | 2022-11-07 08:51 | PM.PN.1 ---
Subjective Subjective Date Patient Seen: 11/07/22 Interval history: Patient feeling better today with less cough and improved breathing. Daughters at bedside and questions were answered. Her echo returned at 15-20% EF which was worse than previous at 25-30%. Still on 2L. Exam Vital Signs (past 8 hours): - 11/07/22 03:00 11/07/22 04:00 Temperature 97.5 F L Pulse Rate 88 Respiratory Rate 15 Blood Pressure 140/79 Pulse Oximetry 97 97 Oxygen Delivery Method Nasal Cannula Oxygen Flow Rate 2 2 Fraction of Inspired Oxygen 28 SaO2/FiO2 Ratio 357 Oxygen Delivery Method Nasal Cannula Oxygen Flow Rate 2 Narrative Exam Narrative: GEN:? Very pleasant elderly female, Alert and oriented x3 HEENT:? Normocephalic, face symmetric, NECK:? Supple, no lymphadenopathy, thyroid without enlargement or nodularity, carotids no bruits, JVD down to 4 finger breadths above the clavicle CHEST:? Respiratory excursions symmetric, fine crackles in bases with coarse expiratory breath sounds CV:? Regular rate and rhythm, no murmurs, rubs, gallops, PMI nondisplaced ABD:? Soft, nontender, mildly distended, bowel sounds present in all 4 quadrants, no organomegaly or masses appreciated EXTR:? Warm, well perfused, no clubbing/cyanosis/edema SKIN:? Warm and dry, without rash NEURO:? Alert and oriented x3, nonfocal PSYCH:? Mood and affect is within normal limits, judgment and insight are appropriate Objective Labs 11/07/22 05:05 11/07/22 05:05 Labs: Laboratory Results - last 24 hr 11/06/22 11/07/22 11/07/22 10:34 05:05 05:05 WBC 9.4 RBC 3.29 L Hgb 10.2 L Hct 30.6 L MCV 92.9 MCH 30.8 MCHC 33.2 RDW 15.0 H Plt Count 280 Neut % (Auto) 89.3 H Lymph % (Auto) 5.2 L [place] % (Auto) 5.4 Eos % (Auto) 0.0 L Baso % (Auto) 0.1 Neut # (Auto) 8400 H Lymph # (Auto) 500 L [place] # (Auto) 500 Eos # (Auto) 0 Baso # (Auto) 0 Sodium 134 L Potassium 3.9 Chloride 98 Carbon Dioxide 29 BUN 42 H Creatinine 1.33 H Estimated GFR 39 L BUN/Creatinine Ratio 31.6 H Glucose 133 H Calcium 9.8 Troponin I 0.016 PFSH Medical History Anticoagulated CKD stage G3a/A1, GFR 45-59 and albumin creatinine ratio <30 mg/g Control of atrial fibrillation with pacemaker ESBL (extended spectrum beta-lactamase) producing bacteria infection Essential hypertension Fracture of left carpal bone Fracture of superior pubic ramus GERD (gastroesophageal reflux disease) History of cervical cancer History of renal carcinoma Hyperlipidemia Hypothyroidism associated with surgical procedure Inferior pubic ramus fracture Irritable bowel syndrome Neuropathy Overactive bladder Restless leg syndrome Surgical History History of kidney removal History of thyroid surgery Family History Mother Cancer Sister Cancer Social History household members: children Smoking Status: Never smoker alcohol intake: current Assessment & Plan Assessment & Plan narrative: 1.? Acute hypoxic respiratory failure secondary to systolic CHF exacerbation, acute on chronic Still on 2L NC. Will continue IV diuresis with BID Lasix. Suspect rhinovirus is at play as she appears nearly euvolemic. Echo with worsened EF of 15-20% down from previous of 25-30% in Aug 2022. She had cardiology appt scheduled for 11/07 but this will be rescheduled. Increased home coreg to 50mg BID with goal HR <70. 2.? Hyperkalemia, resolved Pt has been on supplemental potassium.? Potassium now normalized. 3.? Leukocytosis, resolved Likely d/t steroid taper and rhinovirus.?Now normal. 4.? Anemia Normocytic anemia.? Hgb stable at 10.1. 5.? Paroxysmal atrial fibrillation Rate controlled. She is chronically on apixiban. 6.? CKD stage 3 Creatinine is 1.42, baseline 1.28.? GFR 36, consistent w/known CKD3.? Will monitor w/diuresis. 7.? Hyperglycemia No known hx of diabetes. 8.? Rhinovirus Supportive care 9. Asymptomatic bacteriuria Urine culture with >100k GNR's. Previous history of ESBL in urine. Patient denies urinary symptoms so will not treat. Code status DNR/DNI Prophy On apixaban Dispo Home in 1 day pending weaning of O2. Time Spent With Patient Critical Care time: I spent a total of [] minutes of critical care time on this patient's care today; this time is exclusive of procedural time. Quality VTE Deep Vein Thrombosis/Pulmonary Embolism Present on Admission: No
[2022-11-07] MEDS: FUROSEMIDE 20 MG/2 ML VIAL 40 MG IV ×2 (09:10→21:36)
[2022-11-07] MEDS: PANTOPRAZOLE DR 20 MG TABLET 40 MG PO ×2 (09:10→21:32)
[2022-11-07] MEDS: DICYCLOMINE 10 MG CAPSULE 20 MG PO ×2 (09:10→21:33)
[2022-11-07] MEDS: AMIODARONE 200 MG TABLET PO (09:10)
[2022-11-07] MEDS: LOSARTAN 25 MG TABLET 12.5 MG PO (09:11)
[2022-11-07] MEDS: GABAPENTIN 600 MG TABLET PO ×3 (09:11→21:33)
[2022-11-07] MEDS: APIXABAN 5 MG TABLET 2.5 MG PO ×2 (09:12→21:32)
[2022-11-07] MEDS: carvediloL 12.5 MG TABLET 25 MG PO (09:12)
--- NOTE | 2022-11-07 11:02 | PC.NURSE ---
Addendum entered by Naina Stovall R.N. 11/07/22 18:57: Patient given cough syrup just now. She is back to bed with pure wick in. She put out a good amount of urine today. Original Note: Patient has course crackles throughout, she is 98% on RA. Dropped oxygen down to 1.5L. She is not sob at rest. Lasix given, patient has a pure wick and is putting out adequate urine amounts. She has a productive cough with leon-clear colored sputum. Using I.S. and this has been helpful. Family in room and supportive with patient.
[2022-11-07] MEDS: ATORVASTATIN 20 MG TABLET PO (18:11)
[2022-11-07] MEDS: carvediloL 12.5 MG TABLET 50 MG PO (21:34)
[2022-11-07] MEDS: ROPINIROLE 0.25 MG TABLET 0.5 MG PO (21:35)
[2022-11-07] MEDS: BENZONATATE 100 MG CAPSULE PO (23:10)
[2022-11-07] MEDS: CODEINE/GUAIFENESIN LIQUID 5ML UDC 5 ML PO (23:54)
[2022-11-08] VITALS (14 sets, daily range): BP systolic 115–139; BP diastolic 59–77; PULSE 72–86; RESP 16–20; TEMP 36.3–37.1; O2SAT 93–96
[2022-11-08] MEDS: LEVOTHYROXINE 112 MCG TABLET PO (06:03)
[2022-11-08] MEDS: AMIODARONE 200 MG TABLET PO (10:07)
[2022-11-08] MEDS: carvediloL 12.5 MG TABLET 50 MG PO (10:07)
[2022-11-08] MEDS: DICYCLOMINE 10 MG CAPSULE 20 MG PO ×2 (10:08→20:17)
[2022-11-08] MEDS: GABAPENTIN 600 MG TABLET PO ×3 (10:12→20:16)
[2022-11-08] MEDS: FUROSEMIDE 20 MG/2 ML VIAL 40 MG IV (10:12)
[2022-11-08] MEDS: LOSARTAN 25 MG TABLET 12.5 MG PO (10:13)
[2022-11-08] MEDS: PANTOPRAZOLE DR 20 MG TABLET 40 MG PO ×2 (10:14→20:16)
[2022-11-08] MEDS: APIXABAN 5 MG TABLET 2.5 MG PO ×2 (10:17→20:18)
--- NOTE | 2022-11-08 10:55 | OT.IP.EVAL ---
Current Diagnoses Heart failure, unspecified (11/05/22) Past Medical History (Last Reviewed 11/05/22 @ 16:37 by Judy Elena DO) Anticoagulated CKD stage G3a/A1, GFR 45-59 and albumin creatinine ratio <30 mg/g Control of atrial fibrillation with pacemaker ESBL (extended spectrum beta-lactamase) producing bacteria infection Essential hypertension Fracture of left carpal bone Fracture of superior pubic ramus GERD (gastroesophageal reflux disease) History of cervical cancer History of renal carcinoma Hyperlipidemia Hypothyroidism associated with surgical procedure Inferior pubic ramus fracture Irritable bowel syndrome Neuropathy Overactive bladder Restless leg syndrome Surgical History (Last Reviewed 11/05/22 @ 16:37 by Judy Elena DO) History of kidney removal History of thyroid surgery Occupational Therapy Inpatient Evaluation/Re-Eval M1 PT/OT-IP Prior Functional Status Start: 11/08/22 11:58 Freq: NEEDED Status: Active Protocol: Document 11/08/22 10:17 [facility] (Rec: 11/08/22 12:26 [facility] [id number]) Medical Review Prior Functional Status Communication independent Mobility and Gait Pt use of FWW to get around. Activities of Daily Living and IADL's Pt's family states just prior to admission was able to do her ADL's with someone to supervise for safety cues and assist for IADL needs-cook, clean, meds, and pt still does her finances at this time. Prior Functional Level (Other details) Pt lives with her daughter that works during the day. Social History Household Members children Living Arrangements House Number of Floors (Floors) Two Floors Number of Stairs To Enter/Railing? Pt lives on the main floor with no steps to enter. Pt has 7 steps with left rail and landing and another 7 steps with right rail to the 2nd floor where her daughter lives. Home Environment High Toilet,Walk in Shower Home Equipment 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,Four Wheel Walker,Straight Cane,Bedside Commode,Shower Seat without Backrest,Hand Held Shower,Lift Recliner,Grab Bars Near Toilet,Grab Bars In Shower M2 OT-IP Current Condition Start: 11/08/22 11:58 Freq: Status: Active Protocol: Document 11/08/22 10:17 [facility] (Rec: 11/08/22 12:26 [facility] [id number]) Occupational Therapy Current Condition Current Condition Evaluation Date 11/08/22 Treatment Diagnosis CHF exabercation Diagnosis Onset Date 11/05/22 M3 OT- IP Subjective and Pain Start: 11/08/22 11:58 Freq: Status: Active Protocol: Document 11/08/22 10:17 [facility] (Rec: 11/08/22 12:26 [facility] [id number]) OT- Subjective Occupational Therapy Visit Type Type Initial Evaluation Visit Start Time 10:17 Visit Stop Time 10:55 Total Visit Minutes 38 Occupational Therapy Visit Comments Patient Comments Pt's daughters in the room and states wanting pt to go to SNF as no one is home to assist as they work. Pt agreed to get up. Patient/Caregiver Goals TO get better. OT Pain Assessment Pain When Pain Assessed At Rest Pain Present Pain Present Denied Pain M4 OT- IP ADL's Start: 11/08/22 11:58 Freq: Status: Active Protocol: Document 11/08/22 10:17 [facility] (Rec: 11/08/22 12:26 [facility] [id number]) OT [id number] Comments OT Self-Feeding Comments NOt at meal time. OT ADL-Grooming Comments OT Grooming Comments Pt able to wash her hands with wash cloth after set-up as too tired to get to the sink after use of the toilet. OT ADL-Oral Care Comments Oral Care Comments Not performed as too tired. OT ADL-Dressing General Eval Lower Body Dressing Ability Moderate Assistance Areas Needing Assistance Underpants/Brief Comments OT Dressing Comments Assist to william/doff her brief durign toileting needs. OT ADL-Toileting General Evaluation Toileting Ability Maximum Assistance Comments OT Toileting Comments Assist for hygiene and brief management needs after a bowel movement. OT ADL-Bathing Comments OT Bathing Comments At this time due to decreased activity tolerance, sponge bathing more appropriate. M5 OT- IP IADL's Start: 11/08/22 11:58 Freq: Status: Active Protocol: Document 11/08/22 10:17 [facility] (Rec: 11/08/22 12:26 [facility] [id number]) OT-Instrumental Activities of Daily Living Deficits IADL Deficits Identified Deficits Home Safety Awareness Ability to Problem Solve Emergency Able to Problem Solve Situations Home Safety Comments Pt would benefit from assist and supervision for all needs due to forgetfulness and decreased activity tolerance and balance. Medication Management Medication Management Caregiver Provides Supervision Money Management Money Management Comments Pt would benefit from assist. Meal Preparation Meal Preparation Caregiver Provides Assist Barrel Bander Barrel Bander Caregiver Provides Assist M6 OT- IP Functional Cognition Start: 11/08/22 11:58 Freq: Status: Active Protocol: Document 11/08/22 10:17 [facility] (Rec: 11/08/22 12:26 [facility] [id number]) Cognitive Factors Limiting Selfcare Function Cognitive Ability Level of Alertness Alert Patient Orientation Name,Place,Situation Attention Span Ability Capable of Focused Attention, Capable of Sustained Attention Ability to Follow Commands Able to Follow One Step Commands Safety Awareness Underestimates Need for Assistance Cognitive Comments Cognitive Assessment Comments Per pt's daughter scored 17/30 on the SLUMS in SNF, however pt's daughter feels that pt still had a UTI and probably is more cognitively intact versus what her score showed. To reassess pt's SLUM. Pt needing vc for safety of FWW and hand placement to use the grab bar to be able to assist to come to stand. OT- Vision and Hearing OT- Vision Assessment Visual Acuity Glasses All The Time Visual Attentiveness Impaired Vision Assessment Comments Pt complains of blurry vision. Pt's left eye lags behind the right eye during scanning needs. In addition pt has macular degeneration. M7 OT- IP Mobility and Balance Start: 11/08/22 11:58 Freq: Status: Active Protocol: Document 11/08/22 10:17 [facility] (Rec: 11/08/22 12:26 [facility] [id number]) OT- Bed Mobility Assessment Supine to Sit Supine to Sit Assist Standby Assistance Sit to Supine Sit to Supine Assist Standby Assistance OT-Transfer Assessment Sit to and From Stand Sit to and from Stand Moderate Assistance,Maximum Assistance Transfers Transfer Ability Minimal Assistance Technique Transfer Destination Bed,Toilet Transfer Technique Stand Step Pivot Comments Mobility Comments MOD/MAXA x1 to stand from the toilet to FWW and ANSELMO with FWW to walk to the from the bed to toilet. Pt is a little unsteady on her feet and easily fatigues. OT- Balance Assessment Sitting Balance and Reactions Static Sitting Balance Ability Good Dynamic Sitting Balance Ability Fair Standing Balance and Reactions Static Standing Balance Ability Poor Dynamic Standing Balance Ability Poor M8 OT- IP Objective Assessments Start: 11/08/22 11:58 Freq: Status: Active Protocol: Document 11/08/22 10:17 [facility] (Rec: 11/08/22 12:26 [facility] [id number]) OT Gross Range of Motion Upper Extremity Range of Motion Assessment Right Impaired ROM Impairments LUE AROM 0-90 shoulder flexion , pt states had a fall on her left arm and since has not been able to move it as much. OT Strength Comments Strength Comments RUE 4-/5, LUE 3-/5 to 3+/5 from proximal to distal. OT- Coordination Assessment Upper Extremity Finger to Nose Test Left UE Impaired OT-Muscle Tone Assessment Muscle Tone WNL Yes OT Sensation Assessment Comments Summary Comments Intact for light touch. M9 OT- IP Assessment and Plan Start: 11/08/22 11:58 Freq: Status: Active Protocol: Document 11/08/22 10:17 [facility] (Rec: 11/08/22 12:26 [facility] [id number]) OT Summary Assessment and Plan Potential Rehabilitation Potential Good Analytic Complexity at Evaluation Moderate Summary OT Impairments Strength,Balance,Functional Cognition,Functional Mobility, Grooming,Dressing,Toileting, Bathing,Toilet Transfers, Shower Transfers,Activity Tolerance Progress Towards Goals Slow Progress due to Medical Issues,Slow Progress due to Activity Tolerance Assessment Summary Pt MOD complexity and main barriers are decreased activity tolerance, decreased strength, and needing vc for safety with FWW. Pt needing MOD/MAX A to stand to FWW and ANSELMO for transfer. Pt needing at least MODA for dressing toileting needs at this time and would greatly benefit from skilled rehab at this time. Goals Grooming Goal Independent Dressing Goal Standby Assistance Toileting Goal Standby Assistance Bathing Goal Standby Assistance Toilet Transfer Goal Standby Assistance Shower Transfer Goal Standby Assistance Days to Meet Goals 20 Frequency of Treatment Frequency Of Treatment Once a Day Treatment Plan OT Treatment Plan ADL Training,Functional Cognition Training,Functional Mobility,Patient/Family Education,Discharge Planning Other Treatment Recommendations and Next SLUMs/shower Treatment Focus Discharge Recommendations OT Discharge Recommendations SNF Rehab Transportation Needs at Discharge Wheelchair/Cabulance
--- NOTE | 2022-11-08 12:11 | CM.DPNOTE ---
Addendum entered by SUSANNAH Mcgovern 11/08/22 13:54: ADD: Per Phylicia at [facility], she reviewed and can likely accept but just confirming with their RN that they can just have pt on Rhino Virus precautions when she admits to their facility. Will call back with confirmation. BF Original Note: DCP SNF Planning Per MD, pt making progress and working with RT today and getting close to being stable for discharge. Per OT, worked with pt and Dtr bedside today and recommending SNF and pt/Dtr feels SNF needed at d/c before home and updated MD who ordered PT eval for today. SW met bedside with pt and explained role and discussed SNF and she confirms she feels SNF is needed but when SW provided SNF Choice list via Ipad and paper, pt requested SW call her Dtr Jessica to discuss SNF preference. SW called Dtr Jessica and explained role and Jessica confirms she feels SNF is needed and states pt has been to SNF multiple times (most recently to [facility] at the end of Sep and has also been to [facility]). Dtr confirms that preference would be 1) [facility] due to location and rehab staff 2) [facility] as a back up. Dtr hopeful to discuss pt's Echo and new EF 15-20% which is below her prior Echo and is hopeful to be bedside tomorrow to discuss with MD. SW called [facility] Phylicia and discussed pt status and needs and she confirms they have some open beds and pt is Inpt Status and Medicare and therefore no barriers to acceptance with insurance and they are willing to review and could likely accept by tomorrow if pt stable for d/c. NAT Campa kindly emailed referral to Phylicia at [facility] to review. PASRR done. Plan: SW to follow for [facility] review to confirm if they can accept pt and then will make referral to [facility] if needed after [facility] review. SUSANNAH Mcgovern
--- NOTE | 2022-11-08 12:40 | PC.NURSE ---
Pt A&O, daughters in room, Pt working with OT, CM. Pt speaking with Dr. Pittman. D/c home cancelled as Pt is thinking about doing SNF.
--- NOTE | 2022-11-08 13:40 | PT.IIE ---
Current Diagnoses Heart failure, unspecified (11/05/22) Surgical History (Last Reviewed 11/05/22 @ 16:37 by Judy Elena DO) History of kidney removal History of thyroid surgery Medical History (Last Reviewed 11/05/22 @ 16:37 by Judy Elena DO) Anticoagulated CKD stage G3a/A1, GFR 45-59 and albumin creatinine ratio <30 mg/g Control of atrial fibrillation with pacemaker ESBL (extended spectrum beta-lactamase) producing bacteria infection Essential hypertension Fracture of left carpal bone Fracture of superior pubic ramus GERD (gastroesophageal reflux disease) History of cervical cancer History of renal carcinoma Hyperlipidemia Hypothyroidism associated with surgical procedure Inferior pubic ramus fracture Irritable bowel syndrome Neuropathy Overactive bladder Restless leg syndrome Physical Therapy Inpatient Evaluation/Re-Eval M1 PT/OT-IP Prior Functional Status Start: 11/08/22 16:24 Freq: NEEDED Status: Active Protocol: Document 11/08/22 13:40 [facility] (Rec: 11/08/22 16:43 [facility] [id number]) Medical Review Prior Functional Status Medical History Reviewed Yes Communication able to make needs known Mobility and Gait pt stated that she is modified idnepednet with all mobilities and ambulation using a FWW Activities of Daily Living and IADL's per OT notePt's family states just prior to admission was able to do her ADL's with someone to supervise for safety cues and assist for IADL needs-cook,clean, meds, and pt still does her finances at this time. Social History Household Members children Living Arrangements House Number of Floors (Floors) Two Floors Number of Stairs To Enter/Railing? Pt lives on the main floor with no steps to enter. Home Environment High Toilet,Walk in Shower Home Equipment 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,Four Wheel Walker,Straight Cane,Bedside Commode,Shower Seat without Backrest,Hand Held Shower,Lift Recliner,Grab Bars Near Toilet,Grab Bars In Shower Additional Social History Comment pt lives on 2nd level of pt's house and will be able to assist pt as needed when she is at home; pt's daughter works and cannot be with pt all the time M2 PT-IP Current Condition Start: 11/08/22 16:24 Freq: NEEDED Status: Active Protocol: Document 11/08/22 13:40 [facility] (Rec: 11/08/22 16:43 [facility] [id number]) Physical Therapy Current Condition Current Condition Evaluation Date 11/08/22 Treatment Diagnosis CHF; difficulty in walking Onset Date 11/05/22 M3 PT-IP Subjective Start: 11/08/22 16:24 Freq: NEEDED Status: Active Protocol: Document 11/08/22 13:40 [facility] (Rec: 11/08/22 16:43 [facility] [id number]) Subjective Physical Therapy Visit Type Type Initial Evaluation Visit Start Time 13:40 Visit Stop Time 14:15 Total Visit Minutes 35 Number of FRONT OFFICE DEVELOPER Visits 0 Physical Therapy Visit Comments Patient Comments agreeable to do PT M4 PT-IP Mobility and Gait Start: 11/08/22 16:24 Freq: NEEDED Status: Active Protocol: Document 11/08/22 13:40 [facility] (Rec: 11/08/22 16:43 [facility] [id number]) PT-Bed Mobility Assessment Supine to Sit Supine to Sit Moderate Assistance,1 Person Assistance Sit to Supine Sit to Supine Moderate Assistance,Maximum Assistance,1 Person Assistance ,Bedrails PT-Transfer Assessment Sit to and From Stand Sit to and from Stand Maximum Assistance,1 Person Assistance,Use of Upper Extremities Equipment Transfer Assistive Device Front Wheeled Walker Orthotic/Prosthetic Devices or Brace: No Comments Mobility Comments BP in supine: 122/68. pt completed supine to sit mod A and cues. able to sit on EOB CGA. pt completed sit to stand max A and max cues. requires max cues with all tasks. pt able to stand requiring max A for balance using fWW. attempted to take steps but pt took one step forward and then took a step backwards max a and max cues using FWW. unable to lift LE much. instructed pt to do marching in place and completed x 3 max A and max cues and stated that she has to sit down with c/o LE weakness/ tiredness and slight dizziness during standing. pt requested to go back to bed. completed sit to supine mod to max A with LE elevation to the bed. positioned pt in bed. BP checked: 115/68. call light and table placed within reach. O2 sat at RA 92%. O2 sat decreases to 89% with activity . Pt provided with O2 at 1 1/ 2L/min during activity PT-Balance Assessment Sitting Balance and Reactions Static Sitting Balance Ability Good Dynamic Sitting Balance Ability Good Standing Balance and Reactions Static Standing Balance Ability Poor Dynamic Standing Balance Ability Poor Device Used FWW M5 PT-IP Objective Assessments Start: 11/08/22 16:24 Freq: NEEDED Status: Active Protocol: Document 11/08/22 13:40 [facility] (Rec: 11/08/22 16:43 [facility] [id number]) Orientation Orientation/Cognition Level of Alertness Confusional State Orientation Name,Situation Safety Awareness Decreased Safety Awareness Memory Description Short Term Impaired Gross Range of Motion Lower Extremity ROM Assessment Within Functional Limits Strength Lower Extremity Strength Assessment Bilaterally Impaired Hip 3+/5 Knee 3+/5 Muscle Tone Muscle Tone WNL Yes M6 PT-IP Treatment Start: 11/08/22 16:24 Freq: NEEDED Status: Active Protocol: Document 11/08/22 13:40 [facility] (Rec: 11/08/22 16:43 [facility] [id number]) Physical Therapy Treatment Education Education Provided Safety M7 PT-IP Assessment and Plan Start: 11/08/22 16:24 Freq: NEEDED Status: Active Protocol: Document 11/08/22 13:40 [facility] (Rec: 11/08/22 16:43 [facility] [email or web address]) PT Summary Assessment and Plan Potential Rehabilitation Potential Fair Status of Condition at Evaluation Evolving Summary Impairments Pain,ROM,Strength,Balance, Coordination,Sensation,Tone, Cognition,Bed Mobility, Transfers,Gait,Activity Tolerance Assessment Summary pt requiring max A with sit to stand and unable to ambulate and unable to tolerate much standing requiring max A for standing balance using FWW. O2 sat 89- 90% with activity with 1 1/2 L/min O2 on. pt will require SNF rehab to improve strength and mobility. Goals Bed Mobility Goal Standby Assistance Transfer Goal Independent,Front Wheeled Walker Gait Goal Standby Assistance,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 Gait Distance 150 Days to Meet Goals 10 Frequency of Treatment Frequency Of Treatment Once a Day Treatment Plan Physical Therapy Treatment Plan Bed Mobility Training,Transfer Training,Gait Training, Therapeutic Exercise,Balance Retraining,Post Op Education, Discharge Planning,Hot or Cold Pack,Neuromuscular Re-ed, Coordination Retraining,Manual Therapy Precautions Other Precautions falls, O2 sat Recommendations To Nursing Amount of Assist Needed 1 Person Assist,PT/OT Assist Only Discharge Recommendations PT Discharge Recommendations SNF Rehab Transportation Needs at Discharge Wheelchair/Cabulance
--- NOTE | 2022-11-08 15:37 | PM.PN.1 ---
Subjective Subjective Date Patient Seen: 11/08/22 Interval history: Patient worn out today. She wasn weaned off O2. Patient's family now requesting SNF. Exam Vital Signs (past 8 hours): - 11/08/22 08:07 11/08/22 10:07 11/08/22 12:00 Temperature 97.6 F 97.8 F Pulse Rate 84 84 80 Respiratory Rate 18 16 Blood Pressure 139/76 139/76 133/70 Pulse Oximetry 94 94 Oxygen Delivery Method Oxygen Flow Rate 0 0 11/08/22 10:00 11/08/22 14:00 11/08/22 15:26 Temperature 98 F Pulse Rate 84 Respiratory Rate 18 Blood Pressure 115/68 Pulse Oximetry 96 94 94 Oxygen Delivery Method Room Air Room Air Oxygen Flow Rate 0 Fraction of Inspired Oxygen 28 SaO2/FiO2 Ratio 357 Oxygen Delivery Method Room Air Oxygen Flow Rate 0 Narrative Exam Narrative: GEN:? Very pleasant elderly female, Alert and oriented x3 HEENT:? Normocephalic, face symmetric, NECK:? Supple, no lymphadenopathy, thyroid without enlargement or nodularity, carotids no bruits, JVD down to 4 finger breadths above the clavicle CHEST:? Respiratory excursions symmetric, fine crackles in bases with coarse expiratory breath sounds CV:? Regular rate and rhythm, no murmurs, rubs, gallops, PMI nondisplaced ABD:? Soft, nontender, mildly distended, bowel sounds present in all 4 quadrants, no organomegaly or masses appreciated EXTR:? Warm, well perfused, no clubbing/cyanosis/edema SKIN:? Warm and dry, without rash NEURO:? Alert and oriented x3, nonfocal PSYCH:? Mood and affect is within normal limits, judgment and insight are appropriate Objective Labs 11/07/22 05:05 11/07/22 05:05 [facility] Medical History Anticoagulated CKD stage G3a/A1, GFR 45-59 and albumin creatinine ratio <30 mg/g Control of atrial fibrillation with pacemaker ESBL (extended spectrum beta-lactamase) producing bacteria infection Essential hypertension Fracture of left carpal bone Fracture of superior pubic ramus GERD (gastroesophageal reflux disease) History of cervical cancer History of renal carcinoma Hyperlipidemia Hypothyroidism associated with surgical procedure Inferior pubic ramus fracture Irritable bowel syndrome Neuropathy Overactive bladder Restless leg syndrome Surgical History History of kidney removal History of thyroid surgery Family History Mother Cancer Sister Cancer Social History household members: children Smoking Status: Never smoker alcohol intake: current Assessment & Plan Assessment & Plan narrative: 1.? Acute hypoxic respiratory failure secondary to systolic CHF exacerbation, acute on chronic, resp failure resolved Weaned from 2L to room air. Suspect rhinovirus is at play as she appears nearly euvolemic. Echo with worsened EF of 15-20% down from previous of 25-30% in Aug 2022. She had cardiology appt scheduled for 11/07 but this will be rescheduled. 2.? Hyperkalemia, resolved Pt has been on supplemental potassium.? Potassium now normalized with holding of supp K. 3.? Leukocytosis, resolved Likely d/t steroid taper and rhinovirus.?Now normal. 4.? Anemia Normocytic anemia.? Hgb stable at 10.1. 5.? Paroxysmal atrial fibrillation Rate controlled. She is chronically on apixiban. 6.? CKD stage 3 Creatinine is 1.42, baseline 1.28.? GFR 36, consistent w/known CKD3. 7.? Hyperglycemia No known hx of diabetes. 8.? Rhinovirus Supportive care 9. Asymptomatic bacteriuria Urine culture with >100k GNR's. Previous history of ESBL in urine. Patient denies urinary symptoms so will not treat. Code status DNR/DNI Prophy On apixaban Dispo SNF on 11/09. Time Spent With Patient Critical Care time: I spent a total of [] minutes of critical care time on this patient's care today; this time is exclusive of procedural time. Quality VTE Deep Vein Thrombosis/Pulmonary Embolism Present on Admission: No
[2022-11-08] MEDS: ATORVASTATIN 20 MG TABLET PO (16:46)
[2022-11-08 16:48] LABS: Add Manual Diff / Slide Review NO; Basophils Absolute Auto 0 /uL (0-100); Basophils Percent Auto 0.3 % (0-2); Eosinophils Absolute Auto 0 /uL (0-450); Eosinophils Percent Auto 0.3 % (2-4); Hematocrit 34.3 % (36-46); Hemoglobin 11.3 g/dL (12.0-16.0); Lymphocytes Absolute Auto 900 /uL (1100-4500); Lymphocytes Percent Auto 11.4 % (25-40); Mean Corpuscular HGB Conc 33.1 % (30-36); Mean Corpuscular Hemoglobin 30.8 PG (26-34); Mean Corpuscular Volume 93.2 fL (80-100); Monocytes Absolute Auto 700 /uL (0-900); Monocytes Percent Auto 9.5 % (3-14); Neutrophils Absolute Auto 6200 /uL (1500-7000); Neutrophils Percent Auto 78.5 % (50-75); Platelet Count 312 X10^3/uL (150-400); Red Blood Cell Count 3.68 X10^6/uL (4.0-5.2); Red Cell Distribution Width 15.4 % (11.6-14.8); White Blood Cell Count 7.9 X10^3/uL (4.5-11.0)
[2022-11-08 18:07] LABS: Alanine Aminotransferase 28 IU/L (<35); Albumin 3.7 g/dL (3.5-5.0); Albumin Globulin Ratio 1.1 (1.0-2.8); Alkaline Phosphatase 93 U/L (38-126); Aspartate Aminotransferase 33 IU/L (14-36); Bilirubin Total 0.7 mg/dL (0.2-1.3); Blood Urea Nitrogen 39 mg/dL (7-17); Calcium 9.4 mg/dL (8.4-10.2); Carbon Dioxide 29 mmol/L (22-32); Chloride 97 mmol/L (98-107); Estimated Glomerular Filt Rate 41 mL/min (>60); Globulin 3.4 g/dL (1.7-4.1); Glucose 94 mg/dL (80-110); HEMOLYSIS 39 (0-50); Potassium 3.9 mmol/L (3.4-5.1); Sodium 133 mmol/L (137-145); Total Protein 7.1 g/dL (6.3-8.2)
[2022-11-08] MEDS: SCOPOLAMINE 1 PATCH TOP (20:16)
[2022-11-08] MEDS: ROPINIROLE 0.25 MG TABLET 0.5 MG PO (20:17)
[2022-11-08] MEDS: carvediloL 12.5 MG TABLET 25 MG PO (20:17)
[2022-11-08] MEDS: CODEINE/GUAIFENESIN LIQUID 5ML UDC 5 ML PO (20:23)
[2022-11-08 23:58] LABS: Bilirubin Urine UA NEGATIVE (NEGATIVE); Color Urine UA YELLOW; Glucose Urine UA NEGATIVE (Negative); Ketones Urine UA NEGATIVE (NEGATIVE); Leukocyte Esterase Urine UA 3+ (NEGATIVE); Nitrite Urine UA POSITIVE (Negative); Occult Blood Urine UA 1+ (Negative); Protein Urine UA TRACE (Negative); Urobilinogen Urine UA 0.2 E.U./dL (0.2)
[2022-11-09] VITALS (9 sets, daily range): BP systolic 123–133; BP diastolic 69–84; PULSE 82–96; RESP 16–17; TEMP 35.9–36.6; O2SAT 93–96
[2022-11-09] LABS: Appearance Urine UA CLOUDY
[2022-11-09 01:19] LABS: RBC Urine 1-5/HPF (0-5/HPF); WBC Urine >100/HPF (0-5/HPF)
[2022-11-09 01:20] LABS: Bacteria Urine Many (>30); Culture Indicated Urine Specimen Cultured; Squamous Epithelial Cell Urine 1-5 /HPF (0-5/HPF)
[2022-11-09] MEDS: NITROFURANTOIN ER 100 MG CAPSULE PO (02:38)
[2022-11-09] MEDS: LEVOTHYROXINE 112 MCG TABLET PO (08:00)
[2022-11-09] MEDS: LOSARTAN 25 MG TABLET 12.5 MG PO (08:34)
[2022-11-09] MEDS: DICYCLOMINE 10 MG CAPSULE 20 MG PO (08:34)
[2022-11-09] MEDS: AMOXICILLIN/CLAV 500/125 MG 1 TAB PO (08:35)
[2022-11-09] MEDS: AMIODARONE 200 MG TABLET PO (08:35)
[2022-11-09] MEDS: APIXABAN 5 MG TABLET 2.5 MG PO (08:35)
[2022-11-09] MEDS: carvediloL 12.5 MG TABLET 25 MG PO (08:36)
[2022-11-09] MEDS: PANTOPRAZOLE DR 20 MG TABLET 40 MG PO (08:36)
[2022-11-09] MEDS: GABAPENTIN 600 MG TABLET PO (08:36)
[2022-11-09] MEDS: guaiFENesin Solution 100 MG/5 ML UDC PO (08:40)
--- NOTE | 2022-11-09 09:07 | OT.IP.TRT ---
Current Diagnoses Heart failure, unspecified (11/05/22) Occupational Therapy Treatment Note M2 OT-IP Current Condition Start: 11/08/22 11:58 Freq: Status: Active Protocol: Document 11/08/22 10:17 [facility] (Rec: 11/08/22 12:26 [facility] [id number]) Occupational Therapy Current Condition Current Condition Evaluation Date 11/08/22 Treatment Diagnosis CHF exabercation Diagnosis Onset Date 11/05/22 M3 OT- IP Subjective and Pain Start: 11/08/22 11:58 Freq: Status: Active Protocol: Document 11/09/22 10:14 [facility] (Rec: 11/09/22 10:21 [facility] [id number]) OT- Subjective Occupational Therapy Visit Type Type Treatment Note Visit Start Time 09:07 Visit Stop Time 09:39 Total Visit Minutes 32 Occupational Therapy Visit Comments Patient Comments Pt agreed to try to get up but states really tired. Patient/Caregiver Goals To get better. OT Pain Assessment Pain When Pain Assessed At Rest Pain Present Pain Present Denied Pain M4 OT- IP ADL's Start: 11/08/22 11:58 Freq: Status: Active Protocol: Document 11/09/22 10:14 [facility] (Rec: 11/09/22 10:21 [facility] [id number]) OT [id number] Comments OT Self-Feeding Comments Pt states having more difficulty to eat with her right hand, noted food spilling over on her tray. OT ADL-Grooming Comments OT Grooming Comments not performed OT ADL-Oral Care Comments Oral Care Comments Pt needing cues to put her dentures in her mouth. OT ADL-Dressing Comments OT Dressing Comments Not performed. OT ADL-Toileting General Evaluation Toileting Ability Total Assistance Comments OT Toileting Comments Use of purewick OT ADL-Bathing Comments OT Bathing Comments At this time due to decreased activity tolerance, sponge bathing more appropriate. M5 OT- IP IADL's Start: 11/08/22 11:58 Freq: Status: Active Protocol: Document 11/08/22 10:17 [facility] (Rec: 11/08/22 12:26 [facility] [id number]) OT-Instrumental Activities of Daily Living Deficits IADL Deficits Identified Deficits Home Safety Awareness Ability to Problem Solve Emergency Able to Problem Solve Situations Home Safety Comments Pt would benefit from asisst and supervision for all needs due to forgetfulness and decreased activity tolerance and balance. Medication Management Medication Management Caregiver Provides Supervision Money Management Money Management Comments Pt would benefit from assist. Meal Preparation Meal Preparation Caregiver Provides Assist Field Radio Operator Field Radio Operator Caregiver Provides Assist M6 OT- IP Functional Cognition Start: 11/08/22 11:58 Freq: Status: Active Protocol: Document 11/09/22 10:14 [facility] (Rec: 11/09/22 10:21 [facility] [id number]) Cognitive Factors Limiting Selfcare Function Cognitive Ability Level of Alertness Alert,Confusional State Patient Orientation Name,Place,Situation Attention Span Ability Capable of Focused Attention, Unable to Sustain Attention Ability to Follow Commands Able to Follow One Step Commands with Increased Time, Able to Follow One Step Commands with Repetition Cognitive Comments Cognitive Assessment Comments Pt not able to place in her denture and not realizing that they were not fulling in her mouth. When coughing, her dentures were also coming out of her mouth. Pt needing cues for FWW safety and placement of hands to push up and reach back to surfaces before sitting and standing. M7 OT- IP Mobility and Balance Start: 11/08/22 11:58 Freq: Status: Active Protocol: Document 11/09/22 10:14 [facility] (Rec: 11/09/22 10:21 [facility] [id number]) OT- Bed Mobility Assessment Supine to Sit Supine to Sit Assist Standby Assistance,Head of Bed Elevated,Bedrails Sit to Supine Sit to Supine Assist Standby Assistance OT-Transfer Assessment Sit to and From Stand Sit to and from Stand Maximum Assistance Transfers Transfer Ability Moderate Assistance,Maximum Assistance Technique Transfer Destination Bed,Chair Transfer Technique Stand Step Pivot Devices Transfer Assistive Devices Gait Belt,Front Wheeled Walker Comments Mobility Comments Today pt needing more assist sit to stand and for the transfer with FWW. Pt needing cues and weight shifting assist so able to more her LLE today. Pt's O2 on RA 81% to 93% and palce pt back on 2L and at 96%. OT- Balance Assessment Sitting Balance and Reactions Static Sitting Balance Ability Good Dynamic Sitting Balance Ability Fair Standing Balance and Reactions Static Standing Balance Ability Poor Dynamic Standing Balance Ability Poor LLUE unable to able to raise up 0-30 against gravity today.. M9 OT- IP Assessment and Plan Start: 11/08/22 11:58 Freq: Status: Active Protocol: Document 11/09/22 10:14 [facility] (Rec: 11/09/22 10:21 [facility] [id number]) OT Summary Assessment and Plan Potential Rehabilitation Potential Fair Analytic Complexity at Evaluation Moderate Summary OT Impairments Strength,Balance,Functional Cognition,Functional Mobility, Grooming,Dressing,Toileting, Bathing,Toilet Transfers, Shower Transfers,Activity Tolerance Progress Towards Goals Slow Progress due to Medical Issues,Slow Progress due to Activity Tolerance,Slow Progress due to Cognition Assessment Summary Pt more fatigued today and needing more assist with transfers. Pt also needing more cues for sequencing of oral care needs. Pt would benefit from skilled rehab when medically stable. Goals Grooming Goal Independent Dressing Goal Standby Assistance Toileting Goal Standby Assistance Bathing Goal Standby Assistance Toilet Transfer Goal Standby Assistance Shower Transfer Goal Standby Assistance Days to Meet Goals 20 Frequency of Treatment Frequency Of Treatment Once a Day Treatment Plan OT Treatment Plan ADL Training,Functional Cognition Training,Functional Mobility,Patient/Family Education,Discharge Planning Other Treatment Recommendations and Next SLUMS Treatment Focus Discharge Recommendations OT Discharge Recommendations SNF Rehab Transportation Needs at Discharge Wheelchair/Cabulance
[2022-11-09 09:12] LABS: COVID19 -Nasal RAPID Negative (Negative)
--- NOTE | 2022-11-09 13:22 | PC.NURSE ---
Pt is A&Ox2, VSS, afebrile on 2LNC. She is trialed on RA after being placed on 02 during the night while sleeping and 02 saturation on RA is 85-89%. She is placed back on 2LNC and CM notified of patient needing to transport to facility with portable 02. She is able to tolerate breakfast well. Skin is kept dry via purewick. She has scattered bruising to forearms from venipunctures. LS course throughout with productive weak cough. She is given mucinex prn with a.m. medications. She denies pain this a.m. but reports SOB and fatigue from coughing. She is cleared for discharge this a.m. and arranged to transport to [facility] in [place]. MD Pittman at bedside discussing plan to discharge and plan of care with daughter this a.m. She is assisted x2 to W/Ch with facility designee from [facility] to W/ at approximately noon today. Report at [facility] called to
--- NOTE | 2022-11-09 14:15 | P.DS_ITS ---
History of Present Illness History of Present Illness Date Patient Seen: 11/09/22 Chief complaint: COVID, Oxy @80 Narrative: 82-year-old female with fibrillation, chronically anticoagulated on Pradaxa, status post AICD/pacemaker placement, congestive heart failure, hypertension, hyperlipidemia, previous right nephrectomy for renal cell carcinoma and associated chronic kidney disease, as well as hypothyroidism who presented to the emergency department today with worsening shortness of breath. Patient was admitted to our hospital from October 01 her October 04 with acute COVID infection, acute metabolic encephalopathy, UTI, weakness. She discharged to [facility] for rehab. She returned home 2 weeks ago. Her daughter monitors her medications and weighs her daily. She notes that patient's dry weight is considered to be 137/138 lb. If she gets up to 140 or 141 lb she is supposed to give an extra dose of Lasix. She states that 2 days prior to admission they noted the patient began having ?rattly breathing?. They called acted the patient's PCP and the PCP called in a prescription for a Medrol Dosepak as well as fluticasone inhaler. She started the Medrol Dosepak yesterday morning. She would difficulty using the fluticasone as it was a powdered inhaler and she does not have much however with her effort to suck in the medication. Last night her daughter's report she developed orthopnea. They feel her breathing got much worse with the addition of the Medrol. Today, she continued to worsen. They gave her 40 mg of Lasix this morning. She weighed at 141 lb today. Ultimately, they presented to the emergency department for further evaluation. Patient did not have any significant lower extremity edema but she has had some bloating in her abdomen. She denies any chest pain, tightness, palpitations. In the emergency department, 97.7, heart rate 83, respiratory rate 24, O2 sats 92% on 2 liters/minute. Labs revealed a white blood cell count of 12.3, hemoglobin 10.0, platelets 344. Protime 16.6, INR 1.4. Chemistry revealed a sodium of 135, potassium 5.3, chloride 98, bicarb 24, BUN 38, creatinine 1.40 (it was 1.28 on October 04), glucose 168. LFTs were essentially normal with mild elevation of the AST at 38. Cardiac enzymes were negative. BNP was 16472. Respiratory viral panel was positive for rhino virus but otherwise negative. Chest x-ray revealed low lung volumes without focal infiltrates, moderate cardiomegaly, remote right posterior rib fractures and AICD/pacemaker. Patient received furosemide 60 mg IV. Pure wick was placed as well. EKG revealed a paced rhythm without acute changes. Discharge Providers Provider Date of admission: 11/05/22 18:49 Discharge Date: 11/09/22 Primary care physician: Lesli Lomeli PA-C Consults: 11/05/22 22:19 Consult to Cardio/Pulmonary Rehabilitation Routine Comment: Physician Instructions: Evaluate and treat 11/08/22 07:00 Consult to Occupational Therapy Evaluate & Treat Comment: Physician Instructions: Evaluate and treat 11/08/22 11:11 Consult to Physical Therapy Evaluate & Treat Comment: Physician Instructions: Evaluate and Treat Discharge provider: Abdulaziz Pittman, DO Summary Hospital Course Discharge Diagnosis: 1.? Acute hypoxic respiratory failure secondary to systolic CHF exacerbation, acute on chronic Given IV lasix initially. Suspect rhinovirus is at play as she appears nearly euvolemic. Echo with worsened EF of 15-20% down from previous of 25-30% in Aug 2022. Still on 1-2L NC. She had cardiology appt scheduled for 11/07 but this will be rescheduled. Added spironolactone on discharge. Patient would likely qualify for hospice now given fatigue and worsened severe CHF. She is going to attempt rehab at SNF but if unable to she will likely then switch to comfort with hospice instead. 2.? Hyperkalemia, resolved Pt has been on supplemental potassium.? Potassium now normalized with holding of supp K. 3.? Leukocytosis, resolved Likely d/t steroid taper and rhinovirus.?Now normal. 4.? Anemia Normocytic anemia.? Hgb stable at 10.1.? 5.? Paroxysmal atrial fibrillation Rate controlled. She is chronically on apixiban. 6.? CKD stage 3 Creatinine is 1.42, baseline 1.28.? GFR 36, consistent w/known CKD3. 7.? Hyperglycemia No known hx of diabetes. 8.? Rhinovirus Supportive care 9. UTI Urine culture with >100k klebsiella and pyuria. Started 7 days of Augmentin. Hospital Course: Admitted with rhinovirus and acute dyspnea and fatigue. Found to have worsened EF of 15-20% down from 25-30% just a few months ago. No chest pain or troponin elevation. Required 1-2L NC and given IV lasix for diuresis. A 18 min conversation about goals of care was had with the patient and daughters about hospice given this new finding. They would like her to attempt rehab at SNF and patient willing to try to be able to return home. I suggested however that if she is not able to rehab then she should be comfort care and go on hospice which they agreed. Spironolactone added to patient's cardiac medications given low EF. She also had a UTI with klebsiella sensitive to augmentin so put on 7 days of augmentin. Time Spent with Patient Time spent: Greater than 30 minutes Exam Vital Signs (past 8 hours): - 11/09/22 08:00 11/09/22 08:34 11/09/22 08:36 Temperature 97.8 F Pulse Rate 96 H 86 86 Respiratory Rate 17 Blood Pressure 133/84 133/84 133/84 Pulse Oximetry 96 Oxygen Delivery Method Oxygen Flow Rate 3 11/09/22 09:00 11/09/22 07:00 11/09/22 10:00 Temperature Pulse Rate Respiratory Rate Blood Pressure Pulse Oximetry 96 93 Oxygen Delivery Method Nasal Cannula Nasal Cannula Oxygen Flow Rate 0 2 Fraction of Inspired Oxygen 28 SaO2/FiO2 Ratio 357 Oxygen Delivery Method Nasal Cannula Oxygen Flow Rate 2 Narrative Exam Narrative: GEN:? Very pleasant elderly female, Alert and oriented x3, appears fatigued HEENT:? Normocephalic, face symmetric, NECK:? Supple, no lymphadenopathy, thyroid without enlargement or nodularity, carotids no bruits, JVD down to 4 finger breadths above the clavicle CHEST:? Respiratory excursions symmetric, fine crackles in bases with coarse expiratory breath sounds CV:? Regular rate and rhythm, no murmurs, rubs, gallops, PMI nondisplaced ABD:? Soft, nontender, mildly distended, bowel sounds present in all 4 quadrants, no organomegaly or masses appreciated EXTR:? Warm, well perfused, no clubbing/cyanosis/edema SKIN:? Warm and dry, without rash NEURO:? Alert and oriented x3, nonfocal PSYCH:? Mood and affect is within normal limits, judgment and insight are appropriate Objective Labs 11/08/22 16:35 11/08/22 16:35 Labs: Laboratory Results - last 24 hr 0111/08/22 11/08/22 16:35 16:35 23:15 WBC 7.9 RBC 3.68 L Hgb 11.3 L Hct 34.3 L MCV 93.2 MCH 30.8 MCHC 33.1 RDW 15.4 H Plt Count 312 Neut % (Auto) 78.5 H Lymph % (Auto) 11.4 L [place] % (Auto) 9.5 Eos % (Auto) 0.3 L Baso % (Auto) 0.3 Neut # (Auto) 6200 Lymph # (Auto) 900 L [place] # (Auto) 700 Eos # (Auto) 0 Baso # (Auto) 0 Sodium 133 L Potassium 3.9 Chloride 97 L Carbon Dioxide 29 BUN 39 H Creatinine 1.30 H Estimated GFR 41 L BUN/Creatinine Ratio 30.0 H Glucose 94 Calcium 9.4 Total Bilirubin 0.7 AST 33 ALT 28 Alkaline Phosphatase 93 Total Protein 7.1 Albumin 3.7 Globulin 3.4 Albumin/Globulin Ratio 1.1 Urine Color Yellow Urine Appearance Cloudy Urine pH 6.0 Ur Specific [place] 1.010 Urine Protein Trace H Urine Glucose (UA) Negative Urine Ketones Negative Urine Occult Blood 1+ H Urine Nitrate Positive H Urine Bilirubin Negative Urine Urobilinogen 0.2 Ur Leukocyte Esterase 3+ H Urine RBC 1-5/hpf Urine WBC >100/hpf H Ur Squamous Epith Cells 1-5 /hpf Urine Bacteria Many (>30) H Ur Culture Indicated? Specimen cultured SARS-CoV-2 (PCR) 11/09/22 08:50 WBC RBC Hgb Hct MCV MCH MCHC RDW Plt Count Neut % (Auto) Lymph % (Auto) [place] % (Auto) Eos % (Auto) Baso % (Auto) Neut # (Auto) Lymph # (Auto) [place] # (Auto) Eos # (Auto) Baso # (Auto) Sodium Potassium Chloride Carbon Dioxide BUN Creatinine Estimated GFR BUN/Creatinine Ratio Glucose Calcium Total Bilirubin AST ALT Alkaline Phosphatase Total Protein Albumin Globulin Albumin/Globulin Ratio Urine Color Urine Appearance Urine pH Ur Specific [place] Urine Protein Urine Glucose (UA) Urine Ketones Urine Occult Blood Urine Nitrate Urine Bilirubin Urine Urobilinogen Ur Leukocyte Esterase Urine RBC Urine WBC Ur Squamous Epith Cells Urine Bacteria Ur Culture Indicated? SARS-CoV-2 (PCR) Negative [facility] Medical History Anticoagulated CKD stage G3a/A1, GFR 45-59 and albumin creatinine ratio <30 mg/g Control of atrial fibrillation with pacemaker ESBL (extended spectrum beta-lactamase) producing bacteria infection Essential hypertension Fracture of left carpal bone Fracture of superior pubic ramus GERD (gastroesophageal reflux disease) History of cervical cancer History of renal carcinoma Hyperlipidemia Hypothyroidism associated with surgical procedure Inferior pubic ramus fracture Irritable bowel syndrome Neuropathy Overactive bladder Restless leg syndrome Surgical History History of kidney removal History of thyroid surgery Family History Mother Cancer Sister Cancer Social History household members: children Smoking Status: Never smoker alcohol intake: current Discharge Plan Discharge Plan Patient Disposition: SNF Discharge orders & Medications Prescriptions: New spironolactone 25 mg tablet 25 mg PO DAILY Qty: 90 0RF amoxicillin-pot clavulanate [Augmentin] 500-125 mg Tablet 1 tab PO BID 7 Days Qty: 14 0RF Continued pantoprazole 20 mg tablet,delayed release (DR/EC) 40 mg PO BID amiodarone 200 mg tablet 200 mg PO DAILY bethanechol chloride 25 mg tablet 25 mg PO TID carvedilol 25 mg tablet 25 mg PO BID Rx Instructions: must administer with a meal/food furosemide 40 mg tablet 40 mg PO BID gabapentin 600 mg tablet 600 mg PO TID levothyroxine 112 mcg capsule 112 mcg PO DAILY dicyclomine 20 mg tablet 20 mg PO BID atorvastatin 20 mg tablet 20 mg PO QPM ropinirole 0.5 mg tablet 0.5 mg PO BEDTIME Rx Instructions: administer 1-3 hours before bedtime losartan 25 mg tablet 12.5 mg PO DAILY Rx Instructions: take half a tablet daily Eliquis 2.5 mg Tablet 2.5 mg PO BID Discontinued potassium chloride 10 mEq capsule, extended release 10 meq PO 3XD Label Comments: take 1 capsule by mouth once daily in the morning Follow up/Referrals: Lesli Lomeli PA-C [Primary Care Provider] - 2 Weeks Discharge Health Status Multidrug resistant organism: No MDRO Diet/Activity/Treatments Diet: Regular Liquid consistency: Normal/Thin Food texture: Regular Oxygen: 1-2L [place] [facility] Reason for rehabilitation: Recovery r/t decondition Rehab type: Physical therapy and Occupational therapy Visit Report/Discharge Packet Stand Alone Forms: Patient Portal/API Discharge Data Primary Care Provider: Lesli Lomeli VTE Deep Vein Thrombosis/Pulmonary Embolism Present on Admission: No
== END 2022-11-09 12:00 | DRG 291 ==
LOC: ED 16:04 → AC 18:50
PROVIDERS: Family Medicine; Nurse Practitioner Family; Student in an Organized Health Care Education/Training Program; Admitting Provider Family Medicine; Emergency Provider Emergency Medicine; PCP Physician Assistant Medical; Referring Provider Emergency Medicine; Visit Provider Family Medicine
DX: I13.0 Hypertensive heart and chronic kidney disease with heart failure and stage 1 through stage 4 chronic kidney disease, or unspecified chronic kidney disease (principal); I50.23 Acute on chronic systolic (congestive) heart failure; J96.01 Acute respiratory failure with hypoxia; N39.0 Urinary tract infection, site not specified; N18.30 Chronic kidney disease, stage 3 unspecified; E87.5 Hyperkalemia; B34.8 Other viral infections of unspecified site; I48.0 Paroxysmal atrial fibrillation; B96.1 Klebsiella pneumoniae [K. pneumoniae] as the cause of diseases classified elsewhere; K21.9 Gastro-esophageal reflux disease without esophagitis; E03.9 Hypothyroidism, unspecified; E78.5 Hyperlipidemia, unspecified; G25.81 Restless legs syndrome; Z20.822 Contact with and (suspected) exposure to COVID-19; Z95.0 Presence of cardiac pacemaker; Z79.01 Long term (current) use of anticoagulants; Z66 Do not resuscitate
CPT/HCPCS: 36415; 71045; 80048; 80053; 81001; 82550; 83605; 83690; 83735; 83880; 84145; 84443; 84484; 85025; 85610; 85730; 87040; 87077; 87086; 87186; 87633; 87635; 93005; 93306; 94618; 94640; 94667; 94760; 96365; 97162; 97166; 97530; 99284; C9803; J1940; J2930